=== PATIENT | female | born 1955 | race Caucasian/White ===

== ENCOUNTER → 2017-08-10 13:32 | Outpatient (CLI) | payer BC, SELFPAY ==
--- NOTE | 2017-08-10 13:51 | VDLE_ITS ---
Reason For Study: edema RIGHT LEFT GSV is normal. GSV is normal. CFV is compressible, spontaneous, phasic, CFV is compressible, spontaneous, phasic, competent and demonstrates normal competent, and demonstrates normal augmentation. augmentation. FV is compressible, spontaneous, phasic, FV is compressible, spontaneous, phasic, competent and demonstrates normal competent and demonstrates normal augmentation. augmentation. POP V is compressible, spontaneous, phasic, POP V is compressible, spontaneous, phasic, competent and demonstrates normal competent and demonstrates normal augmentation. augmentation. T/P Trunk is compressible. T/P Trunk is compressible. PTV is compressible. PTV is compressible. RT PerV is compressible. LT PerV is compressible. Procedure Exam performed in department. A preliminary report was called and/or faxed to DR VIGIL. Interpretation Summary Deep veins of the lower extremities are bilaterally patent and compressible segmentally. There is no evidence of deep vein thrombosis on either side. Valvular competence appears intact within the proximal deep venous systems bilaterally. The greater saphenous veins appear bilaterally patent and compressible segmentally. Ordering Physician: Gianni Vigil Referring Physician: LIZZ ALLISON Performed By: Paola Alonso, KATHLEEN, RVT
[2017-08-10 14:27] LABS: D-Dimer Quantitative (DVT/PE) 0.46 FEU/ug/m (0.27-0.49)
[2017-08-10 14:47] LABS: Erythrocyte Sedimentation Rate 19 mm/hr (0-30); Hematocrit 23.8 % (37-47); Hemoglobin 6.2 g/dl (12.0-15.0); Mean Corp Hgb Conc 26.1 g/gl (32-36); Mean Corpuscular Hgb 17.6 pg (27.0-32.0); Mean Corpuscular Volume 67.6 fL (81-99); Mean Platelet Vol. 9.2 fl (6.2-12.0); Platelet Count 338 K/mm3 (150-450); RBC Distribution Width CV 21.8 % (11.6-14.6); RBC Distribution Width SD 52.8 fl (35.1-43.9); Red Blood Count 3.52 M/mm3 (4.2-5.4)
[2017-08-10 14:48] LABS: Scan Indicated on CBC? Y/N YES- FLAGS NOTED
== END ==
PROVIDERS: Family Provider Family Medicine; PCP Family Medicine; Visit Provider Internal Medicine Pulmonary Disease
DX: R60.0 Localized edema (principal); R06.00 Dyspnea, unspecified; R60.9 Edema, unspecified; M25.50 Pain in unspecified joint
CPT/HCPCS: 36415; 85027; 85379; 85652; 93970

== ENCOUNTER → 2017-08-12 11:58 | Outpatient (CLI) | payer BC, SELFPAY | PROVIDERS: Family Provider Family Medicine; PCP Family Medicine; Visit Provider Internal Medicine Pulmonary Disease | DX: J44.9 Chronic obstructive pulmonary disease, unspecified (principal); R06.00 Dyspnea, unspecified | CPT/HCPCS: 87070; 87205 ==

== ENCOUNTER → 2017-09-02 06:57 | Outpatient (CLI) | payer BC, SELFPAY ==
--- NOTE | 2017-09-02 06:59 | ECHOCS_ITS ---
Reason For Study: SOB, AVR Procedure This was a 2D Doppler, Color Flow transthoracic echocardiogram. Exam performed in department. Left Ventricle Normal size and thickness. The estimated ejection fraction is 65 %. Stage 2 diastolic dysfunction. No regional wall motion abnormalities noted. Right Ventricle Normal size and thickness. Normal systolic function. Atria The left atrium is severely enlarged. Normal right atrium. Normal atrial septum. Mitral Valve The mitral valve is structurally normal. No prolapse or stenosis seen. Trivial mitral valve insufficiency. Tricuspid Valve Normal tricuspid valve. Trivial tricuspid valve insufficiency. Right ventricular systolic pressure estimated to be 45 mmHg. Mild pulmonary hypertension. Aortic Valve Peak aortic valve gradient 45 mmHg. Mean aortic valve gradient 23 mmHg. Bioprosthetic aortic valve. Pulmonic Valve Normal pulmonic valve. Great Vessels Normal aortic root. Normal arch. Normal inferior vena cava. Inferior vena cava collapse with sniff. Pericardium/Pleural No pericardial effusion. Medication Definity0.3ml given slow IV push to enhance endocardial definition. MMode/2D Measurements & Calculations LVIDd: 4.9 cm IVSd: 1.2 cm LVOT diam: 2.0 cm LVIDs: 2.7 cm LVPWd: 1.2 cm LVOT area: 3.1 cm2 FS: 45.0 % Ao root diam: 3.4 cm LAV(MOD-bp): 74.4 ml LA A4 area: 25.5 cm2 LA dimension: 5.0 cm LAV(MOD-bp) Indexed: 38.1 ml/m2 LAV(MOD-sp2): 65.5 ml LAV(MOD-sp4): 81.3 ml RA A4 area: 18.2 cm2 Doppler Measurements & Calculations MV E max stew: 134.4 cm/sec Lat Peak E' Stew: 9.2 cm/sec Med Peak E' Stew: 6.5 cm/sec MV A max stew: 85.1 cm/sec E/E' lat: 14.7 E/E' med: 20.6 MV E/A: 1.6 Ao V2 max: 338.2 cm/sec LV V1 max: 137.5 cm/sec SV(LVOT): 101.0 ml Ao max P.8 mmHg LV V1 max P.6 mmHg Ao V2 mean: 227.9 cm/sec LV V1 mean P.4 mmHg Ao mean P.2 mmHg LV V1 mean: 100.3 cm/sec Ao V2 VTI: 74.5 cm LV V1 VTI: 33.0 cm GAURI(I,D): 1.4 cm2 GARUI(V,D): 1.2 cm2 PA V2 max: 128.1 cm/sec TR max stew: 306.3 cm/sec TR max P.6 mmHg Interpretation Summary The estimated ejection fraction is 65 %. Stage 2 diastolic dysfunction. The left atrium is severely enlarged. Trivial tricuspid valve insufficiency. Right ventricular systolic pressure estimated to be 45 mmHg. Mild pulmonary hypertension. Normal functioning bBioprosthetic aortic valve. AVR peak/mean gradients of 45/23 mm Hg, which are higher than normal. This may be due to anemia if present or small nature of AVR. The study was technically difficult. Contrast injection was performed. There is no comparison study available. Ordering Physician: Rafita Zhong Referring Physician: Rafita Zhong V Performed By: Beata Diane RDCS
--- NOTE | 2017-09-02 10:28 | STRESSREP ---
Stress Test Report Pharmacologic myocardial perfusion stress test. 62-year-old lady with a history of shortness of breath. Medications Ecotrin Xanax amlodipine atorvastatin and metoprolol. Stress protocol Resting EKG demonstrates normal sinus rhythm with a rate of 77 bpm. Normal intervals and noted resting blood pressure 730/80 mmHg. 0.4 mg of regadenoson was infused per usual protocol followed by rapid intravenous saline flush injection. The maximum heart rate attained was 88 bpm which was 55% maximum predicted heart rate maximum workload was 1 metabolic equivalent. At rest there were no ST or T-wave changes noted suggest abnormal flow reserve at peak infusion no ST or T-wave changes were noted suggest abnormal flow reserve. Resting blood pressure is 130/80 mmHg with a final blood pressure 112/62 mmHg. Myocardial perfusion protocol. 0.9 mCi of technetium 99m sestamibi was injected at rest. 0.4 mg regadenoson was infused per usual protocol. Peak infusion 34.1 mCi of technetium 99m sestamibi was injected stress images were obtained stress and rest images were reconstructed and compared in the short axis vertical and horizontal long axis. Gated images were also obtained. Perfusion SPECT analysis:. Review of the stress images demonstrate normal uptake of tracer noted in all areas myocardium except for small portion of the apex with mild reduction. The resting images demonstrate a similar patent. No previous infarct is noted no ischemia is present. Gated SPECT analysis: The gated ejection fraction is noted to be 70%. Conclusion: Normal pharmacologic myocardial perfusion stress test. Preserved ejection fraction.
== END ==
PROVIDERS: Family Provider Family Medicine; PCP Family Medicine; Visit Provider Internal Medicine Cardiovascular Disease
DX: R06.02 Shortness of breath (principal); Z95.2 Presence of prosthetic heart valve
CPT/HCPCS: 78452; 93017; 93306; A9500; Q9957; A4216; C8929; J2785

== ENCOUNTER → 2017-09-04 11:43 | Outpatient (CLI) | payer BC, SELFPAY ==
[2017-09-04 13:03] LABS: Hemoglobin 5.9 g/dl (12.0-15.0); Mean Corp Hgb Conc 25.7 g/gl (32-36); Mean Corpuscular Volume 66.3 fL (81-99); Mean Platelet Vol. 9.8 fl (6.2-12.0); Platelet Count 403 K/mm3 (150-450); RBC Distribution Width CV 20.9 % (11.6-14.6); RBC Distribution Width SD 50.6 fl (35.1-43.9); Red Blood Count 3.47 M/mm3 (4.2-5.4); White Blood Count 5.8 K/mm3 (4.4-11.0)
[2017-09-04 13:04] LABS: Scan Indicated on CBC? Y/N YES- FLAGS NOTED
[2017-09-04 13:22] LABS: Anion Gap 8 (5-15); BUN 20 mg/dL (7-18); BUN/Creat Ratio 32.9 RATIO (10-20); Calcium,Total 8.9 mg/dL (8.5-10.1); Chloride 106 mmol/L (98-107); Creatinine, Serum 0.61 mg/dL (0.55-1.02); EST Glomerular Filtration Rate 106 mL/min (>60); Est Glom Filt Rate - Afr Amer 129 mL/min (>60); Glucose 105 mg/dL (74-106); Potassium 4.1 mmol/L (3.5-5.1); Sodium Level 141 mmol/L (136-145)
[2017-09-07 11:18] LABS: Pathologist Review Reviewed
== END ==
PROVIDERS: Family Provider Family Medicine; PCP Family Medicine; Visit Provider Physician Assistant Medical
DX: I25.10 Atherosclerotic heart disease of native coronary artery without angina pectoris (principal); I50.32 Chronic diastolic (congestive) heart failure; I35.0 Nonrheumatic aortic (valve) stenosis; Z95.1 Presence of aortocoronary bypass graft
CPT/HCPCS: 36415; 80048; 85027

== ENCOUNTER 2017-09-07 13:00 | Observation (INO) | payer BC, SELFPAY ==
[2017-09-07] VITALS (20 sets, daily range): BP systolic 88–163; BP diastolic 48–95; PULSE 58–79; RESP 18–24; TEMP 36.2–37.2; O2SAT 94–100; BMI 36.0; BMI 36.3
[2017-09-07 13:40] LABS: Hematocrit 21.9 % (37-47); Mean Corpuscular Hgb 17.6 pg (27.0-32.0); Mean Corpuscular Volume 67.6 fL (81-99); Mean Platelet Vol. 10.2 fl (6.2-12.0); Platelet Count 359 K/mm3 (150-450); RBC Distribution Width CV 21.8 % (11.6-14.6); Red Blood Count 3.24 M/mm3 (4.2-5.4); White Blood Count 5.4 K/mm3 (4.4-11.0)
--- NOTE | 2017-09-07 13:42 | ED.RN ---
notified Dr. Peterson of b 5.7
[2017-09-07 13:44] LABS: Hemoglobin 5.7 g/dl (12.0-15.0); Scan Indicated on CBC? Y/N YES- FLAGS NOTED
[2017-09-07 13:46] LABS: International Normalized Ratio 1.1; Prothrombin Time (Protime)PT. 14.5 SECONDS (11.7-14.9)
[2017-09-07 13:47] LABS: Partial Thromboplast Time 29.5 Seconds (24.1-36.2)
[2017-09-07 13:50] LABS: Anion Gap 7 (5-15); BUN 10 mg/dL (7-18); BUN/Creat Ratio 15.7 RATIO (10-20); Calcium,Total 8.9 mg/dL (8.5-10.1); Chloride 106 mmol/L (98-107); Creatinine, Serum 0.64 mg/dL (0.55-1.02); EST Glomerular Filtration Rate 101 mL/min (>60); Est Glom Filt Rate - Afr Amer 122 mL/min (>60); Estimated Creatinine Clearance 76.36 ml/min; Glucose 109 mg/dL (74-106); Potassium 4.2 mmol/L (3.5-5.1); Sodium Level 140 mmol/L (136-145)
--- NOTE | 2017-09-07 13:51 | EKG12_ITS ---
Test Reason : Blood Pressure : / mmHG Vent. Rate : 061 BPM Atrial Rate : 061 BPM P-R Int : 162 ms QRS Dur : 096 ms QT Int : 442 ms P-R-T Axes : 024 030 059 degrees QTc Int : 444 ms Normal sinus rhythm Normal ECG Confirmed by MURIEL FERRER ([id number]), continuity editor ORIN BACON ([id number]) on 09/10/2017 2:34:10 PM Referred By: Maria De Jesus Flynn Confirmed By:MURIEL FERRER
[2017-09-07 14:08] LABS: Differential Comment SCANNED
--- NOTE | 2017-09-07 14:18 | ED.DCSUM_ITS ---
- ER Visit Summary Date of Service: 09/07/17 Chief Complaint: Anemia History of Present Illness: The patient is a [address] Byrne off. She reports that she had outpatient blood work on the showed hemoglobin of 5.9. She denies any known blood loss. No bloody nose or injuries. No blood in her urine. She has had this multiple times in the past they have not been able to find a source. Last colonoscopy was a few months ago by Dr. Willson. Last endoscopy was April 2016. On review of systems patient reports that she is short of breath when she walks around. She reports that she has chest pain occasionally as well. Last episode was yesterday. Last approximately 1 minute while she was at rest. States was 4 out of 10 at worst. She describes pain as sharp. Physical Examination: Vitals: Stable. Afebrile. General: Well-nourished and well-developed. Head: Normocephalic atraumatic. Neck: Supple, no lymphadenopathy. No JVD. Nontender. Cardiovascular: Regular rate and rhythm. No murmurs. Respiratory: No respiratory distress. Clear to auscultation bilaterally. Abdominal: Soft, nontender, nondistended, normal bowel sounds. No guarding, rebound, or peritoneal signs. Back: Nontender. Extremities: Nontender, 1+ pitting edema to her lower extremities bilaterally. Skin: Normal color, no rash. Neurologic: Alert and oriented ?3. Cranial nerves II through XII are intact. Normal strength and sensation. Psych: Normal affect. Test Results: EKG is sinus at [address] changes. Troponins negative. Coags are normal. Chem-7 is more for glucose 109. CBC shows a hemoglobin of 5.7. Emergency Department Course and Treatment: Orthostatic vital signs were negative. She was typed and crossed for 2 units packed red blood cells. Treatment Plan: The patient was discussed with Dr. Sweet. She will be admitted to the hospital for further evaluation and treatment. Disposition: Admitted in stable condition. Impression: 1. Anemia. This note was generated with [employer] software. It may contain incorrect words, spelling, and punctuation that were not noted in review of the chart prior to signing ED Disposition - Plan for ED Patient: Chief Complaint: Abn Labs Referrals: Caleb Mason MD [Primary Care Provider] -
--- NOTE | 2017-09-07 14:50 | PCM.HP.STD ---
Problem List (1) Anemia Status: Acute (2) CAD (coronary artery disease) Status: Chronic Qualifiers: Coronary Disease-Associated Artery/Lesion type: bypass graft [place] vs. transplanted heart: [place] heart Associated angina: with stable angina Qualified Code(s): I25.708 - Atherosclerosis of coronary artery bypass graft(s), unspecified, with other forms of angina pectoris (3) COPD (chronic obstructive pulmonary disease) Status: Chronic Qualifiers: COPD type: unspecified COPD Qualified Code(s): J44.9 - Chronic obstructive pulmonary disease, unspecified (4) Chronic respiratory failure Status: Acute Qualifiers: Respiratory failure complication: hypoxia Qualified Code(s): J96.11 - Chronic respiratory failure with hypoxia (5) History of prosthetic aortic valve replacement Status: Chronic Comment: 21mm [facility] Trifecta (6) Chronic diastolic heart failure Status: Chronic (7) Pulmonary hypertension, secondary Status: Chronic (8) Angina pectoris Status: Chronic (9) Hypertension, benign Status: Chronic History of Present Illness Date of Admission: 09/07/17 Chief Complaint: anemia The patient is a 62 year old F with a known history of coronary artery disease and COPD resents with dyspnea on exertion and stable angina. Patient had a hemoglobin checked through her telephone order dispatcher, Dr. Benton, and was done on August 10, it was 6.2. Patient states that she was never told of these numbers. Patient had lab work on the that showed hemoglobin of 5.9. Patient was made aware of the hemoglobin instructed go to the emergency room. Hemoglobin today is 5.7. Patient has been typed and crossed for 2 units and is yet to receive her red blood cells at this time. Patient denies any hematuria, hematochezia, bruising. Colonoscopy in January that was negative. EGD performed in July 2015 was negative as well. [] Past Medical History Past Medical History (Chronic Problems): Chronic Problems (Last Reviewed 08/05/17 @ 16:06 by Maria De Jesus Desouza) CAD (coronary artery disease) (Chronic) COPD (chronic obstructive pulmonary disease) (Chronic) Aortocoronary bypass status (Chronic ~06/05/16) CABG x1 ANDRES to LAD 06/05/16 History of prosthetic aortic valve replacement (Chronic ~06/05/16) 21mm [facility] Trifecta Chronic diastolic heart failure (Chronic) Pulmonary hypertension, secondary (Chronic) Cardiomegaly (Chronic) Nonrheumatic aortic (valve) stenosis (Chronic) Atherosclerotic heart disease of [place] coronary artery without angina pectoris (Chronic) CABG x3- ANDRES to LAD, SVG to ramus branch of CFX, SVG to RCA 07/03 Angina pectoris (Chronic) Hypertension, benign (Chronic) Allergies ibuprofen Allergy (Verified 09/07/17 13:04) Hives adhesive tape Adverse Reaction (Unknown, Verified 09/07/17 13:04) Unknown Home Medications: Ambulatory Orders Medication Instructions Recorded ALPRAZolam [Xanax] 0.5 mg PO TID PRN PRN 06/19/14 Calcium Citrate/Vitamin D3 [Hm 1 ea PO DAILY 06/19/14 Calcium Citrate-Vit D3 Tab] Fluoxetine [Prozac] 40 mg PO DAILY 06/19/14 Pantoprazole Sodium [Protonix] 40 mg PO DAILY 06/19/14 Acetaminophen [Tylenol] 325 mg PO ACHS & 0200 PRN 07/17/16 metformin 500 mg tablet 500 mg PO DAILY tab 08/03/17 levothyroxine 175 mcg tablet 175 mcg PO MOTUWETHFRSA tab 08/05/17 Amlodipine Besylate [Norvasc] 5 mg PO DAILY 09/07/17 Atorvastatin Calcium [Lipitor] 40 mg PO QHS 09/07/17 Ferrous Sulfate 325 mg PO DAILY 09/07/17 Levothyroxine [Synthroid] 1.5 tab PO PATRICK 09/07/17 Metoprolol Tartrate [Lopressor 12.5 mg PO BID 09/07/17 (beta gerardo)] Mv-Mn/Folic Acid/Calcium/Vit K 1 each PO DAILY 09/07/17 [Women's 50 Plus Daily Formula] Surgical History: coronary bypass surgery - x1 at [facility], total hip arthroplasty - left hip., - - Thyroidectomy removal of laryngeal nodule, . Carpal tunnel surg right hand. 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 Thyroidectomy. Right heel spur removed. Aortic valve replacements, bioprosthetic. Smoking Status: Former smoker - *Family History Maternal History Items: - - colon cancer Review of Systems Constitutional: Denies: Anorexia, Fever Eyes: Denies: Blurred vision, Double vision HEENT: Denies: Head Aches, Sinus Congestion, Sinus Drainage Cardiovascular: Reports: Chest Pain Respiratory: Reports: Cough, Shortness of Breath, Shortness of breath upon exertion Gastrointestinal: Denies: Abdominal Pain, Nausea, Vomiting Genitourinary: Denies: Dysuria, Hematuria Musculoskeletal: Denies: Joint Pain, Joint Tenderness Skin: Denies: Rash, Wounds Neurological: Denies: Balance problems, Blurred vision, Double vision Psychiatric: Reports: Anxiety, Depression Hematologic/ Lymphatic: Denies: Easy Bruising, Easy Bleeding, Hx of blood clot VTE Information - Inpt Only VTE Present on Admission: No VTE Mechan Device Prophylaxis: SCD's VTE Pharm Prophylaxis ordered?: No Reason prophylaxis not ordered:: Medical Contraindication Patient Problems: Active and Suspected Problems (Last Reviewed 08/05/17 @ 16:06 by Maria De Jesus Desouza) Anemia (Acute) Chronic respiratory failure (Acute) - Physical Exam General: Alert, Cooperative, No apparent distress HEENT: Atraumatic, Normocephalic Neck: No Nodes, Thyroid Normal Size and Texture Lungs: Clear to auscultation, Normal air movement, No rhonchi, No wheeze Cardiovascular: Regular rate, Regular Rhythm, Normal S1, Normal S2, - - Aortic valve murmur Abdomen: Bowel Sounds Present, Soft, Non Tender Extremities: No edema, No Calf Tenderness Skin: No rashes, No breakdown Musculoskeletal: No Tenderness to Palpation of Joints or Extremities, No Muscle Wasting Neurological: - - no clonus. +1 out of 4 DTRs in lower extremity. Psych/Mental Status: Normal Affect, Appropriate Vital Signs Temp Pulse Resp BP Pulse Ox 36.8 C 63 19 H 106/66 97 09/07/17 14:15 09/07/17 14:15 09/07/17 14:15 09/07/17 14:15 09/07/17 14:15 Oxygen Flow Rate (L/min) 3 Oxygen Delivery Method Room Air Weight: 92.3 kg Body Mass Index (BMI) 36.0 Laboratory Tests Past 24 Hrs 09/07/17 09/07/17 09/07/17 13:28 13:28 13:28 WBC 5.4 RBC 3.24 L Hgb 5.7 L* Hct 21.9 L MCV 67.6 L MCH 17.6 L MCHC 26.0 L RDW 21.8 H RDW Differential 50.0 H Plt Count 359 MPV 10.2 Differential Comment SCANNED PT 14.5 INR 1.1 APTT 29.5 Sodium 140 Potassium 4.2 Chloride 106 Carbon Dioxide 27.0 Anion Gap 7 BUN 10 Creatinine 0.64 Estim Creat Clear Calc 76.36 Est GFR (MDRD) Af Amer 122 Est GFR (MDRD) Non-Af 101 BUN/Creatinine Ratio 15.7 Glucose 109 H Calcium 8.9 Troponin I Blood Type Antibody Screen Crossmatch 09/07/17 09/07/17 13:28 13:28 WBC RBC Hgb Hct MCV MCH MCHC RDW RDW Differential Plt Count MPV Differential Comment PT INR APTT Sodium Potassium Chloride Carbon Dioxide Anion Gap BUN Creatinine Estim Creat Clear Calc Est GFR (MDRD) Af Amer Est GFR (MDRD) Non-Af BUN/Creatinine Ratio Glucose Calcium Troponin I < 0.02 Blood Type O POSITIVE Antibody Screen NEGATIVE Crossmatch See Detail Assessment/Plan Active and Suspected Problems (Last Reviewed 08/05/17 @ 16:06 by Maria De Jesus Desouza) Anemia (Acute) Chronic respiratory failure (Acute) 1. Anemia Is been more of a chronic process. Patient's hemoglobin was 6.2 a month ago and now it is 5.7. This is more of a chronic/subacute blood loss. Patient will be transfused 2 units of packed red blood cells. Patient will be admitted so that she can receive these transfusions. And has had workup in the past with EGD and colonoscopy, which have both been negative. Recommend patient follow-up with Dr. Willson as outpatient to see if she would be a candidate for capsule endoscopy. I did mention this to the patient and told her that it may be helpful in identifying a potential source of bleeding but likely could not do anything about that. Upon discharge, I would recommend patient have serial hemoglobins every 2 weeks until they can be sure to be stable. And probably would recommend it being done monthly thereafter. 2. Chest pain Patient does have underlying coronary artery disease and has been taken off of her aspirin as of this past Thursday. Patient did have a stress test performed on September 02 which was negative. No new workup is necessary at this time. 3. Dyspnea on exertion likely multifactorial, but given patient's Chronic respiratory failure due to COPD and what looks like some pulmonary scarring plus or coronary artery disease and anemia. Patient continue with oxygen and to follow-up with her telephone order dispatcher as outpatient. 4. DVT prophylaxis SCDs, as chemical prophylaxis is contraindicated with the patient's anemia. 5. Advanced care planning Discussed with the patient about CPR. Patient wishes to be full code at this time. This note was generated with [employer] dictation software. It may contain incorrect words, spelling, and punctuation that were not noted in checking the note before signing. Code Visit OBSV E&M: 58423 Initial observation care L3
--- NOTE | 2017-09-07 15:04 | HP.PCM_ITS ---
Problem List (1) Anemia Status: Acute (2) CAD (coronary artery disease) Status: Chronic Qualifiers: Coronary Disease-Associated Artery/Lesion type: bypass graft [place] vs. transplanted heart: [place] heart Associated angina: with stable angina Qualified Code(s): I25.708 - Atherosclerosis of coronary artery bypass graft(s) , unspecified, with other forms of angina pectoris (3) COPD (chronic obstructive pulmonary disease) Status: Chronic Qualifiers: COPD type: unspecified COPD Qualified Code(s): J44.9 - Chronic obstructive pulmonary disease, unspecified (4) Chronic respiratory failure Status: Acute Qualifiers: Respiratory failure complication: hypoxia Qualified Code(s): J96.11 - Chronic respiratory failure with hypoxia (5) History of prosthetic aortic valve replacement Status: Chronic Comment: 21mm [facility] [place] Trifecta (6) Chronic diastolic heart failure Status: Chronic (7) Pulmonary hypertension, secondary Status: Chronic (8) Angina pectoris Status: Chronic (9) Hypertension, benign Status: Chronic History of Present Illness Date of Admission: 09/07/17 Chief Complaint: anemia The patient is a 62 year old F with a known history of coronary artery disease and COPD resents with dyspnea on exertion and stable angina. Patient had a hemoglobin checked through her ecclesiastical worker, Dr. Benton, and was done on August 10, it was 6.2. Patient states that she was never told of these numbers. Patient had lab work on the that showed hemoglobin of 5.9. Patient was made aware of the hemoglobin instructed go to the emergency room. Hemoglobin today is 5.7. Patient has been typed and crossed for 2 units and is yet to receive her red blood cells at this time. Patient denies any hematuria, hematochezia, bruising. Colonoscopy in January that was negative. EGD performed in July 2015 was negative as well. [] Past Medical History Past Medical History (Chronic Problems): Chronic Problems (Last Reviewed 08/05/17 @ 16:06 by Maria De Jesus Desouza) CAD (coronary artery disease) (Chronic) COPD (chronic obstructive pulmonary disease) (Chronic) Aortocoronary bypass status (Chronic ~06/05/16) CABG x1 ANDRES to LAD 06/05/16 History of prosthetic aortic valve replacement (Chronic ~06/05/16) 21mm [facility] [place] Trifecta Chronic diastolic heart failure (Chronic) Pulmonary hypertension, secondary (Chronic) Cardiomegaly (Chronic) Nonrheumatic aortic (valve) stenosis (Chronic) Atherosclerotic heart disease of [place] coronary artery without angina pectoris (Chronic) CABG x3- ANDRES to LAD, SVG to ramus branch of CFX, SVG to RCA 07/03 Angina pectoris (Chronic) Hypertension, benign (Chronic) Allergies ibuprofen Allergy (Verified 09/07/17 13:04) Hives adhesive tape Adverse Reaction (Unknown, Verified 09/07/17 13:04) Unknown Home Medications: Ambulatory Orders Medication Instructions Recorded ALPRAZolam [Xanax] 0.5 mg PO TID PRN PRN 06/19/14 Calcium Citrate/Vitamin D3 [Hm 1 ea PO DAILY 06/19/14 Calcium Citrate-Vit D3 Tab] Fluoxetine [Prozac] 40 mg PO DAILY 06/19/14 Pantoprazole Sodium [Protonix] 40 mg PO DAILY 06/19/14 Acetaminophen [Tylenol] 325 mg PO ACHS & 0200 PRN 07/17/16 metformin 500 mg tablet 500 mg PO DAILY tab 08/03/17 levothyroxine 175 mcg tablet 175 mcg PO MOTUWETHFRSA tab 08/05/17 Amlodipine Besylate [Norvasc] 5 mg PO DAILY 09/07/17 Atorvastatin Calcium [Lipitor] 40 mg PO QHS 09/07/17 Ferrous Sulfate 325 mg PO DAILY 09/07/17 Levothyroxine [Synthroid] 1.5 tab PO PATRICK 09/07/17 Metoprolol Tartrate [Lopressor 12.5 mg PO BID 09/07/17 (beta gerardo)] Mv-Mn/Folic Acid/Calcium/Vit K 1 each PO DAILY 09/07/17 [Women's 50 Plus Daily Formula] Surgical History: coronary bypass surgery - x1 at [facility], total hip arthroplasty - left hip., - - Thyroidectomy removal of laryngeal nodule, . Carpal tunnel surg right hand. 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 Thyroidectomy. Right heel spur removed. Aortic valve replacements, bioprosthetic. Smoking Status: Former smoker - *Family History Maternal History Items: - - colon cancer Review of Systems Constitutional: Denies: Anorexia, Fever Eyes: Denies: Blurred vision, Double vision HEENT: Denies: Head Aches, Sinus Congestion, Sinus Drainage Cardiovascular: Reports: Chest Pain Respiratory: Reports: Cough, Shortness of Breath, Shortness of breath upon exertion Gastrointestinal: Denies: Abdominal Pain, Nausea, Vomiting Genitourinary: Denies: Dysuria, Hematuria Musculoskeletal: Denies: Joint Pain, Joint Tenderness Skin: Denies: Rash, Wounds Neurological: Denies: Balance problems, Blurred vision, Double vision Psychiatric: Reports: Anxiety, Depression Hematologic/ Lymphatic: Denies: Easy Bruising, Easy Bleeding, Hx of blood clot VTE Information - Inpt Only VTE Present on Admission: No VTE Mechan Device Prophylaxis: SCD's VTE Pharm Prophylaxis ordered?: No Reason prophylaxis not ordered:: Medical Contraindication Patient Problems: Active and Suspected Problems (Last Reviewed 08/05/17 @ 16:06 by Maria De Jesus Desouza) Anemia (Acute) Chronic respiratory failure (Acute) - Physical Exam General: Alert, Cooperative, No apparent distress HEENT: Atraumatic, Normocephalic Neck: No Nodes, Thyroid Normal Size and Texture Lungs: Clear to auscultation, Normal air movement, No rhonchi, No wheeze Cardiovascular: Regular rate, Regular Rhythm, Normal S1, Normal S2, - - Aortic valve murmur Abdomen: Bowel Sounds Present, Soft, Non Tender Extremities: No edema, No Calf Tenderness Skin: No rashes, No breakdown Musculoskeletal: No Tenderness to Palpation of Joints or Extremities, No Muscle Wasting Neurological: - - no clonus. +1 out of 4 DTRs in lower extremity. Psych/Mental Status: Normal Affect, Appropriate Vital Signs Temp Pulse Resp BP Pulse Ox 36.8 C 63 19 H 106/66 97 09/07/17 14:15 09/07/17 14:15 09/07/17 14:15 09/07/17 14:15 09/07/17 14:15 Oxygen Flow Rate (L/min) 3 Oxygen Delivery Method Room Air Weight: 92.3 kg Body Mass Index (BMI) 36.0 Laboratory Tests Past 24 Hrs 09/07/17 09/07/17 09/07/17 13:28 13:28 13:28 WBC 5.4 RBC 3.24 L Hgb 5.7 L* Hct 21.9 L MCV 67.6 L MCH 17.6 L MCHC 26.0 L RDW 21.8 H RDW Differential 50.0 H Plt Count 359 MPV 10.2 Differential Comment SCANNED PT 14.5 INR 1.1 APTT 29.5 Sodium 140 Potassium 4.2 Chloride 106 Carbon Dioxide 27.0 Anion Gap 7 BUN 10 Creatinine 0.64 Estim Creat Clear Calc 76.36 Est GFR (MDRD) Af Amer 122 Est GFR (MDRD) Non-Af 101 BUN/Creatinine Ratio 15.7 Glucose 109 H Calcium 8.9 Troponin I Blood Type Antibody Screen Crossmatch 09/07/17 09/07/17 13:28 13:28 WBC RBC Hgb Hct MCV MCH MCHC RDW RDW Differential Plt Count MPV Differential Comment PT INR APTT Sodium Potassium Chloride Carbon Dioxide Anion Gap BUN Creatinine Estim Creat Clear Calc Est GFR (MDRD) Af Amer Est GFR (MDRD) Non-Af BUN/Creatinine Ratio Glucose Calcium Troponin I < 0.02 Blood Type O POSITIVE Antibody Screen NEGATIVE Crossmatch See Detail Assessment/Plan Active and Suspected Problems (Last Reviewed 08/05/17 @ 16:06 by Maria De Jesus Desouza) Anemia (Acute) Chronic respiratory failure (Acute) 1. Anemia * Is been more of a chronic process. Patient's hemoglobin was 6.2 a month ago and now it is 5.7. This is more of a chronic/subacute blood loss. * Patient will be transfused 2 units of packed red blood cells. Patient will be admitted so that she can receive these transfusions. * And has had workup in the past with EGD and colonoscopy, which have both been negative. Recommend patient follow-up with Dr. Willson as outpatient to see if she would be a candidate for capsule endoscopy. I did mention this to the patient and told her that it may be helpful in identifying a potential source of bleeding but likely could not do anything about that. * Upon discharge, I would recommend patient have serial hemoglobins every 2 weeks until they can be sure to be stable. And probably would recommend it being done monthly thereafter. 2. Chest pain * Patient does have underlying coronary artery disease and has been taken off of her aspirin as of this past Thursday. Patient did have a stress test performed on September 02 which was negative. No new workup is necessary at this time. 3. Dyspnea on exertion likely multifactorial, but given patient's * Chronic respiratory failure due to COPD and what looks like some pulmonary scarring plus or coronary artery disease and anemia. * Patient continue with oxygen and to follow-up with her ecclesiastical worker as outpatient. 4. DVT prophylaxis * SCDs, as chemical prophylaxis is contraindicated with the patient's anemia. 5. Advanced care planning * Discussed with the patient about CPR. Patient wishes to be full code at this time. This note was generated with Attenexation software. It may contain incorrect words, spelling, and punctuation that were not noted in checking the note before signing. Code Visit OBSV E&M: 14577 Initial observation care L3
[2017-09-07] MEDS: Calcium Carb/Vitamin D 1 TABLET Tablet PO (17:21)
[2017-09-07] MEDS: Acetaminophen 325 MG Tablet PO (18:54)
[2017-09-07] MEDS: Atorvastatin Calcium 40 MG Tablet PO (21:49)
[2017-09-07] MEDS: Metoprolol Tartrate 25 MG Tablet 12.5 MG PO (21:50)
[2017-09-07] MEDS: FLUoxetine 20 MG Capsule 40 MG PO (21:50)
[2017-09-08] VITALS (9 sets, daily range): BP systolic 117–133; BP diastolic 55–75; PULSE 58–67; RESP 18–24; TEMP 36.6–37.3; O2SAT 93–97
[2017-09-08] MEDS: ALPRAZolam 0.5 MG Tablet PO (02:30)
[2017-09-08] MEDS: 0.9% NaCl Peripheral Flush Adult/Peds IV ×3 (02:30→15:00)
[2017-09-08] MEDS: Levothyroxine 175 MCG Tablet PO (06:00)
[2017-09-08 06:56] LABS: Absolute Lymphocyte Count 1.07 X10^3/ul (0.83-4.51); Absolute Neutrophil Count 3.7 X10^3/uL (2.0-7.7); Basophil# 0.04 X10^3/uL; Basophil% 0.7 % (0-1); Eosinophil# 0.13 X10^3/uL; Eosinophils% 2.4 % (0-5); Hematocrit 28.3 % (37-47); Hemoglobin 7.8 g/dl (12.0-15.0); Lymphocyte # 1.07 X10^3/ul (4.0); Lymphocyte % 19.4 % (19-41); Mean Corp Hgb Conc 27.6 g/gl (32-36); Mean Corpuscular Hgb 19.5 pg (27.0-32.0); Mean Corpuscular Volume 70.8 fL (81-99); Mean Platelet Vol. 9.8 fl (6.2-12.0); Monocyte# 0.53 X10^3/uL; Monocyte% 9.6 % (0-10); Neutrophil # 3.72 X10^3/uL (2.7-7.7); Neutrophil % 67.5 % (47-70); Platelet Count 304 K/mm3 (150-450); RBC Distribution Width CV 23.4 % (11.6-14.6); RBC Distribution Width SD 59.4 fl (35.1-43.9); White Blood Count 5.5 K/mm3 (4.4-11.0)
[2017-09-08 06:57] LABS: Differential Indicated SCAN CRITERIA MET; POSITIVE COUNT NO; POSITIVE DIFFERENTIAL NO; POSITIVE MORPHOLOGY YES
[2017-09-08 07:00] LABS: Anion Gap 5 (5-15); BUN 10 mg/dL (7-18); BUN/Creat Ratio 18.2 RATIO (10-20); Calcium,Total 8.8 mg/dL (8.5-10.1); Chloride 106 mmol/L (98-107); Creatinine, Serum 0.55 mg/dL (0.55-1.02); EST Glomerular Filtration Rate 120 mL/min (>60); Est Glom Filt Rate - Afr Amer 145 mL/min (>60); Estimated Creatinine Clearance 88.86 ml/min; Glucose 105 mg/dL (74-106); Sodium Level 140 mmol/L (136-145)
[2017-09-08] MEDS: Multivitamins,Ther W-Minerals Tablet 1 TABLET PO (09:09)
[2017-09-08] MEDS: Metoprolol Tartrate 25 MG Tablet 12.5 MG PO (09:09)
[2017-09-08] MEDS: Ferrous Sulfate 325 MG Tablet PO (09:09)
[2017-09-08] MEDS: amLODIPine 5 MG Tablet PO (09:10)
[2017-09-08] MEDS: Calcium Carb/Vitamin D 1 TABLET Tablet PO (09:10)
[2017-09-08] MEDS: Pantoprazole Sodium 40 MG Tablet PO (09:11)
[2017-09-08] MEDS: FLUoxetine 20 MG Capsule 40 MG PO (09:11)
[2017-09-08 10:07] LABS: Iron 21 ug/dL (50-170); Iron Binding Capacity,Total 425 ug/dL (250-450); PERCENT IRON SATURATION 4.9 % (15.0-55.0)
[2017-09-08] MEDS: Acetaminophen 325 MG Tablet PO (11:31)
[2017-09-08 14:01] LABS: Pathologist Review Reviewed
--- NOTE | 2017-09-08 14:36 | PCM.DC ---
- Discharge Diagnoses Current Active Problems: Current Active and Chronic Problems (Last Reviewed 08/05/17 @ 16:06 by Maria De Jesus Desouza) Anemia (Acute) CAD (coronary artery disease) (Chronic) COPD (chronic obstructive pulmonary disease) (Chronic) Chronic respiratory failure (Acute) You will use the following diet at home:: No restrictions Your food should be the consistency of: Regular Your liquids should be the consistency of: Regular/Thin Discharge Activity: Return to Normal Activity Weight Bearing Status: Full weight bearing Allergies/Adverse Reactions: Allergies ibuprofen Allergy (Verified 09/07/17 13:04) Hives adhesive tape Adverse Reaction (Unknown, Verified 09/07/17 13:04) Unknown Medications to take at Discharge ALPRAZolam [Xanax] 0.5 mg PO TID PRN PRN 06/19/14 Calcium Citrate/Vitamin D3 [Hm Calcium Citrate-Vit D3 Tab] 1 ea PO DAILY 06/19/14 Fluoxetine [Prozac] 40 mg PO DAILY 06/19/14 Pantoprazole Sodium [Protonix] 40 mg PO DAILY 06/19/14 Acetaminophen [Tylenol] 325 mg PO ACHS & 0200 PRN 07/17/16 metformin 500 mg tablet 500 mg PO DAILY tab 08/03/17 levothyroxine 175 mcg tablet 175 mcg PO MOTUWETHFRSA tab 08/05/17 Amlodipine Besylate [Norvasc] 5 mg PO DAILY 09/07/17 Atorvastatin Calcium [Lipitor] 40 mg PO QHS 09/07/17 Levothyroxine [Synthroid] 1.5 tab PO PATRICK 09/07/17 Metoprolol Tartrate [Lopressor (beta gerardo)] 12.5 mg PO BID 09/07/17 Mv-Mn/Folic Acid/Calcium/Vit K [Women's 50 Plus Daily Formula] 1 each PO DAILY 09/07/17 Ferrous Sulfate 325 mg PO BID #1 tablet. 09/08/17 The following prescriptions were given: Ferrous Sulfate 325 mg PO BID #1 tablet. Primary Care Physician: Caleb Mason MD [Primary Care Provider] - Please follow up with your Primary Care Physician in: this week-CBC must be drawn on or Thursday
--- NOTE | 2017-09-10 18:34 | PCM.DC.SUM ---
Discharge Date and Diagnosis Date of Admission: 09/07/17 Date of Discharge: 09/08/17 - Primary Discharge Diagnosis #1 acute on chronic iron deficiency anemia-etiology unclear requiring blood transfusion #2 chronic obstructive pulmonary disease #3 chronic hypoxic respiratory failure - Secondary Discharge Diagnosis Chronic Problems (Last Reviewed 08/05/17 @ 16:06 by Maria De Jesus Desouza) CAD (coronary artery disease) (Chronic) COPD (chronic obstructive pulmonary disease) (Chronic) Aortocoronary bypass status (Chronic ~06/05/16) CABG x1 ANDRES to LAD 06/05/16 History of prosthetic aortic valve replacement (Chronic ~06/05/16) 21mm [facility] Trifecta Chronic diastolic heart failure (Chronic) Pulmonary hypertension, secondary (Chronic) Cardiomegaly (Chronic) Nonrheumatic aortic (valve) stenosis (Chronic) Atherosclerotic heart disease of [place] coronary artery without angina pectoris (Chronic) CABG x3- ANDRES to LAD, SVG to ramus branch of CFX, SVG to RCA 07/03 Angina pectoris (Chronic) Hypertension, benign (Chronic) Hospital Course and Treatment Operations: None Procedures: Blood transfusion Summary of Care Provided: The patient is a 62 year old F was seen in the emergency room at [facility] after being sent in by her can crimper due to a low hemoglobin of 6.2. Hemoglobin rechecked in the emergency room was 5.7. Patient had history of chronic anemia and had had blood transfusions in the past. Patient was placed in observation status on MedSurg 3, she received a total of 3 units of packed red blood cells and was given Venofer. Been worked up for this anemia before and she was advised to continue with her PCP to be considered for an outpatient capsule endoscopy, patient understood this. On 09/08/17, patient was seen and examined and felt to be in stable condition for discharge home Discharge Activity: Return to Normal Activity Weight Bearing Status: Full weight bearing Home Medications: Medications to take at Discharge ALPRAZolam [Xanax] 0.5 mg PO TID PRN PRN 06/19/14 Calcium Citrate/Vitamin D3 [Hm Calcium Citrate-Vit D3 Tab] 1 ea PO DAILY 06/19/14 Fluoxetine [Prozac] 40 mg PO DAILY 06/19/14 Pantoprazole Sodium [Protonix] 40 mg PO DAILY 06/19/14 Acetaminophen [Tylenol] 325 mg PO ACHS & 0200 PRN 07/17/16 metformin 500 mg tablet 500 mg PO DAILY tab 08/03/17 levothyroxine 175 mcg tablet 175 mcg PO MOTUWETHFRSA tab 08/05/17 Amlodipine Besylate [Norvasc] 5 mg PO DAILY 09/07/17 Atorvastatin Calcium [Lipitor] 40 mg PO QHS 09/07/17 Levothyroxine [Synthroid] 1.5 tab PO PATRICK 09/07/17 Metoprolol Tartrate [Lopressor (beta gerardo)] 12.5 mg PO BID 09/07/17 Mv-Mn/Folic Acid/Calcium/Vit K [Women's 50 Plus Daily Formula] 1 each PO DAILY 09/07/17 Ferrous Sulfate 325 mg PO BID #1 tablet. 09/08/17 Following Prescrptions Were Given to Patient: Ferrous Sulfate 325 mg PO BID #1 tablet. Primary Care Physician: Caleb Mason MD [Primary Care Provider] - Please follow up with your Primary Care Physician in: this week-CBC must be drawn on or Thursday Disposition: Home Minutes spent on discharge:: 25 Patient Condition:: Stable Medical Necessity - Tobacco Use Smoking Status: Former smoker Meaningful Use Info Meaningful Use Diagnoses (Choose all that apply): None applicable Code Visit OBSV E&M: 62079 Observation care discharge
--- NOTE | 2017-09-10 18:40 | DS.PCM_ITS ---
Discharge Date and Diagnosis Date of Admission: 09/07/17 Date of Discharge: 09/08/17 - Primary Discharge Diagnosis #1 acute on chronic iron deficiency anemia-etiology unclear requiring blood transfusion #2 chronic obstructive pulmonary disease #3 chronic hypoxic respiratory failure - Secondary Discharge Diagnosis Chronic Problems (Last Reviewed 08/05/17 @ 16:06 by Maria De Jesus Desouza) CAD (coronary artery disease) (Chronic) COPD (chronic obstructive pulmonary disease) (Chronic) Aortocoronary bypass status (Chronic ~06/05/16) CABG x1 ANDRES to LAD 06/05/16 History of prosthetic aortic valve replacement (Chronic ~06/05/16) 21mm [employer] [place] Trifecta Chronic diastolic heart failure (Chronic) Pulmonary hypertension, secondary (Chronic) Cardiomegaly (Chronic) Nonrheumatic aortic (valve) stenosis (Chronic) Atherosclerotic heart disease of [place] coronary artery without angina pectoris (Chronic) CABG x3- ANDRES to LAD, SVG to ramus branch of CFX, SVG to RCA 07/03 Angina pectoris (Chronic) Hypertension, benign (Chronic) Hospital Course and Treatment Operations: None Procedures: Blood transfusion Summary of Care Provided: The patient is a 62 year old F was seen in the emergency room at [facility] after being sent in by her rn behavioral health due to a low hemoglobin of 6.2. Hemoglobin rechecked in the emergency room was 5.7. Patient had history of chronic anemia and had had blood transfusions in the past. Patient was placed in observation status on MedSurg 3, she received a total of 3 units of packed red blood cells and was given Venofer. Been worked up for this anemia before and she was advised to continue with her PCP to be considered for an outpatient capsule endoscopy, patient understood this. On , patient was seen and examined and felt to be in stable condition for discharge home Discharge Activity: Return to Normal Activity Weight Bearing Status: Full weight bearing Home Medications: Medications to take at Discharge ALPRAZolam [Xanax] 0.5 mg PO TID PRN PRN 06/19/14 Calcium Citrate/Vitamin D3 [Hm Calcium Citrate-Vit D3 Tab] 1 ea PO DAILY Fluoxetine [Prozac] 40 mg PO DAILY 06/19/14 Pantoprazole Sodium [Protonix] 40 mg PO DAILY 06/19/14 Acetaminophen [Tylenol] 325 mg PO ACHS & 0200 PRN 07/17/16 metformin 500 mg tablet 500 mg PO DAILY tab 08/03/17 levothyroxine 175 mcg tablet 175 mcg PO MOTUWETHFRSA tab 08/05/17 Amlodipine Besylate [Norvasc] 5 mg PO DAILY 09/07/17 Atorvastatin Calcium [Lipitor] 40 mg PO QHS 09/07/17 Levothyroxine [Synthroid] 1.5 tab PO PATRICK 09/07/17 Metoprolol Tartrate [Lopressor (beta gerardo)] 12.5 mg PO BID 09/07/17 Mv-Mn/Folic Acid/Calcium/Vit K [Women's 50 Plus Daily Formula] 1 each PO DAILY 09/07/17 Ferrous Sulfate 325 mg PO BID #1 tablet. 09/08/17 Following Prescrptions Were Given to Patient: Ferrous Sulfate 325 mg PO BID #1 tablet. Primary Care Physician: Caleb Mason MD [Primary Care Provider] - Please follow up with your Primary Care Physician in: this week-CBC must be drawn on or Thursday Disposition: Home Minutes spent on discharge:: 25 Patient Condition:: Stable Medical Necessity - Tobacco Use Smoking Status: Former smoker Meaningful Use Info Meaningful Use Diagnoses (Choose all that apply): None applicable Code Visit OBSV E&M: 04092 Observation care discharge
== END 2017-09-08 15:58 | disposition home or self-care (01) ==
LOC: ED 14:30 → MS3 15:07
PROVIDERS: Family Medicine; Emergency Provider Emergency Medicine; Family Provider Family Medicine; PCP Family Medicine; Visit Provider Internal Medicine
DX: D50.9 Iron deficiency anemia, unspecified (principal); J96.11 Chronic respiratory failure with hypoxia; J44.9 Chronic obstructive pulmonary disease, unspecified; I25.10 Atherosclerotic heart disease of native coronary artery without angina pectoris; I11.0 Hypertensive heart disease with heart failure; I50.32 Chronic diastolic (congestive) heart failure; I27.20 Pulmonary hypertension, unspecified; R07.9 Chest pain, unspecified; Z95.1 Presence of aortocoronary bypass graft; Z79.899 Other long term (current) drug therapy; Z95.2 Presence of prosthetic heart valve; Z79.84 Long term (current) use of oral hypoglycemic drugs; Z87.891 Personal history of nicotine dependence; Z85.528 Personal history of other malignant neoplasm of kidney; E03.9 Hypothyroidism, unspecified
CPT/HCPCS: 36415; 36430; 80048; 83540; 83550; 84484; 85025; 85027; 85610; 85730; 86850; 86900; 86920; 86922; 93005; 94660; 96365; 99218; 99284; J1756; P9016; A4216; G0378

== ENCOUNTER → 2017-12-04 10:19 | Outpatient (CLI) | payer BC, SELFPAY ==
[2017-12-04 11:27] LABS: Thyroid Stim Hormone (TSH) 1.54 uIU/mL (0.358-3.74)
== END ==
PROVIDERS: Family Provider Family Medicine; PCP Family Medicine; Visit Provider Family Medicine
DX: E03.9 Hypothyroidism, unspecified (principal)
CPT/HCPCS: 36415; 84443

== ENCOUNTER → 2017-12-22 12:32 | Outpatient (CLI) | payer BC, SELFPAY ==
[2017-12-22 13:59] LABS: Hematocrit 40.1 % (37-47); Hemoglobin 13.6 g/dl (12.0-15.0); Mean Corp Hgb Conc 33.9 g/gl (32-36); Mean Corpuscular Hgb 33.6 pg (27.0-32.0); Mean Platelet Vol. 10.2 fl (6.2-12.0); Platelet Count 259 K/mm3 (150-450); RBC Distribution Width CV 14.2 % (11.6-14.6); RBC Distribution Width SD 50.4 fl (35.1-43.9); Red Blood Count 4.05 M/mm3 (4.2-5.4); Scan Indicated on CBC? Y/N NO; White Blood Count 5.8 K/mm3 (4.4-11.0)
== END ==
PROVIDERS: Family Provider Family Medicine; PCP Family Medicine; Visit Provider Family Medicine
DX: D64.9 Anemia, unspecified (principal)
CPT/HCPCS: 36415; 85027

== ENCOUNTER 2018-06-13 04:08 | Inpatient (IN) | payer BC, MEDICARE, SELFPAY ==
[2018-06-13] VITALS (28 sets, daily range): BP systolic 101–155; BP diastolic 49–90; PULSE 62–128; RESP 16–28; TEMP 36.4–37.7; O2SAT 83–96; BMI 39.4; BMI 41.0
--- NOTE | 2018-06-13 04:23 | CT_ITS ---
STUDY: CT ABDOMEN AND PELVIS WITHOUT CONTRAST REASON FOR EXAM: Female, 63 years old. Fever, nausea. RADIATION DOSAGE (If Supplied By Facility): CTDIvol = ( 23.04 ) mGy, DLP = ( 1059.13 ) mGycm TECHNIQUE: Transaxial images were obtained from the dome of the diaphragm to the symphysis pubis without oral contrast, and without intravenous contrast. Sagittal and coronal images were reconstructed. Individualized dose optimization techniques were used for this CT. COMPARISON: September 05, 2016. January 15, 2015. FINDINGS: The visualized lung bases are unremarkable. The visualized portions of the heart are within normal limits. There is decreased attenuation of the liver consistent with steatosis. Previously noted 1.7 cm low-attenuation lesion medial aspect posterior segment right lobe of the liver not appreciated without intravenous contrast. Normal gallbladder and extrahepatic biliary system. Normal spleen. Normal pancreas. Normal bilateral adrenal glands. Mild right hydronephrosis with perinephric stranding. An obstructing stone is not visualized. Possible postsurgical change mid pole right kidney. 1 cm exophytic cyst which is probably simple superior pole left kidney. Coarse calcifications periphery superior pole right kidney. Normal visualized stomach. Normal small intestine. Sigmoid diverticulosis. The appendix is well visualized and appears normal. There is diffuse atherosclerotic calcification of the abdominal aorta, without a demonstrated aneurysm. Normal inferior vena cava. Normal retroperitoneum. Normal urinary bladder. Uterus is grossly normal. No adnexal masses seen. Normal abdominal wall. Total left hip arthroplasty in normal alignment. L5-S1 vacuum disc. CT/Abdomen/Pelvis without Cont IMPRESSION: Mild right hydronephrosis with perinephric stranding without evidence of obstructing stone. Considerations include a recently passed stone, ureteral thrombus or a mass. Consider urology consult. Right colon is grossly normal. Normal appendix. Fatty liver. Left renal cyst. Focal coarse peripheral calcifications which may be related to prior infection, surgery or trauma. Sigmoid diverticulosis. Previously noted low-attenuation lesion right lobe of the liver not visualized on this study performed without intravenous contrast. This lesion can be followed with ultrasound as clinically warranted. Electronically Signed: Roman Ash MD at 6:07 EST , Service support ,
--- NOTE | 2018-06-13 04:23 | RAD_ITS ---
STUDY: X-RAY CHEST REASON FOR EXAM: Female, 63 years old. Fever. TECHNIQUE: PA and lateral chest. COMPARISON: January 19, 2017. CT chest July 06, 2017. FINDINGS: The lungs are clear and expanded. There is no demonstrated pleural abnormality. Minimal linear scarring or subsegmental atelectasis at both lung bases. Sternal wires are present. Normal size heart. Normal mediastinum and [place]. Normal visualized pulmonary arteries. There is atherosclerotic calcification of the aortic arch. Normal visualized thoracic spine. Normal visualized ribs, clavicles, and shoulders. There is no demonstrated abnormality of the visualized soft tissue structures of the upper abdomen. RAD/Chest PA and Lateral IMPRESSION: No acute cardiopulmonary disease. Electronically Signed: Roman Ash MD at 6:10 EST , Service support ,
[2018-06-13] MEDS: Ondansetron 4 MG/2 ML Vial IV (04:38)
[2018-06-13] MEDS: 0.9% Normal Saline 1,000 ML 1000 ML IV (04:38)
[2018-06-13] MEDS: Morphine 4 MG/ML Syringe IV ×2 (04:38→07:35)
[2018-06-13 04:50] LABS: Absolute Lymphocyte Count 0.34 X10^3/ul (0.83-4.51); Absolute Neutrophil Count 3.5 X10^3/uL (2.0-7.7); Basophil# 0.01 X10^3/uL; Basophil% 0.2 % (0-1); Differential Indicated SCAN CRITERIA MET; Eosinophil# 0.02 X10^3/uL; Eosinophils% 0.5 % (0-5); Hematocrit 39.1 % (37-47); Hemoglobin 13.2 g/dl (12.0-15.0); Lymphocyte # 0.34 X10^3/ul (4.0); Lymphocyte % 8.3 % (19-41); Mean Corp Hgb Conc 33.8 g/gl (32-36); Mean Corpuscular Hgb 33.2 pg (27.0-32.0); Mean Corpuscular Volume 98.2 fL (81-99); Mean Platelet Vol. 9.9 fl (6.2-12.0); Monocyte# 0.22 X10^3/uL; Monocyte% 5.4 % (0-10); Neutrophil % 85.4 % (47-70); POSITIVE COUNT NO; POSITIVE DIFFERENTIAL YES; POSITIVE MORPHOLOGY NO; Platelet Count 156 K/mm3 (150-450); RBC Distribution Width CV 13.8 % (11.6-14.6); RBC Distribution Width SD 49.3 fl (35.1-43.9); Red Blood Count 3.98 M/mm3 (4.2-5.4); White Blood Count 4.1 K/mm3 (4.4-11.0)
[2018-06-13] MEDS: Ipratropium/Albuterol Sulfate 3 ML AMPUL.NEB INHALATION ×3 (04:52→19:31)
--- NOTE | 2018-06-13 04:54 | CPS ---
PER PT SHE WEARS 2L OXYGEN AT HOME. SHE ALSO STATES SHE WEARS CPAP [id number] WITH 2L BLED IN HS AT HOME.
[2018-06-13 05:08] LABS: ALB/GLOB Ratio 0.7 RATIO (0.9-2.4); AST(SGOT) 70 U/L (15-37); Alanine Aminotransfer ALT/SGPT 60 U/L (13-56); Albumin, Serum 3.2 g/dL (3.2-5.0); Alkaline Phosphatase 127 U/L (45-117); Anion Gap 13 (5-15); BUN 14 mg/dL (7-18); BUN/Creat Ratio 15.3 RATIO (10-20); Calcium,Total 8.9 mg/dL (8.5-10.1); Chloride 99 mmol/L (98-107); Creatinine, Serum 0.92 mg/dL (0.55-1.02); EST Glomerular Filtration Rate 66 mL/min (>60); Est Glom Filt Rate - Afr Amer 80 mL/min (>60); Estimated Creatinine Clearance 52.45 ml/min; Globulin 4.9 g/dL (2.2-4.2); Glucose 159 mg/dL (74-106); Lipase 52 U/L (73-393); Potassium 4.5 mmol/L (3.5-5.1); Protein, Total 8.1 g/dL (6.4-8.2); Sodium Level 138 mmol/L (136-145)
--- NOTE | 2018-06-13 05:48 | ED.VISSUMM ---
- ER Visit Summary Date of Service: 06/13/18 Chief Complaint: Fever History of Present Illness: The patient is a [address] Chavez arnett and Dr. Zhong. Patient reports that she has a fever that began 2 days ago. She has had chills and cold sweats. She reports she has somewhat a cough. She also has shortness of breath. Patient reports that she has had diffuse abdominal pain for the past 2 days. She is been nauseated. She has not vomited or had diarrhea. No dysuria or frequency. She reports she has a headache is 7-10 severity. She does have a history of similar headaches. She also complains of generalized weakness. Of note the patient had a colonoscopy and endoscopy at the [facility] on June 08. Physical Examination: Vitals: 99.8, 155/90, 125, 22, 87% on room air which is hypoxic. However, patient is supposed to be on 2 L of oxygen at home. General: Well-nourished and well-developed. Head: Normocephalic atraumatic. Neck: Supple, no lymphadenopathy. No JVD. Nontender. Cardiovascular: Tachycardic regular rhythm. No murmurs. Respiratory: No respiratory distress. Mild wheezing bilaterally with good air movement. Abdominal: Soft, mild diffuse tenderness palpation, distended, hypoactive bowel sounds. No guarding, rebound, or peritoneal signs. Back: Nontender. Extremities: Nontender, no edema. Skin: Normal color, no rash. Neurologic: Alert and oriented ?3. Cranial nerves II through XII are intact. Normal strength and sensation. Psych: Normal affect. Test Results: CBC is remarkable for a white count of 4.1 with 85 segmented neutrophils and 8 lymphocytes. Chem-7 is more for glucose 159. LFTs marked for total bili of 1.3, alk phos of 127, ALT of 60, AST of 70, globulin of 4.9. Lipase is 52. Urinalysis returned and shows greater than 100 white blood cells, 1+ bacteria, nitrites, and blood. Influenza was negative. Clinical Impression(s) from Imaging Studies Abdomen/Pelvis CT 06/13/18 04:23 IMPRESSION: Mild right hydronephrosis with perinephric stranding without evidence of obstructing stone. Considerations include a recently passed stone, ureteral thrombus or a mass. Consider urology consult. Right colon is grossly normal. Normal appendix. Fatty liver. Left renal cyst. Focal coarse peripheral calcifications which may be related to prior infection, surgery or trauma. Sigmoid diverticulosis. Previously noted low-attenuation lesion right lobe of the liver not visualized on this study performed without intravenous contrast. This lesion can be followed with ultrasound as clinically warranted. Electronically Signed: Roman Ash MD at 6:07 EST , Service support , Chest X-Ray 06/13/18 04:23 IMPRESSION: No acute cardiopulmonary disease. Electronically Signed: Roman Ash MD at 6:10 EST , Service support , Emergency Department Course and Treatment: Patient had an IV placed. She was given a liter of normal saline. She was given albuterol Atrovent aerosols. She was given morphine, Zofran, and Solu-Medrol IV. I reviewed the patient's prior urine cultures and it showed that she had ESBL E. coli in her urine August 2016. Because of this she was given meropenem IV. She was given 2 L of normal saline. Treatment Plan: Patient was discussed with the hospitalist she will be admitted for further evaluation and treatment. Disposition: Admitted in serious condition. Impression: 1. Pyelonephritis. 2. Sepsis. This note was generated with [email or web address] dictation software. It may contain incorrect words, spelling, and punctuation that were not noted in review of the chart prior to signing ED Disposition - Plan for ED Patient: Chief Complaint: Nausea/Vomiting Referrals: Caleb Mason MD [Primary Care Provider] -
--- NOTE | 2018-06-13 05:49 | ED.RN ---
Called about lactic acid, Shawn from lab stating he just started running it at 0545. labs were drawn at 0420.
[2018-06-13] MEDS: MethylPREDNISolone 125 MG/2 ML Vial IV (05:59)
[2018-06-13 06:03] LABS: Lactic Acid 2.3 mmol/L (0.4-2.0)
--- NOTE | 2018-06-13 06:03 | ED.RN ---
DR KOROMA AWARE OF LACTIC ACID OF 2.3.
[2018-06-13 06:34] LABS: Red Blood Cells-Urine 0 SEEN /hpf (0-5); Squamous Epithelial Cells - UA 0 SEEN /hpf (5-10)
[2018-06-13] MEDS: 0.9% Normal Saline 1,000 ML 999 ML IV ×2 (06:53→08:05)
[2018-06-13 07:00] LABS: Color, Urine Yellow (Yellow); Glucose, Dipstick Normal (Normal); Ketone-Dipstick Negative (Negative); Leukocyte Esterase-Dipstick 500 /ul (Negative); Nitrite-Dipstick Positive (Negative); Occult Blood-Urine 250 /ul (Negative); Protein-Dipstick 100 mg/dl (Negative); Specific Gravity, Urine 1.015 (1.002-1.030); Urine Bilirubin Dipstick Negative (Negative); Urine Clarity Sl. Cloudy (Clear); Urine Urobilinogen Normal (Normal)
[2018-06-13 07:01] LABS: Bacteria 1+ /hpf (None Seen); White Blood Cells >100 SEEN /hpf (0-5)
--- NOTE | 2018-06-13 08:33 | PCM.HP.STD ---
Problem List (1) Severe sepsis Status: Acute (2) UTI (urinary tract infection) Status: Acute Qualifiers: Urinary tract infection type: acute cystitis Hematuria presence: without hematuria Qualified Code(s): N30.00 - Acute cystitis without hematuria History of Present Illness Date of Admission: 06/13/18 Chief Complaint: fever, chills, myalgias. The patient is a 63 year old F who was in her normal state until about 3 days ago where patient started developing myalgias. The myalgias just progressed and patient was also having fevers and chills. Patient was not having any dysuria but did note that she was having some dribbling, which is abnormal for her. Patient presented to the emergency room with tachycardia in the 120s, tachypnea in the 20s and lactic acid of 2.3. Patient was found to have urinary tract infection but on the urinalysis and started on ertapenem given her history of ESBL E. coli. Patient also received several liters of fluid. Given the patient's tachypnea, patient was given Solu-Medrol and bronchodilators. [] Past Medical History Past Medical History (Chronic Problems): Chronic Problems (Last Updated 03/02/18 @ 15:00 by ELENA Rodrigues) CAD (coronary artery disease) (Chronic) COPD (chronic obstructive pulmonary disease) (Chronic) Aortocoronary bypass status (Chronic ~06/05/16) CABG x1 ANDRES to LAD 06/05/16 History of prosthetic aortic valve replacement (Chronic ~06/05/16) 21mm [employer] Trifecta Chronic diastolic heart failure (Chronic) Pulmonary hypertension, secondary (Chronic) Cardiomegaly (Chronic) Nonrheumatic aortic (valve) stenosis (Chronic) AVR #21 [facility] [employer] Tr[employer]a Bioprosthetic Pericardial Prosthesis 06/05/2016 @ [facility] Atherosclerotic heart disease of zuni coronary artery without angina pectoris (Chronic) CABG x3- ANDRES to LAD, SVG to ramus branch of CFX, SVG to RCA 07/03 Angina pectoris (Chronic) Hypertension, benign (Chronic) Medical History: Medical History (Last Reviewed 06/13/18 @ 08:35 by Attila Sweet DO) Chronic diastolic heart failure (Chronic) I50.32 Pulmonary hypertension, secondary (Chronic) Cardiomegaly (Chronic) I51.7 Nonrheumatic aortic (valve) stenosis (Chronic) I35.0 AVR #21 [facility] [employer] Bioprosthetic Pericardial Prosthesis 06/05/2016 @ [facility] Atherosclerotic heart disease of zuni coronary artery without angina pectoris (Chronic) I25.10 CABG x3- ANDRES to LAD, SVG to ramus branch of CFX, SVG to RCA 07/03 History of non-ST elevation myocardial infarction (NSTEMI) (Acute) I25.2 Abnormal electrocardiogram (Acute) R94.31 Angina pectoris (Chronic) I20.9 Hypertension, benign (Chronic) I10 Anemia D64.9 COPD (chronic obstructive pulmonary disease) J44.9 Depression F32.9 Dyspnea on exertion R06.09 ETOH abuse F10.10 Fibromyalgia M79.7 GERD (gastroesophageal reflux disease) K21.9 Hypothyroidism E03.9 IBS (irritable bowel syndrome) K58.9 GAGAN (obstructive sleep apnea) G47.33 Renal cell carcinoma C64.9 Aortic valvar stenosis (Inactive) I35.0 Irritable bowel syndrome (Inactive) GAGAN (obstructive sleep apnea) (Inactive) G47.33 Renal cell carcinoma of both kidneys (Inactive) C64.1, C64.2 Symptomatic anemia (Inactive) D64.9 Allergies ibuprofen Allergy (Verified 03/02/18 13:22) Hives amlodipine [From Norvasc] Adverse Reaction (Intermediate, Verified 03/02/18 13:43) swelling adhesive tape Adverse Reaction (Unknown, Verified 03/02/18 13:22) Unknown Home Medications: Ambulatory Orders Medication Instructions Recorded ALPRAZolam [Xanax] 0.5 mg PO TID PRN PRN 06/19/14 Calcium Citrate/Vitamin D3 [Hm 1 ea PO DAILY 06/19/14 Calcium Citrate-Vit D3 Tab] Fluoxetine [Prozac] 40 mg PO DAILY 06/19/14 Pantoprazole Sodium [Protonix] 40 mg PO DAILY 06/19/14 Acetaminophen [Tylenol] 325 mg PO ACHS & 0200 PRN 07/17/16 metformin 500 mg tablet 500 mg PO DAILY tab 08/03/17 levothyroxine 175 mcg tablet 175 mcg PO MOTUWETHFRSA tab 08/05/17 Atorvastatin Calcium [Lipitor] 40 mg PO QHS 09/07/17 Levothyroxine [Synthroid] 1.5 tab PO PATRICK 09/07/17 Mv-Mn/Folic Acid/Calcium/Vit K 1 ea PO DAILY 09/07/17 [Women's 50 Plus Daily Formula] amoxicillin 500 mg tablet 500 mg PO .COMPLEX #4 tab 03/02/18 ferrous sulfate 325 mg (65 mg 325 mg PO DAILY tab 03/02/18 iron) tablet,delayed release hydrochlorothiazide 12.5 mg tablet PO 90 Days #90 03/02/18 metoprolol tartrate 25 mg tablet 12.5 mg PO BID #90 tab 04/23/18 Surgical History: Surgical History (Last Reviewed 06/13/18 @ 08:35 by Attila Sweet DO) Aortocoronary bypass status (Chronic) Onset Date: ~06/05/16 Z95.1 CABG x1 ANDRES to LAD 06/05/16 History of prosthetic aortic valve replacement (Chronic) Onset Date: ~06/05/[address] [employer] Trifecta History of thyroidectomy Z98.890, E89.0 History of carpal tunnel surgery of right wrist Z98.890 History of section Z98.891 History of left hip replacement Z96.642 History of nephrectomy Z98.890, Z90.5 Bilateral partial History of removal laryngeal nodule Status post right foot surgery Z98.890 heel spur removal Surgical History: coronary bypass surgery - x1 at [facility], total hip arthroplasty - left hip., - - Thyroidectomy removal of laryngeal nodule, . Carpal tunnel surg right hand. 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 Thyroidectomy. Right heel spur removed. Aortic valve replacements, bioprosthetic. Smoking Status: Former smoker - *Family History Maternal Family History: Family History (Last Reviewed 06/13/18 @ 08:35 by Attila Sweet DO) Grandfather CAD (coronary artery disease) Father Cancer Mother Colon cancer History Items: - - colon cancer Review of Systems Constitutional: Reports: Chills, Fever. Denies: Anorexia, Night Sweats Eyes: Denies: Blurred vision, Double vision HEENT: Denies: Head Aches, Sinus Congestion, Sinus Drainage Cardiovascular: Denies: Chest Pain, Palpitations Respiratory: Denies: Cough, Shortness of breath at rest, Sputum production Gastrointestinal: Denies: Abdominal Pain, Nausea, Vomiting Genitourinary: Reports: Frequency, - - Urinary dribbling. Denies: Dysuria Musculoskeletal: Reports: Muscle pain. Denies: Joint Pain, Joint Tenderness Skin: Denies: Rash, Wounds Neurological: Denies: Numbness, Tingling, Focal weakness Psychiatric: Denies: Anxiety, Depression Endocrine: Denies: Change in Body Habitus, Heat/ Cold Intolerance Hematologic/ Lymphatic: Denies: Easy Bruising, Easy Bleeding, Hx of blood clot Comment: A 10 point review of systems were negative except as mentioned in the history of present illness and the other review of systems. VTE Information - Inpt Only VTE Present on Admission: No VTE Mechan Device Prophylaxis: None VTE Pharm Prophylaxis ordered?: Yes Patient Problems: Active and Suspected Problems (Last Updated 03/02/18 @ 15:00 by ELENA Rodrigues) Severe sepsis (Acute) UTI (urinary tract infection) (Acute) - Physical Exam General: Alert, Cooperative, No apparent distress HEENT: Atraumatic, Normocephalic Oral: Moist Mucosa, No Gingival or Mucosal Lesions/ Ulcerations Neck: No Nodes, Thyroid Normal Size and Texture Lungs: Clear to auscultation, Normal air movement, No rhonchi, No wheeze Cardiovascular: Regular rate, Regular Rhythm, Normal S1, Normal S2, No murmurs Abdomen: Bowel Sounds Present, Soft, Non Tender, Non-Distended, No Hepato-splenomegaly Extremities: No edema, Capillary Refill Less than 3 Seconds, No Calf Tenderness Skin: No rashes, No breakdown Musculoskeletal: No Tenderness to Palpation of Joints or Extremities, No Muscle Wasting Neurological: Sensory exam intact to light touch and pain, - - No clonus Psych/Mental Status: Normal Affect, Appropriate Vital Signs Temp Pulse Resp BP Pulse Ox 36.8 C 116 H 24 H 105/72 93 06/13/18 08:06 06/13/18 08:06 06/13/18 08:06 06/13/18 08:06 06/13/18 08:06 Oxygen Flow Rate (L/min) 4 Oxygen Delivery Method Nasal Cannula Weight: 101 kg Body Mass Index (BMI) 39.4 Microbiology Past 72 Hours 06/13/18 04:35 Influenza Types A,B Direct FA (SUHAIL) - Final Mucosa - Nasopharyngeal Laboratory Tests Past 24 Hrs 06/13/18 06/13/18 06/13/18 04:20 04:20 04:20 WBC 4.1 L RBC 3.98 L Hgb 13.2 Hct 39.1 MCV 98.2 MCH 33.2 H MCHC 33.8 RDW 13.8 RDW Differential 49.3 H Plt Count 156 MPV 9.9 Immature Gran % (Auto) 0.200 Neut % (Auto) 85.4 H Lymph % (Auto) 8.3 L [place] % (Auto) 5.4 Eos % (Auto) 0.5 Baso % (Auto) 0.2 Absolute Neuts (auto) 3.5 Absolute Lymphs (auto) 0.34 L Total Counted Not Reportable Differential Comment Diff Path Review May foll Sodium 138 Potassium 4.5 Chloride 99 Carbon Dioxide 26.0 Anion Gap 13 BUN 14 Creatinine 0.92 Estim Creat Clear Calc 52.45 Est GFR (MDRD) Af Amer 80 Est GFR (MDRD) Non-Af 66 BUN/Creatinine Ratio 15.3 Glucose 159 H Lactic Acid 2.3 H Calcium 8.9 Total Bilirubin 1.30 H AST 70 H ALT 60 H Alkaline Phosphatase 127 H Total Protein 8.1 Albumin 3.2 Globulin 4.9 H Albumin/Globulin Ratio 0.7 L Lipase 52 L Urine Color Urine Clarity Urine pH Ur Specific [place] Urine Protein Urine Glucose (UA) Urine Ketones Urine Occult Blood Urine Nitrite Urine Bilirubin Urine Urobilinogen Ur Leukocyte Esterase Urine RBC Urine WBC Ur Squamous Epith Cells Urine Bacteria Urine Mucus 06/13/18 06:03 WBC RBC Hgb Hct MCV MCH MCHC RDW RDW Differential Plt Count MPV Immature Gran % (Auto) Neut % (Auto) Lymph % (Auto) [place] % (Auto) Eos % (Auto) Baso % (Auto) Absolute Neuts (auto) Absolute Lymphs (auto) Total Counted Differential Comment Diff Path Review Sodium Potassium Chloride Carbon Dioxide Anion Gap BUN Creatinine Estim Creat Clear Calc Est GFR (MDRD) Af Amer Est GFR (MDRD) Non-Af BUN/Creatinine Ratio Glucose Lactic Acid Calcium Total Bilirubin AST ALT Alkaline Phosphatase Total Protein Albumin Globulin Albumin/Globulin Ratio Lipase Urine Color Yellow Urine Clarity Sl. Cloudy Urine pH 6.0 Ur Specific [place] 1.015 Urine Protein 100 H Urine Glucose (UA) Normal Urine Ketones Negative Urine Occult Blood 250 H Urine Nitrite Positive H Urine Bilirubin Negative Urine Urobilinogen Normal Ur Leukocyte Esterase 500 H Urine RBC 0 SEEN Urine WBC >100 SEEN Ur Squamous Epith Cells 0 SEEN Urine Bacteria 1+ Urine Mucus Not Reportable Clinical Impression(s) from Imaging Studies Abdomen/Pelvis CT 06/13/18 04:23 IMPRESSION: Mild right hydronephrosis with perinephric stranding without evidence of obstructing stone. Considerations include a recently passed stone, ureteral thrombus or a mass. Consider urology consult. Right colon is grossly normal. Normal appendix. Fatty liver. Left renal cyst. Focal coarse peripheral calcifications which may be related to prior infection, surgery or trauma. Sigmoid diverticulosis. Previously noted low-attenuation lesion right lobe of the liver not visualized on this study performed without intravenous contrast. This lesion can be followed with ultrasound as clinically warranted. Electronically Signed: Roman Ash MD at 6:07 EST , Service support , Chest X-Ray 06/13/18 04:23 IMPRESSION: No acute cardiopulmonary disease. Electronically Signed: Roman Ash MD at 6:10 EST , Service support , Assessment/Plan All Active Problems (Last Updated 03/02/18 @ 15:00 by ELENA Rodrigues) Severe sepsis (Acute) UTI (urinary tract infection) (Acute) Anemia (Acute) Chronic respiratory failure (Acute) History of non-ST elevation myocardial infarction (NSTEMI) (Acute) Abnormal electrocardiogram (Acute) 1. Severe sepsis Patient met 2 of 4 Sirs criteria Secondary to UTI Follow-up lactic acid IV fluids 2. UTI Patient did have ESBL E. coli back in 2017 Continue with meropenem for now 3. Lactic acidosis Likely due to the severe sepsis, however could be a component of her COPD but also the fact that she is on metformin Hold metformin 4. COPD Not in exacerbation No concern for impending respiratory failure ABG attempted and was aborted after one attempt is do not feel that skin to be extremely pertinent to her management at this point time No need for steroids at this time Continue with bronchodilators 5. Diabetes mellitus type 2 hold metformin given the lactic acidosis Moderate dose sliding scale insulin 6. DVT prophylaxis with Lovenox Case discussed with patient's at bedside. Code Visit Inpatient E&M: 90261 Init Hosp L3
[2018-06-13 08:34] LABS: Reflex Lactate? Y
--- NOTE | 2018-06-13 08:37 | HP.PCM_ITS ---
Problem List (1) Severe sepsis Status: Acute (2) UTI (urinary tract infection) Status: Acute Qualifiers: Urinary tract infection type: acute cystitis Hematuria presence: without hematuria Qualified Code(s): N30.00 - Acute cystitis without hematuria History of Present Illness Date of Admission: 06/13/18 Chief Complaint: fever, chills, myalgias. The patient is a 63 year old F who was in her normal state until about 3 days ago where patient started developing myalgias. The myalgias just progressed and patient was also having fevers and chills. Patient was not having any dysuria but did note that she was having some dribbling, which is abnormal for her. Patient presented to the emergency room with tachycardia in the 120s, tachypnea in the 20s and lactic acid of 2.3. Patient was found to have urinary tract infection but on the urinalysis and started on ertapenem given her history of ESBL E. coli. Patient also received several liters of fluid. Given the patient's tachypnea, patient was given Solu-Medrol and bronchodilators. [] Past Medical History Past Medical History (Chronic Problems): Chronic Problems (Last Updated 03/02/18 @ 15:00 by ELENA Rodrigues) CAD (coronary artery disease) (Chronic) COPD (chronic obstructive pulmonary disease) (Chronic) Aortocoronary bypass status (Chronic ~06/05/16) CABG x1 ANDRES to LAD 06/05/16 History of prosthetic aortic valve replacement (Chronic ~06/05/16) 21mm [facility] Trifecta Chronic diastolic heart failure (Chronic) Pulmonary hypertension, secondary (Chronic) Cardiomegaly (Chronic) Nonrheumatic aortic (valve) stenosis (Chronic) AVR #21 [facility] [employer] Tr[employer]a Bioprosthetic Pericardial Prosthesis 06/05/2016 @ [facility] Atherosclerotic heart disease of [place] coronary artery without angina pectoris (Chronic) CABG x3- ANDRES to LAD, SVG to ramus branch of CFX, SVG to RCA 07/03 Angina pectoris (Chronic) Hypertension, benign (Chronic) Medical History: Medical History (Last Reviewed 06/13/18 @ 08:35 by Attila Sweet DO) Chronic diastolic heart failure (Chronic) I50.32 Pulmonary hypertension, secondary (Chronic) Cardiomegaly (Chronic) I51.7 Nonrheumatic aortic (valve) stenosis (Chronic) I35.0 AVR #21 [facility] [employer] Bioprosthetic Pericardial Prosthesis 06/05/2016 @ [facility] Atherosclerotic heart disease of [place] coronary artery without angina pectoris (Chronic) I25.10 CABG x3- ANDRES to LAD, SVG to ramus branch of CFX, SVG to RCA 07/03 History of non-ST elevation myocardial infarction (NSTEMI) (Acute) I25.2 Abnormal electrocardiogram (Acute) R94.31 Angina pectoris (Chronic) I20.9 Hypertension, benign (Chronic) I10 Anemia D64.9 COPD (chronic obstructive pulmonary disease) J44.9 Depression F32.9 Dyspnea on exertion R06.09 ETOH abuse F10.10 Fibromyalgia M79.7 GERD (gastroesophageal reflux disease) K21.9 Hypothyroidism E03.9 IBS (irritable bowel syndrome) K58.9 GAGAN (obstructive sleep apnea) G47.33 Renal cell carcinoma C64.9 Aortic valvar stenosis (Inactive) I35.0 Irritable bowel syndrome (Inactive) GAGAN (obstructive sleep apnea) (Inactive) G47.33 Renal cell carcinoma of both kidneys (Inactive) C64.1, C64.2 Symptomatic anemia (Inactive) D64.9 Allergies ibuprofen Allergy (Verified 03/02/18 13:22) Hives amlodipine [From Norvasc] Adverse Reaction (Intermediate, Verified 03/02/18 13:43) swelling adhesive tape Adverse Reaction (Unknown, Verified 03/02/18 13:22) Unknown Home Medications: Ambulatory Orders Medication Instructions Recorded ALPRAZolam [Xanax] 0.5 mg PO TID PRN PRN 06/19/14 Calcium Citrate/Vitamin D3 [Hm 1 ea PO DAILY 06/19/14 Calcium Citrate-Vit D3 Tab] Fluoxetine [Prozac] 40 mg PO DAILY 06/19/14 Pantoprazole Sodium [Protonix] 40 mg PO DAILY 06/19/14 Acetaminophen [Tylenol] 325 mg PO ACHS & 0200 PRN 07/17/16 metformin 500 mg tablet 500 mg PO DAILY tab 08/03/17 levothyroxine 175 mcg tablet 175 mcg PO MOTUWETHFRSA tab 08/05/17 Atorvastatin Calcium [Lipitor] 40 mg PO QHS 09/07/17 Levothyroxine [Synthroid] 1.5 tab PO PATRICK 09/07/17 Mv-Mn/Folic Acid/Calcium/Vit K 1 ea PO DAILY 09/07/17 [Women's 50 Plus Daily Formula] amoxicillin 500 mg tablet 500 mg PO .COMPLEX #4 tab 03/02/18 ferrous sulfate 325 mg (65 mg 325 mg PO DAILY tab 03/02/18 iron) tablet,delayed release hydrochlorothiazide 12.5 mg tablet PO 90 Days #90 03/02/18 metoprolol tartrate 25 mg tablet 12.5 mg PO BID #90 tab 04/23/18 Surgical History: Surgical History (Last Reviewed 06/13/18 @ 08:35 by Attila Sweet DO) Aortocoronary bypass status (Chronic) Onset Date: ~06/05/16 Z95.1 CABG x1 ANDRES to LAD 06/05/16 History of prosthetic aortic valve replacement (Chronic) Onset Date: ~06/05/[address] [employer] Trifecta History of thyroidectomy Z98.890, E89.0 History of carpal tunnel surgery of right wrist Z98.890 History of section Z98.891 History of left hip replacement Z96.642 History of nephrectomy Z98.890, Z90.5 Bilateral partial History of removal laryngeal nodule Status post right foot surgery Z98.890 heel spur removal Surgical History: coronary bypass surgery - x1 at [facility], total hip arthroplasty - left hip., - - Thyroidectomy removal of laryngeal nodule, . Carpal tunnel surg right hand. 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 Thyroidectomy. Right heel spur removed. Aortic valve replacements, bioprosthetic. Smoking Status: Former smoker - *Family History Maternal Family History: Family History (Last Reviewed 06/13/18 @ 08:35 by Attila Sweet DO) Grandfather CAD (coronary artery disease) Father Cancer Mother Colon cancer History Items: - - colon cancer Review of Systems Constitutional: Reports: Chills, Fever. Denies: Anorexia, Night Sweats Eyes: Denies: Blurred vision, Double vision HEENT: Denies: Head Aches, Sinus Congestion, Sinus Drainage Cardiovascular: Denies: Chest Pain, Palpitations Respiratory: Denies: Cough, Shortness of breath at rest, Sputum production Gastrointestinal: Denies: Abdominal Pain, Nausea, Vomiting Genitourinary: Reports: Frequency, - - Urinary dribbling. Denies: Dysuria Musculoskeletal: Reports: Muscle pain. Denies: Joint Pain, Joint Tenderness Skin: Denies: Rash, Wounds Neurological: Denies: Numbness, Tingling, Focal weakness Psychiatric: Denies: Anxiety, Depression Endocrine: Denies: Change in Body Habitus, Heat/ Cold Intolerance Hematologic/ Lymphatic: Denies: Easy Bruising, Easy Bleeding, Hx of blood clot Comment: A 10 point review of systems were negative except as mentioned in the history of present illness and the other review of systems. VTE Information - Inpt Only VTE Present on Admission: No VTE Mechan Device Prophylaxis: None VTE Pharm Prophylaxis ordered?: Yes Patient Problems: Active and Suspected Problems (Last Updated 03/02/18 @ 15:00 by ELENA Rodrigues) Severe sepsis (Acute) UTI (urinary tract infection) (Acute) - Physical Exam General: Alert, Cooperative, No apparent distress HEENT: Atraumatic, Normocephalic Oral: Moist Mucosa, No Gingival or Mucosal Lesions/ Ulcerations Neck: No Nodes, Thyroid Normal Size and Texture Lungs: Clear to auscultation, Normal air movement, No rhonchi, No wheeze Cardiovascular: Regular rate, Regular Rhythm, Normal S1, Normal S2, No murmurs Abdomen: Bowel Sounds Present, Soft, Non Tender, Non-Distended, No Hepato-splenomegaly Extremities: No edema, Capillary Refill Less than 3 Seconds, No Calf Tenderness Skin: No rashes, No breakdown Musculoskeletal: No Tenderness to Palpation of Joints or Extremities, No Muscle Wasting Neurological: Sensory exam intact to light touch and pain, - - No clonus Psych/Mental Status: Normal Affect, Appropriate Vital Signs Temp Pulse Resp BP Pulse Ox 36.8 C 116 H 24 H 105/72 93 06/13/18 08:06 06/13/18 08:06 06/13/18 08:06 06/13/18 08:06 06/13/18 08:06 Oxygen Flow Rate (L/min) 4 Oxygen Delivery Method Nasal Cannula Weight: 101 kg Body Mass Index (BMI) 39.4 Microbiology Past 72 Hours 06/13/18 04:35 Influenza Types A,B Direct FA (SUHAIL) - Final Mucosa - Nasopharyngeal Laboratory Tests Past 24 Hrs 06/13/18 06/13/18 06/13/18 04:20 04:20 04:20 WBC 4.1 L RBC 3.98 L Hgb 13.2 Hct 39.1 MCV 98.2 MCH 33.2 H MCHC 33.8 RDW 13.8 RDW Differential 49.3 H Plt Count 156 MPV 9.9 Immature Gran % (Auto) 0.200 Neut % (Auto) 85.4 H Lymph % (Auto) 8.3 L Morrill % (Auto) 5.4 Eos % (Auto) 0.5 Baso % (Auto) 0.2 Absolute Neuts (auto) 3.5 Absolute Lymphs (auto) 0.34 L Total Counted Not Reportable Differential Comment Diff Path Review May foll Sodium 138 Potassium 4.5 Chloride 99 Carbon Dioxide 26.0 Anion Gap 13 BUN 14 Creatinine 0.92 Estim Creat Clear Calc 52.45 Est GFR (MDRD) Af Amer 80 Est GFR (MDRD) Non-Af 66 BUN/Creatinine Ratio 15.3 Glucose 159 H Lactic Acid 2.3 H Calcium 8.9 Total Bilirubin 1.30 H AST 70 H ALT 60 H Alkaline Phosphatase 127 H Total Protein 8.1 Albumin 3.2 Globulin 4.9 H Albumin/Globulin Ratio 0.7 L Lipase 52 L Urine Color Urine Clarity Urine pH Ur Specific [place] Urine Protein Urine Glucose (UA) Urine Ketones Urine Occult Blood Urine Nitrite Urine Bilirubin Urine Urobilinogen Ur Leukocyte Esterase Urine RBC Urine WBC Ur Squamous Epith Cells Urine Bacteria Urine Mucus 06/13/18 06:03 WBC RBC Hgb Hct MCV MCH MCHC RDW RDW Differential Plt Count MPV Immature Gran % (Auto) Neut % (Auto) Lymph % (Auto) Morrill % (Auto) Eos % (Auto) Baso % (Auto) Absolute Neuts (auto) Absolute Lymphs (auto) Total Counted Differential Comment Diff Path Review Sodium Potassium Chloride Carbon Dioxide Anion Gap BUN Creatinine Estim Creat Clear Calc Est GFR (MDRD) Af Amer Est GFR (MDRD) Non-Af BUN/Creatinine Ratio Glucose Lactic Acid Calcium Total Bilirubin AST ALT Alkaline Phosphatase Total Protein Albumin Globulin Albumin/Globulin Ratio Lipase Urine Color Yellow Urine Clarity Sl. Cloudy Urine pH 6.0 Ur Specific [place] 1.015 Urine Protein 100 H Urine Glucose (UA) Normal Urine Ketones Negative Urine Occult Blood 250 H Urine Nitrite Positive H Urine Bilirubin Negative Urine Urobilinogen Normal Ur Leukocyte Esterase 500 H Urine RBC 0 SEEN Urine WBC >100 SEEN Ur Squamous Epith Cells 0 SEEN Urine Bacteria 1+ Urine Mucus Not Reportable Clinical Impression(s) from Imaging Studies Abdomen/Pelvis CT 06/13/18 04:23 IMPRESSION: Mild right hydronephrosis with perinephric stranding without evidence of obstructing stone. Considerations include a recently passed stone, ureteral thrombus or a mass. Consider urology consult. Right colon is grossly normal. Normal appendix. Fatty liver. Left renal cyst. Focal coarse peripheral calcifications which may be related to prior infection, surgery or trauma. Sigmoid diverticulosis. Previously noted low-attenuation lesion right lobe of the liver not visualized on this study performed without intravenous contrast. This lesion can be followed with ultrasound as clinically warranted. Electronically Signed: Roman Ash MD at 6:07 EST , Service support , Chest X-Ray 06/13/18 04:23 IMPRESSION: No acute cardiopulmonary disease. Electronically Signed: Roman Ash MD at 6:10 EST , Service support , Assessment/Plan All Active Problems (Last Updated 03/02/18 @ 15:00 by ELENA Rodrigues) Severe sepsis (Acute) UTI (urinary tract infection) (Acute) Anemia (Acute) Chronic respiratory failure (Acute) History of non-ST elevation myocardial infarction (NSTEMI) (Acute) Abnormal electrocardiogram (Acute) 1. Severe sepsis * Patient met 2 of 4 Sirs criteria * Secondary to UTI * Follow-up lactic acid * IV fluids 2. UTI * Patient did have ESBL E. coli back in 2017 * Continue with meropenem for now 3. Lactic acidosis * Likely due to the severe sepsis, however could be a component of her COPD but also the fact that she is on metformin * Hold metformin 4. COPD * Not in exacerbation * No concern for impending respiratory failure * ABG attempted and was aborted after one attempt is do not feel that skin to be extremely pertinent to her management at this point time * No need for steroids at this time * Continue with bronchodilators 5. Diabetes mellitus type 2 * hold metformin given the lactic acidosis * Moderate dose sliding scale insulin 6. DVT prophylaxis with Lovenox Case discussed with patient's at bedside. Code Visit Inpatient E&M: 16120 Init Hosp L3
[2018-06-13 09:29] LABS: Lactic Acid 1.3 mmol/L (0.4-2.0)
[2018-06-13] MEDS: 0.9% Normal Saline 1,000 ML 100 ML IV (10:52)
[2018-06-13] MEDS: Metoprolol Tartrate 25 MG Tablet 12.5 MG PO ×2 (10:53→21:51)
[2018-06-13] MEDS: Enoxaparin 40 MG/0.4 ML Syringe SC (10:53)
[2018-06-13] MEDS: Calcium Carb/Vitamin D 1 TABLET Tablet PO (10:53)
[2018-06-13] MEDS: Pantoprazole Sodium 40 MG Tablet PO (10:53)
[2018-06-13] MEDS: FLUoxetine 20 MG Capsule 40 MG PO (10:53)
[2018-06-13] MEDS: Multivitamins,Ther W-Minerals Tablet 1 TABLET PO (10:53)
[2018-06-13] MEDS: Ferrous Sulfate 325 MG Tablet PO (10:54)
[2018-06-13] MEDS: Insulin Lispro 100 UNIT/ML INSULN.PEN SQ ×2 (11:07→17:01)
[2018-06-13] MEDS: Albuterol 2.5 MG/3 ML VIAL.NEB. INHALATION (11:07)
[2018-06-13 11:12] LABS: Lactic Acid 1.4 mmol/L (0.4-2.0)
[2018-06-13 13:15] LABS: Bedside Glucose 246 mg/dL (70-110)
[2018-06-13] MEDS: Acetaminophen 325 MG Tablet 650 MG PO ×2 (14:18→21:50)
[2018-06-13] MEDS: oxyCODONE 5 MG Tablet PO ×2 (14:18→21:50)
[2018-06-13 18:16] LABS: Bedside Glucose 297 mg/dL (70-110)
[2018-06-13] MEDS: ALPRAZolam 0.5 MG Tablet PO (19:08)
[2018-06-13] MEDS: Atorvastatin Calcium 40 MG Tablet PO (21:51)
[2018-06-13 23:56] LABS: Bedside Glucose 252 mg/dL (70-110)
[2018-06-14] VITALS (16 sets, daily range): BP systolic 104–149; BP diastolic 47–82; PULSE 62–97; RESP 20–26; TEMP 36.4–36.8; O2SAT 93–98
[2018-06-14] MEDS: Levothyroxine 175 MCG Tablet PO (05:56)
[2018-06-14] MEDS: oxyCODONE 5 MG Tablet PO ×4 (06:01→22:58)
[2018-06-14 06:41] LABS: International Normalized Ratio 1.3; Prothrombin Time (Protime)PT. 15.9 SECONDS (11.7-14.9)
[2018-06-14 06:49] LABS: Anion Gap 7 (5-15); BUN 14 mg/dL (7-18); BUN/Creat Ratio 22.2 RATIO (10-20); Calcium,Total 7.5 mg/dL (8.5-10.1); Chloride 108 mmol/L (98-107); Creatinine, Serum 0.63 mg/dL (0.55-1.02); EST Glomerular Filtration Rate 102 mL/min (>60); Est Glom Filt Rate - Afr Amer 123 mL/min (>60); Estimated Creatinine Clearance 73.23 ml/min; Glucose 174 mg/dL (74-106); Potassium 3.7 mmol/L (3.5-5.1); Sodium Level 140 mmol/L (136-145)
[2018-06-14 07:21] LABS: Bedside Glucose 159 mg/dL (70-110)
[2018-06-14] MEDS: Ipratropium/Albuterol Sulfate 3 ML AMPUL.NEB INHALATION ×3 (07:24→19:48)
[2018-06-14] MEDS: Acetaminophen 325 MG Tablet 650 MG PO ×3 (08:05→22:57)
[2018-06-14] MEDS: ALPRAZolam 0.5 MG Tablet PO ×2 (08:08→21:21)
[2018-06-14] MEDS: Insulin Lispro 100 UNIT/ML INSULN.PEN SQ (08:20)
[2018-06-14] MEDS: FLUoxetine 20 MG Capsule 40 MG PO (09:58)
[2018-06-14] MEDS: Metoprolol Tartrate 25 MG Tablet 12.5 MG PO ×2 (09:59→21:15)
[2018-06-14] MEDS: Pantoprazole Sodium 40 MG Tablet PO (09:59)
[2018-06-14] MEDS: Enoxaparin 40 MG/0.4 ML Syringe SC (10:00)
[2018-06-14 10:04] LABS: Pathologist Review Reviewed
--- NOTE | 2018-06-14 10:12 | CASEMGMT ---
RN CM Assessment PCP: Dr. Mason Pharmacy: [facility] Living Arrangements: Two story home, bedroom/bath upstairs, bedroom/bath on main level if needed. DME: Home oxygen through [facility]: concentrator,nebulizer, portable tanks, CPAP, has walker, cane, not using. States is independent with ADL/s, drives. No concerns re: dc at this time. DC PLAN: Home
--- NOTE | 2018-06-14 11:22 | CASEMGMT ---
Patient has a healthcare POA and healthcare LW on file in e-chart. SW printed them and placed them in her paper chart. Taylor SEAMAN MSW
[2018-06-14 11:36] LABS: Bedside Glucose 144 mg/dL (70-110)
[2018-06-14] MEDS: Multivitamins,Ther W-Minerals Tablet 1 TABLET PO (12:25)
[2018-06-14] MEDS: Ferrous Sulfate 325 MG Tablet PO (12:25)
[2018-06-14] MEDS: Calcium Carb/Vitamin D 1 TABLET Tablet PO (12:25)
--- NOTE | 2018-06-14 14:21 | PCM.PN.HOSP ---
Patient Problems: Active and Suspected Problems (Last Reviewed 06/13/18 @ 08:35 by Attila Sweet DO) Severe sepsis (Acute) UTI (urinary tract infection) (Acute) Bacteremia (Acute) Subjective: feeling better. still short of breath (worse than baseline) Vitals/I&O's: Vital Signs Temp Pulse Resp BP Pulse Ox 36.6 C 81 21 H 115/70 94 06/14/18 12:23 06/14/18 13:01 06/14/18 13:01 06/14/18 12:23 06/14/18 12:23 Oxygen Flow Rate (L/min) 4 Oxygen Delivery Method Nasal Cannula Weight: 101.8 kg Body Mass Index (BMI) 41.0 Intake and Output for Last 24 Hours 06/12/18 06/13/18 06/14/18 23:59 23:59 23:59 Intake Total 436 / 436 2022 Balance 436 / 436 2022 General: Alert, No apparent distress HEENT: Atraumatic, Normocephalic Oral: Moist Mucosa, No Gingival or Mucosal Lesions/ Ulcerations Neck: No Nodes, Thyroid Normal Size and Texture Lungs: No rhonchi, Diminished, Wheezes Cardiovascular: Regular rate, Regular Rhythm, Normal S1, Normal S2, No murmurs Abdomen: Bowel Sounds Present, Soft, Non Tender, Non-Distended, No Hepato-splenomegaly Extremities: No edema, No Calf Tenderness Psych/Mental Status: Normal Affect, Appropriate Microbiology Past 72 Hours 06/13/18 04:52 Blood Culture (Wb) - Left Hand Blood Culture - Preliminary Gram negative yvonne 06/13/18 04:20 Blood Culture (Wb) - Anticubital Left Blood Culture - Preliminary Gram negative yvonne 06/13/18 06:03 Urine, Clean Catch Urine Culture - Preliminary Gram negative yvonne 06/13/18 04:35 Mucosa - Nasopharyngeal Influenza Types A,B Direct FA (SUHAIL) - Final Laboratory Results 06/13/18 04:20: Diff Path Review Reviewed 06/13/18 16:57: POC Glucose 297 H 06/13/18 21:44: POC Glucose 252 H 06/14/18 05:12: PT 15.9 H, INR 1.3 06/14/18 05:12: Sodium 140, Potassium 3.7, Chloride 108 H, Carbon Dioxide 25.0, Anion Gap 7, BUN 14, Creatinine 0.63, Estim Creat Clear Calc 73.23, Est GFR (MDRD) Af Amer 123, Est GFR (MDRD) Non-Af 102, BUN/Creatinine Ratio 22.2 H, Glucose 174 H, Calcium 7.5 L 06/14/18 07:07: POC Glucose 159 H 06/14/18 11:32: POC Glucose 144 H Current Medications Acetaminophen (Tylenol) 650 mg PO Q6H PRN PRN PRN Reason: Mild Pain (scale 0-3)/T>100.7 Last Admin: 06/14/18 08:05 Dose: 650 mg Albuterol Sulfate (Ventolin Aerosols) 2.5 mg INHALATION Q2H PRN PRN PRN Reason: SHORTNESS OF BREATH Last Admin: 06/13/18 11:07 Dose: 2.5 mg Albuterol/Ipratropium (Duoneb) 3 ml INHALATION Q6HWA.RT [facility] Last Admin: 06/14/18 13:01 Dose: 3 ml Alprazolam (Xanax) 0.5 mg PO TID PRN PRN PRN Reason: ANXIETY Last Admin: 06/14/18 08:08 Dose: 0.5 mg Atorvastatin Calcium (Lipitor) 40 mg PO QHS [facility] Last Admin: 06/13/18 21:51 Dose: 40 mg Calcium/Vitamin D (Os-Manoj 500mg + D) 1 tablet PO DAILY@1200 [facility] Last Admin: 06/14/18 12:25 Dose: 1 tablet Dextrose (D50w Syringe) 0 gm IV X1 PRN; Protocol PRN Reason: Hypoglycemia Enoxaparin Sodium (Lovenox) 40 mg SC DAILY@1000 [facility] Last Admin: 06/14/18 10:00 Dose: 40 mg Ferrous Sulfate (Ferrous Sulfate) 325 mg PO DAILY@1200 [facility] Last Admin: 06/14/18 12:25 Dose: 325 mg Fluoxetine HCl (Prozac) 40 mg PO DAILY [facility] Last Admin: 06/14/18 09:58 Dose: 40 mg Glucagon () 1 mg IM .X1 PRN PRN Reason: Hypoglycemia Meropenem 1 gm/ Sodium (Chloride) 120 mls @ 33 mls/hr IV Q8 [facility] Last Admin: 06/14/18 05:54 Dose: 33 mls/hr Insulin Human Lispro (Humalog Kwikpen (Bkc)) 0 unit SQ TIDAC [facility]; Protocol Last Admin: 06/14/18 11:37 Dose: Not Given Levothyroxine Sodium (Synthroid) 262.5 mcg PO Morejon@0600 [facility] Levothyroxine Sodium (Synthroid) 175 mcg PO MoTuWeThFrSa@0600 [facility] Last Admin: 06/14/18 05:56 Dose: 175 mcg Magnesium Hydroxide (Milk Of Magnesia) 30 ml PO DAILY PRN PRN Reason: Constipation Metoprolol Tartrate (Lopressor (Beta Nayely)) 12.5 mg PO BID [facility] Last Admin: 06/14/18 09:59 Dose: 12.5 mg Multivitamins/Minerals (Multivitamin With Minerals) 1 tablet PO DAILY@1200 [facility] Last Admin: 06/14/18 12:25 Dose: 1 tablet Ondansetron HCl (Zofran) 4 mg IV Q8H PRN PRN PRN Reason: Nausea Oxycodone HCl (Oxyir) 5 mg PO Q4H PRN PRN PRN Reason: Moderate Pain (pain scale 4-5) Last Admin: 06/14/18 10:00 Dose: 5 mg Pantoprazole Sodium (Protonix) 40 mg PO DAILY [facility] Last Admin: 06/14/18 09:59 Dose: 40 mg Sodium Chloride () 5 - 15 ml IV UD PRN PRN Reason: SALINE FLUSH Medical Necessity - Tobacco Use Smoking Status: Former smoker Assessment/Plan All Active Problems (Last Reviewed 06/13/18 @ 08:35 by Attila Sweet DO) Severe sepsis (Acute) UTI (urinary tract infection) (Acute) Bacteremia (Acute) Anemia (Acute) Chronic respiratory failure (Acute) History of non-ST elevation myocardial infarction (NSTEMI) (Acute) Abnormal electrocardiogram (Acute) 1. Severe sepsis Patient met 2 of 4 Sirs criteria Secondary to UTI and bacteremia resolved 2. UTI Patient did have ESBL E. coli back in 2017 Continue with meropenem for now follow up UCx 3. Bacteremia likely 2/2 UTI follow up BCx 4. Lactic acidosis resolved Likely due to the severe sepsis, however could be a component of her COPD but also the fact that she is on metformin Hold metformin 4. COPD subjectively worse today will add prednisone 40 daily for 5 days. No concern for impending respiratory failure ABG attempted and was aborted after one attempt is do not feel that skin to be extremely pertinent to her management at this point time Continue with bronchodilators 5. Diabetes mellitus type 2 resume metformin now that lactic acidosis has resolved. Moderate dose sliding scale insulin 6. DVT prophylaxis with Lovenox Case discussed with patient's at bedside. Code Visit Inpatient E&M: 32183 Subs Hosp L2
--- NOTE | 2018-06-14 14:27 | PN_ITS ---
Patient Problems: Active and Suspected Problems (Last Reviewed 06/13/18 @ 08:35 by Attila Sweet DO) Severe sepsis (Acute) UTI (urinary tract infection) (Acute) Bacteremia (Acute) Subjective: feeling better. still short of breath (worse than baseline) Vitals/I&O's: Vital Signs Temp Pulse Resp BP Pulse Ox 36.6 C 81 21 H 115/70 94 06/14/18 12:23 06/14/18 13:01 06/14/18 13:01 06/14/18 12:23 06/14/18 12:23 Oxygen Flow Rate (L/min) 4 Oxygen Delivery Method Nasal Cannula Weight: 101.8 kg Body Mass Index (BMI) 41.0 Intake and Output for Last 24 Hours 06/12/18 06/13/18 06/14/18 23:59 23:59 23:59 Intake Total 436 / 436 2022 Balance 436 / 436 2022 General: Alert, No apparent distress HEENT: Atraumatic, Normocephalic Oral: Moist Mucosa, No Gingival or Mucosal Lesions/ Ulcerations Neck: No Nodes, Thyroid Normal Size and Texture Lungs: No rhonchi, Diminished, Wheezes Cardiovascular: Regular rate, Regular Rhythm, Normal S1, Normal S2, No murmurs Abdomen: Bowel Sounds Present, Soft, Non Tender, Non-Distended, No Hepato- splenomegaly Extremities: No edema, No Calf Tenderness Psych/Mental Status: Normal Affect, Appropriate Microbiology Past 72 Hours 06/13/18 04:52 Blood Culture (Wb) - Left Hand Blood Culture - Preliminary Gram negative yvonne 06/13/18 04:20 Blood Culture (Wb) - Anticubital Left Blood Culture - Preliminary Gram negative yvonne 06/13/18 06:03 Urine, Clean Catch Urine Culture - Preliminary Gram negative yvonne 06/13/18 04:35 Mucosa - Nasopharyngeal Influenza Types A,B Direct FA (SUHAIL) - Final Laboratory Results 06/13/18 04:20: Diff Path Review Reviewed 06/13/18 16:57: POC Glucose 297 H 06/13/18 21:44: POC Glucose 252 H 06/14/18 05:12: PT 15.9 H, INR 1.3 06/14/18 05:12: Sodium 140, Potassium 3.7, Chloride 108 H, Carbon Dioxide 25.0, Anion Gap 7, BUN 14, Creatinine 0.63, Estim Creat Clear Calc 73.23, Est GFR (MDRD) Af Amer 123, Est GFR (MDRD) Non-Af 102, BUN/Creatinine Ratio 22.2 H, Glucose 174 H, Calcium 7.5 L 06/14/18 07:07: POC Glucose 159 H 06/14/18 11:32: POC Glucose 144 H Current Medications Acetaminophen (Tylenol) 650 mg PO Q6H PRN PRN PRN Reason: Mild Pain (scale 0-3)/T>100.7 Last Admin: 06/14/18 08:05 Dose: 650 mg Albuterol Sulfate (Ventolin Aerosols) 2.5 mg INHALATION Q2H PRN PRN PRN Reason: SHORTNESS OF BREATH Last Admin: 06/13/18 11:07 Dose: 2.5 mg Albuterol/Ipratropium (Duoneb) 3 ml INHALATION Q6HWA.RT [facility] Last Admin: 06/14/18 13:01 Dose: 3 ml Alprazolam (Xanax) 0.5 mg PO TID PRN PRN PRN Reason: ANXIETY Last Admin: 06/14/18 08:08 Dose: 0.5 mg Atorvastatin Calcium (Lipitor) 40 mg PO QHS [facility] Last Admin: 06/13/18 21:51 Dose: 40 mg Calcium/Vitamin D (Os-Manoj 500mg + D) 1 tablet PO DAILY@1200 [facility] Last Admin: 06/14/18 12:25 Dose: 1 tablet Dextrose (D50w Syringe) 0 gm IV X1 PRN; Protocol PRN Reason: Hypoglycemia Enoxaparin Sodium (Lovenox) 40 mg SC DAILY@1000 [facility] Last Admin: 06/14/18 10:00 Dose: 40 mg Ferrous Sulfate (Ferrous Sulfate) 325 mg PO DAILY@1200 [facility] Last Admin: 06/14/18 12:25 Dose: 325 mg Fluoxetine HCl (Prozac) 40 mg PO DAILY [facility] Last Admin: 06/14/18 09:58 Dose: 40 mg Glucagon () 1 mg IM .X1 PRN PRN Reason: Hypoglycemia Meropenem 1 gm/ Sodium (Chloride) 120 mls @ 33 mls/hr IV Q8 [facility] Last Admin: 06/14/18 05:54 Dose: 33 mls/hr Insulin Human Lispro (Humalog Kwikpen (Bkc)) 0 unit SQ TIDAC [facility]; Protocol Last Admin: 06/14/18 11:37 Dose: Not Given Levothyroxine Sodium (Synthroid) 262.5 mcg PO Morejon@0600 [facility] Levothyroxine Sodium (Synthroid) 175 mcg PO MoTuWeThFrSa@0600 [facility] Last Admin: 06/14/18 05:56 Dose: 175 mcg Magnesium Hydroxide (Milk Of Magnesia) 30 ml PO DAILY PRN PRN Reason: Constipation Metoprolol Tartrate (Lopressor (Beta Nayely)) 12.5 mg PO BID [facility] Last Admin: 06/14/18 09:59 Dose: 12.5 mg Multivitamins/Minerals (Multivitamin With Minerals) 1 tablet PO DAILY@1200 [facility] Last Admin: 06/14/18 12:25 Dose: 1 tablet Ondansetron HCl (Zofran) 4 mg IV Q8H PRN PRN PRN Reason: Nausea Oxycodone HCl (Oxyir) 5 mg PO Q4H PRN PRN PRN Reason: Moderate Pain (pain scale 4-5) Last Admin: 06/14/18 10:00 Dose: 5 mg Pantoprazole Sodium (Protonix) 40 mg PO DAILY [facility] Last Admin: 06/14/18 09:59 Dose: 40 mg Sodium Chloride () 5 - 15 ml IV UD PRN PRN Reason: SALINE FLUSH Medical Necessity - Tobacco Use Smoking Status: Former smoker Assessment/Plan All Active Problems (Last Reviewed 06/13/18 @ 08:35 by Attila Sweet DO) Severe sepsis (Acute) UTI (urinary tract infection) (Acute) Bacteremia (Acute) Anemia (Acute) Chronic respiratory failure (Acute) History of non-ST elevation myocardial infarction (NSTEMI) (Acute) Abnormal electrocardiogram (Acute) 1. Severe sepsis * Patient met 2 of 4 Sirs criteria * Secondary to UTI and bacteremia * resolved 2. UTI * Patient did have ESBL E. coli back in 2017 * Continue with meropenem for now * follow up UCx 3. Bacteremia * likely 2/2 UTI * follow up BCx 4. Lactic acidosis * resolved * Likely due to the severe sepsis, however could be a component of her COPD but also the fact that she is on metformin * Hold metformin 4. COPD * subjectively worse today * will add prednisone 40 daily for 5 days. * No concern for impending respiratory failure * ABG attempted and was aborted after one attempt is do not feel that skin to be extremely pertinent to her management at this point time * Continue with bronchodilators 5. Diabetes mellitus type 2 * resume metformin now that lactic acidosis has resolved. * Moderate dose sliding scale insulin 6. DVT prophylaxis with Lovenox Case discussed with patient's at bedside. Code Visit Inpatient E&M: 85148 Subs Hosp L2
[2018-06-14] MEDS: predniSONE 20 MG Tablet 40 MG PO (15:00)
[2018-06-14 16:26] LABS: Bedside Glucose 146 mg/dL (70-110)
[2018-06-14] MEDS: Atorvastatin Calcium 40 MG Tablet PO (21:15)
[2018-06-14 22:40] LABS: Bedside Glucose 229 mg/dL (70-110)
[2018-06-15] VITALS (17 sets, daily range): BP systolic 117–154; BP diastolic 61–86; PULSE 58–89; RESP 16–32; TEMP 35.8–36.9; O2SAT 93–98
--- NOTE | 2018-06-15 00:32 | NURSING ---
Handed over care of this patient to Christianne Crawford RN at this time, report complete.
[2018-06-15] MEDS: Levothyroxine 175 MCG Tablet PO (05:20)
[2018-06-15 06:46] LABS: Absolute Lymphocyte Count 0.73 X10^3/ul (0.83-4.51); Absolute Neutrophil Count 5.6 X10^3/uL (2.0-7.7); Basophil# 0.01 X10^3/uL; Basophil% 0.1 % (0-1); Hematocrit 33.9 % (37-47); Hemoglobin 10.9 g/dl (12.0-15.0); Lymphocyte # 0.73 X10^3/ul (4.0); Lymphocyte % 10.8 % (19-41); Mean Corp Hgb Conc 32.2 g/gl (32-36); Mean Corpuscular Volume 99.4 fL (81-99); Mean Platelet Vol. 10.2 fl (6.2-12.0); Monocyte# 0.44 X10^3/uL; Monocyte% 6.5 % (0-10); Neutrophil # 5.58 X10^3/uL (2.7-7.7); Neutrophil % 82.5 % (47-70); Platelet Count 186 K/mm3 (150-450); RBC Distribution Width CV 13.9 % (11.6-14.6); RBC Distribution Width SD 50.3 fl (35.1-43.9); Red Blood Count 3.41 M/mm3 (4.2-5.4); White Blood Count 6.8 K/mm3 (4.4-11.0)
[2018-06-15 07:01] LABS: POSITIVE COUNT NO; POSITIVE DIFFERENTIAL NO; POSITIVE MORPHOLOGY NO
[2018-06-15 07:03] LABS: Anion Gap 7 (5-15); BUN 13 mg/dL (7-18); Calcium,Total 8.3 mg/dL (8.5-10.1); Chloride 108 mmol/L (98-107); Creatinine, Serum 0.68 mg/dL (0.55-1.02); EST Glomerular Filtration Rate 93 mL/min (>60); Est Glom Filt Rate - Afr Amer 112 mL/min (>60); Estimated Creatinine Clearance 67.84 ml/min; Glucose 137 mg/dL (74-106); Potassium 4.2 mmol/L (3.5-5.1); Sodium Level 144 mmol/L (136-145)
[2018-06-15] MEDS: Ipratropium/Albuterol Sulfate 3 ML AMPUL.NEB INHALATION ×3 (07:04→19:36)
[2018-06-15 07:06] LABS: Bedside Glucose 128 mg/dL (70-110)
[2018-06-15] MEDS: predniSONE 20 MG Tablet 40 MG PO (08:35)
[2018-06-15] MEDS: oxyCODONE 5 MG Tablet PO ×2 (08:35→20:38)
[2018-06-15] MEDS: Acetaminophen 325 MG Tablet 650 MG PO ×2 (08:35→20:38)
[2018-06-15] MEDS: ALPRAZolam 0.5 MG Tablet PO ×2 (08:35→14:03)
[2018-06-15] MEDS: Pantoprazole Sodium 40 MG Tablet PO (09:57)
[2018-06-15] MEDS: Metoprolol Tartrate 25 MG Tablet 12.5 MG PO ×2 (09:57→21:13)
[2018-06-15] MEDS: Enoxaparin 40 MG/0.4 ML Syringe SC (09:57)
[2018-06-15] MEDS: FLUoxetine 20 MG Capsule 40 MG PO (10:01)
[2018-06-15] MEDS: Calcium Carb/Vitamin D 1 TABLET Tablet PO (11:18)
[2018-06-15] MEDS: Insulin Lispro 100 UNIT/ML INSULN.PEN SQ ×2 (11:18→16:34)
[2018-06-15] MEDS: Ferrous Sulfate 325 MG Tablet PO (11:18)
[2018-06-15] MEDS: Multivitamins,Ther W-Minerals Tablet 1 TABLET PO (11:18)
[2018-06-15 11:26] LABS: Bedside Glucose 181 mg/dL (70-110)
--- NOTE | 2018-06-15 12:32 | PN_ITS ---
Patient Problems: Active and Suspected Problems (Last Reviewed 06/13/18 @ 08:35 by Attila Sweet DO) Bacteremia (Acute) Severe sepsis (Acute) UTI (urinary tract infection) (Acute) Subjective: Patient is a 63-year-old female with a past medical history of diabetes mellitus type 2, super morbid obesity and COPD who presented to the emergency department at [facility] complaining of fevers/chills, myalgias and generally not feeling well. She was diagnosed with severe sepsis secondary to a urinary tract infection and started on ertapenem given a past medical history of an E. coli ESBL. Lactic acid was 2.3 at admission. She is afebrile. Vital signs are stable. She is 94-95% saturated on room air. White blood cell count is 6.8 with 82% neutrophils. Electrolytes, BUN and creatinine are unremarkable. Blood sugars are fairly well-controlled. Microbiology: Urine culture grew E. coli which is pansensitive with the exception of ampicillin, Unasyn and Augmentin. 2 of 2 blood cultures grew E. coli. Repeat blood cultures are pending. 1 of the 2 repeat blood cultures is growing a gram-negative yvonne. CT scan of the abdomen and pelvis showed mild right hydronephrosis with perinephric stranding without evidence of an obstructing stone. There was fatty liver present and sigmoid diverticulosis. Denies nausea/vomiting/abdominal pain. Denies chest pain or shortness of breath. She has had no further shaking chills. Denies dysuria. - Physical Exam General: Alert, Oriented x3, Cooperative HEENT: Atraumatic, PERRLA, EOMI, Normocephalic Neck: Supple, Trachea Midline Lungs: Clear to auscultation, Diminished Cardiovascular: Regular rate, Regular Rhythm, Normal S1, Normal S2, No murmurs, No Gallop Abdomen: Bowel Sounds Present, Soft, Non Tender, Distended - And mildly tympanic, Obese Extremities: No cyanosis, No edema, No Calf Tenderness Skin: No rashes, No breakdown Neurological: Cranial nerves II-XII grossly intact, Neuro grossly intact Psych/Mental Status: Normal Affect, Appropriate Vital Signs Temp Pulse Resp BP Pulse Ox 98.5 F 76 20 H 126/83 H 95 06/15/18 09:56 06/15/18 11:01 06/15/18 09:56 06/15/18 09:56 06/15/18 09:56 Oxygen Flow Rate (L/min) 2 Oxygen Delivery Method Nasal Cannula Weight: 224 lb 6.889 oz Body Mass Index (BMI) 41.0 Intake and Output for Last 24 Hours 06/13/18 06/14/18 06/15/18 23:59 23:59 23:59 Intake Total 436 / 436 3414 / 3414 860.3 / 860.3 Balance 436 / 436 3414 / 3414 860.3 / 860.3 Microbiology Past 72 Hours 06/13/18 06:03 Urine Culture - Final Urine, Clean Catch Escherichia coli 06/13/18 14:10 Blood Culture - Preliminary Blood Culture (Wb) - Right Hand 06/13/18 04:52 Blood Culture - Final Blood Culture (Wb) - Left Hand Gram negative yvonne 06/13/18 04:20 Blood Culture - Final Blood Culture (Wb) - Anticubital Left Escherichia coli 06/13/18 04:35 Influenza Types A,B Direct FA (SUHAIL) - Final Mucosa - Nasopharyngeal Laboratory Tests Past 24 Hrs 06/15/18 06/15/18 06:16 06:16 WBC 6.8 RBC 3.41 L Hgb 10.9 L Hct 33.9 L MCV 99.4 H MCH 32.0 MCHC 32.2 RDW 13.9 RDW Differential 50.3 H Plt Count 186 MPV 10.2 Immature Gran % (Auto) 0.100 Neut % (Auto) 82.5 H Lymph % (Auto) 10.8 L [place] % (Auto) 6.5 Eos % (Auto) 0.0 Baso % (Auto) 0.1 Absolute Neuts (auto) 5.6 Absolute Lymphs (auto) 0.73 L Total Counted Not Reportable Sodium 144 Potassium 4.2 Chloride 108 H Carbon Dioxide 29.0 Anion Gap 7 BUN 13 Creatinine 0.68 Estim Creat Clear Calc 67.84 Est GFR (MDRD) Af Amer 112 Est GFR (MDRD) Non-Af 93 BUN/Creatinine Ratio 19.0 Glucose 137 H Calcium 8.3 L POC Glucose 06/15/18 06/15/18 06/14/18 11:16 07:00 21:23 POC Glucose 181 H 128 H 229 H 06/14/18 16:12 POC Glucose 146 H Medical Necessity - Tobacco Use Smoking Status: Former smoker Assessment/Plan All Active Problems (Last Reviewed 06/13/18 @ 08:35 by Attila Sweet DO) Bacteremia (Acute) Severe sepsis (Acute) UTI (urinary tract infection) (Acute) Anemia (Acute) Chronic respiratory failure (Acute) History of non-ST elevation myocardial infarction (NSTEMI) (Acute) Abnormal electrocardiogram (Acute) Impressions 1. Severe sepsis secondary to pyelonephritis due to E. coli 2. Pyelonephritis secondary to E. coli 3. Bacteremia with gram-negative yvonne/E. coli-in 3 of 4 blood cultures 4. COPD 5. Diabetes mellitus type 2 DC meropenem and start Rocephin 1 g IV daily Repeat blood cultures today Will discharge when blood cultures have no growth. Code Visit Inpatient E&M: 25953 Subs Hosp L2
[2018-06-15] MEDS: Ceftriaxone 1 GM/50 ML BAG IV (16:32)
[2018-06-15 16:51] LABS: Bedside Glucose 217 mg/dL (70-110)
[2018-06-15 20:41] LABS: Bedside Glucose 149 mg/dL (70-110)
[2018-06-15] MEDS: Atorvastatin Calcium 40 MG Tablet PO (21:13)
[2018-06-16] VITALS (16 sets, daily range): BP systolic 120–155; BP diastolic 70–84; PULSE 59–89; RESP 16–20; TEMP 36.8–37.2; O2SAT 93–96
[2018-06-16] MEDS: Acetaminophen 325 MG Tablet 650 MG PO ×3 (06:07→20:54)
[2018-06-16] MEDS: oxyCODONE 5 MG Tablet PO ×3 (06:07→20:55)
[2018-06-16] MEDS: Levothyroxine 175 MCG Tablet PO (06:13)
[2018-06-16] MEDS: Ipratropium/Albuterol Sulfate 3 ML AMPUL.NEB INHALATION ×3 (06:29→18:39)
[2018-06-16 06:51] LABS: Bedside Glucose 101 mg/dL (70-110)
[2018-06-16] MEDS: 0.9% NaCl Peripheral Flush Adult/Peds IV (09:42)
[2018-06-16] MEDS: predniSONE 20 MG Tablet 40 MG PO (09:42)
[2018-06-16] MEDS: Enoxaparin 40 MG/0.4 ML Syringe SC (09:42)
[2018-06-16] MEDS: FLUoxetine 20 MG Capsule 40 MG PO (09:42)
[2018-06-16] MEDS: Ceftriaxone 1 GM/50 ML BAG IV (09:42)
[2018-06-16] MEDS: Metoprolol Tartrate 25 MG Tablet 12.5 MG PO ×2 (09:43→21:04)
[2018-06-16] MEDS: Pantoprazole Sodium 40 MG Tablet PO (09:43)
[2018-06-16] MEDS: ALPRAZolam 0.5 MG Tablet PO ×2 (09:45→20:54)
[2018-06-16 11:50] LABS: Bedside Glucose 164 mg/dL (70-110)
[2018-06-16] MEDS: Multivitamins,Ther W-Minerals Tablet 1 TABLET PO (12:11)
[2018-06-16] MEDS: Insulin Lispro 100 UNIT/ML INSULN.PEN SQ ×2 (12:11→16:38)
[2018-06-16] MEDS: Ferrous Sulfate 325 MG Tablet PO (12:11)
[2018-06-16] MEDS: Calcium Carb/Vitamin D 1 TABLET Tablet PO (12:11)
--- NOTE | 2018-06-16 14:46 | PCM.PN.HOSP ---
Patient Problems: Active and Suspected Problems (Last Reviewed 06/13/18 @ 08:35 by Attila Sweet DO) Bacteremia (Acute) Severe sepsis (Acute) UTI (urinary tract infection) (Acute) Subjective: still short of breath. pain in flanks. Vitals/I&O's: Vital Signs Temp Pulse Resp BP Pulse Ox 37.2 C 80 16 128/73 H 93 06/16/18 09:39 06/16/18 12:36 06/16/18 12:36 06/16/18 09:39 06/16/18 09:39 Oxygen Flow Rate (L/min) 2 Oxygen Delivery Method Nasal Cannula Weight: 101.8 kg Body Mass Index (BMI) 41.0 Intake and Output for Last 24 Hours 06/14/18 06/15/18 06/16/18 23:59 23:59 23:59 Intake Total 3414 / 3414 1.3 / 1950.3 200 / 200 Balance 3414 / 3414 1950.3 / 1950.3 200 / 200 General: Alert, Cooperative, No apparent distress, - - tachypneic. HEENT: Atraumatic, Normocephalic Oral: Moist Mucosa, No Gingival or Mucosal Lesions/ Ulcerations Neck: No Nodes, Thyroid Normal Size and Texture Lungs: Clear to auscultation, No rhonchi, No wheeze, Diminished Cardiovascular: Regular rate, Regular Rhythm, Normal S1, Normal S2, No murmurs Abdomen: Bowel Sounds Present, Soft, Non Tender, Non-Distended, Obese, - - no CVA tenderness. Extremities: No edema, No Calf Tenderness Skin: No rashes, No breakdown Psych/Mental Status: Normal Affect, Appropriate Microbiology Past 72 Hours 06/13/18 14:10 Blood Culture (Wb) - Right Hand Blood Culture - Final Gram negative yvonne 06/13/18 04:20 Blood Culture (Wb) - Anticubital Left Blood Culture - Final Escherichia coli 06/13/18 14:00 Blood Culture (Wb) - Anticubital Right Blood Culture - Preliminary No growth in 48 hours. 06/13/18 06:03 Urine, Clean Catch Urine Culture - Final Escherichia coli 06/13/18 04:52 Blood Culture (Wb) - Left Hand Blood Culture - Final Gram negative yvonne Laboratory Results 06/15/18 16:34: POC Glucose 217 H 06/15/18 20:34: POC Glucose 149 H 06/16/18 06:44: POC Glucose 101 06/16/18 11:41: POC Glucose 164 H Current Medications Acetaminophen (Tylenol) 650 mg PO Q6H PRN PRN PRN Reason: Mild Pain (scale 0-3)/T>100.7 Last Admin: 06/16/18 12:10 Dose: 650 mg Albuterol Sulfate (Ventolin Aerosols) 2.5 mg INHALATION Q2H PRN PRN PRN Reason: SHORTNESS OF BREATH Last Admin: 06/13/18 11:07 Dose: 2.5 mg Albuterol/Ipratropium (Duoneb) 3 ml INHALATION Q6HWA.RT [facility] Last Admin: 06/16/18 12:36 Dose: 3 ml Alprazolam (Xanax) 0.5 mg PO TID PRN PRN PRN Reason: ANXIETY Last Admin: 06/16/18 09:45 Dose: 0.5 mg Atorvastatin Calcium (Lipitor) 40 mg PO QHS [facility] Last Admin: 06/15/18 21:13 Dose: 40 mg Calcium/Vitamin D (Os-Manoj 500mg + D) 1 tablet PO DAILY@1200 [facility] Last Admin: 06/16/18 12:11 Dose: 1 tablet Dextrose (D50w Syringe) 0 gm IV X1 PRN; Protocol PRN Reason: Hypoglycemia Enoxaparin Sodium (Lovenox) 40 mg SC DAILY@1000 [facility] Last Admin: 06/16/18 09:42 Dose: 40 mg Ferrous Sulfate (Ferrous Sulfate) 325 mg PO DAILY@1200 [facility] Last Admin: 06/16/18 12:11 Dose: 325 mg Fluoxetine HCl (Prozac) 40 mg PO DAILY [facility] Last Admin: 06/16/18 09:42 Dose: 40 mg Glucagon () 1 mg IM .X1 PRN PRN Reason: Hypoglycemia Ceftriaxone Sodium (Rocephin) 1 gm in 50 mls @ 100 mls/hr IV Q24 [facility] Last Admin: 06/16/18 09:42 Dose: 100 mls/hr Insulin Human Lispro (Humalog Kwikpen (Bkc)) 0 unit SQ TIDAC [facility]; Protocol Last Admin: 06/16/18 12:11 Dose: 1 units Levothyroxine Sodium (Synthroid) 262.5 mcg PO Morejon@0600 [facility] Levothyroxine Sodium (Synthroid) 175 mcg PO MoTuWeThFrSa@0600 [facility] Last Admin: 06/16/18 06:13 Dose: 175 mcg Magnesium Hydroxide (Milk Of Magnesia) 30 ml PO DAILY PRN PRN Reason: Constipation Metoprolol Tartrate (Lopressor (Beta Nayely)) 12.5 mg PO BID [facility] Last Admin: 06/16/18 09:43 Dose: 12.5 mg Multivitamins/Minerals (Multivitamin With Minerals) 1 tablet PO DAILY@1200 [facility] Last Admin: 06/16/18 12:11 Dose: 1 tablet Ondansetron HCl (Zofran) 4 mg IV Q8H PRN PRN PRN Reason: Nausea Oxycodone HCl (Oxyir) 5 mg PO Q4H PRN PRN PRN Reason: Moderate Pain (pain scale 4-5) Last Admin: 06/16/18 12:10 Dose: 5 mg Pantoprazole Sodium (Protonix) 40 mg PO DAILY [facility] Last Admin: 06/16/18 09:43 Dose: 40 mg Prednisone () 40 mg PO DAILY@0800 [facility] Last Admin: 06/16/18 09:42 Dose: 40 mg Sodium Chloride () 5 - 15 ml IV UD PRN PRN Reason: SALINE FLUSH Last Admin: 06/16/18 09:42 Dose: 10 ml Medical Necessity - Tobacco Use Smoking Status: Former smoker Assessment/Plan All Active Problems (Last Reviewed 06/13/18 @ 08:35 by Attila Sweet DO) Bacteremia (Acute) Severe sepsis (Acute) UTI (urinary tract infection) (Acute) Anemia (Acute) Chronic respiratory failure (Acute) History of non-ST elevation myocardial infarction (NSTEMI) (Acute) Abnormal electrocardiogram (Acute) 1. Severe sepsis present on admission Patient met 2 of 4 Sirs criteria Secondary to UTI and bacteremia resolved 2. UTI/Pyelonephritis E. coli, not ESBL this time Meropenem changed to CTX on 06/[address] check US to see if any development of abscess. 3. Bacteremia likely 2/2 UTI 3 + Blood cultures repeat BCx pending on 06/15 4. Lactic acidosis resolved Likely due to the severe sepsis, however could be a component of her COPD but also the fact that she is on metformin Hold metformin 4. acute COPD exacerbation subjectively worse today will add prednisone 40 daily for 5 days. No concern for impending respiratory failure ABG attempted and was aborted after one attempt is do not feel that skin to be extremely pertinent to her management at this point time Continue with bronchodilators still short of breath, despite unremarkable exam check CT chest. 5. Diabetes mellitus type 2 resume metformin now that lactic acidosis has resolved. Moderate dose sliding scale insulin fair control 6. DVT prophylaxis with Lovenox Case discussed with patient's at bedside. Code Visit Inpatient E&M: 46419 Subs Hosp L2
--- NOTE | 2018-06-16 14:51 | US_ITS ---
STUDY: RENAL ULTRASOUND - COMPLETE REASON FOR EXAM: Female, 63 years old. Bilateral flank pain TECHNIQUE: Ultrasound evaluation of the kidneys was performed with real-time and static kim-scale imaging. COMPARISON: None. FINDINGS: RIGHT KIDNEY: Normal location of the right kidney, which is hypertrophic.. The right kidney measures 14.8 x 6.8 x 7.1 cm. There is a normal cortex of the right kidney. The renal cortex measures 1.9 cm. There is a 4 cm upper pole cyst. There are no right renal calculi. There is no right hydronephrosis. DISTAL RIGHT URETER: There is non-visualization of the distal right ureter. There is no demonstrated right ureterovesical junction calculus. There is a visualized right ureteral jet. LEFT KIDNEY: Normal location of the left kidney, which is normal in size. The left kidney measures 10.9 x 5.7 x 6.0 cm. There is a normal cortex of the left kidney. The renal cortex measures 1.9 cm. There are 2 simple cysts, largest measures 1.7 cm There are no left renal calculi. There is no left hydronephrosis. DISTAL LEFT URETER: There is non-visualization of the distal left ureter. There is no demonstrated left ureterovesical junction calculus. There is a visualized left ureteral jet. AORTA: There is no elongation or tortuosity of the abdominal aorta. I.V.C.: The IVC is patent. BLADDER: The distended urinary bladder has a volume of 224.79 ml. The empty urinary bladder has a volume of less than 10 ml. There is a normal wall thickness of the distended urinary bladder. There is no demonstrated mass within the urinary bladder. There are no demonstrated bladder calculi. US/Kidney and Bladder IMPRESSION: Bilateral simple renal cysts, no suspicious sonographic findings, right kidney remains larger than the left. Electronically Signed: Sharif Shaver MD at 19:12 EST , Service support ,
--- NOTE | 2018-06-16 14:51 | CT_ITS ---
STUDY: CT CHEST WITH CONTRAST REASON FOR EXAM: Female, 63 years old. Fever and cough RADIATION DOSAGE (If Supplied By Facility): CTDIvol = ( 18.38 ) mGy, DLP = ( 713.17 ) mGycm TECHNIQUE: Transaxial imaging was performed following intravenous administration of 100 ml of Isovue 300 contrast material. Multiplanar coronal and sagittal images were reformatted. Individualized dose optimization techniques were used for this CT. COMPARISON: 07/06/2017 FINDINGS: Soft tissue windows show previous thyroidectomy. No suspicious axillary or mediastinal adenopathy. Evidence of previous CABG. There is a small left pleural effusion. Lung windows show lungs to be mildly hyperexpanded with chronic interstitial changes but no superimposed infiltrate or suspicious noncalcified mass or nodule. Limited cuts through the upper abdomen show hepatomegaly with fatty infiltration of the liver, no discrete lesion. There is a simple right renal cyst. CT/Chest WITH Contrast IMPRESSION: Chronic interstitial changes with a small left pleural effusion. No superimposed acute pulmonary process. Remote CABG Fatty liver Electronically Signed: Sharif Shaver MD at 16:12 EST , Service support ,
--- NOTE | 2018-06-16 14:51 | PN_ITS ---
Patient Problems: Active and Suspected Problems (Last Reviewed 06/13/18 @ 08:35 by Attila Sweet DO) Bacteremia (Acute) Severe sepsis (Acute) UTI (urinary tract infection) (Acute) Subjective: still short of breath. pain in flanks. Vitals/I&O's: Vital Signs Temp Pulse Resp BP Pulse Ox 37.2 C 80 16 128/73 H 93 06/16/18 09:39 06/16/18 12:36 06/16/18 12:36 06/16/18 09:39 06/16/18 09:39 Oxygen Flow Rate (L/min) 2 Oxygen Delivery Method Nasal Cannula Weight: 101.8 kg Body Mass Index (BMI) 41.0 Intake and Output for Last 24 Hours 06/14/18 06/15/18 06/16/18 23:59 23:59 23:59 Intake Total 3414 / 3414 1.3 / 1950.3 200 / 200 Balance 3414 / 3414 1950.3 / 1950.3 200 / 200 General: Alert, Cooperative, No apparent distress, - - tachypneic. HEENT: Atraumatic, Normocephalic Oral: Moist Mucosa, No Gingival or Mucosal Lesions/ Ulcerations Neck: No Nodes, Thyroid Normal Size and Texture Lungs: Clear to auscultation, No rhonchi, No wheeze, Diminished Cardiovascular: Regular rate, Regular Rhythm, Normal S1, Normal S2, No murmurs Abdomen: Bowel Sounds Present, Soft, Non Tender, Non-Distended, Obese, - - no CVA tenderness. Extremities: No edema, No Calf Tenderness Skin: No rashes, No breakdown Psych/Mental Status: Normal Affect, Appropriate Microbiology Past 72 Hours 06/13/18 14:10 Blood Culture (Wb) - Right Hand Blood Culture - Final Gram negative yvonne 06/13/18 04:20 Blood Culture (Wb) - Anticubital Left Blood Culture - Final Escherichia coli 06/13/18 14:00 Blood Culture (Wb) - Anticubital Right Blood Culture - Preliminary No growth in 48 hours. 06/13/18 06:03 Urine, Clean Catch Urine Culture - Final Escherichia coli 06/13/18 04:52 Blood Culture (Wb) - Left Hand Blood Culture - Final Gram negative yvonne Laboratory Results 06/15/18 16:34: POC Glucose 217 H 06/15/18 20:34: POC Glucose 149 H 06/16/18 06:44: POC Glucose 101 06/16/18 11:41: POC Glucose 164 H Current Medications Acetaminophen (Tylenol) 650 mg PO Q6H PRN PRN PRN Reason: Mild Pain (scale 0-3)/T>100.7 Last Admin: 06/16/18 12:10 Dose: 650 mg Albuterol Sulfate (Ventolin Aerosols) 2.5 mg INHALATION Q2H PRN PRN PRN Reason: SHORTNESS OF BREATH Last Admin: 06/13/18 11:07 Dose: 2.5 mg Albuterol/Ipratropium (Duoneb) 3 ml INHALATION Q6HWA.RT [facility] Last Admin: 06/16/18 12:36 Dose: 3 ml Alprazolam (Xanax) 0.5 mg PO TID PRN PRN PRN Reason: ANXIETY Last Admin: 06/16/18 09:45 Dose: 0.5 mg Atorvastatin Calcium (Lipitor) 40 mg PO QHS [facility] Last Admin: 06/15/18 21:13 Dose: 40 mg Calcium/Vitamin D (Os-Manoj 500mg + D) 1 tablet PO DAILY@1200 [facility] Last Admin: 06/16/18 12:11 Dose: 1 tablet Dextrose (D50w Syringe) 0 gm IV X1 PRN; Protocol PRN Reason: Hypoglycemia Enoxaparin Sodium (Lovenox) 40 mg SC DAILY@1000 [facility] Last Admin: 06/16/18 09:42 Dose: 40 mg Ferrous Sulfate (Ferrous Sulfate) 325 mg PO DAILY@1200 [facility] Last Admin: 06/16/18 12:11 Dose: 325 mg Fluoxetine HCl (Prozac) 40 mg PO DAILY [facility] Last Admin: 06/16/18 09:42 Dose: 40 mg Glucagon () 1 mg IM .X1 PRN PRN Reason: Hypoglycemia Ceftriaxone Sodium (Rocephin) 1 gm in 50 mls @ 100 mls/hr IV Q24 [facility] Last Admin: 06/16/18 09:42 Dose: 100 mls/hr Insulin Human Lispro (Humalog Kwikpen (Bkc)) 0 unit SQ TIDAC [facility]; Protocol Last Admin: 06/16/18 12:11 Dose: 1 units Levothyroxine Sodium (Synthroid) 262.5 mcg PO Morejon@0600 [facility] Levothyroxine Sodium (Synthroid) 175 mcg PO MoTuWeThFrSa@0600 [facility] Last Admin: 06/16/18 06:13 Dose: 175 mcg Magnesium Hydroxide (Milk Of Magnesia) 30 ml PO DAILY PRN PRN Reason: Constipation Metoprolol Tartrate (Lopressor (Beta Nayely)) 12.5 mg PO BID [facility] Last Admin: 06/16/18 09:43 Dose: 12.5 mg Multivitamins/Minerals (Multivitamin With Minerals) 1 tablet PO DAILY@1200 [facility] Last Admin: 06/16/18 12:11 Dose: 1 tablet Ondansetron HCl (Zofran) 4 mg IV Q8H PRN PRN PRN Reason: Nausea Oxycodone HCl (Oxyir) 5 mg PO Q4H PRN PRN PRN Reason: Moderate Pain (pain scale 4-5) Last Admin: 06/16/18 12:10 Dose: 5 mg Pantoprazole Sodium (Protonix) 40 mg PO DAILY [facility] Last Admin: 06/16/18 09:43 Dose: 40 mg Prednisone () 40 mg PO DAILY@0800 [facility] Last Admin: 06/16/18 09:42 Dose: 40 mg Sodium Chloride () 5 - 15 ml IV UD PRN PRN Reason: SALINE FLUSH Last Admin: 06/16/18 09:42 Dose: 10 ml Medical Necessity - Tobacco Use Smoking Status: Former smoker Assessment/Plan All Active Problems (Last Reviewed 06/13/18 @ 08:35 by Attila Sweet DO) Bacteremia (Acute) Severe sepsis (Acute) UTI (urinary tract infection) (Acute) Anemia (Acute) Chronic respiratory failure (Acute) History of non-ST elevation myocardial infarction (NSTEMI) (Acute) Abnormal electrocardiogram (Acute) 1. Severe sepsis * present on admission * Patient met 2 of 4 Sirs criteria * Secondary to UTI and bacteremia * resolved 2. UTI/Pyelonephritis * E. coli, not ESBL this time * Meropenem changed to CTX on 06/15 * perinephric stranding on CT * check US to see if any development of abscess. 3. Bacteremia * likely 2/2 UTI * 3 + Blood cultures * repeat BCx pending on 06/15 4. Lactic acidosis * resolved * Likely due to the severe sepsis, however could be a component of her COPD but also the fact that she is on metformin * Hold metformin 4. acute COPD exacerbation * subjectively worse today * will add prednisone 40 daily for 5 days. * No concern for impending respiratory failure * ABG attempted and was aborted after one attempt is do not feel that skin to be extremely pertinent to her management at this point time * Continue with bronchodilators * still short of breath, despite unremarkable exam * check CT chest. 5. Diabetes mellitus type 2 * resume metformin now that lactic acidosis has resolved. * Moderate dose sliding scale insulin * fair control 6. DVT prophylaxis with Lovenox Case discussed with patient's at bedside. Code Visit Inpatient E&M: 66504 Subs Hosp L2
[2018-06-16 16:46] LABS: Bedside Glucose 227 mg/dL (70-110)
[2018-06-16] MEDS: Atorvastatin Calcium 40 MG Tablet PO (20:56)
[2018-06-16 21:21] LABS: Bedside Glucose 138 mg/dL (70-110)
[2018-06-17] VITALS (9 sets, daily range): BP systolic 142–145; BP diastolic 72–78; PULSE 49–85; RESP 16–20; TEMP 36.6–36.8; O2SAT 92–95
[2018-06-17] MEDS: Levothyroxine 175 MCG Tablet PO (06:00)
[2018-06-17] MEDS: Ipratropium/Albuterol Sulfate 3 ML AMPUL.NEB INHALATION ×2 (06:45→12:56)
[2018-06-17 06:48] LABS: Anion Gap 8 (5-15); BUN 15 mg/dL (7-18); BUN/Creat Ratio 23.5 RATIO (10-20); Calcium,Total 8.7 mg/dL (8.5-10.1); Chloride 106 mmol/L (98-107); Creatinine, Serum 0.64 mg/dL (0.55-1.02); EST Glomerular Filtration Rate 100 mL/min (>60); Est Glom Filt Rate - Afr Amer 122 mL/min (>60); Estimated Creatinine Clearance 72.08 ml/min; Glucose 106 mg/dL (74-106); Potassium 3.5 mmol/L (3.5-5.1); Sodium Level 144 mmol/L (136-145)
[2018-06-17 07:00] LABS: Absolute Lymphocyte Count 1.06 X10^3/ul (0.83-4.51); Absolute Neutrophil Count 5.3 X10^3/uL (2.0-7.7); Basophil# 0.03 X10^3/uL; Basophil% 0.4 % (0-1); Eosinophil# 0.06 X10^3/uL; Eosinophils% 0.8 % (0-5); Hematocrit 35.3 % (37-47); Hemoglobin 11.5 g/dl (12.0-15.0); Lymphocyte # 1.06 X10^3/ul (4.0); Lymphocyte % 14.3 % (19-41); Mean Corp Hgb Conc 32.6 g/gl (32-36); Mean Corpuscular Hgb 32.4 pg (27.0-32.0); Mean Corpuscular Volume 99.4 fL (81-99); Monocyte% 10.8 % (0-10); Neutrophil # 5.29 X10^3/uL (2.7-7.7); Neutrophil % 71.4 % (47-70); Platelet Count 253 K/mm3 (150-450); RBC Distribution Width CV 13.6 % (11.6-14.6); RBC Distribution Width SD 48.2 fl (35.1-43.9); Red Blood Count 3.55 M/mm3 (4.2-5.4); White Blood Count 7.4 K/mm3 (4.4-11.0)
[2018-06-17 07:01] LABS: POSITIVE COUNT YES; POSITIVE DIFFERENTIAL NO; POSITIVE MORPHOLOGY YES
[2018-06-17 07:11] LABS: Bedside Glucose 102 mg/dL (70-110)
[2018-06-17] MEDS: Acetaminophen 325 MG Tablet 650 MG PO (07:11)
[2018-06-17] MEDS: oxyCODONE 5 MG Tablet PO (07:12)
[2018-06-17] MEDS: predniSONE 20 MG Tablet 40 MG PO (08:33)
[2018-06-17] MEDS: Ceftriaxone 1 GM/50 ML BAG IV (11:02)
[2018-06-17] MEDS: FLUoxetine 20 MG Capsule 40 MG PO (11:03)
[2018-06-17] MEDS: Pantoprazole Sodium 40 MG Tablet PO (11:03)
[2018-06-17] MEDS: Metoprolol Tartrate 25 MG Tablet 12.5 MG PO (11:03)
[2018-06-17] MEDS: Enoxaparin 40 MG/0.4 ML Syringe SC (11:04)
[2018-06-17] MEDS: Multivitamins,Ther W-Minerals Tablet 1 TABLET PO (11:06)
[2018-06-17] MEDS: Ferrous Sulfate 325 MG Tablet PO (11:06)
[2018-06-17] MEDS: Calcium Carb/Vitamin D 1 TABLET Tablet PO (11:06)
[2018-06-17] MEDS: 0.9% NaCl Peripheral Flush Adult/Peds IV (11:43)
[2018-06-17] MEDS: Insulin Lispro 100 UNIT/ML INSULN.PEN SQ (11:43)
[2018-06-17 11:45] LABS: Bedside Glucose 171 mg/dL (70-110)
[2018-06-17] MEDS: ALPRAZolam 0.5 MG Tablet PO (13:23)
--- NOTE | 2018-06-17 14:18 | PCM.DC ---
- Discharge Diagnoses Current Active Problems: Current Active and Chronic Problems (Last Reviewed 06/13/18 @ 08:35 by Attila Sweet DO) COPD exacerbation (Chronic) Bacteremia (Acute) Severe sepsis (Acute) UTI (urinary tract infection) (Acute) You will use the following diet at home:: Calorie/Carbohydrate Controlled (specify 1200, 1400, etc) - 1800 Your food should be the consistency of: Regular Your liquids should be the consistency of: Regular/Thin Discharge Activity: Return to Normal Activity Call your doctor if you observe: Fever of 101 or Higher, Inability to urinate - burning with urination., Shortness of breath Allergies/Adverse Reactions: Allergies ibuprofen Allergy (Verified 03/02/18 13:22) Hives amlodipine [From [facility]] Adverse Reaction (Intermediate, Verified 03/02/18 13:43) swelling adhesive tape Adverse Reaction (Unknown, Verified 03/02/18 13:22) Unknown Medications to take at Discharge ALPRAZolam [Xanax] 0.5 mg PO TID PRN PRN 06/19/14 Calcium Citrate/Vitamin D3 [Hm Calcium Citrate-Vit D3 Tab] 1 ea PO DAILY 06/19/14 Fluoxetine [Prozac] 40 mg PO DAILY 06/19/14 Pantoprazole Sodium [Protonix] 40 mg PO DAILY 06/19/14 Acetaminophen [Tylenol] 325 mg PO ACHS & 0200 PRN 07/17/16 metformin 500 mg tablet 500 mg PO DAILY tab 08/03/17 levothyroxine 175 mcg tablet 175 mcg PO MOTUWETHFRSA tab 08/05/17 Atorvastatin Calcium [Lipitor] 40 mg PO QHS 09/07/17 Levothyroxine [Synthroid] 1.5 tab PO PATRICK 09/07/17 Mv-Mn/Folic Acid/Calcium/Vit K [Women's 50 Plus Daily Formula] 1 ea PO DAILY 09/07/17 ferrous sulfate 325 mg (65 mg iron) tablet,delayed release 325 mg PO DAILY tab 03/02/18 hydrochlorothiazide 12.5 mg tablet 12.5 mg PO DAILY 90 Days #90 03/02/18 metoprolol tartrate 25 mg tablet 12.5 mg PO BID #90 tab 04/23/18 Albuterol Inhaler [Ventolin Hfa] 1 - 2 puff INHALATION Q4H PRN PRN #1 inhaler 06/17/18 Ciprofloxacin [Cipro] 500 mg PO BID #14 tablet 06/17/18 Prednisone 4 tab PO DAILY #8 tab.ds.pk 06/17/18 The following prescriptions were given: Albuterol Inhaler [Ventolin Hfa] 1 - 2 puff INHALATION Q4H PRN PRN #1 inhaler PRN Reason: Shortness Of Breath Prednisone 4 tab PO DAILY #8 tab.ds.pk Ciprofloxacin [Cipro] 500 mg PO BID #14 tablet Primary Care Physician: Caleb Mason MD [Primary Care Provider] - Within 2 Weeks Test Results: Test results from this visit will be discussed in further detail at your follow-up appointment, if applicable.
--- NOTE | 2018-06-17 14:19 | PCM.DC.SUM ---
Discharge Date and Diagnosis - Problem List Patient Problems: Active and Suspected Problems (Last Reviewed 06/13/18 @ 08:35 by Attila Sweet DO) Bacteremia (Acute) Severe sepsis (Acute) UTI (urinary tract infection) (Acute) Date of Admission: 06/13/18 Date of Discharge: 06/17/18 - Primary Discharge Diagnosis Active and Suspected Problems (Last Reviewed 06/13/18 @ 08:35 by Attila Sweet DO) Bacteremia (Acute) Severe sepsis (Acute) UTI (urinary tract infection) (Acute) - Secondary Discharge Diagnosis Chronic Problems (Last Reviewed 06/13/18 @ 08:35 by Attila Sweet DO) COPD exacerbation (Chronic) CAD (coronary artery disease) (Chronic) COPD (chronic obstructive pulmonary disease) (Chronic) Aortocoronary bypass status (Chronic ~06/05/16) CABG x1 ANDRES to LAD 06/05/16 History of prosthetic aortic valve replacement (Chronic ~06/05/16) 21mm [facility] Chronic diastolic heart failure (Chronic) Pulmonary hypertension, secondary (Chronic) Cardiomegaly (Chronic) Nonrheumatic aortic (valve) stenosis (Chronic) AVR #21 [facility] [employer] Bioprosthetic Pericardial Prosthesis 06/05/2016 @ [facility] Atherosclerotic heart disease of [place] coronary artery without angina pectoris (Chronic) CABG x3- ANDRES to LAD, SVG to ramus branch of CFX, SVG to RCA 07/03 Angina pectoris (Chronic) Hypertension, benign (Chronic) Hospital Course and Treatment Imaging Results: Clinical Impression(s) from Imaging Studies Abdomen/Pelvis CT 06/13/18 04:23 IMPRESSION: Mild right hydronephrosis with perinephric stranding without evidence of obstructing stone. Considerations include a recently passed stone, ureteral thrombus or a mass. Consider urology consult. Right colon is grossly normal. Normal appendix. Fatty liver. Left renal cyst. Focal coarse peripheral calcifications which may be related to prior infection, surgery or trauma. Sigmoid diverticulosis. Previously noted low-attenuation lesion right lobe of the liver not visualized on this study performed without intravenous contrast. This lesion can be followed with ultrasound as clinically warranted. Electronically Signed: Roman Ash MD at 6:07 EST , Service support , Chest X-Ray 06/13/18 04:23 IMPRESSION: No acute cardiopulmonary disease. Electronically Signed: Roman Ash MD at 6:10 EST , Service support , Chest CT 06/16/18 14:51 IMPRESSION: Chronic interstitial changes with a small left pleural effusion. No superimposed acute pulmonary process. Remote CABG Fatty liver Electronically Signed: Sharif Shaver MD at 16:12 EST , Service support , Renal Ultrasound 06/16/18 14:51 IMPRESSION: Bilateral simple renal cysts, no suspicious sonographic findings, right kidney remains larger than the left. Electronically Signed: Sharif Shaver MD at 19:12 EST , Service support , Operations: None Procedures: None Summary of Care Provided: The patient is a 63 year old F presents with fever, chills and malaise. 1. Severe sepsis present on admission Patient met 2 of 4 Sirs criteria Secondary to UTI and bacteremia resolved 2. UTI/Pyelonephritis E. coli, not ESBL this time continue cipro for 7 more days. 3. Bacteremia 2/2 UTI 3 + Blood cultures repeat BCx on 06/15 negative (confirmed with micro) 4. Lactic acidosis resolved Likely due to the severe sepsis, however could be a component of her COPD but also the fact that she is on metformin resume metformin 4. acute COPD exacerbation subjectively worse today will add prednisone 40 daily for 5 days. No concern for impending respiratory failure ABG attempted and was aborted after one attempt is do not feel that skin to be extremely pertinent to her management at this point time Continue with bronchodilators still short of breath, despite unremarkable exam CT chest showed no acute process.. 5. Diabetes mellitus type 2 resume metformin now that lactic acidosis has resolved. Moderate dose sliding scale insulin fair control[] Patient Problems: Active and Suspected Problems (Last Reviewed 06/13/18 @ 08:35 by Attila Sweet DO) Bacteremia (Acute) Severe sepsis (Acute) UTI (urinary tract infection) (Acute) - Physical Exam General: Alert, Cooperative, No apparent distress HEENT: Atraumatic, Normocephalic Oral: Moist Mucosa, No Gingival or Mucosal Lesions/ Ulcerations Lungs: Clear to auscultation, Normal air movement, No rhonchi, No wheeze Cardiovascular: Regular rate, Regular Rhythm, Normal S1, Normal S2, No murmurs Abdomen: Bowel Sounds Present, Soft, Non Tender, Non-Distended Extremities: No edema, No Calf Tenderness Skin: No rashes, No breakdown Vital Signs Temp Pulse Resp BP Pulse Ox 36.8 C 85 20 H 142/73 H 95 06/17/18 10:57 06/17/18 12:56 06/17/18 12:56 06/17/18 11:03 06/17/18 10:57 Oxygen Flow Rate (L/min) 2 Oxygen Delivery Method Nasal Cannula Weight: 101.8 kg Body Mass Index (BMI) 41.0 Intake and Output for Last 24 Hours 06/15/18 06/16/18 06/17/18 23:59 23:59 23:59 Intake Total 1950.3 / 1950.3 740 / 740 630 / 630 Balance 1950.3 / 1950.3 740 / 740 630 / 630 Microbiology Past 72 Hours 06/13/18 14:10 Blood Culture - Final Blood Culture (Wb) - Right Hand Gram negative yvonne 06/13/18 04:20 Blood Culture - Final Blood Culture (Wb) - Anticubital Left Escherichia coli 06/13/18 14:00 Blood Culture - Preliminary Blood Culture (Wb) - Anticubital Right No growth in 48 hours. 06/13/18 06:03 Urine Culture - Final Urine, Clean Catch Escherichia coli 06/13/18 04:52 Blood Culture - Final Blood Culture (Wb) - Left Hand Gram negative yvonne Laboratory Tests Past 24 Hrs 06/17/18 06/17/18 06:20 06:20 WBC 7.4 RBC 3.55 L Hgb 11.5 L Hct 35.3 L MCV 99.4 H MCH 32.4 H MCHC 32.6 RDW 13.6 RDW Differential 48.2 H Plt Count 253 MPV 10.0 Immature Gran % (Auto) 2.300 H Neut % (Auto) 71.4 H Lymph % (Auto) 14.3 L Harris % (Auto) 10.8 H Eos % (Auto) 0.8 Baso % (Auto) 0.4 Absolute Neuts (auto) 5.3 Absolute Lymphs (auto) 1.06 Total Counted Not Reportable Diff Path Review May foll Sodium 144 Potassium 3.5 Chloride 106 Carbon Dioxide 30.0 Anion Gap 8 BUN 15 Creatinine 0.64 Estim Creat Clear Calc 72.08 Est GFR (MDRD) Af Amer 122 Est GFR (MDRD) Non-Af 100 BUN/Creatinine Ratio 23.5 H Glucose 106 Calcium 8.7 POC Glucose 06/17/18 06/17/18 06/16/18 11:38 07:04 21:11 POC Glucose 171 H 102 138 H 06/16/18 16:36 POC Glucose 227 H Discharge Diet: 1800 Calorie Control Diet Discharge Activity: Return to Normal Activity Call your doctor if you observe: Fever of 101 or Higher, Inability to urinate - burning with urination., Shortness of breath Home Medications: Medications to take at Discharge ALPRAZolam [Xanax] 0.5 mg PO TID PRN PRN 06/19/14 Calcium Citrate/Vitamin D3 [Hm Calcium Citrate-Vit D3 Tab] 1 ea PO DAILY 06/19/14 Fluoxetine [Prozac] 40 mg PO DAILY 06/19/14 Pantoprazole Sodium [Protonix] 40 mg PO DAILY 06/19/14 Acetaminophen [Tylenol] 325 mg PO ACHS & 0200 PRN 07/17/16 metformin 500 mg tablet 500 mg PO DAILY tab 08/03/17 levothyroxine 175 mcg tablet 175 mcg PO MOTUWETHFRSA tab 08/05/17 Atorvastatin Calcium [Lipitor] 40 mg PO QHS 09/07/17 Levothyroxine [Synthroid] 1.5 tab PO PATRICK 09/07/17 Mv-Mn/Folic Acid/Calcium/Vit K [Women's 50 Plus Daily Formula] 1 ea PO DAILY 09/07/17 ferrous sulfate 325 mg (65 mg iron) tablet,delayed release 325 mg PO DAILY tab 03/02/18 hydrochlorothiazide 12.5 mg tablet 12.5 mg PO DAILY 90 Days #90 03/02/18 metoprolol tartrate 25 mg tablet 12.5 mg PO BID #90 tab 04/23/18 Albuterol Inhaler [Ventolin Hfa] 1 - 2 puff INHALATION Q4H PRN PRN #1 inhaler 06/17/18 Ciprofloxacin [Cipro] 500 mg PO BID #14 tablet 06/17/18 Prednisone 4 tab PO DAILY #8 tab.ds.pk 06/17/18 Following Prescrptions Were Given to Patient: Albuterol Inhaler [Ventolin Hfa] 1 - 2 puff INHALATION Q4H PRN PRN #1 inhaler PRN Reason: Shortness Of Breath Prednisone 4 tab PO DAILY #8 tab.ds.pk Ciprofloxacin [Cipro] 500 mg PO BID #14 tablet Primary Care Physician: Caleb Mason MD [Primary Care Provider] - Within 2 Weeks Disposition: Home Minutes spent on discharge:: 32 Patient Condition:: Good Medical Necessity - Tobacco Use Smoking Status: Former smoker Meaningful Use Info Meaningful Use Diagnoses (Choose all that apply): None applicable Code Visit Inpatient E&M: 96187 Disch Hosp
--- NOTE | 2018-06-17 14:22 | DS.PCM_ITS ---
Discharge Date and Diagnosis - Problem List Patient Problems: Active and Suspected Problems (Last Reviewed 06/13/18 @ 08:35 by Attila Sweet DO) Bacteremia (Acute) Severe sepsis (Acute) UTI (urinary tract infection) (Acute) Date of Admission: 06/13/18 Date of Discharge: 06/17/18 - Primary Discharge Diagnosis Active and Suspected Problems (Last Reviewed 06/13/18 @ 08:35 by Attila Sweet DO) Bacteremia (Acute) Severe sepsis (Acute) UTI (urinary tract infection) (Acute) - Secondary Discharge Diagnosis Chronic Problems (Last Reviewed 06/13/18 @ 08:35 by Attila Sweet DO) COPD exacerbation (Chronic) CAD (coronary artery disease) (Chronic) COPD (chronic obstructive pulmonary disease) (Chronic) Aortocoronary bypass status (Chronic ~06/05/16) CABG x1 ANDRES to LAD 06/05/16 History of prosthetic aortic valve replacement (Chronic ~06/05/16) 21mm [facility] Trifecta Chronic diastolic heart failure (Chronic) Pulmonary hypertension, secondary (Chronic) Cardiomegaly (Chronic) Nonrheumatic aortic (valve) stenosis (Chronic) AVR #21 [facility] [employer] Trifecta Bioprosthetic Pericardial Prosthesis 06/05/2016 @ [facility] Atherosclerotic heart disease of [place] coronary artery without angina pectoris (Chronic) CABG x3- ANDRES to LAD, SVG to ramus branch of CFX, SVG to RCA 07/03 Angina pectoris (Chronic) Hypertension, benign (Chronic) Hospital Course and Treatment Imaging Results: Clinical Impression(s) from Imaging Studies Abdomen/Pelvis CT 06/13/18 04:23 IMPRESSION: Mild right hydronephrosis with perinephric stranding without evidence of obstructing stone. Considerations include a recently passed stone, ureteral thrombus or a mass. Consider urology consult. Right colon is grossly normal. Normal appendix. Fatty liver. Left renal cyst. Focal coarse peripheral calcifications which may be related to prior infection, surgery or trauma. Sigmoid diverticulosis. Previously noted low-attenuation lesion right lobe of the liver not visualized on this study performed without intravenous contrast. This lesion can be followed with ultrasound as clinically warranted. Electronically Signed: Roman Ash MD at 6:07 EST , Service support , Chest X-Ray 06/13/18 04:23 IMPRESSION: No acute cardiopulmonary disease. Electronically Signed: Roman Ash MD at 6:10 EST , Service support , Chest CT 06/16/18 14:51 IMPRESSION: Chronic interstitial changes with a small left pleural effusion. No superimposed acute pulmonary process. Remote CABG Fatty liver Electronically Signed: Sharif Shaver MD at 16:12 EST , Service support , Renal Ultrasound 06/16/18 14:51 IMPRESSION: Bilateral simple renal cysts, no suspicious sonographic findings, right kidney remains larger than the left. Electronically Signed: Sharif Shaver MD at 19:12 EST , Service support , Operations: None Procedures: None Summary of Care Provided: The patient is a 63 year old F presents with fever, chills and malaise. 1. Severe sepsis * present on admission * Patient met 2 of 4 Sirs criteria * Secondary to UTI and bacteremia * resolved 2. UTI/Pyelonephritis * E. coli, not ESBL this time * continue cipro for 7 more days. 3. Bacteremia * 2/2 UTI * 3 + Blood cultures * repeat BCx on 06/15 negative (confirmed with micro) 4. Lactic acidosis * resolved * Likely due to the severe sepsis, however could be a component of her COPD but also the fact that she is on metformin * resume metformin 4. acute COPD exacerbation * subjectively worse today * will add prednisone 40 daily for 5 days. * No concern for impending respiratory failure * ABG attempted and was aborted after one attempt is do not feel that skin to be extremely pertinent to her management at this point time * Continue with bronchodilators * still short of breath, despite unremarkable exam * CT chest showed no acute process.. 5. Diabetes mellitus type 2 * resume metformin now that lactic acidosis has resolved. * Moderate dose sliding scale insulin * fair control[] Patient Problems: Active and Suspected Problems (Last Reviewed 06/13/18 @ 08:35 by Attila Sweet DO) Bacteremia (Acute) Severe sepsis (Acute) UTI (urinary tract infection) (Acute) - Physical Exam General: Alert, Cooperative, No apparent distress HEENT: Atraumatic, Normocephalic Oral: Moist Mucosa, No Gingival or Mucosal Lesions/ Ulcerations Lungs: Clear to auscultation, Normal air movement, No rhonchi, No wheeze Cardiovascular: Regular rate, Regular Rhythm, Normal S1, Normal S2, No murmurs Abdomen: Bowel Sounds Present, Soft, Non Tender, Non-Distended Extremities: No edema, No Calf Tenderness Skin: No rashes, No breakdown Vital Signs Temp Pulse Resp BP Pulse Ox 36.8 C 85 20 H 142/73 H 95 06/17/18 10:57 06/17/18 12:56 06/17/18 12:56 06/17/18 11:03 06/17/18 10:57 Oxygen Flow Rate (L/min) 2 Oxygen Delivery Method Nasal Cannula Weight: 101.8 kg Body Mass Index (BMI) 41.0 Intake and Output for Last 24 Hours 06/15/18 06/16/18 06/17/18 23:59 23:59 23:59 Intake Total 1950.3 / 1950.3 740 / 740 630 / 630 Balance 1950.3 / 1950.3 740 / 740 630 / 630 Microbiology Past 72 Hours 06/13/18 14:10 Blood Culture - Final Blood Culture (Wb) - Right Hand Gram negative yvonne 06/13/18 04:20 Blood Culture - Final Blood Culture (Wb) - Anticubital Left Escherichia coli 06/13/18 14:00 Blood Culture - Preliminary Blood Culture (Wb) - Anticubital Right No growth in 48 hours. 06/13/18 06:03 Urine Culture - Final Urine, Clean Catch Escherichia coli 06/13/18 04:52 Blood Culture - Final Blood Culture (Wb) - Left Hand Gram negative yvonne Laboratory Tests Past 24 Hrs 06/17/18 06/17/18 06:20 06:20 WBC 7.4 RBC 3.55 L Hgb 11.5 L Hct 35.3 L MCV 99.4 H MCH 32.4 H MCHC 32.6 RDW 13.6 RDW Differential 48.2 H Plt Count 253 MPV 10.0 Immature Gran % (Auto) 2.300 H Neut % (Auto) 71.4 H Lymph % (Auto) 14.3 L [place] % (Auto) 10.8 H Eos % (Auto) 0.8 Baso % (Auto) 0.4 Absolute Neuts (auto) 5.3 Absolute Lymphs (auto) 1.06 Total Counted Not Reportable Diff Path Review May foll Sodium 144 Potassium 3.5 Chloride 106 Carbon Dioxide 30.0 Anion Gap 8 BUN 15 Creatinine 0.64 Estim Creat Clear Calc 72.08 Est GFR (MDRD) Af Amer 122 Est GFR (MDRD) Non-Af 100 BUN/Creatinine Ratio 23.5 H Glucose 106 Calcium 8.7 POC Glucose 06/17/18 06/17/18 06/16/18 11:38 07:04 21:11 POC Glucose 171 H 102 138 H 06/16/18 16:36 POC Glucose 227 H Discharge Diet: 1800 Calorie Control Diet Discharge Activity: Return to Normal Activity Call your doctor if you observe: Fever of 101 or Higher, Inability to urinate - burning with urination., Shortness of breath Home Medications: Medications to take at Discharge ALPRAZolam [Xanax] 0.5 mg PO TID PRN PRN 06/19/14 Calcium Citrate/Vitamin D3 [Hm Calcium Citrate-Vit D3 Tab] 1 ea PO DAILY 06/19/14 Fluoxetine [Prozac] 40 mg PO DAILY 06/19/14 Pantoprazole Sodium [Protonix] 40 mg PO DAILY 06/19/14 Acetaminophen [Tylenol] 325 mg PO ACHS & 0200 PRN 07/17/16 metformin 500 mg tablet 500 mg PO DAILY tab 08/03/17 levothyroxine 175 mcg tablet 175 mcg PO MOTUWETHFRSA tab 08/05/17 Atorvastatin Calcium [Lipitor] 40 mg PO QHS 09/07/17 Levothyroxine [Synthroid] 1.5 tab PO PATRICK 09/07/17 Mv-Mn/Folic Acid/Calcium/Vit K [Women's 50 Plus Daily Formula] 1 ea PO DAILY 09/07/17 ferrous sulfate 325 mg (65 mg iron) tablet,delayed release 325 mg PO DAILY tab 03/02/18 hydrochlorothiazide 12.5 mg tablet 12.5 mg PO DAILY 90 Days #90 03/02/18 metoprolol tartrate 25 mg tablet 12.5 mg PO BID #90 tab 04/23/18 Albuterol Inhaler [Ventolin Hfa] 1 - 2 puff INHALATION Q4H PRN PRN #1 inhaler 06/17/18 Ciprofloxacin [Cipro] 500 mg PO BID #14 tablet 06/17/18 Prednisone 4 tab PO DAILY #8 tab.ds.pk 06/17/18 Following Prescrptions Were Given to Patient: Albuterol Inhaler [Ventolin Hfa] 1 - 2 puff INHALATION Q4H PRN PRN #1 inhaler PRN Reason: Shortness Of Breath Prednisone 4 tab PO DAILY #8 tab.ds.pk Ciprofloxacin [Cipro] 500 mg PO BID #14 tablet Primary Care Physician: Caleb Mason MD [Primary Care Provider] - Within 2 Weeks Disposition: Home Minutes spent on discharge:: 32 Patient Condition:: Good Medical Necessity - Tobacco Use Smoking Status: Former smoker Meaningful Use Info Meaningful Use Diagnoses (Choose all that apply): None applicable Code Visit Inpatient E&M: 84910 Disch Hosp
[2018-06-18 14:17] LABS: Pathologist Review Reviewed
--- NOTE | 2018-06-18 15:46 | CASEMGMT ---
LORENA العلي Discharge F/U Phone Call LACE: 12 Strata: 4 Discharge date: 06/17/18 Call date: 06/18/18 Call time: 1541 Duration: 3 minutes Admission dx: Severe sepsis, UTI Pt states has been doing 'ok' since discharge. Pt states no questions regarding discharge instructions or medications at this time. Pt states she will work on getting appointments set up on thursday. Pt states no suggestions for [facility] at this time and states Dr. Sweet is aware of all of it and it will be taken care of. Per Dr. Sweet, pt was called back for a positive blood culture but did not actually have and was assured by administration that her OBS return to [facility] would not be a charge to her. Pt voices no further questions/concerns/needs at this time. SStaten LORENA العلي
== END 2018-06-17 16:15 | disposition home or self-care (01) | DRG 872 ==
LOC: ED 05:57 → PCU 08:44
PROVIDERS: Internal Medicine; Emergency Provider Emergency Medicine; Family Provider Family Medicine; PCP Family Medicine
DX: A41.51 Sepsis due to Escherichia coli [E. coli] (principal); E87.2 Acidosis; I50.32 Chronic diastolic (congestive) heart failure; N12 Tubulo-interstitial nephritis, not specified as acute or chronic; J44.1 Chronic obstructive pulmonary disease with (acute) exacerbation; Z68.41 Body mass index [BMI] 40.0-44.9, adult; R65.20 Severe sepsis without septic shock; I11.0 Hypertensive heart disease with heart failure; I27.20 Pulmonary hypertension, unspecified; I25.10 Atherosclerotic heart disease of native coronary artery without angina pectoris; E89.0 Postprocedural hypothyroidism; E66.01 Morbid (severe) obesity due to excess calories; E11.9 Type 2 diabetes mellitus without complications; Z95.3 Presence of xenogenic heart valve; Z87.891 Personal history of nicotine dependence; Z79.84 Long term (current) use of oral hypoglycemic drugs; Z95.1 Presence of aortocoronary bypass graft; Z79.899 Other long term (current) drug therapy
CPT/HCPCS: 36415; 71046; 71260; 74176; 76770; 80048; 80053; 81001; 82962; 83605; 83690; 85025; 85610; 87040; 87077; 87086; 87088; 87186; 87804; 94640; 94668; 99285; J2185; J7030; J7040; Q9967; A4216; J2405

== ENCOUNTER 2018-06-17 20:21 | Observation (INO) | payer BC, MEDICARE, SELFPAY ==
[2018-06-13 09:09] VITALS: BMI 41.0
[2018-06-17 20:24] VITALS: PULSE 72; RESP 19; TEMP 36.4; O2SAT 94; BMI 40.8
[2018-06-17 20:34] VITALS: PULSE 76; RESP 19; O2SAT 93
[2018-06-17] MEDS: 0.9% Normal Saline 1,000 ML 150 ML IV (20:54)
[2018-06-17 21:03] LABS: Absolute Lymphocyte Count 0.83 X10^3/ul (0.83-4.51); Absolute Neutrophil Count 5.9 X10^3/uL (2.0-7.7); Basophil# 0.04 X10^3/uL; Basophil% 0.5 % (0-1); Hematocrit 34.1 % (37-47); Hemoglobin 11.4 g/dl (12.0-15.0); Lymphocyte # 0.83 X10^3/ul (4.0); Lymphocyte % 10.7 % (19-41); Mean Corp Hgb Conc 33.4 g/gl (32-36); Mean Corpuscular Hgb 32.6 pg (27.0-32.0); Mean Corpuscular Volume 97.4 fL (81-99); Mean Platelet Vol. 9.7 fl (6.2-12.0); Monocyte# 0.81 X10^3/uL; Monocyte% 10.5 % (0-10); Neutrophil # 5.91 X10^3/uL (2.7-7.7); Neutrophil % 76.2 % (47-70); Platelet Count 306 K/mm3 (150-450); RBC Distribution Width CV 13.7 % (11.6-14.6); RBC Distribution Width SD 48.5 fl (35.1-43.9); White Blood Count 7.8 K/mm3 (4.4-11.0)
[2018-06-17 21:05] LABS: Differential Indicated SCAN CRITERIA MET; POSITIVE COUNT YES; POSITIVE DIFFERENTIAL NO; POSITIVE MORPHOLOGY YES
--- NOTE | 2018-06-17 21:12 | ED.VISSUMM ---
- ER Visit Summary Date of Service: 06/17/18 Chief Complaint: Positive blood culture History of Present Illness: The patient is a 63 F admitted June 13 with pyelonephritis. Blood culture reportedly was called to the floor today is positive after the patient was discharged. Preliminary results shows gram-negative rods in the blood culture. Patient was called by the hospitalist to come back in for admission. She never had any symptoms of UTI with her illness. She did undergo upper endoscopy on June 08. Physical Examination: Vital signs are unremarkable. Patient sitting upright in bed no acute distress. Head neck examination unremarkable. Heart is regular rate and rhythm. Lung sounds are clear Abdomen is soft with no focal tenderness. Lower external examination reveals no significant calf tenderness or edema. Test Results: CBC was normal white count differential. Hemoglobin 11.4. Chemistry studies significant only for glucose of 132. Urinalysis shows 5-10 white cells with 0 bacteria. Emergency Department Course and Treatment: Recent hospital admission records were reviewed. Repeat blood cultures were drawn again tonight. She did have Rocephin this morning, therefore was not redosed tonight. Patient will be admitted for further treatment. Treatment Plan: [] Disposition: Admit Impression: Positive blood culture This note was generated with [employer] dictation software. It may contain incorrect words, spelling, and punctuation that were not noted in review of the chart prior to signing ED Disposition - Plan for ED Patient: Chief Complaint: Abn Labs Referrals: Caleb Mason MD [Primary Care Provider] -
[2018-06-17 21:18] LABS: Bacteria 0 SEEN /hpf (None Seen); Mucous, Urine 0 SEEN /hpf (<or=2+)
[2018-06-17 21:21] LABS: Color, Urine Yellow (Yellow); Glucose, Dipstick Normal (Normal); Ketone-Dipstick Negative (Negative); Leukocyte Esterase-Dipstick 100 /ul (Negative); Nitrite-Dipstick Negative (Negative); Occult Blood-Urine 10 /ul (Negative); Protein-Dipstick Negative (Negative); Urine Bilirubin Dipstick Negative (Negative); Urine Clarity Clear (Clear); Urine Urobilinogen Normal (Normal); Urine pH 6.5 (5.0 - 8.0)
[2018-06-17 21:27] VITALS: PULSE 73; RESP 18; TEMP 37.2; O2SAT 94
[2018-06-17 21:28] LABS: Anion Gap 8 (5-15); BUN 16 mg/dL (7-18); BUN/Creat Ratio 24.3 RATIO (10-20); Calcium,Total 8.9 mg/dL (8.5-10.1); Chloride 107 mmol/L (98-107); Creatinine, Serum 0.66 mg/dL (0.55-1.02); EST Glomerular Filtration Rate 97 mL/min (>60); Est Glom Filt Rate - Afr Amer 117 mL/min (>60); Glucose 132 mg/dL (74-106); Sodium Level 140 mmol/L (136-145)
[2018-06-17 21:28] LABS: Squamous Epithelial Cells - UA 0-5 SEEN /hpf (5-10)
[2018-06-17 21:29] LABS: Red Blood Cells-Urine 0-5 SEEN /hpf (0-5); White Blood Cells 5-10 SEEN /hpf (0-5)
[2018-06-17 21:31] LABS: Transitional Epithelial - Ur 0-5 SEEN /hpf (0-5)
[2018-06-17 21:38] LABS: Lactic Acid 2.4 mmol/L (0.4-2.0)
--- NOTE | 2018-06-17 21:38 | ED.RN ---
lab called with critical lab results. Lactic acid 2.4. Dr. Reddy made aware. no new orders at this time
--- NOTE | 2018-06-17 21:39 | PCM.HP.STD ---
Problem List (1) Acute pyelonephritis Status: Acute (2) History of non-ST elevation myocardial infarction (NSTEMI) Status: Chronic (3) Abnormal electrocardiogram Status: Inactive History of Present Illness Date of Admission: 06/17/18 Chief Complaint: positive blood culture The patient is a 63 year old F with a significant history of bilateral kidney cancer status post bilateral nephrectomy CAD that is post CABG; bioprosthetic aortic valve replacement; former smoker; COPD; hypertension; diabetes mellitus who came to the hospital because of a positive blood culture. Patient was admitted on 06/13/2018 and discharged on 06/17/2018(same day of this new admission) for sepsis secondary to acute pyelonephritis with persistent E. coli bacteremia. Upon discharge her blood culture still came back positive so the discharging physician called patient to come back and be admitted. Patient reported that her symptoms started about 1 week ago. Her symptoms started with fever, chills and increased urinary frequency with only small amount of urine. Although at this time she does not have fever or chills she continued to have increased urinary frequency with small amounts of urine each time. Associated with her symptoms is malaise, light lightheadedness, weakness, fatigue and lethargy. Past Medical History Past Medical History (Chronic Problems): Chronic Problems (Last Reviewed 06/18/18 @ 03:42 by Charlie Coppola MD) COPD exacerbation (Chronic) CAD (coronary artery disease) (Chronic) COPD (chronic obstructive pulmonary disease) (Chronic) Aortocoronary bypass status (Chronic ~06/05/16) CABG x1 ANDRES to LAD 06/05/16 History of prosthetic aortic valve replacement (Chronic ~06/05/16) 21mm [facility] Trifecta Chronic diastolic heart failure (Chronic) Pulmonary hypertension, secondary (Chronic) Cardiomegaly (Chronic) Nonrheumatic aortic (valve) stenosis (Chronic) AVR #21 [facility] [employer] Trifecta Bioprosthetic Pericardial Prosthesis 06/05/2016 @ [facility] Atherosclerotic heart disease of [place] coronary artery without angina pectoris (Chronic) CABG x3- ANDRES to LAD, SVG to ramus branch of CFX, SVG to RCA 07/03 History of non-ST elevation myocardial infarction (NSTEMI) (Chronic) Angina pectoris (Chronic) Hypertension, benign (Chronic) Medical History: Medical History (Last Reviewed 06/18/18 @ 03:42 by Charlie Coppola MD) Chronic diastolic heart failure (Chronic) I50.32 Pulmonary hypertension, secondary (Chronic) Cardiomegaly (Chronic) I51.7 Nonrheumatic aortic (valve) stenosis (Chronic) I35.[address]R #21 [facility] [employer] Trifecta Bioprosthetic Pericardial Prosthesis 06/05/2016 @ [facility] Atherosclerotic heart disease of [place] coronary artery without angina pectoris (Chronic) I25.10 CABG x3- ANDRES to LAD, SVG to ramus branch of CFX, SVG to RCA 07/03 History of non-ST elevation myocardial infarction (NSTEMI) (Acute) I25.2 Abnormal electrocardiogram (Acute) R94.31 Angina pectoris (Chronic) I20.9 Hypertension, benign (Chronic) I10 Anemia D64.9 COPD (chronic obstructive pulmonary disease) J44.9 Depression F32.9 Dyspnea on exertion R06.09 ETOH abuse F10.10 Fibromyalgia M79.7 GERD (gastroesophageal reflux disease) K21.9 Hypothyroidism E03.9 IBS (irritable bowel syndrome) K58.9 GAGAN (obstructive sleep apnea) G47.33 Renal cell carcinoma C64.9 Aortic valvar stenosis (Inactive) I35.0 Irritable bowel syndrome (Inactive) GAGAN (obstructive sleep apnea) (Inactive) G47.33 Renal cell carcinoma of both kidneys (Inactive) C64.1, C64.2 Symptomatic anemia (Inactive) D64.9 Allergies ibuprofen Allergy (Verified 06/17/18 20:28) Hives amlodipine [From Norvasc] Adverse Reaction (Intermediate, Verified 06/17/18 20:28) swelling adhesive tape Adverse Reaction (Unknown, Verified 06/17/18 20:28) Unknown Home Medications: Ambulatory Orders Medication Instructions Recorded ALPRAZolam [Xanax] 0.5 mg PO TID PRN PRN 06/19/14 Calcium Citrate/Vitamin D3 [Hm 1 ea PO DAILY 06/19/14 Calcium Citrate-Vit D3 Tab] Fluoxetine [Prozac] 40 mg PO DAILY 06/19/14 Pantoprazole Sodium [Protonix] 40 mg PO DAILY 06/19/14 Acetaminophen [Tylenol] 325 mg PO ACHS & 0200 PRN 07/17/16 metformin 500 mg tablet 500 mg PO DAILY tab 08/03/17 levothyroxine 175 mcg tablet 175 mcg PO MOTUWETHFRSA tab 08/05/17 Atorvastatin Calcium [Lipitor] 40 mg PO QHS 09/07/17 Levothyroxine [Synthroid] 1.5 tab PO PATRICK 09/07/17 Mv-Mn/Folic Acid/Calcium/Vit K 1 ea PO DAILY 09/07/17 [Women's 50 Plus Daily Formula] ferrous sulfate 325 mg (65 mg 325 mg PO DAILY tab 03/02/18 iron) tablet,delayed release hydrochlorothiazide 12.5 mg tablet 12.5 mg PO DAILY 90 Days #90 03/02/18 metoprolol tartrate 25 mg tablet 12.5 mg PO BID #90 tab 04/23/18 Albuterol Inhaler [Ventolin Hfa] 1 - 2 puff INHALATION Q4H PRN PRN 06/17/18 #1 inhaler Ciprofloxacin [Cipro] 500 mg PO BID #14 tablet 06/17/18 Prednisone 4 tab PO DAILY #8 tab.ds.pk 06/17/18 Surgical History: Surgical History (Last Reviewed 06/18/18 @ 03:56 by Charlie Coppola MD) Aortocoronary bypass status (Chronic) Onset Date: ~06/05/16 Z95.1 CABG x1 ANDRES to LAD 06/05/16 History of prosthetic aortic valve replacement (Chronic) Onset Date: ~06/05/[address] [employer] Trifecta History of thyroidectomy Z98.890, E89.0 History of carpal tunnel surgery of right wrist Z98.890 History of section Z98.891 History of left hip replacement Z96.642 History of nephrectomy Z98.890, Z90.5 Bilateral partial History of removal laryngeal nodule Status post right foot surgery Z98.890 heel spur removal Surgical History: coronary bypass surgery - x1 at [facility], total hip arthroplasty - left hip., - - Thyroidectomy removal of laryngeal nodule, . Carpal tunnel surg right hand. 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 Thyroidectomy. Right heel spur removed. Aortic valve replacements, bioprosthetic. Lives: Spouse/ Significant Other Smoking Status: Former smoker Alcohol: Heavy - Last drink was about 6 days ago. - *Family History Maternal Family History: Family History (Last Reviewed 06/18/18 @ 03:43 by Charlie Coppola MD) Grandfather CAD (coronary artery disease) Father Cancer Mother Colon cancer History Items: - - colon cancer Review of Systems Constitutional: Reports: Malaise, Weakness, Fatigue. Denies: Chills, Fever, Weight Change HEENT: Denies: Head Aches, Sinus Congestion, Sinus Drainage Cardiovascular: Denies: Chest Pain, Palpitations Respiratory: Reports: Cough, Shortness of Breath, Sputum production, Wheezing Gastrointestinal: Denies: Abdominal Pain, Nausea, Vomiting Genitourinary: Reports: Frequency. Denies: Dysuria Musculoskeletal: Denies: Joint Pain, Joint Tenderness Skin: Denies: Rash, Wounds Neurological: Denies: Numbness, Tingling, Focal weakness Psychiatric: Denies: Anxiety, Depression, Homicidal Ideations, Suicidal Ideations Hematologic/ Lymphatic: Denies: Easy Bruising, Easy Bleeding VTE Information - Inpt Only VTE Present on Admission: No VTE Mechan Device Prophylaxis: None VTE Pharm Prophylaxis ordered?: Yes Patient Problems: Active and Suspected Problems (Last Reviewed 06/18/18 @ 03:42 by Charlie Coppola MD) Acute pyelonephritis (Acute) - Physical Exam General: Alert, Oriented x3, Cooperative HEENT: Atraumatic, PERRLA, EOMI, Normocephalic Neck: Supple, No JVD, Negative Carotid Bruits Lungs: Clear to auscultation, Normal air movement, Tachypneic, Using Accessory Muscles Cardiovascular: Regular rate, No murmurs Abdomen: Bowel Sounds Present, Soft, Non Tender Extremities: No edema, Capillary Refill Less than 3 Seconds Skin: No rashes, No breakdown Musculoskeletal: No Tenderness to Palpation of Joints or Extremities Neurological: Neuro grossly intact Psych/Mental Status: Normal Affect, Appropriate Vital Signs Temp Pulse Resp Pulse Ox 97.5 F L 76 19 H 93 06/17/18 20:24 06/17/18 20:34 06/17/18 20:34 06/17/18 20:34 Oxygen Flow Rate (L/min) 2 Oxygen Delivery Method Nasal Cannula Weight: 101.151 kg Body Mass Index (BMI) 40.8 Laboratory Tests Past 24 Hrs 06/17/18 06/17/18 06/17/18 20:45 20:45 20:45 WBC 7.8 RBC 3.50 L Hgb 11.4 L Hct 34.1 L MCV 97.4 MCH 32.6 H MCHC 33.4 RDW 13.7 RDW Differential 48.5 H Plt Count 306 MPV 9.7 Immature Gran % (Auto) 2.100 H Neut % (Auto) 76.2 H Lymph % (Auto) 10.7 L [place] % (Auto) 10.5 H Eos % (Auto) 0.0 Baso % (Auto) 0.5 Absolute Neuts (auto) 5.9 Absolute Lymphs (auto) 0.83 Total Counted Not Reportable Differential Comment Diff Path Review May foll Sodium 140 Potassium 4.0 Chloride 107 Carbon Dioxide 25.0 Anion Gap 8 BUN 16 Creatinine 0.66 Estim Creat Clear Calc 69.90 Est GFR (MDRD) Af Amer 117 Est GFR (MDRD) Non-Af 97 BUN/Creatinine Ratio 24.3 H Glucose 132 H Lactic Acid 2.4 H Calcium 8.9 Urine Color Urine Clarity Urine pH Ur Specific [place] Urine Protein Urine Glucose (UA) Urine Ketones Urine Occult Blood Urine Nitrite Urine Bilirubin Urine Urobilinogen Ur Leukocyte Esterase Urine RBC Urine WBC Ur Squamous Epith Cells Ur Transition Epith Cell Urine Bacteria Urine Mucus 06/17/18 21:11 WBC RBC Hgb Hct MCV MCH MCHC RDW RDW Differential Plt Count MPV Immature Gran % (Auto) Neut % (Auto) Lymph % (Auto) [place] % (Auto) Eos % (Auto) Baso % (Auto) Absolute Neuts (auto) Absolute Lymphs (auto) Total Counted Differential Comment Diff Path Review Sodium Potassium Chloride Carbon Dioxide Anion Gap BUN Creatinine Estim Creat Clear Calc Est GFR (MDRD) Af Amer Est GFR (MDRD) Non-Af BUN/Creatinine Ratio Glucose Lactic Acid Calcium Urine Color Yellow Urine Clarity Clear Urine pH 6.5 Ur Specific [place] 1.010 Urine Protein Negative Urine Glucose (UA) Normal Urine Ketones Negative Urine Occult Blood 10 H Urine Nitrite Negative Urine Bilirubin Negative Urine Urobilinogen Normal Ur Leukocyte Esterase 100 H Urine RBC 0-5 SEEN Urine WBC 5-10 SEEN Ur Squamous Epith Cells 0-5 SEEN Ur Transition Epith Cell 0-5 SEEN Urine Bacteria 0 SEEN Urine Mucus 0 SEEN Assessment/Plan All Active Problems (Last Reviewed 06/18/18 @ 03:42 by Charlie Coppola MD) Acute pyelonephritis (Acute) Bacteremia (Acute) Severe sepsis (Acute) UTI (urinary tract infection) (Acute) Anemia (Acute) Chronic respiratory failure (Acute) The patient is a 63 year old F with a significant history of bilateral kidney cancer status post bilateral nephrectomy; CAD s/p CABG; bioprosthetic aortic valve replacement; former smoker; COPD; hypertension; diabetes mellitus who was called back to the hospital same day after discharge because of persistent E. coli bacteremia after diagnosis of acute pyelonephritis. Acute pyelonephritis On her previous admission 06/13/18 to 06/17/18 and had a urine culture was positive for E. coli and blood culture was positive for E. coli and she was diagnosed with acute pyelonephritis. She returns back because the discharging doctor was related of another positive blood culture. On admission lactic acid was 2.4. Repeat blood culture was obtained at the emergency department. Normal saline IV hydration. Hold home hydrochlorthiazide. We will continue patient on Ceftriaxone. Trend lactic acid. COPD with probable mild exacerbation DuoNeb scheduled, and albuterol as needed ordered. Continue home prednisone that was prescribed upon discharge from our hospital on 06/17/2018. Hypertension On admission her blood pressure was not within goal. Metoprolol continued. Home hydrochlorothiazide held while patient is being hydrated. As needed hydralazine ordered. Trend blood pressures and adjust blood pressure medication. Diabetes mellitus Because of lactic acidosis will discontinue metformin. Accu-Cheks with correction scale insulin ordered. Hypoglycemia protocol ordered. Hypothyroidism Synthroid continued Anxiety Disorder Xanax continued Depression Prozac continued. DVT prophylaxis Lovenox ordered. Code Visit OBSV E&M: 59736 Initial observation care L3
[2018-06-17 22:09] VITALS: BP 153/78; PULSE 73; RESP 18; TEMP 37.2; O2SAT 94
[2018-06-17] MEDS: Ipratropium/Albuterol Sulfate 3 ML AMPUL.NEB INHALATION (22:35)
[2018-06-17] MEDS: oxyCODONE 5 MG Tablet PO (22:35)
[2018-06-17 23:16] VITALS: BMI 41.7
[2018-06-17 23:30] VITALS: BP 148/77; PULSE 64; RESP 20; TEMP 37.1; O2SAT 94
[2018-06-17] MEDS: Acetaminophen 325 MG Tablet 650 MG PO (23:48)
[2018-06-17] MEDS: 0.9% Normal Saline 1,000 ML 75 ML IV (23:48)
[2018-06-17] MEDS: Atorvastatin Calcium 40 MG Tablet PO (23:48)
[2018-06-17 23:49] VITALS: BP 148/77; PULSE 64
[2018-06-17] MEDS: ALPRAZolam 0.5 MG Tablet PO (23:49)
[2018-06-17] MEDS: Metoprolol Tartrate 25 MG Tablet 12.5 MG PO (23:49)
[2018-06-18] VITALS (10 sets, daily range): BP systolic 147–154; BP diastolic 79–90; PULSE 60–80; RESP 18–20; TEMP 36.7–37.2; O2SAT 93–95
[2018-06-18 00:53] LABS: Reflex Lactate? Y
[2018-06-18 02:40] LABS: Lactic Acid 1.1 mmol/L (0.4-2.0)
[2018-06-18] MEDS: Levothyroxine 175 MCG Tablet PO (05:34)
[2018-06-18 06:01] LABS: Hematocrit 32.2 % (37-47); Hemoglobin 10.6 g/dl (12.0-15.0); Mean Corp Hgb Conc 32.9 g/gl (32-36); Mean Corpuscular Volume 100.3 fL (81-99); Platelet Count 276 K/mm3 (150-450); RBC Distribution Width CV 13.5 % (11.6-14.6); RBC Distribution Width SD 47.8 fl (35.1-43.9); Red Blood Count 3.21 M/mm3 (4.2-5.4); White Blood Count 6.9 K/mm3 (4.4-11.0)
[2018-06-18 06:05] LABS: Anion Gap 8 (5-15); BUN 14 mg/dL (7-18); Calcium,Total 8.3 mg/dL (8.5-10.1); Chloride 108 mmol/L (98-107); Creatinine, Serum 0.61 mg/dL (0.55-1.02); EST Glomerular Filtration Rate 106 mL/min (>60); Est Glom Filt Rate - Afr Amer 128 mL/min (>60); Estimated Creatinine Clearance 75.63 ml/min; Glucose 114 mg/dL (74-106); Potassium 3.5 mmol/L (3.5-5.1); Sodium Level 143 mmol/L (136-145)
[2018-06-18 06:13] LABS: Differential Indicated MANUAL DIFF; POSITIVE COUNT YES; POSITIVE DIFFERENTIAL NO; POSITIVE MORPHOLOGY YES
[2018-06-18 06:46] LABS: Bedside Glucose 111 mg/dL (70-110)
[2018-06-18] MEDS: Ipratropium/Albuterol Sulfate 3 ML AMPUL.NEB INHALATION ×2 (06:46→11:17)
[2018-06-18 06:59] LABS: Eosinophil 2 % (0-5); Lymphocyte 20 % (19-41); Metamyelocyte 1 % (0-1); Monocyte 7 % (0-10); Neutrophil-Band 1 % (0-5); Neutrophil-Segmented 69 % (47-70); Total Cells Counted 100 (MANUAL DIFF)
[2018-06-18 07:00] LABS: Anisocytosis 1+; Hypochromasia 1+; Macrocytosis 1+; Platelet Estimate ADEQUATE (ADEQ); Platelet Morphology LARGE; Polychromasia 1+
[2018-06-18 07:01] LABS: Absolute Neutrophil Count 4.8 X10^3/uL (2.0-7.7)
[2018-06-18 07:02] LABS: Absolute Lymphocyte Count 1.38 X10^3/ul (0.83-4.51)
[2018-06-18] MEDS: FLUoxetine 20 MG Capsule 40 MG PO (09:07)
[2018-06-18] MEDS: Metoprolol Tartrate 25 MG Tablet 12.5 MG PO (09:07)
[2018-06-18] MEDS: Enoxaparin 40 MG/0.4 ML Syringe SC (09:09)
[2018-06-18] MEDS: Calcium Carb/Vitamin D 1 TABLET Tablet PO (09:09)
[2018-06-18] MEDS: predniSONE 20 MG Tablet 40 MG PO (09:12)
[2018-06-18] MEDS: Pantoprazole Sodium 40 MG Tablet PO (09:12)
[2018-06-18] MEDS: Ceftriaxone 1 GM/50 ML BAG IV (09:13)
--- NOTE | 2018-06-18 10:48 | DCINST_ITS ---
- Discharge Diagnoses Current Active Problems: Current Active and Chronic Problems (Last Reviewed 06/18/18 @ 03:42 by Charlie Coppola MD) Acute pyelonephritis (Acute) You will use the following diet at home:: Calorie/Carbohydrate Controlled (specify 1200, 1400, etc) - 1800 Your food should be the consistency of: Regular Your liquids should be the consistency of: Regular/Thin Call your doctor if you observe: Fever of 101 or Higher, Inability to urinate Allergies/Adverse Reactions: Allergies ibuprofen Allergy (Verified 06/17/18 20:28) Hives amlodipine [From Norvasc] Adverse Reaction (Intermediate, Verified 06/17/18 20:28) swelling adhesive tape Adverse Reaction (Unknown, Verified 06/17/18 20:28) Unknown Medications to take at Discharge ALPRAZolam [Xanax] 0.5 mg PO TID PRN PRN 06/19/14 Calcium Citrate/Vitamin D3 [Hm Calcium Citrate-Vit D3 Tab] 1 ea PO DAILY 06/19/14 Fluoxetine [Prozac] 40 mg PO DAILY 06/19/14 Pantoprazole Sodium [Protonix] 40 mg PO DAILY 06/19/14 Acetaminophen [Tylenol] 325 mg PO ACHS & 0200 PRN 07/17/16 metformin 500 mg tablet 500 mg PO DAILY tab 08/03/17 levothyroxine 175 mcg tablet 175 mcg PO MOTUWETHFRSA tab 08/05/17 Atorvastatin Calcium [Lipitor] 40 mg PO QHS 09/07/17 Levothyroxine [Synthroid] 1.5 tab PO PATRICK 09/07/17 Mv-Mn/Folic Acid/Calcium/Vit K [Women's 50 Plus Daily Formula] 1 ea PO DAILY 09/07/17 ferrous sulfate 325 mg (65 mg iron) tablet,delayed release 325 mg PO DAILY tab 03/02/18 hydrochlorothiazide 12.5 mg tablet 12.5 mg PO DAILY 90 Days #90 03/02/18 metoprolol tartrate 25 mg tablet 12.5 mg PO BID #90 tab 04/23/18 Albuterol Inhaler [Ventolin Hfa] 1 - 2 puff INHALATION Q4H PRN PRN #1 inhaler 06/17/18 Ciprofloxacin [Cipro] 500 mg PO BID #14 tablet 06/17/18 Prednisone 4 tab PO DAILY #8 tab.ds.pk 06/17/18 Primary Care Physician: Caleb Mason MD [Primary Care Provider] - Within 2 Weeks Test Results: Test results from this visit will be discussed in further detail at your follow- up appointment, if applicable. Proposed Discharge Date: 06/18/18
--- NOTE | 2018-06-18 10:48 | PCM.DC.SUM ---
Discharge Date and Diagnosis - Problem List Patient Problems: Active and Suspected Problems (Last Reviewed 06/18/18 @ 03:42 by Charlie Coppola MD) Acute pyelonephritis (Acute) Date of Admission: 06/17/18 Date of Discharge: 06/18/18 - Primary Discharge Diagnosis Active and Suspected Problems (Last Reviewed 06/18/18 @ 03:42 by Charlie Coppola MD) Acute pyelonephritis (Acute) - Secondary Discharge Diagnosis Chronic Problems (Last Reviewed 06/18/18 @ 03:42 by Charlie Coppola MD) COPD exacerbation (Chronic) CAD (coronary artery disease) (Chronic) COPD (chronic obstructive pulmonary disease) (Chronic) Aortocoronary bypass status (Chronic ~06/05/16) CABG x1 ANDRES to LAD 06/05/16 History of prosthetic aortic valve replacement (Chronic ~06/05/16) 21mm [facility] Trifecta Chronic diastolic heart failure (Chronic) Pulmonary hypertension, secondary (Chronic) Cardiomegaly (Chronic) Nonrheumatic aortic (valve) stenosis (Chronic) AVR #21 [facility] Tr[facility]ecta Bioprosthetic Pericardial Prosthesis 06/05/2016 @ [facility] Atherosclerotic heart disease of [place] coronary artery without angina pectoris (Chronic) CABG x3- ANDRES to LAD, SVG to ramus branch of CFX, SVG to RCA 07/03 History of non-ST elevation myocardial infarction (NSTEMI) (Chronic) Angina pectoris (Chronic) Hypertension, benign (Chronic) Hospital Course and Treatment Operations: None Procedures: None Summary of Care Provided: The patient is a 63 year old F who was instructed to come back to the hospital after being discharged due to reportedly positive blood culture on the . I had called laboratory I had called laboratory at 1400 on the and was informed of negative blood cultures on 06/15. As the patient was doing better, she was discharged in stable condition. I was informed by nursing that cultures on the were positive. I spoke with Judy, who called lab while I was on the phone, who told her that blood culture on 06/15 were showing gram negative yvonne. I called the patient and had her readmitted. Today, I saw her blood cultures from the were negative. I called micro, and they confirmed that it was negative. I informed the patient of the mistake and apologized for it. It is unclear how a positive culture was called, when it was negative, unless it was pertaining to the cultures on the , which were known to be positive. If her blood cultures from the are negative this afternoon, she will be discharged to continue the same medications.[] Patient Problems: Active and Suspected Problems (Last Reviewed 06/18/18 @ 03:42 by Charlie Coppola MD) Acute pyelonephritis (Acute) - Physical Exam General: Alert, Cooperative, No apparent distress HEENT: Atraumatic, Normocephalic Oral: Moist Mucosa, No Gingival or Mucosal Lesions/ Ulcerations Neck: No Nodes, Thyroid Normal Size and Texture Lungs: Clear to auscultation, Normal air movement, No rhonchi, No wheeze Cardiovascular: Regular rate, Regular Rhythm, Normal S1, Normal S2, No murmurs Abdomen: Bowel Sounds Present, Soft, Non Tender, Non-Distended Vital Signs Temp Pulse Resp BP Pulse Ox 37.2 C 62 18 151/80 H 93 06/18/18 09:03 06/18/18 09:07 06/18/18 09:03 06/18/18 09:03 06/18/18 09:03 Oxygen Flow Rate (L/min) 2 Oxygen Delivery Method Nasal Cannula Weight: 103.532 kg Body Mass Index (BMI) 41.7 Intake and Output for Last 24 Hours 06/16/18 06/17/18 06/18/18 23:59 23:59 23:59 Intake Total 646 / 646 Balance 646 / 646 Laboratory Tests Past 24 Hrs 06/17/18 06/17/18 06/17/18 20:45 20:45 20:45 WBC 7.8 RBC 3.50 L Hgb 11.4 L Hct 34.1 L MCV 97.4 MCH 32.6 H MCHC 33.4 RDW 13.7 RDW Differential 48.5 H Plt Count 306 MPV 9.7 Immature Gran % (Auto) 2.100 H Neut % (Auto) 76.2 H Lymph % (Auto) 10.7 L [place] % (Auto) 10.5 H Eos % (Auto) 0.0 Baso % (Auto) 0.5 Absolute Neuts (auto) 5.9 Absolute Lymphs (auto) 0.83 Total Counted Not Reportable Neutrophils % (Manual) Band Neutrophils % Lymphocytes % (Manual) Monocytes % (Manual) Eosinophils % (Manual) Metamyelocytes % Differential Comment Diff Path Review May foll Platelet Estimate Plt Morphology Comment Polychromasia Hypochromasia Anisocytosis Macrocytosis Sodium 140 Potassium 4.0 Chloride 107 Carbon Dioxide 25.0 Anion Gap 8 BUN 16 Creatinine 0.66 Estim Creat Clear Calc 69.90 Est GFR (MDRD) Af Amer 117 Est GFR (MDRD) Non-Af 97 BUN/Creatinine Ratio 24.3 H Glucose 132 H Lactic Acid 2.4 H Calcium 8.9 Urine Color Urine Clarity Urine pH Ur Specific [place] Urine Protein Urine Glucose (UA) Urine Ketones Urine Occult Blood Urine Nitrite Urine Bilirubin Urine Urobilinogen Ur Leukocyte Esterase Urine RBC Urine WBC Ur Squamous Epith Cells Ur Transition Epith Cell Urine Bacteria Urine Mucus 06/17/18 06/18/18 06/18/18 21:11 01:20 05:22 WBC RBC Hgb Hct MCV MCH MCHC RDW RDW Differential Plt Count MPV Immature Gran % (Auto) Neut % (Auto) Lymph % (Auto) [place] % (Auto) Eos % (Auto) Baso % (Auto) Absolute Neuts (auto) Absolute Lymphs (auto) Total Counted Neutrophils % (Manual) Band Neutrophils % Lymphocytes % (Manual) Monocytes % (Manual) Eosinophils % (Manual) Metamyelocytes % Differential Comment Diff Path Review Platelet Estimate Plt Morphology Comment Polychromasia Hypochromasia Anisocytosis Macrocytosis Sodium 143 Potassium 3.5 Chloride 108 H Carbon Dioxide 27.0 Anion Gap 8 BUN 14 Creatinine 0.61 Estim Creat Clear Calc 75.63 Est GFR (MDRD) Af Amer 128 Est GFR (MDRD) Non-Af 106 BUN/Creatinine Ratio 23.0 H Glucose 114 H Lactic Acid 1.1 Calcium 8.3 L Urine Color Yellow Urine Clarity Clear Urine pH 6.5 Ur Specific [place] 1.010 Urine Protein Negative Urine Glucose (UA) Normal Urine Ketones Negative Urine Occult Blood 10 H Urine Nitrite Negative Urine Bilirubin Negative Urine Urobilinogen Normal Ur Leukocyte Esterase 100 H Urine RBC 0-5 SEEN Urine WBC 5-10 SEEN Ur Squamous Epith Cells 0-5 SEEN Ur Transition Epith Cell 0-5 SEEN Urine Bacteria 0 SEEN Urine Mucus 0 SEEN 06/18/18 05:22 WBC 6.9 RBC 3.21 L Hgb 10.6 L Hct 32.2 L MCV 100.3 H MCH 33.0 H MCHC 32.9 RDW 13.5 RDW Differential 47.8 H Plt Count 276 MPV 10.0 Immature Gran % (Auto) Neut % (Auto) Not Reportable Lymph % (Auto) [place] % (Auto) Eos % (Auto) Baso % (Auto) Absolute Neuts (auto) 4.8 Absolute Lymphs (auto) 1.38 Total Counted 100 Neutrophils % (Manual) 69 Band Neutrophils % 1 Lymphocytes % (Manual) 20 Monocytes % (Manual) 7 Eosinophils % (Manual) 2 Metamyelocytes % 1 Differential Comment Diff Path Review May foll Platelet Estimate ADEQUATE Plt Morphology Comment LARGE Polychromasia 1+ Hypochromasia 1+ Anisocytosis 1+ Macrocytosis 1+ Sodium Potassium Chloride Carbon Dioxide Anion Gap BUN Creatinine Estim Creat Clear Calc Est GFR (MDRD) Af Amer Est GFR (MDRD) Non-Af BUN/Creatinine Ratio Glucose Lactic Acid Calcium Urine Color Urine Clarity Urine pH Ur Specific [place] Urine Protein Urine Glucose (UA) Urine Ketones Urine Occult Blood Urine Nitrite Urine Bilirubin Urine Urobilinogen Ur Leukocyte Esterase Urine RBC Urine WBC Ur Squamous Epith Cells Ur Transition Epith Cell Urine Bacteria Urine Mucus POC Glucose 06/18/18 06:35 POC Glucose 111 H Discharge Diet: Low fat/ Low Cholesterol, 1800 Calorie Control Diet Discharge Activity: Return to Normal Activity Call your doctor if you observe: Fever of 101 or Higher, Inability to urinate Home Medications: Medications to take at Discharge ALPRAZolam [Xanax] 0.5 mg PO TID PRN PRN 06/19/14 Calcium Citrate/Vitamin D3 [Hm Calcium Citrate-Vit D3 Tab] 1 ea PO DAILY 06/19/14 Fluoxetine [Prozac] 40 mg PO DAILY 06/19/14 Pantoprazole Sodium [Protonix] 40 mg PO DAILY 06/19/14 Acetaminophen [Tylenol] 325 mg PO ACHS & 0200 PRN 07/17/16 metformin 500 mg tablet 500 mg PO DAILY tab 08/03/17 levothyroxine 175 mcg tablet 175 mcg PO MOTUWETHFRSA tab 08/05/17 Atorvastatin Calcium [Lipitor] 40 mg PO QHS 09/07/17 Levothyroxine [Synthroid] 1.5 tab PO PATRICK 09/07/17 Mv-Mn/Folic Acid/Calcium/Vit K [Women's 50 Plus Daily Formula] 1 ea PO DAILY 09/07/17 ferrous sulfate 325 mg (65 mg iron) tablet,delayed release 325 mg PO DAILY tab 09/11/18 hydrochlorothiazide 12.5 mg tablet 12.5 mg PO DAILY 90 Days #90 03/02/18 metoprolol tartrate 25 mg tablet 12.5 mg PO BID #90 tab 04/23/18 Albuterol Inhaler [Ventolin Hfa] 1 - 2 puff INHALATION Q4H PRN PRN #1 inhaler 06/17/18 Ciprofloxacin [Cipro] 500 mg PO BID #14 tablet 06/17/18 Prednisone 4 tab PO DAILY #8 tab.ds.pk 06/17/18 Primary Care Physician: Caleb Mason MD [Primary Care Provider] - Within 2 Weeks Disposition: Home Minutes spent on discharge:: 60 Patient Condition:: Good Medical Necessity - Tobacco Use Smoking Status: Former smoker Meaningful Use Info Meaningful Use Diagnoses (Choose all that apply): None applicable Code Visit OBSV E&M: 40791 Observation care discharge
[2018-06-18] MEDS: Acetaminophen 325 MG Tablet 650 MG PO (11:06)
[2018-06-18 11:35] LABS: Bedside Glucose 153 mg/dL (70-110)
[2018-06-18] MEDS: Ferrous Sulfate 325 MG Tablet PO (12:35)
[2018-06-18] MEDS: Insulin Lispro 100 UNIT/ML INSULN.PEN SQ (12:39)
[2018-06-18 14:24] LABS: Pathologist Review Reviewed
[2018-06-18 14:25] LABS: Pathologist Review Reviewed
== END 2018-06-18 15:25 | disposition home or self-care (01) ==
LOC: ED 20:54 → MS3 22:21
PROVIDERS: Admitting Provider Hospitalist; Emergency Provider Emergency Medicine; Family Provider Family Medicine; PCP Family Medicine
DX: N10 Acute pyelonephritis (principal); J44.9 Chronic obstructive pulmonary disease, unspecified; I25.10 Atherosclerotic heart disease of native coronary artery without angina pectoris; Z95.1 Presence of aortocoronary bypass graft; Z79.899 Other long term (current) drug therapy; Z79.52 Long term (current) use of systemic steroids; Z95.2 Presence of prosthetic heart valve; I11.0 Hypertensive heart disease with heart failure; I50.32 Chronic diastolic (congestive) heart failure; I25.2 Old myocardial infarction; I27.20 Pulmonary hypertension, unspecified; R94.31 Abnormal electrocardiogram [ECG] [EKG]; Z85.528 Personal history of other malignant neoplasm of kidney; Z87.891 Personal history of nicotine dependence; B96.20 Unspecified Escherichia coli [E. coli] as the cause of diseases classified elsewhere; M79.7 Fibromyalgia; F32.9 Major depressive disorder, single episode, unspecified; G47.33 Obstructive sleep apnea (adult) (pediatric); K58.9 Irritable bowel syndrome, unspecified; K21.9 Gastro-esophageal reflux disease without esophagitis; E03.9 Hypothyroidism, unspecified; E11.9 Type 2 diabetes mellitus without complications; F41.9 Anxiety disorder, unspecified
CPT/HCPCS: 36415; 80048; 81001; 82962; 83605; 85025; 87040; 94640; 94667; 94668; 96361; 96365; 99218; 99251; 99282; J7030; G0378; G0463

== ENCOUNTER → 2018-11-01 15:25 | Outpatient (CLI) | payer BC, SELFPAY ==
[2018-06-17 23:16] VITALS: BMI 41.7
[2018-11-01 16:10] LABS: Hematocrit 41.2 % (37-47); Hemoglobin 13.9 g/dl (12.0-15.0); Mean Corp Hgb Conc 33.7 g/gl (32-36); Mean Corpuscular Hgb 32.6 pg (27.0-32.0); Mean Corpuscular Volume 96.7 fL (81-99); Mean Platelet Vol. 9.7 fl (6.2-12.0); Platelet Count 244 K/mm3 (150-450); RBC Distribution Width CV 13.6 % (11.6-14.6); RBC Distribution Width SD 46.2 fl (35.1-43.9); Red Blood Count 4.26 M/mm3 (4.2-5.4)
--- NOTE | 2018-11-01 16:10 | RAD_ITS ---
STUDY: X-RAY CHEST REASON FOR EXAM: Female, 63 years old. Shortness of breath. History of renal cancer. TECHNIQUE: PA and lateral views of the chest. COMPARISON: Comparison is made with prior study dated June 13, 2018. FINDINGS: Surgical clips are seen in the region of the thyroid. Hyperinflation. Stable mild increased markings at the lung bases suggestive of scarring. There is no demonstrated pleural abnormality. Sternal cerclage wires and vascular clips are present from a prior sternotomy and coronary artery bypass graft procedure (CABG). Mild thyromegaly. Normal mediastinum and [place]. Normal visualized pulmonary arteries. There is atherosclerotic calcification of the aortic arch with tortuosity. There is demineralization of the osseous structures. Normal visualized ribs, clavicles, and shoulders. There is no demonstrated abnormality of the visualized soft tissue structures of the upper abdomen. RAD/Chest PA and Lateral IMPRESSION: Hyperinflation. Stable mild increased markings at the lung bases suggestive of scarring. Electronically Signed: Jose Adamson, at 12:52 EDT , Service support ,
[2018-11-01 16:12] LABS: Scan Indicated on CBC? Y/N NO
[2018-11-01 16:31] LABS: AST(SGOT) 86 U/L (15-37); Alanine Aminotransfer ALT/SGPT 87 U/L (13-56); Albumin, Serum 3.8 g/dL (3.2-5.0); Alkaline Phosphatase 140 U/L (45-117); Anion Gap 9 (5-15); BUN 12 mg/dL (7-18); BUN/Creat Ratio 13.5 RATIO (10-20); Bilirubin, Direct 0.17 mg/dL (0.00-0.30); Calcium,Total 9.3 mg/dL (8.5-10.1); Chloride 105 mmol/L (98-107); Creatinine, Serum 0.89 mg/dL (0.55-1.02); EST Glomerular Filtration Rate 69 mL/min (>60); Est Glom Filt Rate - Afr Amer 83 mL/min (>60); Globulin 4.2 g/dL (2.2-4.2); Glucose 127 mg/dL (74-106); Potassium 4.2 mmol/L (3.5-5.1); Sodium Level 142 mmol/L (136-145)
== END ==
PROVIDERS: Family Provider Family Medicine; PCP Family Medicine; Referring Provider Urology; Visit Provider Urology
DX: C64.9 Malignant neoplasm of unspecified kidney, except renal pelvis (principal)
CPT/HCPCS: 36415; 71046; 80048; 80076; 85027

== ENCOUNTER → 2018-11-10 08:44 | Outpatient (CLI) | payer BC, SELFPAY ==
[2018-06-17 23:16] VITALS: BMI 41.7
--- NOTE | 2018-11-10 08:47 | US_ITS ---
HISTORY: ABN LABSCHRONIC RT ABD PAINHX OF RT KIDNEY SURGERY DUE TO CA TECHNIQUE: Transabdominal ultrasound was performed with real-time and static rothman-scale imaging. COMPARISON: CT abdomen and pelvis 06/13/18. FINDINGS: # of images incl. paperwork: 100 Liver: Diffuse increased echotexture of the liver. Mild hepatomegaly. The bile ducts are within normal limits. There is no demonstrated mass lesion. Gallbladder: Normal distended gallbladder. The gallbladder wall measures 2 mm. There is a negative sonographic Delatorre's sign. There is no pericholecystic fluid. There are no gallstones. Common Bile Duct: The common bile duct measures 5 mm. Pancreas: There is normal echogenicity of the pancreas. There is no demonstrated pancreatic mass or cyst. Right Kidney: Normal size of the right kidney. The right kidney measures 14.2 x 5.4 x 6.3 cm. Normal renal cortex. Incidental 3.5 cm upper pole cyst. Cortical scarring midpole. There is no right hydronephrosis. IVC: The IVC is patent. There is no ascites. IMPRESSION No acute findings. Hepatic steatosis and hepatomegaly. Cyst and scarring right kidney. at 0417 Reported and signed by: Abraham Thakkar MD Electronically Signed: Abraham Thakkra, at 4:16 EDT Tel , Service support , US/Liver
== END ==
PROVIDERS: Family Provider Nurse Practitioner Primary Care; PCP Nurse Practitioner Primary Care; Referring Provider Urology; Visit Provider Urology
DX: R79.9 Abnormal finding of blood chemistry, unspecified (principal)
CPT/HCPCS: 76705

== ENCOUNTER 2019-05-11 13:18 | Inpatient (IN) | payer MEDICARE, BC, SELFPAY ==
[2018-06-17 23:16] VITALS: BMI 41.7
[2019-05-11] VITALS (18 sets, daily range): BP systolic 101–121; BP diastolic 64–74; PULSE 88–108; RESP 18–24; TEMP 36.6–37.2; O2SAT 90–100; BMI 38.9; BMI 38.2; BMI 38.3
--- NOTE | 2019-05-11 14:25 | EKG12_ITS ---
Test Reason : SOB/CP Blood Pressure : / mmHG Vent. Rate : 096 BPM Atrial Rate : 096 BPM P-R Int : 158 ms QRS Dur : 100 ms QT Int : 388 ms P-R-T Axes : 040 034 147 degrees QTc Int : 490 ms Normal sinus rhythm Cannot rule out Inferior infarct , age undetermined ST & T wave abnormality, consider lateral ischemia Abnormal ECG Confirmed by LOUIE WATTS, FREDDY ([id number]), editor department BRIDGET CHAPMAN ([id number]) on 05/13/2019 12:33:45 PM Referred By: Mariama Hoover Confirmed By:MINA PALMA MD
--- NOTE | 2019-05-11 14:26 | RAD_ITS ---
STUDY: X-RAY CHEST REASON FOR EXAM: Female, 64 years old. 3 week history of chest pain and shortness of breath. TECHNIQUE: Single AP portable view of the chest. COMPARISON: Comparison is made with prior examination November 01, 2018. FINDINGS: EKG electrodes are seen. The lungs are clear and expanded. There is no demonstrated pleural abnormality. Sternal cerclage wires and vascular clips are present from a prior sternotomy and coronary artery bypass graft procedure (CABG). Moderate cardiomegaly. Normal mediastinum and [place]. Normal visualized pulmonary arteries. There is atherosclerotic calcification of the aortic arch with tortuosity. Normal visualized thoracic spine. Normal visualized ribs, clavicles, and shoulders. There is no demonstrated abnormality of the visualized soft tissue structures of the upper abdomen. RAD/Chest 1 View (Portable) IMPRESSION: Cardiomegaly. Electronically Signed: Jose Adamson, at 14:57 EST , Service support ,
--- NOTE | 2019-05-11 14:26 | ED.VISSUMM ---
- ER Visit Summary Date of Service: 05/11/19 Chief Complaint: Short of breath History of Present Illness: The patient is a 64 F OPD on 2 L nasal cannula O2 at home. Also history of diabetes, hypertension, CAD, CHF and prior renal cancer. Also history of anemia and an aortic valve replaced. She denies being on any blood thinners. States that she is had a cough intermittent phlegm. Denies any fever. No DVT or PE. No chest pain. No leg swelling. She is had shortness of breath now intermittently for the last month. She has a home pulse ox and said it is often in the low 90s even on her oxygen. She denies any fever or chills. No melena. Physical Examination: Older female no acute distress. Vital signs are stable. She is afebrile. Her pulse ox 96% on her normal 2 L and when I am in the room she is around 91% on 2 L. No hypoxia. T exam unremarkable. Neck nontender. No lymphadenopathy. No JVD. Lungs clear to auscultation bilaterally. Heart regular rhythm no murmur. Rate about 95. Abdomen soft obese but nontender. Normal bowel sounds no peritoneal signs. Patient moving all 4 extremities. Neurovascular intact. Calves are nontender without edema or cords. Neurologically she is awake alert with no focal motor deficits. Test Results: EKG shows a sinus rhythm rate 96 with no acute signs of [place] or does have ST flattening and depression in leads V3 through V6 we will get an old EKG available for comparison. Noted on EKG from August of last year there is no significant change similar abnormalities in V1 through V5 on that EKG also. X-ray shows cardiomegaly possible basilar vascular congestion. CBC normal white count 6. Hemoglobin 13. Chemistries unremarkable. Troponin is elevated 0.193 prior troponins were normal. BNP of 550 and no prior BNP is in the computer. Emergency Department Course and Treatment: Older female with shortness of breath. Treatment Plan: I spoke to the hospitalist about admission. Patient is comfortable with the plan. Hospitalist does have started patient on IV Lasix and that her for further evaluation. Patient was treated with 2 aerosol treatments DuoNeb and albuterol without any improvement. Disposition: Assign observation Impression: Shortness of breath Abnormal troponin Rule out CHF This note was generated with Jellycoasteration software. It may contain incorrect words, spelling, and punctuation that were not noted in review of the chart prior to signing ED Disposition - Plan for ED Patient: Referrals: Raissa Rhodes, [facility] [Primary Care Provider] -
[2019-05-11] MEDS: Albuterol 2.5 MG/3 ML VIAL.NEB. INHALATION (14:44)
[2019-05-11] MEDS: Ipratropium/Albuterol Sulfate 3 ML AMPUL.NEB INHALATION ×2 (14:44→18:38)
[2019-05-11 14:46] LABS: Absolute Lymphocyte Count 0.91 X10^3/uL (0.83-4.51); Absolute Neutrophil Count 4.6 X10^3/uL (2.0-7.7); Basophil# 0.05 X10^3/uL; Basophil% 0.8 % (0-1); Eosinophil# 0.11 X10^3/uL; Eosinophils% 1.7 % (0-5); Hematocrit 39.4 % (37-47); Lymphocyte # 0.91 X10^3/ul (4.0); Lymphocyte % 14.4 % (19-41); Mean Corpuscular Hgb 33.2 pg (27.0-32.0); Mean Corpuscular Volume 100.8 fL (81-99); Monocyte# 0.68 X10^3/uL; Monocyte% 10.7 % (0-10); NRBC Flagged by Analyzer 0 % (0-5); Neutrophil # 4.55 X10^3/uL (2.7-7.7); Neutrophil % 71.8 % (47-70); Platelet Count 273 K/mm3 (150-450); RBC Distribution Width CV 14.6 % (11.6-14.6); RBC Distribution Width SD 51.7 fl (35.1-43.9); Red Blood Count 3.91 M/mm3 (4.2-5.4); White Blood Count 6.3 K/mm3 (4.4-11.0)
[2019-05-11 15:00] LABS: Anion Gap 8 (5-15); BUN 16 mg/dL (7-18); BUN/Creat Ratio 18.1 RATIO (10-20); Calcium,Total 9.4 mg/dL (8.5-10.1); Chloride 103 mmol/L (98-107); Creatinine, Serum 0.88 mg/dL (0.55-1.02); EST Glomerular Filtration Rate 69 mL/min (>60); Est Glom Filt Rate - Afr Amer 83 mL/min (>60); Estimated Creatinine Clearance 54.13 ml/min; Glucose 180 mg/dL (74-106); Potassium 3.9 mmol/L (3.5-5.1); Sodium Level 138 mmol/L (136-145)
[2019-05-11 15:14] LABS: BNP,B-Type NATRIURETIC PEPTIDE 550.6 pg/mL (0-100)
--- NOTE | 2019-05-11 16:10 | ED.RN ---
PT VERY SOB WHEN WALKING TO BATHROOM.
--- NOTE | 2019-05-11 16:16 | NURSING ---
DR GILDARDO SWAIN
--- NOTE | 2019-05-11 16:31 | NURSING ---
PCU OBS GILDARDO DYSPNEA, ABN TROP, R/O CHF
[2019-05-11] MEDS: Furosemide 40 MG/4 ML Vial IV ×2 (16:39→18:10)
--- NOTE | 2019-05-11 17:32 | ECHOCS_ITS ---
Reason For Study: CHF Procedure This was a 2D Doppler, Color Flow transthoracic echocardiogram. The study was technically difficult. Contrast injection was performed. Exam performed portable in patient room. Left Ventricle Normal LV size. Concentric left ventricular hypertrophy. The estimated ejection fraction is 60 %. Unable to assess diastolic dysfunction. No regional wall motion abnormalities noted. Right Ventricle Normal RV size. Normal systolic function. Atria Normal left atrium. Normal right atrium. No doppler evidence for ASD. Mitral Valve There is moderate mitral annular calcification. There is no mitral valve stenosis. Trivial mitral valve insufficiency. Tricuspid Valve There is no tricuspid stenosis. Unable to estimate RV systolic pressure due to insufficient tricuspid regurgitant envelope. Trivial tricuspid valve insufficiency. Aortic Valve Severe aortic stenosis. Mild-Moderate (1-2+) aortic valve insufficiency. Bioprosthetic aortic valve. Pulmonic Valve There is no pulmonic valvular stenosis. No pulmonic valve insufficiency. Great Vessels Mildly dilated aortic root. Pericardium/Pleural No pericardial effusion. Medication Diluted definity 2ml given slow IV push to enhance endocardial definition. MMode/2D Measurements & Calculations LVIDd: 5.0 cm IVSd: 1.8 cm LVOT diam: 2.0 cm LVIDs: 3.9 cm LVPWd: 1.7 cm FS: 20.7 % LVOT area: 3.1 cm2 LAV(MOD-bp): 63.6 ml LA A4 area: 19.5 cm2 LAV(MOD-bp) Indexed: 31.8 ml/m2 LAV(MOD-sp2): 58.8 ml LAV(MOD-sp4): 62.8 ml Time Measurements MV dec time: 0.17 sec Doppler Measurements & Calculations MV E max stew: 72.4 cm/sec Lat Peak E' Stew: 4.3 cm/sec Med Peak E' Stew: 4.3 cm/sec MV A max stew: 88.6 cm/sec E/E' lat: 16.8 E/E' med: 16.8 MV E/A: 0.82 MV V2 max: 113.6 cm/sec MV P1/2t max stew: 112.7 cm/sec Ao V2 max: 522.4 cm/sec MV max P.2 mmHg MV P1/2t: 92.9 msec Ao max P.2 mmHg MV V2 mean: 73.4 cm/sec MV dec slope: 355.3 cm/sec2 Ao V2 mean: 334.2 cm/sec MV mean P.5 mmHg Ao mean P.9 mmHg MV V2 VTI: 29.6 cm MVA(P1/2t): 2.4 cm2 Ao V2 VTI: 136.1 cm MVA(VTI): 2.1 cm2 GAURI(I,D): 0.46 cm2 GAURI(V,D): 0.56 cm2 AI max stew: 419.5 cm/sec LV V1 max: 94.9 cm/sec SV(LVOT): 63.2 ml AI max P.4 mmHg LV V1 max P.6 mmHg LV V1 mean P.8 mmHg AI dec slope: 303.3 cm/sec2 LV V1 mean: 61.4 cm/sec AI P1/2t: 405.1 msec LV V1 VTI: 20.5 cm PA V2 max: 119.4 cm/sec Interpretation Summary The study was technically difficult. Diluted definity 2ml given slow IV push to enhance endocardial definition. The estimated ejection fraction is 60 %. Unable to assess diastolic dysfunction. Trivial mitral valve insufficiency. Severe aortic stenosis. Mild-Moderate (1-2+) aortic valve insufficiency. Bioprosthetic aortic valve. Mildly dilated aortic root. The study was technically difficult. Ordering Physician: Mariama Hoover Referring Physician: Mariama Hoover Performed By: Sly Ford RCS
[2019-05-11] MEDS: 0.9% Saline Lock 10 ML Syringe IV (18:10)
--- NOTE | 2019-05-11 20:26 | PCM.HP.STD ---
History of Present Illness Date of Admission: 05/11/19 The patient is a 64 year old F who presented to the ED today for worsening SOB. She states that her sx started about 6 weeks ago when she had what sounds like a viral URI and states that she has gotten progressively worse since. At baseline she is on 2 L nasal cannula for COPD. She states that she has had intermittent sputum production that is some worse. She denies fever but c/o intermittent chills. She states that her sx are exertionally worse and that it takes awhile for her to recover once she is winded. She has not been significantly wheezing. Her home SpO2 monitor has been reading in the low 90's at home even when she is using her O2. She does report CP when she is exerting herself and her SpO2 levels drop. She had a CABG and AVR in 2011 at [facility]. Her CXR (portable AP) shows B LL volume overload and cardiomegaly. Her troponin is mildly elevated at 0.193. EKG shows no s/o ischemia. her BNP is 550 and she is morbidly obese. She states that aerosols that she has had in the ED have not at all been helpful. Past Medical History Past Medical History (Chronic Problems): Chronic Problems (Last Reviewed 05/11/19 @ 20:46 by Mariama Hoover DO) COPD exacerbation (Chronic) CAD (coronary artery disease) (Chronic) COPD (chronic obstructive pulmonary disease) (Chronic) Aortocoronary bypass status (Chronic ~06/05/16) CABG x1 ANDRES to LAD 06/05/16 History of prosthetic aortic valve replacement (Chronic ~06/05/16) 21mm [employer] Chronic diastolic heart failure (Chronic) Pulmonary hypertension, secondary (Chronic) Cardiomegaly (Chronic) Nonrheumatic aortic (valve) stenosis (Chronic) AVR #21 [employer] Bioprosthetic Pericardial Prosthesis 06/05/2016 @ [facility] Atherosclerotic heart disease of [place] coronary artery without angina pectoris (Chronic) CABG x3- ANDRES to LAD, SVG to ramus branch of CFX, SVG to RCA 07/03 History of non-ST elevation myocardial infarction (NSTEMI) (Chronic) Angina pectoris (Chronic) Hypertension, benign (Chronic) Medical History: Medical History (Last Reviewed 05/11/19 @ 20:46 by Mariama Hoover DO) Chronic diastolic heart failure (Chronic) I50.32 Pulmonary hypertension, secondary (Chronic) Cardiomegaly (Chronic) I51.7 Nonrheumatic aortic (valve) stenosis (Chronic) I35.0 AVR #21 [facility] [employer] Bioprosthetic Pericardial Prosthesis 06/05/2016 @ [facility] Atherosclerotic heart disease of [place] coronary artery without angina pectoris (Chronic) I25.10 CABG x3- ANDRES to LAD, SVG to ramus branch of CFX, SVG to RCA 01 History of non-ST elevation myocardial infarction (NSTEMI) (Chronic) I25.2 Abnormal electrocardiogram (Inactive) R94.31 Angina pectoris (Chronic) I20.9 Hypertension, benign (Chronic) I10 Anemia D64.9 COPD (chronic obstructive pulmonary disease) J44.9 Depression F32.9 Dyspnea on exertion R06.09 ETOH abuse F10.10 Fibromyalgia M79.7 GERD (gastroesophageal reflux disease) K21.9 Hypothyroidism E03.9 IBS (irritable bowel syndrome) K58.9 GAGAN (obstructive sleep apnea) G47.33 Renal cell carcinoma C64.9 Aortic valvar stenosis (Inactive) I35.0 Irritable bowel syndrome (Inactive) GAGAN (obstructive sleep apnea) (Inactive) G47.33 Renal cell carcinoma of both kidneys (Inactive) C64.1, C64.2 Symptomatic anemia (Inactive) D64.9 Allergies ibuprofen Allergy (Verified 05/11/19 13:18) Hives amlodipine [From [facility]] Adverse Reaction (Intermediate, Verified 05/11/19 17:04) swelling of ankles adhesive tape Adverse Reaction (Unknown, Verified 05/11/19 17:04) BLISTERS Home Medications: Ambulatory Orders Medication Instructions Recorded ALPRAZolam [Xanax] 0.5 mg PO TID PRN PRN 06/19/14 Calcium Citrate/Vitamin D3 [Hm 1 tab PO DAILY 06/19/14 Calcium Citrate-Vit D3 Tab] Pantoprazole Sodium [Protonix] 40 mg PO DAILY 06/19/14 metformin 500 mg tablet 500 mg PO DAILY tab 08/03/17 Mv-Mn/Folic AC/Calcium/Vit K1 1 ea PO DAILY 09/07/17 [Women's 50 Plus Daily Formula] ferrous sulfate 325 mg (65 mg 325 mg PO DAILY tab 03/02/18 iron) tablet,delayed release hydrochlorothiazide 12.5 mg tablet 12.5 mg PO DAILY 90 Days #90 03/02/18 metoprolol tartrate 25 mg tablet 12.5 mg PO BID #90 tab 04/23/18 atorvastatin 40 mg tablet 40 mg PO QHS #90 tab 10/22/18 Duloxetine HCl 60 mg PO DAILY 05/11/19 Levothyroxine Sodium [Synthroid] 200 mcg PO DAILY 05/11/19 Melatonin 5 mg PO QHS 05/11/19 Surgical History: Surgical History (Last Reviewed 05/11/19 @ 20:46 by Mariama Hoover DO) Aortocoronary bypass status (Chronic) Onset Date: ~06/05/16 Z95.1 CABG x1 ANDRES to LAD 06/05/16 History of prosthetic aortic valve replacement (Chronic) Onset Date: ~06/05/[address] [employer] Tr[employer] History of thyroidectomy Z98.890, E89.0 History of carpal tunnel surgery of right wrist Z98.890 History of section Z98.891 History of left hip replacement Z96.642 History of nephrectomy Z98.890, Z90.5 Bilateral partial History of removal laryngeal nodule Status post right foot surgery Z98.890 heel spur removal Surgical History: coronary bypass surgery - x1 at [facility], total hip arthroplasty - left hip., - - Thyroidectomy removal of laryngeal nodule, . Carpal tunnel surg right hand. 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 Thyroidectomy. Right heel spur removed. Aortic valve replacements, bioprosthetic. Psychiatric History: Depression Smoking Status: Former smoker Tobacco Use: Cigarettes Alcohol: None Drugs: None - *Family History Maternal Family History: Family History (Last Reviewed 05/11/19 @ 20:46 by Mariama Hoover DO) Grandfather CAD (coronary artery disease) Father Cancer Mother Colon cancer History Items: - - colon cancer Review of Systems Constitutional: Reports: Chills, Weakness, Fatigue. Denies: Anorexia, Fever, Night Sweats, Malaise, Weight Change Eyes: Denies: Blurred vision, Cataracts, Conjunctivae Inflammation, Double vision, Drainage, Eyelid Inflammation, Pain, Redness, Vision Change HEENT: Denies: Difficulty Hearing, Difficulty Swallowing, Dysphasia, Ear Pain, Eye Pain, Hard of Hearing, Head Aches, Hearing Changes, Nasal bleeding, Nasal Congestion, Post Nasal Drip, Sinus Congestion, Sinus Drainage, Sore Throat, Visual Changes Cardiovascular: Reports: Chest Tightness, Orthopnea. Denies: Chest Pain, Claudication, Chest Pressure, Edema, Heaviness, Light Headedness, Palpitations, Paroxysmal Noc. Dyspnea, Syncope Respiratory: Reports: Cough, Shortness of Breath, Shortness of breath at rest, Shortness of breath upon exertion, Sputum production. Denies: Hemoptysis, Pleuritic Pain, Wheezing Gastrointestinal: Denies: Abdominal Pain, Constipation, Diarrhea, Dyspepsia, Hematemesis, Hematochezia, Nausea, Melena, Vomiting Genitourinary: Denies: Dysuria, Frequency, Hematuria, Hesitancy, Incontinence, Nocturia, Retention, Urgency Musculoskeletal: Reports: Muscle pain, Neck Pain, Shoulder Pain. Denies: Arm Pain, Back Pain, Foot Pain, Hand Pain, Joint Pain, Joint stiffness, Joint swelling, Joint Tenderness, Leg Pain Skin: Reports: Dryness. Denies: Jaundice, Lesions, Pruritis, Rash, Skin Changes, Wounds Neurological: Denies: Balance problems, Blurred vision, Double vision, Change in Speech, Slurred speech, Confusion, Difficulty swallowing, Focal weakness, Headaches, Incoordination, Numbness, Tingling, Tremor, Seizures Psychiatric: Reports: Anxiety, Depression Endocrine: Denies: Change in Body Habitus, Heat/ Cold Intolerance, Polydipsia, Polyuria Hematologic/ Lymphatic: Denies: Adenopathy, Anemia, Easy Bruising, Easy Bleeding, Petechiae, Purpura VTE Information - Inpt Only VTE Present on Admission: No VTE Mechan Device Prophylaxis: SCD's VTE Pharm Prophylaxis ordered?: Yes - Physical Exam Vitals/I&O's: Vital Signs Temp Pulse Resp BP Pulse Ox 98.0 F 97 20 H 109/69 93 05/11/19 19:23 05/11/19 19:23 05/11/19 19:23 05/11/19 19:23 05/11/19 19:23 Oxygen Flow Rate (L/min) 2 Oxygen Delivery Method Nasal Cannula Weight: 98 kg Body Mass Index (BMI) 38.2 Intake and Output for Last 24 Hours 05/09/19 05/10/19 05/11/19 23:59 23:59 23:59 Intake Total 410 / 410 Output Total 2600 / 2600 Balance -2189 / -2189 General: Alert, Oriented x3, Cooperative, Well developed, Well nourished, - - mild dyspnea with conversation, family at bedside, pt pleasant HEENT: Atraumatic, PERRLA, EOMI, Normocephalic, TM's Clear, EAC Clear Oral: Moist Mucosa, No Gingival or Mucosal Lesions/ Ulcerations, - Neck: Supple, Negative Carotid Bruits, No Nodes, Trachea Midline, Thyroid Normal Size and Texture, JVD, Right, - - +HJR, short thick neck Lungs: No rhonchi, No wheeze, Diminished, Rales - B bases, Tachypneic, - - no accessory mm use Cardiovascular: Regular rate, Regular Rhythm, Normal S1, Normal S2, Murmur, No rub noted, No Gallop Abdomen: Bowel Sounds Present, Soft, No Hepato-splenomegaly, Obese, Tender - RUQ-mild, No hernias noted Extremities: No clubbing, No cyanosis, No edema, Capillary Refill Less than 3 Seconds Skin: No rashes, No breakdown, Ulcer/ Wound, Skin Tear Musculoskeletal: No Tenderness to Palpation of Joints or Extremities, No Muscle Wasting Lymphatic: No Cervical, Supraclavicular, or Inguinal Adenopathy Neurological: Cranial nerves II-XII grossly intact, Deep Tendon Reflexes 2+/4 and Symmetrical, Neuro grossly intact, Motor Exam 5/5 strength throughout Psych/Mental Status: Normal Affect, Appropriate, Alert and oriented to time, place, person, mood and affect Microbiology Past 72 Hours 05/11/19 17:45 Urine, Clean Catch Streptococcus pneumoniae Antigen (M - Final 05/11/19 17:45 Urine, Clean Catch Legionella Antigen - Final Laboratory Results 05/11/19 13:46: WBC 6.3, RBC 3.91 L, Hgb 13.0, Hct 39.4, MCV 100.8 H, MCH 33.2 H, MCHC 33.0, RDW Std Deviation 51.7 H, RDW Coeff of Monet 14.6, Plt Count 273, MPV 10.0, Immature Gran % (Auto) 0.600, Neut % (Auto) 71.8 H, Lymph % (Auto) 14.4 L, [place] % (Auto) 10.7 H, Eos % (Auto) 1.7, Baso % (Auto) 0.8, Absolute Neuts (auto) 4.6, Absolute Lymphs (auto) 0.91, Nucleated RBC % 0 05/11/19 13:46: Sodium 138, Potassium 3.9, Chloride 103, Carbon Dioxide 27.0, Anion Gap 8, BUN 16, Creatinine 0.88, Estim Creat Clear Calc 54.13, Est GFR (MDRD) Af Amer 83, Est GFR (MDRD) Non-Af 69, BUN/Creatinine Ratio 18.1, Glucose 180 H, Calcium 9.4, Troponin I 0.193 H 05/11/19 13:46: B-Natriuretic Peptide 550.6 H 05/11/19 17:40: Troponin I 0.191 H Current Medications Albuterol/Ipratropium (Duoneb) 3 ml INHALATION Q6H.RT [facility] Last Admin: 05/11/19 18:38 Dose: 3 ml Documented by: Alprazolam (Xanax) 0.5 mg PO TID PRN PRN PRN Reason: ANXIETY Aspirin (Ecotrin) 81 mg PO DAILY@0800 [facility] Atorvastatin Calcium (Lipitor) 40 mg PO QHS [facility] Calcium/Vitamin D (Os-Manoj 500mg + D) 1 tablet PO DAILYCM [facility] Duloxetine HCl (Cymbalta) 60 mg PO DAILY [facility] Enoxaparin Sodium (Lovenox) 40 mg SC DAILY@0600 [facility] Ferrous Sulf[facility] ([facility]ous Sulfate) [facility] Furosemide (Lasix) 40 mg IV BIDLX [facility] Last Admin: 05/11/19 18:10 Dose: 40 mg Documented by: Azithromycin 500 mg/ Dextrose 255 mls @ 250 mls/hr IV Q24 [facility] Last Admin: 05/11/19 19:25 Dose: 250 mls/hr Documented by: Ceftriaxone Sodium 2 gm/ (Sodium Chloride) 50 mls @ 100 mls/hr IV Q24 [facility] Last Infusion: 05/11/19 19:20 Dose: Infused Documented by: Sodium Chloride () 250 mls @ 15 mls/hr IV .[id number] PRN PRN Reason: Saline Flush Last Infusion: 05/11/19 18:47 Dose: 0 mls/hr Documented by: Insulin Human Lispro (Humalog Kwjose armandopen (Bkc)) 0 unit SC TIDAC [facility]; Protocol Levothyroxine Sodium (Synthroid) 200 mcg PO DAILY@0600 [facility] Melatonin (Melatonin) 5 mg PO QHS [facility] Metoprolol Tartrate (Lopressor (Beta Nayely)) 12.5 mg PO BID [facility] Multivitamins/Minerals (Multivitamin With Minerals) 1 tablet PO DAILY@0800 [facility] Nutritional Formula (Lactose Free) (Glucerna Shake) 120 ml PO TIDCM [facility] Ondansetron HCl (Zofran) 4 mg IV Q8H PRN PRN PRN Reason: Nausea Pantoprazole Sodium (Protonix) 40 mg PO DAILY [facility] Sodium Chloride () 10 - 40 ml IV UD PRN PRN Reason: SALINE FLUSH Last Admin: 05/11/19 18:10 Dose: 10 ml Documented by: Assessment/Plan All Active Problems (Last Reviewed 05/11/19 @ 20:46 by Mariama Hoover DO) Acute pyelonephritis (Acute) Bacteremia (Acute) Severe sepsis (Acute) UTI (urinary tract infection) (Acute) Anemia (Acute) Chronic respiratory failure (Acute) Dyspnea -suspect 2/2 AECHF -will cover now though for PNA -check urine antigens/Viral panel -sputum cx -mucinex -CTX and Azitro for now -DuoNebs scheduled -Lasix BID 40 mg -check Echo -repeat am CXR -supplemental O2 (wears 2 L at baseline) -CPAP at HS with 11 cm H20 -consult Cards (has seen [facility] remotely) Indeterminate Troponin -will cycle -check ECHO DM-2 -Check A1c -SSI -hold metformin COPD -remote smoker -no need for steroids at this time -duonebs -IS -O2 (2L) dependent at home CAD/AVS s/p CABG x3 07/03 and AVR with bioprosthetic valve 2011 -done at [facility] -continue current meds--> Lipitor/Metoprolol (hold HCTZ GERD -continue protonix Depression/anxiety -continue prn ativan -continue cymbalta Hypothyroidism -check TSH -continue synthroid GAGAN -continue CPAP h/o RCC B -B partial Nephrectomy DVT prophylaxis -lovenox -scd Code Visit Inpatient E&M: 14346 Init Hosp L3
[2019-05-11 20:55] LABS: Hemoglobin A1c 5.9 % (4.2-6.3)
[2019-05-11] MEDS: ALPRAZolam 0.5 MG Tablet PO (21:04)
[2019-05-11] MEDS: Metoprolol Tartrate 25 MG Tablet 12.5 MG PO (21:05)
[2019-05-11] MEDS: MELATONIN 10 MG TABLET 5 MG PO (21:05)
[2019-05-11] MEDS: Atorvastatin Calcium 40 MG Tablet PO (21:05)
[2019-05-11] MEDS: guaiFENesin 600 MG Tablet PO (21:12)
[2019-05-11 22:45] LABS: Bedside Glucose 145 mg/dL (70-110)
[2019-05-11] MEDS: Acetaminophen 500 MG Tablet 1000 MG PO (23:27)
[2019-05-12] VITALS (23 sets, daily range): BP systolic 97–119; BP diastolic 50–82; PULSE 77–101; RESP 18; TEMP 36.6–37.2; O2SAT 90–96
[2019-05-12] MEDS: Ipratropium/Albuterol Sulfate 3 ML AMPUL.NEB INHALATION ×3 (01:13→20:14)
[2019-05-12] MEDS: Levothyroxine 100 MCG Tablet 200 MCG PO (06:02)
[2019-05-12] MEDS: Enoxaparin 40 MG/0.4 ML Syringe SC (06:03)
[2019-05-12 06:31] LABS: Absolute Lymphocyte Count 1.03 X10^3/uL (0.83-4.51); Absolute Neutrophil Count 3.6 X10^3/uL (2.0-7.7); Basophil# 0.05 X10^3/uL; Basophil% 0.9 % (0-1); Eosinophils% 1.8 % (0-5); Hemoglobin 12.4 g/dL (12.0-15.0); Lymphocyte # 1.03 X10^3/ul (4.0); Lymphocyte % 18.7 % (19-41); Mean Corp Hgb Conc 32.6 g/dL (32-36); Mean Corpuscular Hgb 32.8 pg (27.0-32.0); Mean Corpuscular Volume 100.5 fL (81-99); Mean Platelet Vol. 10.1 fl (6.2-12.0); Monocyte# 0.65 X10^3/uL; Monocyte% 11.8 % (0-10); NRBC Flagged by Analyzer 0.4 % (0-5); Neutrophil # 3.64 X10^3/uL (2.7-7.7); Neutrophil % 66.1 % (47-70); Platelet Count 242 K/mm3 (150-450); RBC Distribution Width CV 14.8 % (11.6-14.6); RBC Distribution Width SD 52.4 fl (35.1-43.9); Red Blood Count 3.78 M/mm3 (4.2-5.4); White Blood Count 5.5 K/mm3 (4.4-11.0)
[2019-05-12] MEDS: Insulin Lispro 100 UNIT/ML INSULN.PEN SC (06:38)
[2019-05-12 06:40] LABS: Bedside Glucose 159 mg/dL (70-110)
[2019-05-12 07:05] LABS: Anion Gap 7 (5-15); BUN 19 mg/dL (7-18); BUN/Creat Ratio 23.9 RATIO (10-20); Calcium,Total 9.5 mg/dL (8.5-10.1); Chloride 100 mmol/L (98-107); Cholesterol 134 mg/dL (200); EST Glomerular Filtration Rate 77 mL/min (>60); Est Glom Filt Rate - Afr Amer 94 mL/min (>60); Estimated Creatinine Clearance 59.54 ml/min; Glucose 166 mg/dL (74-106); High Density Lipoprotein 40 mg/dL; Potassium 3.7 mmol/L (3.5-5.1); Sodium Level 137 mmol/L (136-145); Thyroid Stim Hormone (TSH) 2.16 uIU/mL (0.358-3.74); Triglycerides 176 mg/dL; Very Low Density Lipoprotein 35 mg/dL (5-40)
[2019-05-12] MEDS: Glucerna Shake 120 ML LIQUID PO ×2 (08:51→16:56)
[2019-05-12] MEDS: Ferrous Sulfate 325 MG Tablet PO (08:51)
[2019-05-12] MEDS: Calcium Carb/Vitamin D 1 TABLET Tablet PO (08:51)
[2019-05-12] MEDS: Multivitamins,Ther W-Minerals Tablet 1 TABLET PO (08:51)
[2019-05-12] MEDS: Aspirin E.C. 81 MG Tablet PO (08:51)
[2019-05-12 09:50] LABS: Hemoglobin A1c 5.7 % (4.2-6.3)
[2019-05-12] MEDS: Pantoprazole Sodium 40 MG Tablet PO (10:00)
[2019-05-12] MEDS: DULoxetine Hcl 60 MG Capsule PO (10:00)
[2019-05-12] MEDS: guaiFENesin 600 MG Tablet PO ×2 (10:00→21:33)
[2019-05-12] MEDS: Metoprolol Tartrate 25 MG Tablet 12.5 MG PO ×2 (10:00→21:32)
[2019-05-12] MEDS: Furosemide 40 MG/4 ML Vial IV (10:01)
[2019-05-12] MEDS: 0.9% Saline Lock 10 ML Syringe IV ×2 (10:01→12:23)
--- NOTE | 2019-05-12 10:46 | PCM.PROGNOTE ---
<Raissa Wright - Last Filed: 05/12/19 11:07> Subjective: Patient seen and examined. Reports her breathing feels mildly improved although she states she has not been out of bed yet this morning. Reports intermittent cough productive with brown sputum. Denies fever, chills. - Physical Exam Vitals/I&O's: Vital Signs Temp Pulse Resp BP Pulse Ox 97.9 F 93 18 105/67 94 05/12/19 10:00 05/12/19 10:00 05/12/19 10:00 05/12/19 10:00 05/12/19 10:00 Oxygen Flow Rate (L/min) 2 Oxygen Delivery Method Nasal Cannula Weight: 216 lb 0.848 oz Body Mass Index (BMI) 38.2 Intake and Output for Last 24 Hours 05/10/19 05/11/19 05/12/19 23:59 23:59 23:59 Intake Total 677.25 / 677.25 57.5 / 57.5 Output Total 3550 / 3550 550 / 550 Balance -2872.75 / -2872.75 -492.5 / -492.5 General: Alert, Oriented x3, Cooperative HEENT: Atraumatic, PERRLA, EOMI, Normocephalic Neck: Supple, No JVD, Negative Carotid Bruits Lungs: Diminished, - - Faint rales bilateral bases Cardiovascular: Regular rate, Regular Rhythm, Normal S1, Normal S2, Murmur Abdomen: Bowel Sounds Present, Soft, Non Tender, Non-Distended, Obese Extremities: No clubbing, No cyanosis, No edema, Capillary Refill Less than 3 Seconds Skin: No rashes, No breakdown Musculoskeletal: No Tenderness to Palpation of Joints or Extremities Neurological: Cranial nerves II-XII grossly intact, Neuro grossly intact Psych/Mental Status: Normal Affect, Appropriate Microbiology Past 72 Hours 05/11/19 18:40 Mucosa - Nasopharyngeal Respiratory Panel (PCR) - Final 05/11/19 17:45 Urine, Clean Catch Streptococcus pneumoniae Antigen (M - Final 05/11/19 17:45 Urine, Clean Catch Legionella Antigen - Final Laboratory Results 05/11/19 13:46: WBC 6.3, RBC 3.91 L, Hgb 13.0, Hct 39.4, MCV 100.8 H, MCH 33.2 H, MCHC 33.0, RDW Std Deviation 51.7 H, RDW Coeff of Monet 14.6, Plt Count 273, MPV 10.0, Immature Gran % (Auto) 0.600, Neut % (Auto) 71.8 H, Lymph % (Auto) 14.4 L, Hamlin % (Auto) 10.7 H, Eos % (Auto) 1.7, Baso % (Auto) 0.8, Absolute Neuts (auto) 4.6, Absolute Lymphs (auto) 0.91, Nucleated RBC % 0 05/11/19 13:46: Sodium 138, Potassium 3.9, Chloride 103, Carbon Dioxide 27.0, Anion Gap 8, BUN 16, Creatinine 0.88, Estim Creat Clear Calc 54.13, Est GFR (MDRD) Af Amer 83, Est GFR (MDRD) Non-Af 69, BUN/Creatinine Ratio 18.1, Glucose 180 H, Calcium 9.4, Troponin I 0.193 H 05/11/19 13:46: B-Natriuretic Peptide 550.6 H 05/11/19 17:40: Troponin I 0.191 H 05/11/19 20:25: Hemoglobin A1c 5.9 05/11/19 20:25: Troponin I 0.207 H 05/11/19 22:07: POC Glucose 145 H 05/12/19 05:55: Sodium 137, Potassium 3.7, Chloride 100, Carbon Dioxide 30.0, Anion Gap 7, BUN 19 H, Creatinine 0.80, Estim Creat Clear Calc 59.54, Est GFR (MDRD) Af Amer 94, Est GFR (MDRD) Non-Af 77, BUN/Creatinine Ratio 23.9 H, Glucose 166 H, Calcium 9.5, Magnesium 2.0, Triglycerides 176, Cholesterol 134, LDL Cholesterol 59, VLDL Cholesterol 35, HDL Cholesterol 40, TSH 2.16 05/12/19 05:55: WBC 5.5, RBC 3.78 L, Hgb 12.4, Hct 38.0, MCV 100.5 H, MCH 32.8 H, MCHC 32.6, RDW Std Deviation 52.4 H, RDW Coeff of Monet 14.8 H, Plt Count 242, MPV 10.1, Immature Gran % (Auto) 0.700, Neut % (Auto) 66.1, Lymph % (Auto) 18.7 L, Hamlin % (Auto) 11.8 H, Eos % (Auto) 1.8, Baso % (Auto) 0.9, Absolute Neuts (auto) 3.6, Absolute Lymphs (auto) 1.03, Nucleated RBC % 0.4 05/12/19 05:55: Hemoglobin A1c 5.7 05/12/19 06:34: POC Glucose 159 H Current Medications Acetaminophen (Tylenol) 650 mg PO Q6H PRN PRN PRN Reason: Non-cardiac pain (mod-severe) Albuterol/Ipratropium (Duoneb) 3 ml INHALATION Q6H.RT ON LICENSE OF [facility] Last Admin: 05/12/19 07:20 Dose: 3 ml Documented by: Alprazolam (Xanax) 0.5 mg PO TID PRN PRN PRN Reason: ANXIETY Last Admin: 05/11/19 21:04 Dose: 0.5 mg Documented by: Aspirin (Ecotrin) 81 mg PO DAILY@0800 ON LICENSE OF [facility] Last Admin: 05/12/19 08:51 Dose: 81 mg Documented by: Atorvastatin Calcium (Lipitor) 40 mg PO QHS ON LICENSE OF [facility] Last Admin: 05/11/19 21:05 Dose: 40 mg Documented by: Calcium/Vitamin D (Os-Manoj 500mg + D) [facility] Last Admin: 05/12/19 08:51 Dose: 1 tablet Documented by: Duloxetine HCl (Cymbalta) 60 mg PO DAILY ON LICENSE OF [facility] Last Admin: 05/12/19 10:00 Dose: 60 mg Documented by: Enoxaparin Sodium (Lovenox) 40 mg SC DAILY@0600 ON LICENSE OF [facility] Last Admin: 05/12/19 06:03 Dose: 40 mg Documented by: Ferrous Sulfate (Ferrous Sulfate) [facility] Last Admin: 05/12/19 08:51 Dose: 325 mg Documented by: Furosemide (Lasix) 40 mg IV BIDLX ON LICENSE OF [facility] Last Admin: 05/12/19 10:01 Dose: 40 mg Documented by: Guaifenesin (Mucinex) 600 mg PO BID ON LICENSE OF [facility] Last Admin: 05/12/19 10:00 Dose: 600 mg Documented by: Hydralazine HCl (Apresoline Iv) 10 mg IV Q4H PRN PRN PRN Reason: SBP > 160 Azithromycin 500 mg/ Dextrose 255 mls @ 250 mls/hr IV Q24 ON LICENSE OF [facility] Last Admin: 05/12/19 10:01 Dose: 250 mls/hr Documented by: Ceftriaxone Sodium 2 gm/ (Sodium Chloride) 50 mls @ 100 mls/hr IV Q24 ON LICENSE OF [facility] Last Infusion: 05/12/19 09:30 Dose: Infused Documented by: Sodium Chloride () 250 mls @ 15 mls/hr IV .[id number] PRN PRN Reason: Saline Flush Last Infusion: 05/12/19 10:00 Dose: 0 mls/hr Documented by: Insulin Human Lispro (Humalog Kwikpen (Bkc)) 0 unit SC TIDAC ON LICENSE OF [facility]; Protocol Last Admin: 05/12/19 06:38 Dose: 1 unit Documented by: Levothyroxine Sodium (Synthroid) 200 mcg PO DAILY@0600 ON LICENSE OF [facility] Last Admin: 05/12/19 06:02 Dose: 200 mcg Documented by: Melatonin (Melatonin) 5 mg PO QHS ON LICENSE OF [facility] Last Admin: 05/11/19 21:05 Dose: 5 mg Documented by: Metoprolol Tartrate (Lopressor (Beta Nayely)) 12.5 mg PO BID ON LICENSE OF [facility] Last Admin: 05/12/19 10:00 Dose: 12.5 mg Documented by: Multivitamins/Minerals (Multivitamin With Minerals) 1 tablet PO DAILY@0800 ON LICENSE OF [facility] Last Admin: 05/12/19 08:51 Dose: 1 tablet Documented by: Nutritional Formula (Lactose Free) (Glucerna Shake) 120 ml PO TIDCM ON LICENSE OF [facility] Last Admin: 05/12/19 08:51 Dose: 120 ml Documented by: Ondansetron HCl (Zofran) 4 mg IV Q8H PRN PRN PRN Reason: Nausea Pantoprazole Sodium (Protonix) 40 mg PO DAILY ON LICENSE OF [facility] Last Admin: 05/12/19 10:00 Dose: 40 mg Documented by: Sodium Chloride () 10 - 40 ml IV UD PRN PRN Reason: SALINE FLUSH Last Admin: 05/12/19 10:01 Dose: 10 ml Documented by: Medical Necessity - Tobacco Use Smoking Status: Former smoker Tobacco Use: Cigarettes Assessment/Plan All Active Problems (Last Updated 05/12/19 @ 14:19 by AGUSTIN OgdenC) Acute pyelonephritis (Acute) Bacteremia (Acute) Severe sepsis (Acute) UTI (urinary tract infection) (Acute) Anemia (Acute) Chronic respiratory failure (Acute) 1. Acute on chronic diastolic CHF-chest x-ray without acute process. BNP 550. Echocardiogram August 2017 with EF 65%, stage II diastolic dysfunction, RVSP estimated to be 45 mmHg. IV Lasix 40 mg twice daily. Strict I&O. Daily weight. Repeat echocardiogram pending. Cardiology consulted. Patient follows with Dr. Zhong. 2. Abnormal troponin-no EKG changes. Cardiology consult pending. Echo pending. 3. Rule out pneumonia-patient placed on antibiotics empirically on admission due to dyspnea with productive cough of brown sputum. Respiratory panel negative. Urine for strep and Legionella negative. Afebrile, no leukocytosis. We will continue antibiotics pending sputum culture however doubt pneumonia. 4. Type 2 diabetes mellitus-hold oral regimen. Accu-Cheks ACHS with SSI. Hemoglobin A1c 5.7%. 5. Chronic COPD with chronic hypoxic respiratory failure-chronically wears 2 L nasal cannula at baseline. Continue supplement oxygen to maintain O2 at or above 90%. 6. CAD status post CABG x3-continue statin, beta-nayely. Not on aspirin. 7. AVR with bioprosthetic valve-echo pending. 8. GERD-continue PPI regimen. 9. HTN-stable, continue metoprolol. HCTZ on hold. 10. Depression/anxiety-continue Cymbalta, PRN Ativan. 11. Hypothyroidism-continue home Synthroid regimen. TSH within normal limits. 12. GAGAN-continue CPAP regimen. 13. History of renal cell carcinoma- status post partial nephrectomy. 14. Obesity-encouraged diet and lifestyle modifications. DVT prophylaxis-Lovenox subcu This patient was seen by DENEEN Fall under the supervision of Dr. Parsons. <Oma Parsons - Last Filed: 05/12/19 17:17> - Physical Exam Vitals/I&O's: Vital Signs Temp Pulse Resp BP Pulse Ox 98.4 F 93 18 111/72 94 05/12/19 14:00 05/12/19 16:00 05/12/19 16:00 05/12/19 16:00 05/12/19 16:00 Oxygen Flow Rate (L/min) 2 Oxygen Delivery Method Nasal Cannula Weight: 98 kg Body Mass Index (BMI) 38.2 Intake and Output for Last 24 Hours 05/10/19 05/11/19 05/12/19 23:59 23:59 23:59 Intake Total 677.25 / 677.25 577.75 / 577.75 Output Total 3550 / 3550 1800 / 1800 Balance -2872.75 / -2872.75 -1222.25 / -1222.25 Microbiology Past 72 Hours 05/12/19 08:40 Sputum, Expectorated/Coughed Gram Stain - Final 05/11/19 18:40 Mucosa - Nasopharyngeal Respiratory Panel (PCR) - Final 05/11/19 17:45 Urine, Clean Catch Streptococcus pneumoniae Antigen (M - Final 05/11/19 17:45 Urine, Clean Catch Legionella Antigen - Final Laboratory Results 05/11/19 17:40: Troponin I 0.191 H 05/11/19 20:25: Hemoglobin A1c 5.9 05/11/19 20:25: Troponin I 0.207 H 05/11/19 22:07: POC Glucose 145 H 05/12/19 05:55: Sodium 137, Potassium 3.7, Chloride 100, Carbon Dioxide 30.0, Anion Gap 7, BUN 19 H, Creatinine 0.80, Estim Creat Clear Calc 59.54, Est GFR (MDRD) Af Amer 94, Est GFR (MDRD) Non-Af 77, BUN/Creatinine Ratio 23.9 H, Glucose 166 H, Calcium 9.5, Magnesium 2.0, Triglycerides 176, Cholesterol 134, LDL Cholesterol 59, VLDL Cholesterol 35, HDL Cholesterol 40, TSH 2.16 05/12/19 05:55: WBC 5.5, RBC 3.78 L, Hgb 12.4, Hct 38.0, MCV 100.5 H, MCH 32.8 H, MCHC 32.6, RDW Std Deviation 52.4 H, RDW Coeff of Monet 14.8 H, Plt Count 242, MPV 10.1, Immature Gran % (Auto) 0.700, Neut % (Auto) 66.1, Lymph % (Auto) 18.7 L, Hamlin % (Auto) 11.8 H, Eos % (Auto) 1.8, Baso % (Auto) 0.9, Absolute Neuts (auto) 3.6, Absolute Lymphs (auto) 1.03, Nucleated RBC % 0.4 05/12/19 05:55: Hemoglobin A1c 5.7 05/12/19 06:34: POC Glucose 159 H 05/12/19 12:13: POC Glucose 113 H 05/12/19 16:05: POC Glucose 139 H Current Medications Acetaminophen (Tylenol) 650 mg PO Q6H PRN PRN PRN Reason: Non-cardiac pain (mod-severe) Last Admin: 05/12/19 16:03 Dose: 650 mg Documented by: Albuterol/Ipratropium (Duoneb) 3 ml INHALATION Q6H.RT ON LICENSE OF [facility] Last Admin: 05/12/19 13:15 Dose: Not Given Documented by: Alprazolam (Xanax) 0.5 mg PO TID PRN PRN PRN Reason: ANXIETY Last Admin: 05/11/19 21:04 Dose: 0.5 mg Documented by: Aspirin (Ecotrin) 81 mg PO DAILY@0800 ON LICENSE OF [facility] Last Admin: 05/12/19 08:51 Dose: 81 mg Documented by: Atorvastatin Calcium (Lipitor) 40 mg PO QHS ON LICENSE OF [facility] Last Admin: 05/11/19 21:05 Dose: 40 mg Documented by: Atropine Sulfate () 0.5 mg IV UD PRN PRN Reason: HR <50 bpm Calcium/Vitamin D (Os-Manoj 500mg + D) [facility] Last Admin: 05/12/19 08:51 Dose: 1 tablet Documented by: Duloxetine HCl (Cymbalta) 60 mg PO DAILY ON LICENSE OF [facility] Last Admin: 05/12/19 10:00 Dose: 60 mg Documented by: Enoxaparin Sodium (Lovenox) 40 mg SC DAILY@0600 ON LICENSE OF [facility] Last Admin: 05/12/19 06:03 Dose: 40 mg Documented by: Ferrous Sulfate (Ferrous Sulfate) 325 [facility] Last Admin: 05/12/19 08:51 Dose: 325 mg Documented by: Guaifenesin (Mucinex) 600 mg PO BID ON LICENSE OF [facility] Last Admin: 05/12/19 10:00 Dose: 600 mg Documented by: Heparin Sodium (Beef Lung) (Heparin 500 Unit/5 Ml (100/Ml)) 500 unit IV UD PRN PRN Reason: HEPARIN FLUSH Hydralazine HCl (Apresoline Iv) 10 mg IV Q4H PRN PRN PRN Reason: SBP > 160 Azithromycin 500 mg/ Dextrose 255 mls @ 250 mls/hr IV Q24 ON LICENSE OF [facility] Last Infusion: 05/12/19 11:15 Dose: Infused Documented by: Ceftriaxone Sodium 2 gm/ (Sodium Chloride) 50 mls @ 100 mls/hr IV Q24 ON LICENSE OF [facility] Last Infusion: 05/12/19 09:30 Dose: Infused Documented by: Sodium Chloride () 250 mls @ 15 mls/hr IV .[id number] PRN PRN Reason: Saline Flush Last Infusion: 05/12/19 10:00 Dose: 0 mls/hr Documented by: Sodium Chloride () 1,000 mls @ 15 mls/hr IV .Q48H ON LICENSE OF [facility] Last Infusion: 05/12/19 14:03 Dose: Infused Documented by: Insulin Human Lispro (Humalog Kwikpen (Bkc)) 0 unit SC TIDAC ON LICENSE OF [facility]; Protocol Last Admin: 05/12/19 16:06 Dose: Not Given Documented by: Labetalol HCl (Trandate) 5 mg IV X1 PRN PRN Reason: SBP > 160 when pulling sheath Stop: 05/14/19 13:48 Levothyroxine Sodium (Synthroid) 200 mcg PO DAILY@0600 ON LICENSE OF [facility] Last Admin: 05/12/19 06:02 Dose: 200 mcg Documented by: Melatonin (Melatonin) 5 mg PO QHS ON LICENSE OF [facility] Last Admin: 05/11/19 21:05 Dose: 5 mg Documented by: Metoprolol Tartrate (Lopressor (Beta Nayely)) 12.5 mg PO BID ON LICENSE OF [facility] Last Admin: 05/12/19 10:00 Dose: 12.5 mg Documented by: Multivitamins/Minerals (Multivitamin With Minerals) 1 tablet PO DAILY@0800 ON LICENSE OF [facility] Last Admin: 05/12/19 08:51 Dose: 1 tablet Documented by: Nutritional Formula (Lactose Free) (Glucerna Shake) 120 ml PO TIDCM ON LICENSE OF [facility] Last Admin: 05/12/19 12:22 Dose: Not Given Documented by: Ondansetron HCl (Zofran) 4 mg IV Q8H PRN PRN PRN Reason: Nausea Pantoprazole Sodium (Protonix) 40 mg PO DAILY ON LICENSE OF [facility] Last Admin: 05/12/19 10:00 Dose: 40 mg Documented by: Sodium Chloride () 10 - 40 ml IV UD PRN PRN Reason: SALINE FLUSH Last Admin: 05/12/19 12:23 Dose: 10 ml Documented by: Sodium Chloride () 500 ml IV BOLUS PRN PRN Reason: VASO-VAGAL PROTOCOL Assessment/Plan This patient was seen in conjunction with Raissa Wright NP. I have independently interviewed and examined the patient and reviewed pertinent historical, laboratory, and other data. Please refer to her note for patient's presentation, findings, and recommendations. Patient was seen and examined. Denies any new complaints. Had a heart cath done today. And then showed 100% stenosis in the proximal LAD, 60-70% stenosis in the proximal diagonal. Other vessels were patent. No stents were placed. Discussed with cardiology, patient will need follow-up for evaluation for possible TAVR. Vitals were reviewed -stable Physical Exam: Gen: Comfortable, not pale, not jaundiced, alert oriented x3, obese CVS:HS I +II, regular, no murmurs RESP: Diminished at lung bases GI: BS present and normal, nontender, no palpable organs EXT:No edema Labs reviewed: ASSESSMENT: 1. Dyspnea likely secondary to worsening severe aortic stenosis 2. Severe aortic stenosis, history of aortic valve replacement 2. CAD status post CABG 3. Hypertension 4. Type II DM 5. COPD not in acute exacerbation Meds reviewed Plan: Continue breathing treatments Discontinue IV ceftriaxone and azithromycin Continue with current management pending discharge for outpatient valve replacement Code Visit Inpatient E&M: 26877 Subs Hosp L2
--- NOTE | 2019-05-12 12:08 | CON.PCM_ITS ---
<Kory Flores - Last Filed: 05/12/19 12:08> Problem List (1) Aortocoronary bypass status Status: Chronic Comment: CABG x1 ANDRES to LAD 06/05/16 (2) History of prosthetic aortic valve replacement Status: Chronic Comment: 21mm [facility] [place] Trifecta (3) Chronic diastolic heart failure Status: Chronic (4) Atherosclerotic heart disease of [place] coronary artery without angina pectoris Status: Chronic Qualifiers: [place] vs. transplanted heart: [place] heart Qualified Code(s): I25.10 - Atherosclerotic heart disease of [place] coronary artery without angina pectoris Comment: CABG x3- ANDRES to LAD, SVG to ramus branch of CFX, SVG to RCA 07/03 (5) Hypertension, benign Status: Chronic Reason for Consult Date of Consultation: 05/12/19 History of Present Illness: The patient is a 64 year old F who presented to [facility] Emergency Department on 05/11/2019 for progressive shortness of breath. She has a past medical history of coronary artery disease status post bypass surgery in 2015 with a ANDRES to LAD, aortic valve stenosis status post aortic valve replacement with a 21 mm [place] trifecta pericardial prosthesis on 06/05/2016. She also has a history of hypertension, hyperlipidemia, COPD, diabetes mellitus type 2, and renal CA. She underwent laboratory evaluation that showed troponin 0.193 and a BNP of 550. Her chest x-ray was negative. Her EKG showed sinus rhythm with non-specific T wave changes. She was admitted for further evaluation. She was started on IV diuretic therapy and an echocardiogram was ordered. Cardiology was consulted for further input. Past Medical History Allergies/Adverse Reactions: Allergies ibuprofen Allergy (Verified 05/11/19 13:18) Hives amlodipine [From Norvas] Adverse Reaction (Intermediate, Verified 05/11/19 17:04) swelling of ankles adhesive tape Adverse Reaction (Unknown, Verified 05/11/19 17:04) BLISTERS Home Medications: Ambulatory Orders Medication Instructions Recorded ALPRAZolam [Xanax] 0.5 mg PO TID PRN PRN 06/19/14 Calcium Citrate/Vitamin D3 [Hm 1 tab PO DAILY 06/19/14 Calcium Citrate-Vit D3 Tab] Pantoprazole Sodium [Protonix] 40 mg PO DAILY 06/19/14 metformin 500 mg tablet 500 mg PO DAILY tab 08/03/17 Mv-Mn/Folic AC/Calcium/Vit K1 1 ea PO DAILY 09/07/17 [Women's 50 Plus Daily Formula] ferrous sulfate 325 mg (65 mg 325 mg PO DAILY tab 03/02/18 iron) tablet,delayed release hydrochlorothiazide 12.5 mg tablet 12.5 mg PO DAILY 90 Days #90 03/02/18 metoprolol tartrate 25 mg tablet 12.5 mg PO BID #90 tab 04/23/18 atorvastatin 40 mg tablet 40 mg PO QHS #90 tab 10/22/18 Acetaminophen [Tylenol Arthritis] 2 tab PO DAILY PRN PRN 05/11/19 Duloxetine HCl 60 mg PO DAILY 05/11/19 Levothyroxine Sodium [Synthroid] 200 mcg PO DAILY 05/11/19 Melatonin 5 mg PO QHS 05/11/19 Past Medical History (Chronic Problems): Chronic Problems (Last Updated 05/12/19 @ 14:19 by Kory Flores NP-C) COPD exacerbation (Chronic) CAD (coronary artery disease) (Chronic) COPD (chronic obstructive pulmonary disease) (Chronic) Aortocoronary bypass status (Chronic ~06/05/16) CABG x1 ANDRES to LAD 06/05/16; History of prosthetic aortic valve replacement (Chronic ~06/05/16) 21mm [facility] [place] Trifecta Chronic diastolic heart failure (Chronic) Pulmonary hypertension, secondary (Chronic) Cardiomegaly (Chronic) Nonrheumatic aortic (valve) stenosis (Chronic) AVR #21 [facility] [place] Trifecta Bioprosthetic Pericardial Prosthesis 06/05/2016 @ [employer] Atherosclerotic heart disease of [place] coronary artery without angina pectoris (Chronic) CABG x1 ANDRES to LAD 06/05/16; History of non-ST elevation myocardial infarction (NSTEMI) (Chronic) Angina pectoris (Chronic) Hypertension, benign (Chronic) Surgical History: coronary bypass surgery - x1 at [employer] [facility], total hip arthroplasty - left hip., - - Thyroidectomy removal of laryngeal nodule, . Carpal tunnel surg right hand. 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 Thyroidectomy. Right heel spur removed. Aortic valve replacements, bioprosthetic. Psychiatric History: Depression - *Family History Maternal Family History: Family History (Last Reviewed 05/11/19 @ 20:46 by Mariama Hoover DO) Grandfather CAD (coronary artery disease) Father Cancer Mother Colon cancer History Items: - - colon cancer Smoking Status: Former smoker Tobacco Use: Cigarettes Alcohol: None Drugs: None Review of Systems - Review of Systems General: Denies: Fever, Fatigue Cardiovascular: Reports: Chest Discomfort with Exertion, Chest Pressure, Shortness of Breath, Shortness of Breath at Rest, Shortness of Breath with Exertion. Denies: Chest Discomfort, Chest Discomfort at Rest, Chest Tightness, Chest Heaviness, Orthopnea, PND, Peripheral Edema, Palpitations, Lightheadedness, Dizziness, Near Syncope, Syncope Respiratory: Reports: Cough Subjectve: Patient seen and evaluated. She states that her shortness of breath is relatively unchanged since admission. She denies any reoccurring chest pain. However, she does acknowledge chest pain at home that radiated to right lower arm with exertion. She denies any lightheadedness, dizziness, palpitations, or lower extremity edema. Objective: Vital Signs Temp Pulse Resp BP Pulse Ox 97.9 F 93 18 105/67 94 05/12/19 10:00 05/12/19 10:00 05/12/19 10:00 05/12/19 10:00 05/12/19 10:00 Oxygen Flow Rate (L/min) 2 Oxygen Delivery Method Nasal Cannula Weight: 216 lb 0.848 oz Body Mass Index (BMI) 38.2 Intake and Output for Last 24 Hours 05/10/19 05/11/19 05/12/19 23:59 23:59 23:59 Intake Total 677.25 / 677.25 312.5 / 312.5 Output Total 3550 / 3550 550 / 550 Balance -2872.75 / -2872.75 -237.5 / -237.5 General: Healthy Appearing, Awake, Alert, Oriented x 3, Cooperative, No Acute Distress Oral: Dry Mucosa Neck: No JVD Lungs: Diminished Hermilo Bases Cardiovascular: Normal S1, Normal S2, No Rubs, No Gallops Murmur Murmur: Grade 2/6, LLSB Vascular: No Carotid Bruits Abdomen: Bowel Sounds Present, Soft, Non Tender Extremities: No Cyanosis, No Clubbing, No edema, Normal Capillary Refill Neurological: No Focal Motor or Sensory Deficit Psych/Mental Status: Appropriate, Normal Affect 05/11/19 13:46: WBC 6.3, RBC 3.91 L, Hgb 13.0, Hct 39.4, MCV 100.8 H, MCH 33.2 H , MCHC 33.0, Plt Count 273, MPV 10.0, Immature Gran % (Auto) 0.600, Neut % (Auto) 71.8 H, Lymph % (Auto) 14.4 L, [place] % (Auto) 10.7 H, Eos % (Auto) 1.7, Baso % (Auto) 0.8, Absolute Neuts (auto) 4.6, Nucleated RBC % 0 05/11/19 13:46: Sodium 138, Potassium 3.9, Chloride 103, Carbon Dioxide 27.0, Anion Gap 8, BUN 16, Creatinine 0.88, Est GFR (MDRD) Af Amer 83, Est GFR (MDRD) Non-Af 69, BUN/Creatinine Ratio 18.1, Glucose 180 H, Calcium 9.4, Troponin I 0.193 H 05/11/19 13:46: B-Natriuretic Peptide 550.6 H 05/11/19 17:40: Troponin I 0.191 H 05/11/19 20:25: Hemoglobin A1c 5.9 05/11/19 20:25: Troponin I 0.207 H 05/12/19 05:55: Sodium 137, Potassium 3.7, Chloride 100, Carbon Dioxide 30.0, Anion Gap 7, BUN 19 H, Creatinine 0.80, Est GFR (MDRD) Af Amer 94, Est GFR (MDRD) Non-Af 77, BUN/Creatinine Ratio 23.9 H, Glucose 166 H, Calcium 9.5, Magnesium 2.0, Triglycerides 176, Cholesterol 134, LDL Cholesterol 59, VLDL Cholesterol 35, HDL Cholesterol 40 05/12/19 05:55: WBC 5.5, RBC 3.78 L, Hgb 12.4, Hct 38.0, MCV 100.5 H, MCH 32.8 H , MCHC 32.6, Plt Count 242, MPV 10.1, Immature Gran % (Auto) 0.700, Neut % (Auto) 66.1, Lymph % (Auto) 18.7 L, [place] % (Auto) 11.8 H, Eos % (Auto) 1.8, Baso % (Auto) 0.9, Absolute Neuts (auto) 3.6, Nucleated RBC % 0.4 05/12/19 05:55: Hemoglobin A1c 5.7 Rhythm: EKG: ECHO: 05/11/2019 Interpretation Summary The study was technically difficult. Diluted Definity 2ml given slow IV push to enhance endocardial definition. The estimated ejection fraction is 60 %. Unable to assess diastolic dysfunction. Trivial mitral valve insufficiency. Severe aortic stenosis. Mild-Moderate (1-2+) aortic valve insufficiency. Bioprosthetic aortic valve. Mildly dilated aortic root. The study was technically difficult. Stress Test: Cardiac Cath: 04/29/2016 Discussion: The cardiac catheterization reveals elevation of the left ventricular end-diasto lic pressure compatible decreased diastolic compliance, secondary pulmonary hypertension, no obvious evidence of intracardiac shunting, overall preserved left ventricular size, wall motion, and systolic function, and angiographically significant appearing coronary artery disease involving the LAD distribution. Valvular interrogation suggests the mitral valve to be calcified, restricted, and moderately to severely stenotic and the mitral valve to demonstrate mild mitral valve regurgitation. The patient will need to continue medical management as deemed appropriate. Her case will be reviewed for consideration for CT surgery evaluation for coronary artery bypass grafting surgery and aortic valve replacement. Final impression: 1. Elevated left ventricular end-diastolic pressure compatible decreased diastolic compliance 2. Secondary pulmonary hypertension 3. Oxygen saturation: No obvious evidence of intracardiac shunting phenomena 4. Left ventricle: A. Normal left ventricular size, wall motion, and systolic function B. Estimated LVEF of 65% 5. Left main coronary artery: A. Angiographically normal 6. Left anterior descending coronary artery: A. Proximal calcification B. Proximal 85% eccentric irregular appearing stenosis C. First diagonal branch with proximal 25% appearing stenosis 7. Left circumflex coronary artery: A. Large dominant vessel B. Proximal minimal luminal irregularity 8. Right coronary artery: A. Small nondominant vessel B. Angiographically normal 9. Aortic valve: A. Calcified; restricted; stenotic (moderate to severe) 10. Aortic root A. Possible dilatation 11. Mitral valve: A. Mild mitral regurgitation PCI: CT Surgery: Holter monitor: EPS: PPM: CXR: Chest CT Scan: Assessment/Plan 1. Shortness of breath. This is patient's main concern. She underwent an echocardiogram today on 05/12/2019. This showed ejection fraction of 60%, concentric left ventricular hypertrophy and severe aortic stenosis with mild to moderate aortic valve insufficiency. At this time, a contributor source of her shortness of breath is related to her valve status. She will undergo a left heart catheterization in anticipation of repeat valvular surgery. We will discontinue her Lasix to avoid volume depletion. She does not appear to be in a fluid volume overload state on exam. Based on results of her heart catheterization, she will be referred to outside facility such as [facility] to address aortic valve stenosis. Hopefully, she can be optimized medically and this be organized on an outpatient basis. At this time, we will defer transesophageal echocardiogram to referring facility. 2. Atherosclerotic coronary artery disease Patient underwent bypass surgery in 2015 with ANDRES to LAD. She had a stress test in August 2017 that was negative for ischemia and showed a preserved ejection fraction. She does describe some vague but concerning symptoms of chest pain with minimal exertion. Her troponin has remained relatively flat. Her EKG shows nonspecific T wave changes. These findings in conjunction with her shortness of breath will further be assessed with a left heart catheterization. Based on results, further recommendation will be made. 3. Hypertension Patient's blood pressure is well-controlled. We will continue to monitor. We will not make any medication regimen changes. 4. Hyperlipidemia Her lipid panel from 05/12/2019 showed total cholesterol: 134, triglycerides: 176, LDL: 59, and HDL: 40. She will continue current statin medication. 5. COPD This will be deferred to primary team. 6. Diabetes mellitus This will be deferred to primary team. Patient's case was reviewed with Dr. Bhatt, who also personally evaluated patient. Please see his dictation for further recommendation and input. Thank you for allowing us to participate in the patients plan of care, if you have any questions please do not hesitate to call. This note was generated using a voice recognition system and there may be incorrect words, spelling or punctuation that were not noted when reviewing the office note prior to saving. <Faizan Bhatt - Last Filed: 05/12/19 15:46> Reason for Consult History of Present Illness: The patient is a 64 year old F [] Past Medical History - *Family History Maternal Family History: Family History (Last Reviewed 05/11/19 @ 20:46 by Mariama Hoover DO) Grandfather CAD (coronary artery disease) Father Cancer Mother Colon cancer Objective: Vital Signs Temp Pulse Resp BP Pulse Ox 98.4 F 89 18 110/66 96 05/12/19 14:00 05/12/19 15:30 05/12/19 15:30 05/12/19 15:30 05/12/19 15:30 Oxygen Flow Rate (L/min) 2 Oxygen Delivery Method Nasal Cannula Weight: 216 lb 0.848 oz Body Mass Index (BMI) 38.2 Intake and Output for Last 24 Hours 05/10/19 05/11/19 05/12/19 23:59 23:59 23:59 Intake Total 677.25 / 677.25 577.75 / 577.75 Output Total 3550 / 3550 1800 / 1800 Balance -2872.75 / -2872.75 -1222.25 / -1222.25 05/11/19 17:40: Troponin I 0.191 H 05/11/19 20:25: Hemoglobin A1c 5.9 05/11/19 20:25: Troponin I 0.207 H 05/12/19 05:55: Sodium 137, Potassium 3.7, Chloride 100, Carbon Dioxide 30.0, Anion Gap 7, BUN 19 H, Creatinine 0.80, Est GFR (MDRD) Af Amer 94, Est GFR (MDRD) Non-Af 77, BUN/Creatinine Ratio 23.9 H, Glucose 166 H, Calcium 9.5, Magnesium 2.0, Triglycerides 176, Cholesterol 134, LDL Cholesterol 59, VLDL Cholesterol 35, HDL Cholesterol 40 05/12/19 05:55: WBC 5.5, RBC 3.78 L, Hgb 12.4, Hct 38.0, MCV 100.5 H, MCH 32.8 H , MCHC 32.6, Plt Count 242, MPV 10.1, Immature Gran % (Auto) 0.700, Neut % (Auto) 66.1, Lymph % (Auto) 18.7 L, [place] % (Auto) 11.8 H, Eos % (Auto) 1.8, Baso % (Auto) 0.9, Absolute Neuts (auto) 3.6, Nucleated RBC % 0.4 05/12/19 05:55: Hemoglobin A1c 5.7 Rhythm: EKG: ECHO: Stress Test: Cardiac Cath: PCI: CT Surgery: Holter monitor: EPS: PPM: CXR: Chest CT Scan: Assessment/Plan She was seen, evaluated and discussed with Kory Flores APN. Agree with Kory's note. Please see that note for full details. In brief 64-year-old female with history of single-vessel CABG (ANDRES to LAD), bioprosthetic aortic valve replacement in 2016 coming to the hospital because of shortness of breath. Patient also has some pulmonary issues as well and is on chronic home O2. 2D echo revealed significant aortic stenosis. We will proceed with coronary angiography in anticipation of AVR. This time she does not appear to be significantly volume overloaded. I think it will be reasonable to discontinue her Lasix and keep her on her home medication regimen from a cardiac standpoint.
--- NOTE | 2019-05-12 12:21 | NURSING ---
Called report to Robert CARRILLO in laboratory engineer
[2019-05-12] MEDS: 0.9% Normal Saline 1,000 ML 15 ML IV (12:22)
[2019-05-12 12:30] LABS: Bedside Glucose 113 mg/dL (70-110)
--- NOTE | 2019-05-12 12:42 | CASEMGMT ---
Assessment- SW met with patient. She agreed to complete assessment with SW. Living situation- Patient lives with her in a 2 story home with 3 entry steps. PCP: She switched from Raissa Rhodes to Angy Crawford at [facility] Physicians Specialists: Used to see Dr Vigil for Pulmonology- but does not want to see him anymore, Dr Zhong-Cardiology, Dr Willson for GI, and Dr Umana for Urology Pharmacy: [facility]: cane, walker, shower chair, Oxygen 2L-[facility], cpap-[facility], and nebulizer-[facility] ADL's/IADL's: Patient is independent in her adl's. She does have issues with getting up her steps to get to the bathroom due to shortness of breath. She does sometimes use her cane or walker if her arthritis is acting up. She uses the power scooter's at the store. She manages her own medications and she drives. Her helps her with cooking and cleaning Past SNF/rehab: None Past HH: None LW: Yes. JAS printed from e-chart and put on paper chart POA: Yes. JAS printed from e-chart and put on paper chart SW asked patient about her Depression and Anxiety. She said she is doing better now that she switched to the other nurse practitioner in the office. She had been on Prozac for a long time and she did not feel like it was helping. Her new nurse practitioner switched her to Cymbalta and it has helped a lot. JAS asked her about her alcohol consumption. She said she knows she shouldn't and the doctor has talked with her about it. She denies interest in any resources. JAS also spoke with her about Palliative Care. She was open to taking the pamphlet, but wanted to think about it. She asked about help with cleaning. JAS gave her a private duty list. JAS told her about home health and what insurance covers. She is not sure she wants this at d/c. Plan: At this time the plan is home. RN ZOHRA and JAS to follow for d/c needs. Taylor SEAMAN LEAD REFINERY SUPERVISOR
--- NOTE | 2019-05-12 14:04 | CL.D_ITS ---
Patient Name: SHARON OLEA Study Date: 05/12/2019 Performing: Ashia Bhatt MD Ht: 63 inches 160 cm : 1955 Wt: 216.3 lbs 98 kg Age: 64 Gender: female BSA: 2 PROCEDURE(S) PERFORMED [id number] CLINICAL PROFILE AND INDICATIONS Indications: Pre-Operative Evaluation Heart Failure: None Stress/Imaging Stress/Image Study Performed: No CAD Presentations: Other: SOB with severe bioprosthetic valve CONCLUSIONS CAD as described. Patent 06/22 bypass graft RECOMMENDATIONS DESCRIPTION OF PROCEDURE The patient arrived to the procedure lab. The risks and benefits of the procedure as well as a full d escription of our services here and current unavailability of surgical backup were fully explained to the patient and/or their significant other prior to the catheterization. The Timeout was completed, verifying the correct patient and procedure. The patient's procedural site was prepped and draped in the usual fashion. Local anesthetic was given subcutaneously to right groin region with Lidocaine 2%. Using a modified Seldinger technique, arterial access was obtained via the right femoral artery, a 5 Fr sheath was inserted. Left internal mammary artery graft to the LAD selective angiography was perf ormed in multiple views using a 5 Fr. JL4 catheter. Left internal mammary artery graft to the LAD zeferino ective angiography was performed in multiple views using a 5 Fr. IM catheter. Left Coronary Artery se lective angiography was performed in multiple views using a 5 Fr. JL4 catheter. Right Coronary Artery selective angiography was then performed in multiple views using a 5 Fr. JR 4 cathete r.Contrast was injected through the sheath and the Right Iliac and Femoral artery were assessed for p ossible closure device.The arterial sheath was pulled and a Starclose closure device was deployed for hemostasis CORONARY ANGIOGRAPHY DOMINANCE: Left Dominant LEFT MAIN: Mild luminal irregularities LEFT ANTERIOR DESCENDING ARTERY: PROX LAD: 100 % Stenosis DIAGONAL 1: Proximal - 60-70 % Stenosis CIRCUMFLEX ARTERY: Mild luminal irregularities RIGHT CORONARY ARTERY: Mild luminal irregularities GRAFTS: ANDRES graft to the LAD is patent COMPLICATIONS No Complications PROCEDURE MEDICATIONS Versed 1 mg IV Versed 1 mg IV Fentanyl 50 mcg IV Oxygen: 2 L/min via nasal cannula SUMMARY OF HEMODYNAMIC DATA Time AIR REST ECG 12:33:41 AO 132/77 (102) 13:08:21 Signed By Ashia Bhatt MD On 05/12/2019 14:03:29 Ashia Bhatt MD
--- NOTE | 2019-05-12 14:09 | CASEMGMT ---
According to the [place] website, the following are in-network tertiary facilities: [facility], [facility], [facility], [facility], [facility], [facility], [facility], [facility], [facility], and . Flako CARRILLO CM
--- NOTE | 2019-05-12 14:30 | NURSING ---
Patient called out at this time reporting groin pain at heart cath site. This RN in to find copious amounts of bloody drainage and clots saturating dressing on right groin. Applied pressure at this time. Preston gonzalez RN notified paving and surfacing labourer and plant cytologist. Orders given to hold pressure for 30 minutes and restart bedrest once hemostasis is achieved. Bedrest to remain x2 hours once restarted.
[2019-05-12] MEDS: Acetaminophen 325 MG Tablet 650 MG PO (16:03)
[2019-05-12 16:11] LABS: Bedside Glucose 139 mg/dL (70-110)
[2019-05-12] MEDS: Atorvastatin Calcium 40 MG Tablet PO (21:32)
[2019-05-12] MEDS: ALPRAZolam 0.5 MG Tablet PO (21:33)
[2019-05-12] MEDS: MELATONIN 10 MG TABLET 5 MG PO (21:33)
[2019-05-12 21:46] LABS: Bedside Glucose 175 mg/dL (70-110)
[2019-05-13] VITALS (9 sets, daily range): BP systolic 103–116; BP diastolic 63–74; PULSE 62–101; RESP 16–18; TEMP 36–36.6; O2SAT 87–94; BMI 38.2
--- NOTE | 2019-05-13 01:47 | CPS ---
pt on own cpap from home
--- NOTE | 2019-05-13 05:55 | RAD_ITS ---
STUDY: X-RAY CHEST REASON FOR EXAM: Female, 64 years old. Shortness of breath. TECHNIQUE: PA and lateral views of the chest. COMPARISON: 05/11/2019. FINDINGS: The lungs are normally expanded with mild fullness of the interstitial markings, stable. Remainder of the lung welch are clear. There is no demonstrated pleural abnormality. There is mild cardiac enlargement. Normal mediastinum and [place]. Normal visualized pulmonary arteries. There is atherosclerotic calcification of the aortic arch with tortuosity. There is demineralization of the osseous structures. There is degenerative osteoarthritis of the bilateral shoulders. There is no demonstrated abnormality of the visualized soft tissue structures of the upper abdomen. RAD/Chest PA and Lateral IMPRESSION: No acute cardiopulmonary disease. Electronically Signed: Deidra Smith MD at 6:51 EST , Service support ,
[2019-05-13 06:32] LABS: Hematocrit 37.3 % (37-47); Hemoglobin 12.2 g/dL (12.0-15.0); Mean Corp Hgb Conc 32.7 g/dL (32-36); Mean Corpuscular Hgb 33.2 pg (27.0-32.0); Mean Corpuscular Volume 101.4 fL (81-99); Platelet Count 244 K/mm3 (150-450); Red Blood Count 3.68 M/mm3 (4.2-5.4); White Blood Count 5.1 K/mm3 (4.4-11.0)
[2019-05-13] MEDS: Enoxaparin 40 MG/0.4 ML Syringe SC (06:51)
[2019-05-13] MEDS: Levothyroxine 100 MCG Tablet 200 MCG PO (06:51)
[2019-05-13] MEDS: Insulin Lispro 100 UNIT/ML INSULN.PEN SC (06:52)
[2019-05-13] MEDS: Acetaminophen 325 MG Tablet 650 MG PO (06:52)
[2019-05-13 06:53] LABS: ALB/GLOB Ratio 0.9 RATIO (0.9-2.4); AST(SGOT) 63 U/L (15-37); Alanine Aminotransfer ALT/SGPT 53 U/L (13-56); Albumin, Serum 3.7 g/dL (3.2-5.0); Alkaline Phosphatase 132 U/L (45-117); Anion Gap 7 (5-15); BUN 18 mg/dL (7-18); BUN/Creat Ratio 21.7 RATIO (10-20); Calcium,Total 9.2 mg/dL (8.5-10.1); Chloride 102 mmol/L (98-107); Creatinine, Serum 0.83 mg/dL (0.55-1.02); EST Glomerular Filtration Rate 74 mL/min (>60); Est Glom Filt Rate - Afr Amer 89 mL/min (>60); Estimated Creatinine Clearance 57.39 ml/min; Globulin 4.3 g/dL (2.2-4.2); Glucose 161 mg/dL (74-106); Potassium 3.9 mmol/L (3.5-5.1); Sodium Level 140 mmol/L (136-145)
[2019-05-13 06:55] LABS: Bedside Glucose 157 mg/dL (70-110)
[2019-05-13] MEDS: Ipratropium/Albuterol Sulfate 3 ML AMPUL.NEB INHALATION (07:29)
--- NOTE | 2019-05-13 08:04 | PCM.PN.CARD ---
Subjectve: The patient is awake and alert. She denies any ongoing chest discomfort. She believes her breathing has improved, as well as her lower extremity edema, since her hospitalization and medical management of diuretics. Objective: Vital Signs Temp Pulse Resp BP Pulse Ox 97.9 F 95 18 103/63 93 05/13/19 03:30 05/13/19 07:29 05/13/19 07:29 05/13/19 03:30 05/13/19 07:29 Oxygen Flow Rate (L/min) 2 Oxygen Delivery Method Nasal Cannula Weight: 216 lb 0.848 oz Body Mass Index (BMI) 38.2 Intake and Output for Last 24 Hours 05/11/19 05/12/19 05/13/19 23:59 23:59 23:59 Intake Total 677.25 / 677.25 977.75 / 977.75 0 / 0 Output Total 3550 / 3550 2600 / 2600 Balance -2872.75 / -2872.75 -1622.25 / -1622.25 0 / 0 General: Awake, Alert, Oriented x 3, Cooperative, No Acute Distress HEENT: Atraumatic, Normocephalic, PERRL, EOMI, Sclera Non Icteric Oral: Moist Mucosa Neck: Supple, Good ROM, No JVD Lungs: Diminished Hermilo Bases Cardiovascular: Regular Rhythm, Normal S1, Normal S2 Murmur Murmur: Grade 3/6, Harsh, Mid Systolic, LLSB, LVOT, Sternal Notch Vascular: Normal Femoral Pulses Abdomen: Bowel Sounds Present, Soft, Non Tender Extremities: No edema Neurological: No Focal Motor or Sensory Deficit Psych/Mental Status: Appropriate 05/12/19 05:55: Hemoglobin A1c 5.7 05/13/19 05:45: Sodium 140, Potassium 3.9, Chloride 102, Carbon Dioxide 31.0, Anion Gap 7, BUN 18, Creatinine 0.83, Est GFR (MDRD) Af Amer 89, Est GFR (MDRD) Non-Af 74, BUN/Creatinine Ratio 21.7 H, Glucose 161 H, Calcium 9.2, Total Bilirubin 0.70 05/13/19 05:45: WBC 5.1, RBC 3.68 L, Hgb 12.2, Hct 37.3, MCV 101.4 H, MCH 33.2 H, MCHC 32.7, Plt Count 244, MPV 10.0 Rhythm: Sinus rhythm Echocardiogram: Interpretation Summary The study was technically difficult. Diluted definity 2ml given slow IV push to enhance endocardial definition. The estimated ejection fraction is 60 %. Unable to assess diastolic dysfunction. Trivial mitral valve insufficiency. Severe aortic stenosis. Mild-Moderate (1-2+) aortic valve insufficiency. Bioprosthetic aortic valve. Mildly dilated aortic root. The study was technically difficult. Cardiac catheterization: 05-12-19 CORONARY ANGIOGRAPHY DOMINANCE: Left Dominant LEFT MAIN: Mild luminal irregularities LEFT ANTERIOR DESCENDING ARTERY: PROX LAD: 100 % Stenosis DIAGONAL 1: Proximal - 60-70 % Stenosis CIRCUMFLEX ARTERY: Mild luminal irregularities RIGHT CORONARY ARTERY: Mild luminal irregularities GRAFTS: ANDRES graft to the LAD is patent Medical Necessity - Tobacco Use Smoking Status: Former smoker Tobacco Use: Cigarettes Assessment/Plan 1. CAD status post CABG At the present time the patient has undergone repeat diagnostic cardiac catheterization. Based upon the report she did not require additional revascularization therapy. She will need to continue medical management as deemed appropriate. 2. Aortic valve disease status post aortic valve replacement: Bioprosthetic Based upon the patient's noninvasive studies there is concern of progression of bioprosthetic aortic valve stenosis. At the present time she will continue medical management as deemed appropriate. However, she will need to be referred to a tertiary care center, she has chosen the [facility], for reevaluation of her aortic valve disease as to whether or not she may be a candidate for a repeat aortic valve intervention potentially percutaneously versus surgically. Thus, a request will be made for her information to be forwarded to the [facility] to initiate contact with her for a future outpatient consultation regarding the above concerns. 3. CHF: Acute diastolic At the present time the patient does appear to be symptomatically improved. She will need to continue medical management including diuretic therapy. 4. Hypertension The patient's blood pressure can be followed. Her medications can be adjusted as needed. Overall, the patient will continue medical therapy. She will be asked to be up and about with OT/PT to evaluate her functional status, oxygenation status, etc. to assist with her ongoing evaluation and care. This note was generated using a voice recognition system and there may be incorrect words, spelling or punctuation that were not noted when reviewing the office note prior to saving.
[2019-05-13] MEDS: Multivitamins,Ther W-Minerals Tablet 1 TABLET PO (08:10)
[2019-05-13] MEDS: Calcium Carb/Vitamin D 1 TABLET Tablet PO (08:10)
[2019-05-13] MEDS: Aspirin E.C. 81 MG Tablet PO (08:10)
[2019-05-13] MEDS: Ferrous Sulfate 325 MG Tablet PO (08:10)
--- NOTE | 2019-05-13 08:36 | CRPHASE1_ITS ---
Patient Communication Former Patient:: Phase II PHII Cardiac Rehab Discussed with Patient:: Yes Guide to Cardiac Rehab Given to Patient:: Yes Cardiac Rehab Facility Choice List Given to Patient:: Yes - [facility] Choice Program [facility] CR PHII:: Communication Given to CR Business Continuity Planner:: Faizan Bhatt Sessions:: 36 sessions - 3 days/wk, 12 weeks Risk Factors/Lifestyle Smoking Status: Former smoker Hx Hypertension: Yes Hx Diabetes Mellitus Type 2: Yes Hx Metabolic Disorders: Yes Hx Dyslipidemia: Yes Hx Obesity: Yes Height: 1.6 m Weight:: 98 kg BMI: 38.2 Post-Menopausal: Yes ETOH: Yes Caffeine: Yes Substance Abuse: No Risk Factor for Sedentary Lifestyle: Moderate Risk Family History: Family History (Last Reviewed 05/11/19 @ 20:46 by Mariama Hoover DO) Grandfather CAD (coronary artery disease) Father Cancer Mother Colon cancer Laboratory Values: Cardiac Rehab Phase I Labs Hemoglobin A1c 5.7 % (4.2-6.3) 05/12/19 05:55 Triglycerides 176 mg/dL (-199) 05/12/19 05:55 Cholesterol 134 mg/dL (200) 05/12/19 05:55 LDL Cholesterol 59 mg/dL (0-130) 05/12/19 05:55 HDL Cholesterol 40 mg/dL (40-) 05/12/19 05:55 Phase I Education Given On:: [place] Issues Affecting Care:: None Knowledge of Condition:: Yes Learning Preferences: Verbal Hospital Course Pain Description: Tightness, Aching Cardiac Cath Date:: 05/13/19 Medical/Surgical History NC:: No Angina:: Yes CAD:: Yes Cardiomyopathy:: Yes Valve Disease/Replacement:: Yes Pulmonary:: Yes COPD:: Yes GAGAN:: Yes Diabetes Type II:: Yes Hypertension:: Yes Dyslipidemia:: Yes GERD:: Yes Cancer:: Yes Renal:: Yes Thyroid:: Yes CABG: Yes PTCA:: Yes Discharge/Home/Social Eval Discharge Disposition: Home Cardiac Rehabilitation Info Cardiac Rehabilitation Program Information: Cardiac Rehabilitation is important for patients like you who are recovering from a heart problem. Cardiac rehabilitation programs are recognized as integral to the continued care of the patient with coronary heart disease. The cardiac rehabilitation program is designed to optimize a patient's physical, psychological, and social functioning. Health post acute care registered nurse work in cardiac rehabilitation programs and assist you with getting the treatments you need to get stronger and healthier - like exercise, healthy eating habits, and medications. Cardiac rehabilitation has been show to help people with heart problems live longer and have better life enjoyment than people who do not go to cardiac rehabilitation. Please contact the Cardiac Rehabilitation Program at [facility] at in two weeks if you have not heard from them.
--- NOTE | 2019-05-13 08:40 | CRPH1.INST_ITS ---
General Education CAD and cardiac anatomy and function:: Patient communicates acknowledgment Explanation of diagnoses and procedures:: Patient communicates acknowledgment Sign/Symptoms of CO:: Not instructed Antiplatelet therapy: Not instructed Proper use of NTG-SL: Not instructed Emergency procedures and activation of EMS: Patient communicates acknowledgment Compliance of all prescribed medications: Not instructed Smoking Patient Nicotine/Smoking Risk Factors Are:: Non-smoker Nicotine/Smoking Response Code:: Patient communicates acknowledgment Dyslipidemia Patient Dyslipidemia Risk Factors Are:: Total Cholesterol - 134, Triglycerides - 176, HDL - 40, LDL - 59 Dyslipidemia Response Code:: Patient communicates acknowledgment Overweight/Obesity Patient Overweight/Obesity Risk Factors Are:: Obesity - > or = 30 Overweight/Obesity:: Patient communicates acknowledgment Hypertension Recommendations Include:: Maintain BP <130/85, BP <130/80 if diabetic, De crease/maintain normal body weight, Moderation of ETOH Hypertension:: Patient communicates acknowledgment Heart Disease Patient Heart Disease Risk Factors Are:: Previous cardiac event Heart Disease Response Code:: Patient communicates acknowledgment - MAY HAVE TO HAVE VALVE REPAIR SURGERY AGAIN Diabetes Patient Diabetes Risk Factors Are:: Elevated blood sugars Recommendations Include:: Maintain fasting blood sugars 70-110 md/dL, Maintain HgbA1c of 6% or less, Monitor blood sugar as prescribed, Decrease/maintain body weight Diabetes:: Patient communicates acknowledgment Metabolic Syndrome Patient Metabolic Syndrome Risk Factors Are [3 of 5]:: Fasting blood sugar > 100 mg/dL, High triglyceride >150, Hypertension, Low HDL <40 [male] or < 50 [female] Metabolic Syndrome Response Code:: Patient communicates acknowledgment Sedentary Recommendations Include:: Monitored Outpatient Cardiac Rehab Stress Stress Response Code:: Patient communicates acknowledgment
[2019-05-13] MEDS: Metoprolol Tartrate 25 MG Tablet 12.5 MG PO (09:21)
[2019-05-13] MEDS: Furosemide 40 MG Tablet PO (09:21)
[2019-05-13] MEDS: guaiFENesin 600 MG Tablet PO (09:21)
[2019-05-13] MEDS: Pantoprazole Sodium 40 MG Tablet PO (09:21)
[2019-05-13] MEDS: DULoxetine Hcl 60 MG Capsule PO (09:21)
--- NOTE | 2019-05-13 10:00 | EKG12_ITS ---
Test Reason : AM EKG Blood Pressure : / mmHG Vent. Rate : 081 BPM Atrial Rate : 081 BPM P-R Int : 154 ms QRS Dur : 106 ms QT Int : 420 ms P-R-T Axes : 044 051 145 degrees QTc Int : 487 ms Normal sinus rhythm Possible Inferior infarct , age undetermined ST & T wave abnormality, consider anterolateral ischemia Abnormal ECG When compared with ECG of 11-MAY-2019 13:29, MANUAL COMPARISON REQUIRED, DATA IS UNCONFIRMED Confirmed by SHAKEEL WATTS, JUAREZ ([id number]), multimedia editor BRIDGET CHAPMAN ([id number]) on 05/16/2019 9:55:47 AM Referred By: Mariama Hoover Confirmed By:JUAREZ BECKFORD MD
[2019-05-13 11:01] LABS: Bedside Glucose 123 mg/dL (70-110)
--- NOTE | 2019-05-13 11:29 | DCINST_ITS ---
You will use the following diet at home:: Calorie/Carbohydrate Controlled (specify 1200, 1400, etc), Cardiac Discharge Activity: Return to Normal Activity Allergies/Adverse Reactions: Allergies ibuprofen Allergy (Verified 05/11/19 13:18) Hives amlodipine [From [facility]] Adverse Reaction (Intermediate, Verified 05/11/19 17:04) swelling of ankles adhesive tape Adverse Reaction (Unknown, Verified 05/11/19 17:04) BLISTERS Medications to take at Discharge ALPRAZolam [Xanax] 0.5 mg PO TID PRN PRN 06/19/14 Calcium Citrate/Vitamin D3 [Hm Calcium Citrate-Vit D3 Tab] 1 tab PO DAILY 06/19/14 Pantoprazole Sodium [Protonix] 40 mg PO DAILY 06/19/14 metformin 500 mg tablet 500 mg PO DAILY tab 08/03/17 Mv-Mn/Folic AC/Calcium/Vit K1 [Women's 50 Plus Daily Formula] 1 ea PO DAILY 09/07/17 ferrous sulfate 325 mg (65 mg iron) tablet,delayed release 325 mg PO DAILY tab 03/02/18 metoprolol tartrate 25 mg tablet 12.5 mg PO BID #90 tab 04/23/18 atorvastatin 40 mg tablet 40 mg PO QHS #90 tab 10/22/18 Acetaminophen [Tylenol Arthritis] 2 tab PO DAILY PRN PRN 05/11/19 Duloxetine HCl 60 mg PO DAILY 05/11/19 Levothyroxine Sodium [Synthroid] 200 mcg PO DAILY 05/11/19 Melatonin 5 mg PO QHS 05/11/19 Furosemide [Lasix] 40 mg PO BID@1000,1800 #60 tab 05/13/19 Potassium Chloride [K-Dur] 20 meq PO BIDCM #60 tab 05/13/19 The following prescriptions were given: Potassium Chloride [K-Dur] 20 meq PO BIDCM #60 tab Transmission Status: Pending to [id number] Furosemide [Lasix] 40 mg PO BID@1000,1800 #60 tab Transmission Status: Pending to [id number] Primary Care Physician: Raissa Rhodes NP-C [Primary Care Provider] - Please follow up with your Primary Care Physician in: 1 Week Test Results: Test results from this visit will be discussed in further detail at your follow- up appointment, if applicable. Please Follow Up With: Maria De Jesus Flynn PA When: 1 Week Please Follow Up With: [facility] When: Call for follow up Proposed Discharge Date: 05/13/19
--- NOTE | 2019-05-13 12:19 | DS.PCM_ITS ---
<Raissa Wright - Last Filed: 05/13/19 12:32> Discharge Date and Diagnosis Date of Admission: 05/11/19 Date of Discharge: 05/13/19 - Primary Discharge Diagnosis 1. Acute on chronic diastolic CHF 2. Abnormal troponin, demand ischemia as a result of #1 3. Pneumonia ruled out 4. Severe aortic stenosis, history of AVR with bioprosthetic valve 5. Chronic COPD with chronic hypoxic respiratory failure 6. CAD status post CABG x1 7. Type 2 diabetes mellitus 8. GERD 9. HTN 10. Depression/anxiety 11. Hypothyroidism 12. GAGAN 13. History of renal cell carcinoma- status post partial nephrectomy. 14. Obesity - Secondary Discharge Diagnosis Chronic Problems (Last Updated 05/13/19 @ 10:47 by Maria De Jesus Desouza) COPD exacerbation (Chronic) CAD (coronary artery disease) (Chronic) COPD (chronic obstructive pulmonary disease) (Chronic) Aortocoronary bypass status (Chronic ~06/05/16) CABG x1 ANDRES to LAD 06/05/16; History of prosthetic aortic valve replacement (Chronic ~06/05/16) 21mm [facility] Igor Trifecta Chronic diastolic heart failure (Chronic) Pulmonary hypertension, secondary (Chronic) Cardiomegaly (Chronic) Nonrheumatic aortic (valve) stenosis (Chronic) AVR #21 [facility] Igor Trifecta Bioprosthetic Pericardial Prosthesis 06/05/2016 @ [facility] Atherosclerotic heart disease of [place] coronary artery without angina pectoris (Chronic) CABG x1 ANDRES to LAD 06/05/16; History of non-ST elevation myocardial infarction (NSTEMI) (Chronic) Angina pectoris (Chronic) Hypertension, benign (Chronic) Hospital Course and Treatment Imaging Results: Diagnostic Data Chest X-Ray 05/13/19 05:55 IMPRESSION: No acute cardiopulmonary disease. Electronically Signed: Deidra Smith MD at 6:51 EST , Service support , Dr. Zhong-Cardiology Operations: None Procedures: 2-D Echocardiogram, Cardiac catheterization Summary of Care Provided: The patient is a 64 year old F admitted 05/11/2019 due to worsening shortness of breath. 1. Acute on chronic diastolic CHF-chest x-ray without acute process. BNP 550. Echocardiogram August 2017 with EF 65%, stage II diastolic dysfunction, RVSP estimated to be 45 mmHg. Repeat echocardiogram during admission shows an EF of 60%, severe aortic stenosis, mild to moderate aortic valve insufficiency. Patient follows with Dr. Zhong. Discharge on Lasix 40 mg twice daily. Follow-up with cardiology in 1 to 2 weeks. 2. Abnormal troponin-no EKG changes. Suspect demand ischemia as a result of #1. Patient underwent cardiac catheterization 05/12/2019 which showed andres graft to the LAD was patent, other mild irregularities, no intervention required. Continue medical management. 3. Pneumonia ruled out-patient placed on antibiotics empirically on admission due to dyspnea with productive cough of brown sputum. Respiratory panel negative. Urine for strep and Legionella negative. Afebrile, no leukocytosis. Sputum culture showed normal respiratory adrian. Further antibiotics discontinued. 4. Severe aortic stenosis-history of AVR with bioprosthetic valve-referral to [facility] cardiology for further valvular replacement evaluation. 5. Chronic COPD with chronic hypoxic respiratory failure-chronically wears 2 L nasal cannula at baseline. 6. CAD status post CABG x1-continue statin, beta-nayely. Not on aspirin. Will defer to cardiology. 7. Type 2 diabetes mellitus-continue home oral regimen. Hemoglobin A1c 5.7%. 8. GERD-continue PPI regimen. 9. HTN-stable, continue metoprolol. HCTZ discontinued. Placed on Lasix as noted above. 10. Depression/anxiety-continue Cymbalta, PRN Ativan. 11. Hypothyroidism-continue home Synthroid regimen. TSH within normal limits. 12. GAGAN-continue CPAP regimen. 13. History of renal cell carcinoma- status post partial nephrectomy. 14. Obesity-encouraged diet and lifestyle modifications. General: Alert, Oriented x3, Cooperative HEENT: Atraumatic, PERRLA, EOMI, Normocephalic Neck: Supple, No JVD, Negative Carotid Bruits Lungs: Diminished, clear to auscultation Cardiovascular: Regular rate, Regular Rhythm, Normal S1, Normal S2, Murmur Abdomen: Bowel Sounds Present, Soft, Non Tender, Non-Distended, Obese Extremities: No clubbing, No cyanosis, No edema, Capillary Refill Less than 3 Seconds Skin: No rashes, No breakdown Musculoskeletal: No Tenderness to Palpation of Joints or Extremities Neurological: Cranial nerves II-XII grossly intact, Neuro grossly intact Psych/Mental Status: Normal Affect, Appropriate Patient seen and examined prior to discharge. Physical assessment as noted above. Patient is stable for discharge with follow up recommendations as noted above. This patient was seen by DENEEN Fall under the supervision of Dr. Parsons. - Physical Exam Vitals/I&O's: Vital Signs Temp Pulse Resp BP Pulse Ox 97.0 F L 96 16 115/74 93 05/13/19 08:03 05/13/19 10:59 05/13/19 08:03 05/13/19 08:03 05/13/19 10:53 Oxygen Flow Rate (L/min) [ 2 AMBULATION with Oxygen] Oxygen Flow Rate (L/min) [At 2 REST on Room Air] Oxygen Flow Rate (L/min) 2 Oxygen Delivery Method Nasal Cannula Weight: 216 lb 0.848 oz Body Mass Index (BMI) 38.2 Intake and Output for Last 24 Hours 05/11/19 05/12/19 05/13/19 23:59 23:59 23:59 Intake Total 677.25 / 677.25 977.75 / 977.75 0 / 0 Output Total 3550 / 3550 2600 / 2600 800 / 800 Balance -2872.75 / -2872.75 -1622.25 / -1622.25 -800 / -800 Microbiology Past 72 Hours 05/12/19 08:40 Sputum, Expectorated/Coughed Gram Stain - Final 05/12/19 08:40 Sputum, Expectorated/Coughed Respiratory Culture - Preliminary Appears to be normal respiratory adrian. Further studies to follow. 05/11/19 18:40 Mucosa - Nasopharyngeal Respiratory Panel (PCR) - Final 05/11/19 17:45 Urine, Clean Catch Streptococcus pneumoniae Antigen (M - Final 05/11/19 17:45 Urine, Clean Catch Legionella Antigen - Final Laboratory Results 05/12/19 12:13: POC Glucose 113 H 05/12/19 16:05: POC Glucose 139 H 05/12/19 21:37: POC Glucose 175 H 05/13/19 05:45: Sodium 140, Potassium 3.9, Chloride 102, Carbon Dioxide 31.0, Anion Gap 7, BUN 18, Creatinine 0.83, Estim Creat Clear Calc 57.39, Est GFR (MDRD) Af Amer 89, Est GFR (MDRD) Non-Af 74, BUN/Creatinine Ratio 21.7 H, Glucose 161 H, Calcium 9.2, Total Bilirubin 0.70, AST 63 H, ALT 53, Alkaline Phosphatase 132 H, Total Protein 8.0, Albumin 3.7, Globulin 4.3 H, Albumin/Globulin Ratio 0.9 05/13/19 05:45: WBC 5.1, RBC 3.68 L, Hgb 12.2, Hct 37.3, MCV 101.4 H, MCH 33.2 H , MCHC 32.7, RDW Std Deviation 55.0 H, RDW Coeff of Monet 15.0 H, Plt Count 244, MPV 10.0 05/13/19 06:48: POC Glucose 157 H 05/13/19 10:49: POC Glucose 123 H Current Medications Acetaminophen (Tylenol) 650 mg PO Q6H PRN PRN PRN Reason: Non-cardiac pain (mod-severe) Last Admin: 05/13/19 06:52 Dose: 650 mg Documented by: Albuterol/Ipratropium (Duoneb) 3 ml INHALATION Q6H.RT [facility] Last Admin: 05/13/19 07:29 Dose: 3 ml Documented by: Alprazolam (Xanax) 0.5 mg PO TID PRN PRN PRN Reason: ANXIETY Last Admin: 05/12/19 21:33 Dose: 0.5 mg Documented by: Aspirin (Ecotrin) 81 mg PO DAILY@0800 [facility] Last Admin: 05/13/19 08:10 Dose: 81 mg Documented by: Atorvastatin Calcium (Lipitor) 40 mg PO QHS [facility] Last Admin: 05/12/19 21:32 Dose: 40 mg Documented by: Atropine Sulfate () 0.5 mg IV UD PRN PRN Reason: HR <50 bpm Calcium/Vitamin D (Os-Manoj 500mg + D) [facility] Admin: 05/13/19 08:10 Dose: 1 tablet Documented by: Duloxetine HCl (Cymbalta) 60 mg PO DAILY [facility] Last Admin: 05/13/19 09:21 Dose: 60 mg Documented by: Enoxaparin Sodium (Lovenox) 40 mg SC DAILY@0600 [facility] Last Admin: 05/13/19 06:51 Dose: 40 mg Documented by: Ferrous Sulfate (Ferrous Sulfate) [facility] Last Admin: 05/13/19 08:10 Dose: 325 mg Documented by: Furosemide (Lasix) 40 mg PO BID@1000,1800 [facility] Last Admin: 05/13/19 09:21 Dose: 40 mg Documented by: Guaifenesin (Mucinex) 600 mg PO BID [facility] Last Admin: 05/13/19 09:21 Dose: 600 mg Documented by: Heparin Sodium (Beef Lung) (Heparin 500 Unit/5 Ml (100/Ml)) 500 unit IV UD PRN PRN Reason: HEPARIN FLUSH Hydralazine HCl (Apresoline Iv) 10 mg IV Q4H PRN PRN PRN Reason: SBP > 160 Sodium Chloride () 250 mls @ 15 mls/hr IV .[id number] PRN PRN Reason: Saline Flush Last Infusion: 05/12/19 17:20 Dose: Infused Documented by: Sodium Chloride () 1,000 mls @ 15 mls/hr IV .Q48H [facility] Last Infusion: 05/12/19 14:03 Dose: Infused Documented by: Insulin Human Lispro (Humalog Kwikpen (Bkc)) 0 unit SC TIDAC [facility]; Protocol Last Admin: 05/13/19 10:58 Dose: Not Given Documented by: Labetalol HCl (Trandate) 5 mg IV X1 PRN PRN Reason: SBP > 160 when pulling sheath Stop: 05/14/19 13:48 Levothyroxine Sodium (Synthroid) 200 mcg PO DAILY@0600 [facility] Last Admin: 05/13/19 06:51 Dose: 200 mcg Documented by: Melatonin (Melatonin) 5 mg PO QHS [facility] Last Admin: 05/12/19 21:33 Dose: 5 mg Documented by: Metoprolol Tartrate (Lopressor (Beta Nayely)) 12.5 mg PO BID [facility] Last Admin: 05/13/19 09:21 Dose: 12.5 mg Documented by: Multivitamins/Minerals (Multivitamin With Minerals) 1 tablet PO DAILY@0800 [facility] Last Admin: 05/13/19 08:10 Dose: 1 tablet Documented by: Nutritional Formula (Lactose Free) (Glucerna Shake) 120 ml PO TIDCM [facility] Last Admin: 05/13/19 11:03 Dose: Not Given Documented by: Ondansetron HCl (Zofran) 4 mg IV Q8H PRN PRN PRN Reason: Nausea Pantoprazole Sodium (Protonix) 40 mg PO DAILY [facility] Last Admin: 05/13/19 09:21 Dose: 40 mg Documented by: Potassium Chloride (K-Dur) 20 meq PO BIDCM [facility] Sodium Chloride () 10 - 40 ml IV UD PRN PRN Reason: SALINE FLUSH Last Admin: 05/12/19 12:23 Dose: 10 ml Documented by: Sodium Chloride () 500 ml IV BOLUS PRN PRN Reason: VASO-VAGAL PROTOCOL Discharge Diet: Low fat/ Low Cholesterol Discharge Activity: Return to Normal Activity Call your doctor if you observe: Shortness of breath, Dizziness, Fainting spells, Chest pain Home Medications: Medications to take at Discharge ALPRAZolam [Xanax] 0.5 mg PO TID PRN PRN 06/19/14 Calcium Citrate/Vitamin D3 [Hm Calcium Citrate-Vit D3 Tab] 1 tab PO DAILY 06/19/14 Pantoprazole Sodium [Protonix] 40 mg PO DAILY 06/19/14 metformin 500 mg tablet 500 mg PO DAILY tab 08/03/17 Mv-Mn/Folic AC/Calcium/Vit K1 [Women's 50 Plus Daily Formula] 1 ea PO DAILY 09/07/17 ferrous sulfate 325 mg (65 mg iron) tablet,delayed release 325 mg PO DAILY tab 03/02/18 metoprolol tartrate 25 mg tablet 12.5 mg PO BID #90 tab 04/23/18 atorvastatin 40 mg tablet 40 mg PO QHS #90 tab 10/22/18 Acetaminophen [Tylenol Arthritis] 2 tab PO DAILY PRN PRN 05/11/19 Duloxetine HCl 60 mg PO DAILY 05/11/19 Levothyroxine Sodium [Synthroid] 200 mcg PO DAILY 05/11/19 Melatonin 5 mg PO QHS 05/11/19 Furosemide [Lasix] 40 mg PO BID@1000,1800 #60 tab 05/13/19 Potassium Chloride [K-Dur] 20 meq PO BIDCM #60 tab 05/13/19 Following Prescrptions Were Given to Patient: Potassium Chloride [K-Dur] 20 meq PO BIDCM #60 tab Transmission Status: Received by [id number] Furosemide [Lasix] 40 mg PO BID@1000,1800 #60 tab Transmission Status: Received by [id number] Primary Care Physician: Meagan,Raissa, PSYCH THERAPIST-C [Primary Care Provider] - Please follow up with your Primary Care Physician in: 1 Week Please Follow Up With: Maria De Jesus Flynn PA When: 1 Week Please Follow Up With: [facility] When: Call for follow up Please Follow Up With: Raissa Rhodes NP-C Disposition: Home Minutes spent on discharge:: 35 Patient Condition:: Stable Medical Necessity - Tobacco Use Smoking Status: Former smoker Tobacco Use: Cigarettes Meaningful Use Info Meaningful Use Diagnoses (Choose all that apply): CHF - CHF ELIZABETH/ARB ordered at discharge?: No Reason ELIZABETH/ARB not ordered?: Severe aortic stenosis Documented LVEF (%): 60 <[place] - Last Filed: 05/15/19 05:40> Discharge Date and Diagnosis - Secondary Discharge Diagnosis Chronic Problems (Last Updated 05/13/19 @ 10:47 by Maria De Jesus Desouza) COPD exacerbation (Chronic) CAD (coronary artery disease) (Chronic) COPD (chronic obstructive pulmonary disease) (Chronic) Aortocoronary bypass status (Chronic ~06/05/16) CABG x1 ANDRES to LAD 06/05/16; History of prosthetic aortic valve replacement (Chronic ~06/05/16) 21mm [employer] Trifecta Chronic diastolic heart failure (Chronic) Pulmonary hypertension, secondary (Chronic) Cardiomegaly (Chronic) Nonrheumatic aortic (valve) stenosis (Chronic) AVR #21 [facility] [employer] Trifecta Bioprosthetic Pericardial Prosthesis 06/05/2016 @ [facility] Atherosclerotic heart disease of [place] coronary artery without angina pectoris (Chronic) CABG x1 ANDRES to LAD 06/05/16; History of non-ST elevation myocardial infarction (NSTEMI) (Chronic) Angina pectoris (Chronic) Hypertension, benign (Chronic) Hospital Course and Treatment Summary of Care Provided: The patient is a 64 year old F with PMHx of bioprosthetic aortic valve replacement, hypertension, CAD s/p CABG who presented with progressive shortness of breath and found to have slight elevation in her troponins. Her initial management was that of acute CHF and probable Acute pneumona. Her CXR was however negative. She was managed on Lasix and IV antibiotics that were discontinued the next day. Her troponins were elevated and cardiology was consulted. She had a 2 D-echo done that showed severe aortic stenosis. She also underwent cardiac cath as part of workup preceding a redo of her bioprosthetic valve and that showed clean coronaries. She was discharged in an improved state on her home 2 L of oxygen. She will follow-up in the outpatient for referral for TAVR. Physical Exam: Gen: Comfortable, not pale, not jaundiced, alert oriented x3, obese CVS:HS I +II, regular, no murmurs RESP: Diminished at lung bases GI: BS present and normal, nontender, no palpable organs EXT:No edema Labs reviewed: ASSESSMENT: 1. Dyspnea likely secondary to worsening severe aortic stenosis 2. Severe aortic stenosis, history of aortic valve replacement 2. CAD status post CABG 3. Hypertension 4. Type II DM 5. COPD not in acute exacerbation - Physical Exam Vitals/I&O's: Vital Signs Temp Pulse Resp BP Pulse Ox 96.8 F L 93 18 116/71 91 05/13/19 14:11 05/13/19 14:11 05/13/19 14:11 05/13/19 14:11 05/13/19 14:11 Oxygen Flow Rate (L/min) [ 2 AMBULATION with Oxygen] Oxygen Flow Rate (L/min) [At 2 REST on Room Air] Oxygen Flow Rate (L/min) 2 Oxygen Delivery Method Nasal Cannula Weight: 98 kg Body Mass Index (BMI) 38.2 Intake and Output for Last 24 Hours 05/13/19 05/14/19 05/15/19 23:59 23:59 23:59 Intake Total 0 / 0 Output Total 800 / 800 Balance -800 / -800 Microbiology Past 72 Hours 05/12/19 08:40 Sputum, Expectorated/Coughed Gram Stain - Final 05/12/19 08:40 Sputum, Expectorated/Coughed Respiratory Culture - Preliminary 05/11/19 18:40 Mucosa - Nasopharyngeal Respiratory Panel (PCR) - Final Code Visit Inpatient E&M: [id number] Disch Hosp
--- NOTE | 2019-05-13 12:20 | CASEMGMT ---
JAS spoke with patient about home health or outpatient therapy at discharge as this is what therapy is recommending. She denied need for either home health or outpatient. JAS notified Nurse Practitioner. Taylor SEAMAN MSW
--- NOTE | 2019-05-16 14:50 | CASEMGMT ---
LORENA CM DC PHONE CALL DC DATE: 05.13.19 DC Disposition: Home LACE/STRATA: 02/22 Attempted call to phone. no answer and no machine picked up with name identifier. Tan BELLO RN ACM
== END 2019-05-13 13:47 | disposition home or self-care (01) | DRG 287 ==
LOC: ED 14:44 → PCU 16:42
PROVIDERS: Nurse Practitioner Family; Specialist; Admitting Provider Internal Medicine; Emergency Provider Emergency Medicine; Family Provider Nurse Practitioner Primary Care; PCP Nurse Practitioner Primary Care; Referring Provider Internal Medicine; Visit Provider Internal Medicine
DX: I11.0 Hypertensive heart disease with heart failure (principal); I24.8 Other forms of acute ischemic heart disease; K21.9 Gastro-esophageal reflux disease without esophagitis; I25.10 Atherosclerotic heart disease of native coronary artery without angina pectoris; E11.9 Type 2 diabetes mellitus without complications; Z95.3 Presence of xenogenic heart valve; G47.33 Obstructive sleep apnea (adult) (pediatric); I50.33 Acute on chronic diastolic (congestive) heart failure; E89.0 Postprocedural hypothyroidism; J44.9 Chronic obstructive pulmonary disease, unspecified; I27.20 Pulmonary hypertension, unspecified; E78.5 Hyperlipidemia, unspecified; I35.2 Nonrheumatic aortic (valve) stenosis with insufficiency; F41.9 Anxiety disorder, unspecified; E66.9 Obesity, unspecified; Z68.38 Body mass index [BMI] 38.0-38.9, adult; Z87.891 Personal history of nicotine dependence; Z79.84 Long term (current) use of oral hypoglycemic drugs; I25.2 Old myocardial infarction; Z95.1 Presence of aortocoronary bypass graft; Z99.81 Dependence on supplemental oxygen; Z90.5 Acquired absence of kidney; Z85.528 Personal history of other malignant neoplasm of kidney; F32.9 Major depressive disorder, single episode, unspecified
CPT/HCPCS: 36415; 71045; 71046; 80048; 80053; 80061; 82962; 83036; 83735; 83880; 84443; 84484; 85025; 85027; 87070; 87205; 87449; 87633; 93005; 93306; 93455; 94640; 97161; 97165; 97802; 99152; 99153; 99251; 99285; J7030; J7050; Q9957; Q9967; A4216; C1760; C1769; C8929; G0463; J0696; J1940

== ENCOUNTER → 2019-05-31 15:54 | Outpatient (CLI) | payer BC, MEDICARE, SELFPAY ==
[2019-05-13 08:39] VITALS: BMI 38.2
[2019-05-31 15:07] VITALS: BMI 36.3
[2019-05-31 16:50] LABS: Anion Gap 6 (5-15); BUN 22 mg/dL (7-18); BUN/Creat Ratio 22.9 RATIO (10-20); Calcium,Total 9.7 mg/dL (8.5-10.1); Chloride 100 mmol/L (98-107); Creatinine, Serum 0.96 mg/dL (0.55-1.02); EST Glomerular Filtration Rate 62 mL/min (>60); Est Glom Filt Rate - Afr Amer 75 mL/min (>60); Glucose 163 mg/dL (74-106); Potassium 3.9 mmol/L (3.5-5.1); Sodium Level 139 mmol/L (136-145)
== END ==
PROVIDERS: Family Provider Nurse Practitioner Family; PCP Nurse Practitioner Family; Referring Provider Physician Assistant Medical; Visit Provider Physician Assistant Medical
DX: I35.0 Nonrheumatic aortic (valve) stenosis (principal)
CPT/HCPCS: 36415; 80048

== ENCOUNTER → 2019-08-16 15:02 | Outpatient (CLI) | payer BC, SELFPAY ==
[2019-05-13 08:39] VITALS: BMI 38.2
[2019-05-31 15:07] VITALS: BMI 36.3
[2019-08-16 16:44] LABS: Absolute Lymphocyte Count 1.19 X10^3/uL (0.83-4.51); Absolute Neutrophil Count 3.4 X10^3/uL (2.0-7.7); Basophil# 0.03 X10^3/uL; Basophil% 0.5 % (0-1); Eosinophil# 0.22 X10^3/uL; Eosinophils% 3.9 % (0-5); Hematocrit 40.2 % (37-47); Hemoglobin 12.4 g/dL (12.0-15.0); Lymphocyte # 1.19 X10^3/ul (4.0); Mean Corp Hgb Conc 30.8 g/dL (32-36); Mean Corpuscular Volume 90.7 fL (81-99); Mean Platelet Vol. 10.8 fl (6.2-12.0); Monocyte# 0.79 X10^3/uL; Monocyte% 13.9 % (0-10); NRBC Flagged by Analyzer 0 % (0-5); Neutrophil # 3.43 X10^3/uL (2.7-7.7); Neutrophil % 60.3 % (47-70); Platelet Count 309 K/mm3 (150-450); RBC Distribution Width CV 17.8 % (11.6-14.6); Red Blood Count 4.43 M/mm3 (4.2-5.4); White Blood Count 5.7 K/mm3 (4.4-11.0)
[2019-08-16 17:29] LABS: Anion Gap 6 (5-15); BUN 20 mg/dL (7-18); BUN/Creat Ratio 24.8 RATIO (10-20); Calcium,Total 9.7 mg/dL (8.5-10.1); Chloride 102 mmol/L (98-107); EST Glomerular Filtration Rate 76 mL/min (>60); Est Glom Filt Rate - Afr Amer 92 mL/min (>60); Glucose 102 mg/dL (74-106); Potassium 3.6 mmol/L (3.5-5.1); Sodium Level 138 mmol/L (136-145)
== END ==
PROVIDERS: PCP Nurse Practitioner Family; Referring Provider Physician Assistant Medical; Visit Provider Physician Assistant Medical
DX: I25.10 Atherosclerotic heart disease of native coronary artery without angina pectoris (principal); I50.32 Chronic diastolic (congestive) heart failure
CPT/HCPCS: 36415; 80048; 85025

== ENCOUNTER → 2019-12-12 14:40 | Outpatient (CLI) | payer BC, SELFPAY ==
[2019-05-13 08:39] VITALS: BMI 38.2
[2019-09-28 14:35] VITALS: BMI 36.3
--- NOTE | 2019-12-12 14:54 | RAD_ITS ---
STUDY: X-RAY CHEST REASON FOR EXAM: Female, 64 years old. SOB ON EXERTION HX OF RIGHT MALIGNANT NEOPLASM OF RIGHT KIDNEY. TECHNIQUE: PA and lateral views of the chest. COMPARISON: 05/13/2019 FINDINGS: Lungs are hyperexpanded with chronic interstitial changes, no superimposed acute pulmonary process. There is no demonstrated pleural abnormality. Sternal cerclage wires and vascular clips are present from a prior sternotomy and coronary artery bypass graft procedure (CABG). Normal mediastinum and [place]. Normal visualized pulmonary arteries. There is atherosclerotic calcification of the aortic arch with tortuosity. There are diffuse degenerative changes of the visualized thoracic spine. Normal visualized ribs, clavicles, and shoulders. There is no demonstrated abnormality of the visualized soft tissue structures of the upper abdomen. RAD/Chest PA and Lateral IMPRESSION: Degenerative changes, as described above. No demonstrated acute cardiopulmonary process. Electronically Signed: Sharif Shaver MD at 15:32 EDT , Service support ,
[2019-12-12 15:16] LABS: Hematocrit 40.5 % (37-47); Mean Corp Hgb Conc 32.1 g/dL (32-36); Mean Corpuscular Hgb 31.2 pg (27.0-32.0); Mean Corpuscular Volume 97.1 fL (81-99); Mean Platelet Vol. 9.9 fl (6.2-12.0); Platelet Count 284 K/mm3 (150-450); RBC Distribution Width CV 13.8 % (11.6-14.6); RBC Distribution Width SD 48.9 fl (35.1-43.9); Red Blood Count 4.17 M/mm3 (4.2-5.4); White Blood Count 5.5 K/mm3 (4.4-11.0)
[2019-12-12 15:34] LABS: Anion Gap 7 (5-15); BUN 19 mg/dL (7-18); BUN/Creat Ratio 21.4 RATIO (10-20); Calcium,Total 9.6 mg/dL (8.5-10.1); Chloride 103 mmol/L (98-107); Creatinine, Serum 0.89 mg/dL (0.55-1.02); EST Glomerular Filtration Rate 68 mL/min (>60); Est Glom Filt Rate - Afr Amer 83 mL/min (>60); Glucose 159 mg/dL (74-106); Potassium 4.3 mmol/L (3.5-5.1); Sodium Level 140 mmol/L (136-145)
== END ==
PROVIDERS: PCP Nurse Practitioner Family; Referring Provider Urology; Visit Provider Urology
DX: Z85.528 Personal history of other malignant neoplasm of kidney (principal)
CPT/HCPCS: 36415; 71046; 80048; 85027

== ENCOUNTER → 2020-02-13 13:45 | Outpatient (CLI) | payer BC, SELFPAY ==
[2019-05-13 08:39] VITALS: BMI 38.2
[2020-02-02 13:59] VITALS: BMI 36.6
--- NOTE | 2020-02-13 14:02 | RAD_ITS ---
STUDY: X-RAY CHEST REASON FOR EXAM: Female, 64 years old. Chest pain. Shortness of breath. Dyspnea on exertion for 2 months. Hypertension. Former smoker. TECHNIQUE: PA and lateral views of the chest. COMPARISON: 12/12/2019. FINDINGS: The lungs are hyperexpanded. There is chronic interstitial changes without new infiltrate or mass. There is no demonstrated pleural abnormality. Sternal cerclage wires are present from a prior sternotomy. The heart is mildly enlarged. Normal mediastinum and orlando. Normal visualized pulmonary arteries. There is atherosclerotic calcification of the aortic arch with tortuosity. There are diffuse degenerative changes of the visualized thoracic spine. There is degenerative osteoarthritis of the bilateral shoulders. There is no demonstrated abnormality of the visualized soft tissue structures of the upper abdomen. RAD/Chest PA and Lateral IMPRESSION: No acute cardiopulmonary disease or interval change. Electronically Signed: Charly Lai DO at 23:53 EDT Tel [phone], Service support ,
[2020-02-13 14:16] LABS: Absolute Lymphocyte Count 0.91 X10^3/uL (0.83-4.51); Absolute Neutrophil Count 2.7 X10^3/uL (2.0-7.7); Basophil# 0.03 X10^3/uL; Basophil% 0.7 % (0-1); Eosinophil# 0.11 X10^3/uL; Eosinophils% 2.5 % (0-5); Hematocrit 34.3 % (37-47); Hemoglobin 10.5 g/dL (12.0-15.0); Lymphocyte # 0.91 X10^3/ul (4.0); Lymphocyte % 20.4 % (19-41); Mean Corp Hgb Conc 30.6 g/dL (32-36); Mean Corpuscular Volume 91.5 fL (81-99); Mean Platelet Vol. 9.6 fl (6.2-12.0); Monocyte# 0.64 X10^3/uL; Monocyte% 14.3 % (0-10); NRBC Flagged by Analyzer 0 % (0-5); Neutrophil # 2.74 X10^3/uL (2.7-7.7); Neutrophil % 61.4 % (47-70); Platelet Count 236 K/mm3 (150-450); RBC Distribution Width CV 14.2 % (11.6-14.6); RBC Distribution Width SD 46.2 fl (35.1-43.9); Red Blood Count 3.75 M/mm3 (4.2-5.4); White Blood Count 4.5 K/mm3 (4.4-11.0)
[2020-02-13 14:34] LABS: BNP,B-Type NATRIURETIC PEPTIDE 166.1 pg/mL (0-100)
[2020-02-13 14:36] LABS: AST(SGOT) 53 U/L (15-37); Alanine Aminotransfer ALT/SGPT 46 U/L (13-56); Albumin, Serum 3.5 g/dL (3.2-5.0); Alkaline Phosphatase 145 U/L (45-117); Anion Gap 5 (5-15); BUN 13 mg/dL (7-18); Bilirubin, Direct 0.19 mg/dL (0.00-0.30); Calcium,Total 9.2 mg/dL (8.5-10.1); Chloride 106 mmol/L (98-107); Cholesterol 139 mg/dL (200); Creatinine, Serum 0.77 mg/dL (0.55-1.02); EST Glomerular Filtration Rate 81 mL/min (>60); Est Glom Filt Rate - Afr Amer 98 mL/min (>60); Globulin 4.6 g/dL (2.2-4.2); Glucose 141 mg/dL (74-106); High Density Lipoprotein 42 mg/dL; Potassium 4.3 mmol/L (3.5-5.1); Protein, Total 8.1 g/dL (6.4-8.2); Sodium Level 138 mmol/L (136-145); Triglycerides 191 mg/dL; Very Low Density Lipoprotein 38 mg/dL (5-40)
== END ==
PROVIDERS: PCP Nurse Practitioner Family; Referring Provider Physician Assistant Medical; Visit Provider Physician Assistant Medical
DX: I11.0 Hypertensive heart disease with heart failure (principal); I50.32 Chronic diastolic (congestive) heart failure; I35.0 Nonrheumatic aortic (valve) stenosis; I25.10 Atherosclerotic heart disease of native coronary artery without angina pectoris; R06.00 Dyspnea, unspecified
CPT/HCPCS: 36415; 71046; 80048; 80061; 80076; 83880; 85025

== ENCOUNTER → 2020-02-14 17:32 | Outpatient (CLI) | payer BC, SELFPAY ==
[2019-05-13 08:39] VITALS: BMI 38.2
[2020-02-02 13:59] VITALS: BMI 36.6
== END ==
PROVIDERS: PCP Nurse Practitioner Family; Referring Provider Physician Assistant Medical; Visit Provider Physician Assistant Medical
DX: R06.02 Shortness of breath (principal)
CPT/HCPCS: 87635; 94799; C9803; U0003

== ENCOUNTER → 2020-03-02 08:40 | Outpatient (CLI) | payer BC, SELFPAY ==
[2019-05-13 08:39] VITALS: BMI 38.2
[2020-02-02 13:59] VITALS: BMI 36.6
--- NOTE | 2020-03-02 08:43 | ECHOCS_ITS ---
Reason For Study: Aortic Stenosis Procedure This was a 2D Doppler, Color Flow transthoracic echocardiogram. The study was technically difficult. Contrast injection was performed. Exam performed in department. Left Ventricle Left ventricular systolic function is normal. The estimated ejection fraction is 70 %. There is evidence of diastolic dysfunction. No regional wall motion abnormalities noted. Right Ventricle Normal RV size. Normal systolic function. Atria The left atrium is mildly enlarged. Normal right atrium. No doppler evidence for ASD. Mitral Valve There is mild mitral annular calcification. Extension of the mitral annular calcification onto the base of the posterior mitral valve leaflet. Mitral valve not well visualized. Mild-Moderate (1-2+) mitral valve insufficiency. Tricuspid Valve The tricuspid valve is not well visualized. Trivial tricuspid valve insufficiency. Unable to estimate RV systolic pressure/pulmonary artery pressure due to technically difficult study. Aortic Valve The aortic valve is not well visualized. The aortic valve apparatus is not well visualized, however, based upon the spectral Doppler information obtained there does not appear to be hemodynamic evidence suggestive of significant prosthetic aortic valve stenosis. Pulmonic Valve The pulmonic valve is not well visualized. Great Vessels The aortic root is not well visualized. Pericardium/Pleural No pericardial effusion. Medication 22 gauge I.V. with prn adaptor inserted into right arm. Diluted definity 5ml given slow IV push to enhance endocardial definition. MMode/2D Measurements & Calculations LVOT diam: 2.0 cm LAV(MOD-bp): 74.9 ml LA A4 area: 19.6 cm2 LVOT area: 3.3 cm2 LAV(MOD-bp) Indexed: 38.0 ml/m2 LAV(MOD-sp2): 73.1 ml LAV(MOD-sp4): 63.8 ml RA A4 area: 14.1 cm2 Time Measurements MV dec time: 0.22 sec Doppler Measurements & Calculations MV E max stew: 112.9 cm/sec Lat Peak E' Stew: 6.8 cm/sec Med Peak E' Stew: 5.7 cm/sec MV A max stew: 91.7 cm/sec E/E' lat: 16.7 E/E' med: 19.6 MV E/A: 1.2 MV V2 max: 133.9 cm/sec MV P1/2t max stew: 132.9 cm/sec Ao V2 max: 201.0 cm/sec MV max P.2 mmHg MV P1/2t: 56.3 msec Ao max P.2 mmHg MV V2 mean: 74.9 cm/sec Ao V2 mean: 141.9 cm/sec MV mean P.6 mmHg MV dec slope: 690.9 cm/sec2 Ao mean P.0 mmHg MV V2 VTI: 32.8 cm MVA(P1/2t): 3.9 cm2 Ao V2 VTI: 41.9 cm MVA(VTI): 3.2 cm2 GAURI(I,D): 2.5 cm2 GAURI(V,D): 2.1 cm2 LV V1 max: 129.3 cm/sec SV(LVOT): 106.0 ml PA V2 max: 110.7 cm/sec LV V1 max P.7 mmHg LV V1 mean P.0 mmHg LV V1 mean: 94.5 cm/sec LV V1 VTI: 32.5 cm Interpretation Summary The study was technically difficult. Contrast injection was performed. Left ventricular systolic function is normal. The estimated ejection fraction is 70 %. The left atrium is mildly enlarged. There is mild mitral annular calcification. Extension of the mitral annular calcification onto the base of the posterior mitral valve leaflet. Mild-Moderate (1-2+) mitral valve insufficiency. Trivial tricuspid valve insufficiency. The aortic valve apparatus is not well visualized, however, based upon the spectral Doppler information obtained there does not appear to be hemodynamic evidence suggestive of significant prosthetic aortic valve stenosis. Unable to estimate RV systolic pressure/pulmonary artery pressure due to technically difficult study. There is evidence of diastolic dysfunction. Ordering Physician: Maria De Jesus Flynn Referring Physician: Carole Crawford Performed By: Sly Ford RCS
[2020-03-02 10:54] LABS: T4 Free Direct 1.33 ng/dL (0.76-1.46); Thyroid Stim Hormone (TSH) 0.15 uIU/mL (0.358-3.74)
== END ==
PROVIDERS: PCP Nurse Practitioner Family; Referring Provider Physician Assistant Medical; Visit Provider Physician Assistant Medical
DX: I25.10 Atherosclerotic heart disease of native coronary artery without angina pectoris (principal); I35.0 Nonrheumatic aortic (valve) stenosis; I10 Essential (primary) hypertension; Z95.2 Presence of prosthetic heart valve; E03.9 Hypothyroidism, unspecified
CPT/HCPCS: 36415; 84439; 84443; 93306; Q9957; A4216; C8929

== ENCOUNTER 2020-03-15 06:30 | Inpatient (IN) | payer BC, MEDICARE, SELFPAY ==
[2019-05-13 08:39] VITALS: BMI 38.2
[2020-02-02 13:59] VITALS: BMI 36.6
[2020-03-15] VITALS (14 sets, daily range): BP systolic 151–172; BP diastolic 68–105; PULSE 77–105; RESP 13–23; TEMP 35.9–36.9; O2SAT 94–99; BMI 37.8; BMI 33.7; BMI 33.8
--- NOTE | 2020-03-15 06:49 | EKG12_ITS ---
Test Reason : Blood Pressure : / mmHG Vent. Rate : 088 BPM Atrial Rate : 088 BPM P-R Int : 174 ms QRS Dur : 098 ms QT Int : 396 ms P-R-T Axes : 045 031 057 degrees QTc Int : 479 ms Sinus rhythm with Premature supraventricular complexes Possible Inferior infarct , age undetermined Abnormal ECG Confirmed by LOUIE WATTS, FREDDY ([id number]), editorial clerk LATOYA VASQUEZ ([id number]) on 03/22/2020 12:48:45 P M Referred By: STEW Confirmed By:MINA PALMA MD
--- NOTE | 2020-03-15 06:49 | RAD_ITS ---
STUDY: X-RAY CHEST REASON FOR EXAM: Female, 65 years old. SOB, AORTIC VALVE REPLACEMENT X 2 TECHNIQUE: Single AP portable view of the chest. COMPARISON: Comparison is made with prior study dated 12/12/2019. FINDINGS: EKG electrodes are seen. Hyperinflation. Stable linear scarring at the lung bases. There is no demonstrated pleural abnormality. Sternal cerclage wires and vascular clips are present from a prior sternotomy and coronary artery bypass graft procedure (CABG). Mild cardiomegaly. Normal mediastinum and [place]. Normal visualized pulmonary arteries. There is atherosclerotic calcification of the aortic arch with tortuosity. Normal visualized thoracic spine. Normal visualized ribs, clavicles, and shoulders. There is no demonstrated abnormality of the visualized soft tissue structures of the upper abdomen. RAD/Chest 1 View (Portable) IMPRESSION: Hyperinflation and stable scarring at the lung bases. Cardiomegaly. Electronically Signed: Jose Adamson, at 8:04 EDT , Service support ,
[2020-03-15 07:01] LABS: Absolute Lymphocyte Count 0.78 X10^3/uL (0.83-4.51); Absolute Neutrophil Count 3.3 X10^3/uL (2.0-7.7); Basophil# 0.03 X10^3/uL; Basophil% 0.6 % (0-1); Eosinophil# 0.13 X10^3/uL; Eosinophils% 2.7 % (0-5); Hematocrit 34.4 % (37-47); Hemoglobin 10.3 g/dL (12.0-15.0); Lymphocyte # 0.78 X10^3/ul (4.0); Lymphocyte % 16.5 % (19-41); Mean Corp Hgb Conc 29.9 g/dL (32-36); Mean Corpuscular Hgb 25.6 pg (27.0-32.0); Mean Corpuscular Volume 85.6 fL (81-99); Monocyte# 0.47 X10^3/uL; Monocyte% 9.9 % (0-10); NRBC Flagged by Analyzer 0 % (0-5); Neutrophil # 3.29 X10^3/uL (2.7-7.7); Neutrophil % 69.7 % (47-70); Platelet Count 292 K/mm3 (150-450); RBC Distribution Width CV 14.9 % (11.6-14.6); RBC Distribution Width SD 46.6 fl (35.1-43.9); Red Blood Count 4.02 M/mm3 (4.2-5.4); White Blood Count 4.7 K/mm3 (4.4-11.0)
[2020-03-15 07:13] LABS: Anion Gap 5 (5-15); BUN 12 mg/dL (7-18); BUN/Creat Ratio 17.5 RATIO (10-20); Calcium,Total 9.5 mg/dL (8.5-10.1); Chloride 104 mmol/L (98-107); Creatinine, Serum 0.68 mg/dL (0.55-1.02); EST Glomerular Filtration Rate 92 mL/min (>60); Est Glom Filt Rate - Afr Amer 111 mL/min (>60); Estimated Creatinine Clearance 69.14 ml/min; Glucose 179 mg/dL (74-106); Sodium Level 139 mmol/L (136-145)
[2020-03-15] MEDS: Ipratropium/Albuterol Sulfate 3 ML AMPUL.NEB INHALATION ×3 (07:56→18:37)
[2020-03-15 08:30] LABS: BNP,B-Type NATRIURETIC PEPTIDE 73.9 pg/mL (0-100)
[2020-03-15] MEDS: Metoclopramide 10 MG/2 ML Vial IV (08:44)
[2020-03-15] MEDS: DiphenhydrAMINE 50 MG/ML Syringe 25 MG IV (08:44)
--- NOTE | 2020-03-15 09:00 | ED.RN ---
ambulated in agee. pt sob, tachypneic, mild distress with breathing. sats dropped to 89%. pt tripoding when returned to bed for a few minutes. placed on 2l o2 sats 97%
--- NOTE | 2020-03-15 09:03 | CT_ITS ---
STUDY: CTA CHEST REASON FOR EXAM: Female, 65 years old. WIGGINS, SOB, NAUSEA -- HX-RENAL CA,DIAB,HTN,CHF,CABG -- SURG-PARTIAL LEFT NEPHRECTOMY, TUMOR REMOVED FROM RT KIDNEY, THYROIDECTOMY,NODULE REMOVED FROM LARYNX RADIATION DOSAGE (If Supplied By Facility): CTDIvol = ( 12.59 ) mGy, DLP = ( 461.50 ) mGycm TECHNIQUE: The examination was performed with the intravenous administration of IV 100mL Isovue-370. Post-processing of the angiographic images was performed, with multiplanar reformation and 3D reconstruction. Individualized dose optimization techniques were used for this CT. COMPARISON: Comparison is made with prior examination dated 06/16/2018. FINDINGS: Normal enhancement of the main pulmonary artery and right and left pulmonary arteries. Normal enhancement of the bilateral peripheral pulmonary arteries. There is no demonstrated pulmonary embolism. There is atherosclerotic calcification of the aortic arch with tortuosity. There is no demonstrated aortic dissection. Sternal cerclage wires and vascular clips are present from a prior sternotomy and coronary artery bypass graft procedure (CABG). There is cardiomegaly. Normal mediastinum. Normal hilar regions. Normal visualized trachea and bronchi. The lungs are well expanded. Minimal increased linear markings are seen in the anterior medial aspect of the right upper lobe as well as in the lingular segment of the left upper lobe suggestive of scarring. Normal pleura. Normal chest wall structures. There are degenerative changes of thoracic spine. Hepatomegaly. Fatty infiltration of the liver. Stable cyst in the upper pole of the left kidney. CT/CTA Chest W/WO Contrast IMPRESSION: No evidence of pulmonary embolism. Mild linear scarring in the anterior aspect of the right upper lobe as well as the lingular segment of the left upper lobe. Electronically Signed: Jose Adamson, at 9:55 EDT , Service support ,
--- NOTE | 2020-03-15 09:20 | HP.PCM_ITS ---
Problem List (1) COPD exacerbation Status: Acute (2) Anemia Status: Acute Qualifiers: Anemia type: unspecified type Qualified Code(s): D64.9 - Anemia, unspecified (3) CAD (coronary artery disease) Status: Chronic Qualifiers: Coronary Disease-Associated Artery/Lesion type: bypass graft Hoh vs. transplanted heart: unga heart Associated angina: with stable angina Qualified Code(s): I25.708 - Atherosclerosis of coronary artery bypass graft(s), unspecified, with other forms of angina pectoris (4) COPD (chronic obstructive pulmonary disease) Status: Chronic Qualifiers: COPD type: unspecified COPD Qualified Code(s): J44.9 - Chronic obstructive pulmonary disease, unspecified (5) Chronic respiratory failure Status: Chronic Qualifiers: Respiratory failure complication: hypoxia Qualified Code(s): J96.11 - Chronic respiratory failure with hypoxia (6) Aortocoronary bypass status Status: Chronic Comment: CABG x1 ANDERS to LAD 06/05/16; (7) Chronic diastolic heart failure Status: Chronic (8) Pulmonary hypertension, secondary Status: Chronic (9) Nonrheumatic aortic (valve) stenosis Status: Chronic (10) Hypertension, benign Status: Chronic History of Present Illness Date of Admission: 03/15/20 Chief Complaint: SOB, Nausea, Headache The patient is a 65 y/o F w/ PMHx: CAD s/p CABG x 1 ANDRES to LAD 2015, HTN, HLD, Chronic diastolic CHF, Chronic COPD with chronic hypoxic respiratory failure (2L NC), GERD, EtOH Abuse, GAGAN, Hx renal cell carcinoma, Hypothyroidism, Obesity, IBS, Chronic anemia, Anxiety and Depression, Diabetes mellitus type II, Valvular Heart Disease s/p prosthetic aortic valve replacement 21mm [facility] [employer]gor Trifecta (2011 [facility], recent replacement 06/2019 [facility]), GAGAN on CPAP q HS who presents to the [facility] ED on 03/15/20 with history of dyspnea x 1 days worsening with any activity, mild cough with white sputum without fever, noted subjective chills, mild rhinorrhea, nausea without emesis, intermittent mild generalized throbbing 1-2 out of 10 in severity headache with wheezing. Patient does states she has had ongoing dyspnea although worse over the last 24 hours following discontinuation per self of her oxygen therapy after subjective improvement following her valve replacement at [facility] in June. Patient notes sensation of shortness of breath with any activity over the last several months but has been worsening. She had a recent evaluation by cardiology and echocardiogram had evident obtained per her report and was stable with no acute findings. Patient denied any recent abdominal cramping, abdominal pain, conges tion, work-up in the ED included 97.9, heart rate 95, BP 172/105, respiratory rate 20, 95% on room air, CBC with WC 4.7, hemoglobin 10.3, platelet 292 with lymphopenia present, unremarkable BMP aside glucose 179, troponin less than 0.015, BNP 73.9, chest x-ray with hyperinflation and stable scarring at the lung bases with cardiomegaly with no acute cardiopulmonary findings otherwise, EKG with sinus rhythm with PAC, without acute evidence of ischemia. Patient ambulated in the agee noted to become very short of breath, tachypneic with mild distress with saturations decreasing to 89% with improvement to 97% on 2 L nasal cannula. In the ED patient ministered Reglan 10 mg IV x1, Benadryl 25 mg IV x1 as well DuoNeb therapy, COVID negative, CTPA with no evidence of pulmonary embolism with mild linear scarring in the anterior aspect of the right upper lobe as well as the lingular segment of the left upper lobe. Past Medical History Past Medical History (Chronic Problems): Chronic Problems (Last Updated 03/08/20 @ 08:20 by Maria De Jesus Desouza) History of aortic valve replacement with bioprosthetic valve (Chronic ~07/11/19) AVR #21 [facility] Igor Trifecta Bioprosthetic Pericardial Prosthesis 06/05/2016 @ [facility]; AVR #23 Inspiris Tissue Valve @ [facility] 07/11/19 CAD (coronary artery disease) (Chronic) COPD (chronic obstructive pulmonary disease) (Chronic) Chronic respiratory failure (Chronic) Aortocoronary bypass status (Chronic ~06/05/16) CABG x1 ANDRES to LAD 06/05/16; Chronic diastolic heart failure (Chronic) Pulmonary hypertension, secondary (Chronic) Cardiomegaly (Chronic) Nonrheumatic aortic (valve) stenosis (Chronic) Atherosclerotic heart disease of unga coronary artery without angina pectoris (Chronic) CABG x1 ANDRES to LAD 06/05/16; History of non-ST elevation myocardial infarction (NSTEMI) (Chronic) Angina pectoris (Chronic) Hypertension, benign (Chronic) Medical History: Medical History (Last Updated 03/08/20 @ 08:20 by Maria De Jesus Desouza) Chronic diastolic heart failure (Chronic) I50.32 Pulmonary hypertension, secondary (Chronic) Cardiomegaly (Chronic) I51.7 Nonrheumatic aortic (valve) stenosis (Chronic) I35.0 Atherosclerotic heart disease of unga coronary artery without angina pectoris (Chronic) I25.10 CABG x1 ANDRES to LAD 06/05/16; History of non-ST elevation myocardial infarction (NSTEMI) (Chronic) I25.2 Abnormal electrocardiogram (Inactive) R94.31 Angina pectoris (Chronic) I20.9 Hypertension, benign (Chronic) I10 Anemia D64.9 COPD (chronic obstructive pulmonary disease) J44.9 Depression F32.9 Dyspnea on exertion R06.09 ETOH abuse F10.10 Fibromyalgia M79.7 GERD (gastroesophageal reflux disease) K21.9 Hypothyroidism E03.9 IBS (irritable bowel syndrome) K58.9 GAGAN (obstructive sleep apnea) G47.33 Renal cell carcinoma C64.9 History of left heart catheterization (LHC) Onset Date: ~05/12/19 Z98.890 LEFT MAIN: Mild luminal irregularities; LEFT ANTERIOR DESCENDING ARTERY: PROX LAD: 100 % Stenosis DIAGONAL 1: Proximal - 60-70 % Stenosis; CIRCUMFLEX ARTERY: Mild luminal irregularities; RIGHT CORONARY ARTERY: Mild luminal irregularities; GRAFTS: ANDRES graft to the LAD is patent per cath 05/12/19 Aortic valvar stenosis (Inactive) I35.0 Irritable bowel syndrome (Inactive) GAGAN (obstructive sleep apnea) (Inactive) G47.33 Renal cell carcinoma of both kidneys (Inactive) C64.1, C64.2 Symptomatic anemia (Inactive) D64.9 Allergies ibuprofen Allergy (Verified 03/15/20 06:31) Hives amlodipine [From [facility]] Adverse Reaction (Intermediate, Verified 03/15/20 06:31) swelling of ankles adhesive tape Adverse Reaction (Unknown, Verified 03/15/20 06:31) BLISTERS Home Medications: Ambulatory Orders Medication Instructions Recorded ALPRAZolam [Xanax] 0.5 mg PO TID PRN PRN 06/19/14 Calcium Citrate/Vitamin D3 [Hm 1 tab PO DAILY 06/19/14 Calcium Citrate-Vit D3 Tab] Pantoprazole Sodium [Protonix] 40 mg PO DAILY 06/19/14 metformin 500 mg tablet 500 mg PO DAILY tab 08/03/17 Mv-Mn/Folic AC/Calcium/Vit K1 1 ea PO DAILY 09/07/17 [Women's 50 Plus Daily Formula] Levothyroxine Sodium [Synthroid] 200 mcg PO DAILY 05/11/19 Melatonin 5 mg PO QHS 05/11/19 metoprolol tartrate 25 mg tablet 12.5 mg PO BID #90 tab 07/18/19 atorvastatin 40 mg tablet 40 mg PO QHS #90 tab 10/21/19 losartan 25 mg tablet 25 mg PO DAILY #90 tab 01/30/20 Aspirin 81 mg PO DAILY 03/15/20 Duloxetine HCl 60 mg PO DAILY 03/15/20 Surgical History: Surgical History (Last Updated 03/08/20 @ 08:19 by Maria De Jesus Desouza) History of aortic valve replacement with bioprosthetic valve (Chronic) Onset Date: ~07/11/[address] Z[address] #21 [facility] Igor Trifecta Bioprosthetic Pericardial Prosthesis 06/05/2016 @ [facility]; AVR #23 Inspiris Tissue Valve @ [facility] 07/11/19 Aortocoronary bypass status (Chronic) Onset Date: ~06/05/16 Z95.1 CABG x1 ANDRES to LAD 06/05/16; History of thyroidectomy Z98.890, E89.0 History of carpal tunnel surgery of right wrist Z98.890 History of section Z98.891 History of left hip replacement Z96.642 History of nephrectomy Z98.890, Z90.5 Bilateral partial History of removal laryngeal nodule Status post right foot surgery Z98.890 heel spur removal Surgical History: coronary bypass surgery - x1 at [facility], total hip arthroplasty - left hip., - - Thyroidectomy removal of laryngeal nodule, right hand carpal tunnel surgery, partial nephrectomy with removal of 40% left and 10% right kidney, Thyroidectomy, Right heel spur removed, Aortic valve replacements, bioprosthetic's recently 06/2019 at [facility]. Psychiatric History: Anxiety, Depression RNFA History: No pertinent RNFA history Lives: Spouse/ Significant Other Smoking Status: Former smoker - Patient quit cigarette tobacco usage approximately 5 years prior to current presentation with prior to this 2 pack/day since she was a kid. Tobacco Use: Non-smoker Alcohol: Heavy - Patient previously had been sober per prior reports but admits to ongoing alcohol intake of at least 4-5 drinks sometimes mixed liquor drinks and sometimes beer daily. She does note she can go several days without any symptoms of withdrawal. Drugs: None - *Family History Maternal Family History: Family History (Last Reviewed 09/28/19 @ 14:15 by Maria De Jesus Flynn PA, PA) Grandfather CAD (coronary artery disease) Father Cancer Mother Colon cancer History Items: Cancer - Maternal family history of Colon CA. Paternal Family History: Family History (Last Reviewed 09/28/19 @ 14:15 by Maria De Jesus Flynn PA, PA) Grandfather CAD (coronary artery disease) Father Cancer Mother Colon cancer History Items: Cancer Review of Systems Constitutional: Reports: Malaise, Weakness, Fatigue. Denies: Anorexia, Chills, Fever, Weight Change HEENT: Reports: Head Aches, Nasal Congestion. Denies: Sinus Congestion, Sinus Drainage Cardiovascular: Reports: Light Headedness. Denies: Chest Pain, Chest Pressure, Chest Tightness, Orthopnea, Palpitations, Syncope Respiratory: Reports: Cough, Shortness of Breath, Shortness of breath at rest, Shortness of breath upon exertion, Sputum production, Wheezing Gastrointestinal: Reports: Nausea. Denies: Abdominal Pain, Diarrhea, Vomiting Genitourinary: Denies: Dysuria Musculoskeletal: Reports: Joint Pain. Denies: Joint Tenderness Skin: Denies: Rash, Wounds Neurological: Denies: Numbness, Tingling, Focal weakness Psychiatric: Reports: Anxiety, Depression. Denies: Homicidal Ideations, Suicidal Ideations Hematologic/ Lymphatic: Reports: Anemia. Denies: Easy Bruising, Easy Bleeding VTE Information - Inpt Only VTE Present on Admission: No VTE Mechan Device Prophylaxis: SCD's VTE Pharm Prophylaxis ordered?: Yes Patient Problems: Active and Suspected Problems (Last Updated 03/08/20 @ 08:20 by Maria De Jesus Desouza) Hypoxia (Acute) COPD exacerbation (Acute) Subjective: Patient seated upright in ED bed, fatigued, patient notes breathing improved since aerosols and steroid administration. Objective: Physical Examination: General: awake, alert, oriented x 3 and cooperative, seated upright in the ED bed, fatigued appearance, notes breathing is improved since steroids and aerosols but worsens with any requested exertion. Skin: normal color, turgor, no icterus, cyanosis. HEENT: AT/NC, EOMI, PERRLA, mildly dry MM, no OP irritation noted, no carotid bruits or JVD noted. Lungs: Diminished breath sounds, greater bases, occasional end expiratory wheezing, no obvious rales or rhonchi, effort likely improved, notes feeling improved since aerosols and steroids but still increased respiratory rate and following examination forcing patient to sit up and moving her ED bed she had increased respiratory rate and some accessory muscle usage. Heart: Tachycardic with regular rhythm; no gallop, rub audible. Abdomen: soft, obese, NTTP, ND, normal BS, no HSM. Extremities: no cyanosis, clubbing, or edema. Neurological: patient awake, alert, oriented x 3; cognitive function intact; pupils equally reactive to light and accomodation; cranial nerves II-XII grossly normal, moving all 4 extremities, no focal deficits, strength moderately to severely global decrease secondary to acute presentation. Psychiatric: affect appears fatigued otherwise normal, no acute evidence of depressive or anxiety feelings. - Physical Exam Vitals/I&O's: Vital Signs Temp Pulse Resp BP Pulse Ox 97.9 F 105 H 13 158/68 H 96 03/15/20 06:31 03/15/20 08:49 03/15/20 08:49 03/15/20 08:49 03/15/20 08:49 Oxygen Delivery Method Room Air Weight: 213 lb 6.519 oz Body Mass Index (BMI) 37.8 Laboratory Results 03/15/20 06:40: WBC 4.7, RBC 4.02 L, Hgb 10.3 L, Hct 34.4 L, MCV 85.6, MCH 25.6 L, MCHC 29.9 L, RDW Std Deviation 46.6 H, RDW Coeff of Monet 14.9 H, Plt Count 292, MPV 10.0, Immature Gran % (Auto) 0.600, Neut % (Auto) 69.7, Lymph % (Auto) 16.5 L, [place] % (Auto) 9.9, Eos % (Auto) 2.7, Baso % (Auto) 0.6, Absolute Neuts (auto) 3.3, Absolute Lymphs (auto) 0.78 L, Nucleated RBC % 0 03/15/20 06:40: Sodium 139, Potassium 4.0, Chloride 104, Carbon Dioxide 30.0, Anion Gap 5, BUN 12, Creatinine 0.68, Estim Creat Clear Calc 69.14, Est GFR (MDRD) Af Amer 111, Est GFR (MDRD) Non-Af 92, BUN/Creatinine Ratio 17.5, Glucose 179 H, Calcium 9.5, Troponin I < 0.015 03/15/20 06:40: B-Natriuretic Peptide 73.9 Assessment/Plan All Active Problems (Last Updated 03/08/20 @ 08:20 by Maria De Jesus Desouza) Hypoxia (Acute) Acute pyelonephritis (Acute) COPD exacerbation (Acute) Bacteremia (Acute) Severe sepsis (Acute) UTI (urinary tract infection) (Acute) Anemia (Acute) The patient is a 65 y/o F w/ PMHx: CAD s/p CABG x 1 ANDRES to LAD 2015, HTN, HLD, Chronic diastolic CHF, Chronic COPD with chronic hypoxic respiratory failure (2L NC), GERD, EtOH Abuse, GAGAN, Hx renal cell carcinoma, Hypothyroidism, Obesity, IBS, Chronic anemia, Anxiety and Depression, Diabetes mellitus type II, Valvular Heart Disease s/p prosthetic AVR, GAGAN on CPAP q HS who presents to the [facility] ED on 03/15/20 with history of dyspnea x 1 days worsening with any activity, mild cough with white sputum without fever, noted subjective chills, mild rhinorrhea, nausea without emesis, intermittent mild generalized throbbing 1-2 out of 10 in severity headache with wheezing. 1. Acute on chronic COPD exacerbation with recent contributing history of self discontinuation of her oxygen supplementation following most recent AVR: Given improvement in the ED following steroids and aerosol administration although still some concerns with increased respiratory rate and accessory muscle usage with any activity will admit to medical surgical floor, continue to closely monitor, maintain on oxygen with wean as tolerated to room air although do expect likely necessity for activity associated supplementation with planned oxygenation trials, continue ATC duonebs, PRN albuterol, IV methylprednisolone, HOB, IS parameters, defer antibiotic therapy as afebrile with no WBC elevation or left shift, negative COVID testing, pending respiratory viral panel, requested sputum culture. 2. Valvular heart disease: Status post bioprosthetic AVR in 2011 at [facility], repeat 06/2019 at [facility], recent 03/02/2020 echocardiogram with normal LV systolic function, EF 70%, mildly enlarged LA, mild to moderate MVI, trivial TBI, aortic valve apparatus not well visualized however there does not appear any evidence of hemodynamic findings suggestive of significant prosthetic AV stenosis, evidence diastolic dysfunction. 3. EtOH Abuse: Patient notes routine consumption of 4-5 mixed drinks versus beer per day. Will maintain on CIWA protocol, MVI, thiamine and folic acid. Strongly encouraged sobriety and offered alcohol substance abuse program. Case management consulted. Will obtain magnesium and phosphorus levels and replete if appropriate. 4. CAD: Status post CABG x1 ANDRES to LAD, continue home aspirin, statin, metoprolol, losartan regimen. 5. Hypertension: Continue home regimen including losartan, metoprolol with hold parameters, PRN hydralazine. 6. Hyperlipidemia: Continue home statin regimen. 7. Anxiety and depression: We will continue patient home duloxetine and Xanax regimen. 8. Chronic diastolic CHF: Recent echocardiogram as noted above, continue aspirin, statin, losartan, metoprolol regimen. Not on any diuretics regimen. 9. History of renal cell carcinoma: Status post partial resection bilateral kidneys, remission, encourage continued oncology outpatient follow-up as needed. 10. Diabetes mellitus type II: Hold oral home regimen, initiate clears and if no persistent nausea transition to ADA diet, accu checks w/ ISS. 11. Hypothyroidism: Status post thyroidectomy, continue home synthroid regimen. 12. Obesity: Weight loss and lifestyle changes encouraged. 13. Former tobacco use: Encourage continued tobacco cessation. 14. GERD: We will continue patient home Protonix regimen. 15. Chronic normocytic anemia: Admission hemoglobin 10.3, baseline appears 10- 11, most recently 02/13/2020 hemoglobin 10.5, stable, trend. 16. GAGAN: We will continue home CPAP nightly. 17. DVT prophylaxis: SCDs, Lovenox. 18. CODE status: Patient KANIKA is her and living will is currently in place. Discussed CODE status at length including difference between FULL code, DNR-CCA and DNR-CC status. Following discussions about the differences in these status, requested full CODE STATUS. Advanced Care Planning Face to Face Time: 16 minutes. Inpatient E&M: 47585 Init Hosp L3 Procedures: 94612 Advncd Care Plan 30 Min
--- NOTE | 2020-03-15 09:21 | ED.DCSUM_ITS ---
- ER Visit Summary Date of Service: 03/15/20 Chief Complaint: Shortness of breath, headache History of Present Illness: The patient is a 65 F who presents with headache and shortness of breath that is been getting worse over the past couple days. Patient states her breathing has been giving her problems for the past couple months but became worse over the past couple days. Patient states she also has a generalized headache over the past couple days. Patient states her breathing is worse with any exertion. Patient admits to a cough with some white sputum. Patient denies any fevers but admits to subjective chills. Patient admits to some rhinorrhea but denies any sore throat or ear pain. Patient denies any chest pain. Patient admits to nausea but denies any vomiting. Physical Examination: Vital signs are stable. Patient is afebrile. Patient is in no acute distress. Oral mucosa is pink and moist. Neck is supple. Trachea is midline. There is no JVD noted. Heart was regular rate and rhythm. Lungs are diminished and equal bilaterally. Abdomen is soft. Bowel sounds are normal. There is no tenderness. There is no rebound or guarding noted. Skin is warm dry. Cranial nerves II through XII are intact. There are no focal motor or sensory deficits noted. Extremities are intact. There is no calf tenderness or edema. Test Results: EKG shows normal sinus rhythm with a rate of 88. There are occasional PACs. There are no acute ST or T wave changes. This was improved compared to previous EKG dated 05/13/2019. Portable chest x-ray was obtained. There is hyperinflation and scarring of the lung bases. There is some cardiomegaly. There are no acute changes noted. This was interpreted by the radiologist and reviewed by myself. CBC and basic metabolic profile were normal. Troponin and BNP were normal. COVID swab was obtained and is negative. CTA of the chest was also ordered and is negative for pulmonary embolism. Emergency Department Course and Treatment: Patient was given a DuoNeb aerosol here. Patient attempted to ambulate after the DuoNeb aerosol and her oxygen saturations dropped to 89 with mild exertion. Patient was also given a dose of prednisone. Case was discussed with the hospitalist. She will admit the patient to her service. Disposition: Admit to hospital Impression: 1. COPD exacerbation 2. Hypoxia This note was generated with Yextation software. It may contain incorrect words, spelling, and punctuation that were not noted in review of the chart prior to signing ED Disposition - Plan for ED Patient: Disposition: Acute Care Hospital [facility] Diagnosis: COPD exacerbation, Hypoxia
[2020-03-15] MEDS: predniSONE 20 MG Tablet 60 MG PO (09:56)
--- NOTE | 2020-03-15 10:07 | NURSING ---
MED SURG WHITE COPD EXAC, HYPOXIA
[2020-03-15 13:16] LABS: D-Dimer Quantitative (DVT/PE) 0.62 FEU/ug/m (0.27-0.49)
[2020-03-15 13:17] LABS: Amphetamine Urine VISTA NEGATIVE (<1000 ng/mL); Barbiturate Urine VISTA NEGATIVE (< 200 ng/mL); Benzodiazepine Urine VISTA NEGATIVE (< 200 ng/mL); Cocaine Urine VISTA NEGATIVE (< 300 ng/mL); Ecstacy Urine VISTA NEGATIVE (< 500 ng/mL); Methadone Urine VISTA NEGATIVE (< 300 ng/mL); PCP Urine VISTA NEGATIVE (< 25 ng/mL); THC Urine VISTA POSITIVE (< 50 ng/mL); Vista UDS pH Range 6
[2020-03-15 13:30] LABS: Alcohol, Blood (Medical)-Serum < 3.0 mg/dL
[2020-03-15] MEDS: Aspirin 81 MG TAB.CHEW PO (13:31)
[2020-03-15] MEDS: Pantoprazole Sodium 40 MG Tablet PO (13:31)
[2020-03-15] MEDS: Losartan Potassium 25 MG Tablet PO (13:31)
[2020-03-15] MEDS: Metoprolol Tartrate 25 MG Tablet 12.5 MG PO ×2 (13:31→21:56)
[2020-03-15] MEDS: Acetaminophen 325 MG Tablet 650 MG PO ×2 (13:32→19:33)
[2020-03-15] MEDS: DULoxetine Hcl 60 MG Capsule PO (13:32)
[2020-03-15] MEDS: Enoxaparin 40 MG/0.4 ML Syringe SC (13:32)
[2020-03-15] MEDS: Levothyroxine 100 MCG Tablet 200 MCG PO (13:38)
[2020-03-15] MEDS: 0.9% Saline Lock 10 ML Syringe IV ×3 (13:39→21:56)
[2020-03-15] MEDS: Insulin Lispro 100 UNIT/ML INSULN.PEN SC ×3 (13:39→21:55)
[2020-03-15 13:41] LABS: Procalcitonin 0.09 ng/mL (0.00-0.09)
[2020-03-15 13:50] LABS: Bedside Glucose 213 mg/dL (70-110)
[2020-03-15 14:00] LABS: CRP < 2.90 mg/L (0.0-3.0); Ferritin 9 ng/mL (8-252); LDH 246 U/L (84-246)
[2020-03-15] MEDS: Thiamine Hydrochloride 100 MG Tablet PO (16:44)
[2020-03-15 16:51] LABS: Bedside Glucose 253 mg/dL (70-110)
[2020-03-15] MEDS: MELATONIN 10 MG TABLET 5 MG PO (21:56)
[2020-03-15] MEDS: Atorvastatin Calcium 40 MG Tablet PO (21:56)
[2020-03-15] MEDS: ALPRAZolam 0.5 MG Tablet PO (21:56)
[2020-03-15 22:06] LABS: Bedside Glucose 259 mg/dL (70-110)
[2020-03-16] VITALS (11 sets, daily range): BP systolic 144–153; BP diastolic 82–95; PULSE 79–101; RESP 16–22; TEMP 36.4–36.9; O2SAT 94–97
[2020-03-16 05:27] LABS: Absolute Lymphocyte Count 0.52 X10^3/uL (0.83-4.51); Absolute Neutrophil Count 6.7 X10^3/uL (2.0-7.7); Basophil# 0.01 X10^3/uL; Basophil% 0.1 % (0-1); Hematocrit 32.8 % (37-47); Lymphocyte # 0.52 X10^3/ul (4.0); Lymphocyte % 6.8 % (19-41); Mean Corp Hgb Conc 30.5 g/dL (32-36); Mean Corpuscular Hgb 25.8 pg (27.0-32.0); Mean Corpuscular Volume 84.8 fL (81-99); Mean Platelet Vol. 9.6 fl (6.2-12.0); Monocyte# 0.38 X10^3/uL; NRBC Flagged by Analyzer 0 % (0-5); Neutrophil # 6.71 X10^3/uL (2.7-7.7); Neutrophil % 87.4 % (47-70); POSITIVE DIFFERENTIAL YES; POSITIVE MORPHOLOGY YES; Platelet Count 303 K/mm3 (150-450); RBC Distribution Width CV 14.7 % (11.6-14.6); RBC Distribution Width SD 45.2 fl (35.1-43.9); Red Blood Count 3.87 M/mm3 (4.2-5.4); White Blood Count 7.7 K/mm3 (4.4-11.0)
[2020-03-16 05:32] LABS: Differential Indicated SCAN CRITERIA MET
[2020-03-16 05:44] LABS: ALB/GLOB Ratio 0.8 RATIO (0.9-2.4); AST(SGOT) 38 U/L (15-37); Alanine Aminotransfer ALT/SGPT 51 U/L (13-56); Albumin, Serum 3.6 g/dL (3.2-5.0); Alkaline Phosphatase 133 U/L (45-117); Anion Gap 6 (5-15); BUN 12 mg/dL (7-18); BUN/Creat Ratio 15.4 RATIO (10-20); Calcium,Total 9.4 mg/dL (8.5-10.1); Chloride 103 mmol/L (98-107); Creatinine, Serum 0.78 mg/dL (0.55-1.02); EST Glomerular Filtration Rate 79 mL/min (>60); Est Glom Filt Rate - Afr Amer 96 mL/min (>60); Estimated Creatinine Clearance 68.21 ml/min; Globulin 4.8 g/dL (2.2-4.2); Glucose 228 mg/dL (74-106); Potassium 4.1 mmol/L (3.5-5.1); Protein, Total 8.4 g/dL (6.4-8.2); Sodium Level 137 mmol/L (136-145)
[2020-03-16 05:57] LABS: Differential Comment SCANNED
[2020-03-16] MEDS: Levothyroxine 100 MCG Tablet 200 MCG PO (06:34)
[2020-03-16] MEDS: Insulin Lispro 100 UNIT/ML INSULN.PEN SC ×4 (06:34→21:46)
[2020-03-16] MEDS: 0.9% Saline Lock 10 ML Syringe IV ×3 (06:35→21:43)
[2020-03-16 06:46] LABS: Bedside Glucose 238 mg/dL (70-110)
--- NOTE | 2020-03-16 07:04 | PN_ITS ---
Patient Problems: Active and Suspected Problems (Last Updated 03/08/20 @ 08:20 by Maria De Jesus Desouza) Hypoxia (Acute) COPD exacerbation (Acute) Subjective: Patient with improved dyspnea overnight as well as lessen coughing, still with evidence of some shortness of breath with activity in the bed and shifting around for examination this a.m. Patient notes difficulty sleeping and that she barely went to sleep several hours prior to current evaluation. Again lengthy discussion regarding plan to continue to evaluation, steroid therapy, aerosols in addition to oxygenation testing for discharge. Patient is eager for set up with pulmonary medicine again and requesting follow-up with Dr. Anne. Patient denies fevers, chills, nausea, emesis, abdominal pain, chest pain. Objective: Physical Examination: General: awake, alert, oriented x 3 and cooperative, seated upright in the medical surgical bed in no apparent distress, more appropriate than day prior, still some dyspnea evident with movement and activity in the bed but significantly improved. Skin: normal color, turgor, no icterus, cyanosis. HEENT: AT/NC, EOMI, PERRLA, MMM. Lungs: Improved breath sounds, greater bases, still diminished, improved effort, no evidence of distress, occasional end expiratory wheeze, no current rales or rhonchi. Heart: Regular rate and rhythm; no gallop, rub audible, +SM. Abdomen: soft, obese, NTTP, ND, normal BS. Extremities: no cyanosis, clubbing, or edema. Neurological: patient awake, alert, oriented x 3; cognitive function intact; pupils equally reactive to light and accomodation; cranial nerves II-XII grossly normal, moving all 4 extremities, no focal deficits, strength improved, mildly to moderately globally decreased. Psychiatric: affect appears fatigued otherwise normal, no acute evidence of depressive or anxiety feelings. Vitals/I&O's: Vital Signs Temp Pulse Resp BP Pulse Ox 97.7 F L 79 18 151/82 H 96 03/16/20 02:00 03/16/20 02:00 03/16/20 02:00 03/16/20 02:00 03/16/20 02:00 Oxygen Flow Rate (L/min) 2 Oxygen Delivery Method CPAP Weight: 206 lb 12.697 oz Body Mass Index (BMI) 33.7 Intake and Output for Last 24 Hours 09/03/15/20 03/16/20 23:59 23:59 23:59 Intake Total 500 / 500 Balance 500 / 500 Microbiology Past 72 Hours 03/15/20 13:05 Mucosa - Nasopharyngeal Respiratory Panel (PCR) - Final Laboratory Results 03/15/20 06:40: Sodium 139, Potassium 4.0, Chloride 104, Carbon Dioxide 30.0, Anion Gap 5, BUN 12, Creatinine 0.68, Estim Creat Clear Calc 69.14, Est GFR (MDRD) Af Amer 111, Est GFR (MDRD) Non-Af 92, BUN/Creatinine Ratio 17.5, Glucose 179 H, Calcium 9.5, Troponin I < 0.015 03/15/20 06:40: B-Natriuretic Peptide 73.9 03/15/20 06:40: D-Dimer Quant (PE/DVT) 0.62 H* 03/15/20 06:40: Phosphorus 3.0, Magnesium 2.0, Ferritin 9, Lactate Dehydrogenase 246, C-React Prot Ext Range < 2.90 03/15/20 09:42: COVID-19 ([place]) Not Detected 03/15/20 12:36: Urine Opiates Screen NEGATIVE, Urine Methadone Screen NEGATIVE, Ur Barbiturates Screen NEGATIVE, Ur Phencyclidine Scrn NEGATIVE, Ur Amphetamines Screen NEGATIVE, U Methamphetamin-MDMA NEGATIVE, U Benzodiazepines Scrn NEGATIVE, Urine Cocaine Screen NEGATIVE, U Cannabinoids Screen POSITIVE H, Ur Drug Screen Comment 03/15/20 12:55: Ethyl Alcohol < 3.0 03/15/20 12:55: Procalcitonin 0.09 03/15/20 13:36: POC Glucose 213 H 03/15/20 16:42: POC Glucose 253 H 03/15/20 21:49: POC Glucose 259 H 03/16/20 05:05: WBC 7.7, RBC 3.87 L, Hgb 10.0 L, Hct 32.8 L, MCV 84.8, MCH 25.8 L, MCHC 30.5 L, RDW Std Deviation 45.2 H, RDW Coeff of Monet 14.7 H, Plt Count 303, MPV 9.6, Immature Gran % (Auto) 0.700, Neut % (Auto) 87.4 H, Lymph % (Auto) 6.8 L, [place] % (Auto) 5.0, Eos % (Auto) 0.0, Baso % (Auto) 0.1, Absolute Neuts (auto) 6.7, Absolute Lymphs (auto) 0.52 L, Nucleated RBC % 0, Differential Comment SCANNED 03/16/20 05:05: Sodium 137, Potassium 4.1, Chloride 103, Carbon Dioxide 28.0, Anion Gap 6, BUN 12, Creatinine 0.78, Estim Creat Clear Calc 68.21, Est GFR (MDRD) Af Amer 96, Est GFR (MDRD) Non-Af 79, BUN/Creatinine Ratio 15.4, Glucose 228 H, Calcium 9.4, Total Bilirubin 0.50, AST 38 H, ALT 51, Alkaline Phosphatase 133 H, Total Protein 8.4 H, Albumin 3.6, Globulin 4.8 H, Albumin/Globulin Ratio 0.8 L 03/16/20 06:33: POC Glucose 238 H Current Medications Acetaminophen (Tylenol) 650 mg PO Q6H PRN PRN PRN Reason: Pain Score 1-10/Temp > 100.7 F Last Admin: 03/15/20 19:33 Dose: 650 mg Documented by: Al Hydroxide/Mg Hydroxide (Mylanta Ii) 30 ml PO Q6H PRN PRN PRN Reason: Gastric Burning Albuterol Sulfate (Ventolin Aerosols) 2.5 mg INHALATION Q2H PRN PRN PRN Reason: Dyspnea, wheezing Albuterol/Ipratropium (Duoneb) 3 ml INHALATION Q4HWA.RT [facility] Last Admin: 03/15/20 18:37 Dose: 3 ml Documented by: Alprazolam (Xanax) 0.5 mg PO TID PRN PRN PRN Reason: ANXIETY Last Admin: 03/15/20 21:56 Dose: 0.5 mg Documented by: Aspirin (Aspirin, Baby) 81 mg PO DAILY@0800 [facility] Last Admin: 03/15/20 13:31 Dose: 81 mg Documented by: Atorvastatin Calcium (Lipitor) 40 mg PO QHS [facility] Last Admin: 03/15/20 21:56 Dose: 40 mg Documented by: Duloxetine HCl (Cymbalta) 60 mg PO DAILY [facility] Last Admin: 03/15/20 13:32 Dose: 60 mg Documented by: Enoxaparin Sodium (Lovenox) 40 mg SC DAILY [facility] Last Admin: 03/15/20 13:32 Dose: 40 mg Documented by: Folic Acid (Folic Acid) 1 mg PO DAILY@0800 [facility] Stop: 03/18/20 08:01 Guaifenesin (Robitussin) 20 ml PO Q4H PRN PRN PRN Reason: COUGH Sodium Chloride () 250 mls @ 15 mls/hr IV .[id number] PRN PRN Reason: Saline Flush Sodium Chloride () 250 mls @ 15 mls/hr IV .[id number] PRN PRN Reason: Additional IVPB Infusion Influenza Virus Vaccine Quadrival (Flucelvax /Fluzone ) 0.5 ml IM .ONCE ONE Stop: 03/16/20 10:01 Insulin Human Lispro (Humalog Liliya ([facility])) 0 unit [facility]; Protocol Last Admin: 03/16/20 06:34 Dose: 3 units Documented by: Levothyroxine Sodium (Synthroid) 200 mcg PO DAILY@0600 [facility] Last Admin: 03/16/20 06:34 Dose: 200 mcg Documented by: Lorazepam (Ativan) 2 mg PO Q2H PRN PRN; Protocol PRN Reason: CIWA score > 8 but <15 Lorazepam (Ativan) 2 mg PO UD PRN; Protocol PRN Reason: CIWA score >/=15. Lorazepam (Ativan) 2 mg IV Q2H PRN PRN; Protocol PRN Reason: CIWA score > 8 but <15 Lorazepam (Ativan) 2 mg IV UD PRN; Protocol PRN Reason: CIWA score >/=15. Losartan Potassium (Cozaar) 25 mg PO DAILY [facility] Last Admin: 03/15/20 13:31 Dose: 25 mg Documented by: Magnesium Hydroxide (Milk Of Magnesia) 30 ml PO DAILY PRN PRN PRN Reason: Constipation Melatonin (Melatonin) 5 mg PO QHS [facility] Last Admin: 03/15/20 21:56 Dose: 5 mg Documented by: Methylprednisolone (Solu-Medrol) 40 mg IV Q8 [facility] Last Admin: 03/16/20 06:34 Dose: 40 mg Documented by: Metoprolol Tartrate (Lopressor (Beta Nayely)) 12.5 mg PO BID [facility] Last Admin: 03/15/20 21:56 Dose: 12.5 mg Documented by: Multivitamins/Minerals (Multivitamin With Minerals (Bkc)) [facility] Ondansetron HCl (Zofran) 4 mg IV Q8H PRN PRN PRN Reason: NAUSEA/VOMITING Pantoprazole Sodium (Protonix) 40 mg PO DAILY [facility] Last Admin: 03/15/20 13:31 Dose: 40 mg Documented by: Prochlorperazine Edisylate (Compazine Iv) 5 mg IV Q4H PRN PRN PRN Reason: Breakthrough nausea/vomiting Psyllium Hydrophilic Mucilloid (Metamucil) 1 packet PO DAILY PRN PRN PRN Reason: Constipation Senna/Docusate Sodium (Senokot-S, Alexsandra-Colace) 2 tablet PO BID PRN PRN PRN Reason: Constipation Sodium Chloride () 10 - 40 ml IV UD PRN PRN Reason: SALINE FLUSH Last Admin: 03/16/20 06:35 Dose: 10 ml Documented by: Thiamine HCl (Vitamin B1) [facility] Stop: 03/18/20 08:01 Last Admin: 03/15/20 16:44 Dose: 100 mg Documented by: Throat Lozenges (Cepacol Sore Throat Lozenge) 1 lozenge MUCOUS MEM Q2H PRN PRN PRN Reason: SORE THROAT Medical Necessity - Tobacco Use Smoking Status: Former smoker - Patient quit cigarette tobacco usage approximately 5 years prior to current presentation with prior to this 2 pack/day since she was a kid. Tobacco Use: Non-smoker Assessment/Plan All Active Problems (Last Updated 03/08/20 @ 08:20 by Maria De Jesus Desouza) Hypoxia (Acute) Acute pyelonephritis (Acute) COPD exacerbation (Acute) Bacteremia (Acute) Severe sepsis (Acute) UTI (urinary tract infection) (Acute) Anemia (Acute) The patient is a 65 y/o F w/ PMHx: CAD s/p CABG x 1 ANDRES to LAD 2016, HTN, HLD, Chronic diastolic CHF, Chronic COPD with chronic hypoxic respiratory failure (2L NC), GERD, EtOH Abuse, GAGAN, Hx renal cell carcinoma, Hypothyroidism, Obesity, IBS, Chronic anemia, Anxiety and Depression, Diabetes mellitus type II, Valvular Heart Disease s/p prosthetic AVR, GAGAN on CPAP q HS who presents to the [facility] ED on 03/15/20 with history of dyspnea x 1 days worsening with any activity, mild cough with white sputum without fever, noted subjective chills, mild rhinorrhea, nausea without emesis, intermittent mild generalized throbbing 1-2 out of 10 in severity headache with wheezing. 1. Acute on chronic COPD exacerbation with recent contributing history of self discontinuation of her oxygen supplementation following most recent AVR: Patient ready to medical surgical floor, maintain on oxygen with wean as tolerated to room air with planned oxygenation assessment for discharge planning likely 03/17/2020, continue ATC duonebs, PRN albuterol, IV methylprednisolone, HOB, IS parameters, defer antibiotic therapy as afebrile with no WBC elevation or left shift, negative COVID testing, negative respiratory viral panel, requested sputum culture but unable to elicit. Given improvement, likely discharge to home 03/17/20 if continues, obtaining oxygenation assessment for planning. 2. Valvular heart disease: Status post bioprosthetic AVR in 2011 at [facility], repeat 06/2019 at [facility], recent 03/02/2020 echocardiogram with normal LV systolic function, EF 70%, mildly enlarged LA, mild to moderate MVI, trivial TBI, aortic valve apparatus not well visualized however there does not appear any evidence of hemodynamic findings suggestive of significant prosthetic AV stenosis, evidence diastolic dysfunction. 3. EtOH Abuse: Patient notes routine consumption of 4-5 mixed drinks versus beer per day. Will maintain on CIWA protocol, MVI, thiamine and folic acid. Phi walls encouraged sobriety and offered alcohol substance abuse program. Case management consulted. Normal magnesium and phosphorus levels. 4. CAD: Status post CABG x1 ANDRES to LAD, continue home aspirin, statin, metoprolol, losartan regimen. 5. Hypertension: Continue home regimen including losartan, metoprolol with hold parameters, PRN hydralazine. 6. Hyperlipidemia: Continue home statin regimen. 7. Anxiety and depression: We will continue patient home duloxetine and Xanax regimen. 8. Chronic diastolic CHF: Recent echocardiogram as noted above, continue aspirin, statin, losartan, metoprolol regimen. Not on any diuretics regimen. 9. History of renal cell carcinoma: Status post partial resection bilateral kidneys, remission, encourage continued oncology outpatient follow-up as needed. 10. Diabetes mellitus type II: Hold oral home regimen, initiate clears and if no persistent nausea transition to ADA diet, accu checks w/ ISS. 11. Hypothyroidism: Status post thyroidectomy, continue home synthroid regimen. 12. Obesity: Weight loss and lifestyle changes encouraged. 13. Former tobacco use: Encourage continued tobacco cessation. 14. GERD: We will continue patient home Protonix regimen. 15. Chronic normocytic anemia: Admission hemoglobin 10.3, baseline appears 10- 11, most recently 02/13/2020 hemoglobin 10.5, 03/16/20 Hgb 10, stable. 16. GAGAN: We will continue home CPAP nightly. 17. DVT prophylaxis: SCDs, Lovenox. 18. CODE status: Full Code. Inpatient E&M: 52237 Subs Hosp L2
[2020-03-16] MEDS: Ipratropium/Albuterol Sulfate 3 ML AMPUL.NEB INHALATION ×4 (07:07→19:35)
[2020-03-16] MEDS: Aspirin 81 MG TAB.CHEW PO (10:25)
[2020-03-16] MEDS: Pantoprazole Sodium 40 MG Tablet PO (10:25)
[2020-03-16] MEDS: Folic Acid 1 MG Tablet PO (10:26)
[2020-03-16] MEDS: Multivitamins,Ther W-Minerals Tablet 1 TABLET PO (10:26)
[2020-03-16] MEDS: Metoprolol Tartrate 25 MG Tablet 12.5 MG PO ×2 (10:26→21:42)
[2020-03-16] MEDS: DULoxetine Hcl 60 MG Capsule PO (10:26)
[2020-03-16] MEDS: Losartan Potassium 25 MG Tablet PO (10:26)
[2020-03-16] MEDS: Thiamine Hydrochloride 100 MG Tablet PO ×2 (10:26→17:06)
[2020-03-16] MEDS: Enoxaparin 40 MG/0.4 ML Syringe SC (10:27)
[2020-03-16 11:55] LABS: Bedside Glucose 265 mg/dL (70-110)
[2020-03-16] MEDS: Acetaminophen 325 MG Tablet 650 MG PO ×2 (12:22→21:38)
--- NOTE | 2020-03-16 13:40 | CASEMGMT ---
RN ZOHRA Face to Face with patient for initial transition planning/care coordination assessment. RN CM introduced self and role at [facility]. Patient sitting in chair, alert and oriented. Patient willing to participate in assessment and is able to answer all questions appropriately. Care providers, pharmacy, and demographics verified. Patient wishes to discharge home, denies need for home health at this time. Patient states she has no further needs or concerns at this time. CM to follow for discharge planning needs that may arise. PCP: Carole Crawford CHECK SERVICES CLERK Specialists: Farheen water aerobics instructor Preferred Pharmacy: [facility] Insurance: [employer] Prescription Benefit: yes Living Will/HPOA: yes, Win Lind LNOK: Living Arrangements: Patient lives with in a 2 story home. Patient is independent at home and able to ambulate stairs, but it has been getting more difficult. Transportation: self/ DME/HHC: Patient shower chair, cane, walker, Cpap at home. Patient does not have oxygen at this time. If she would need oxygen she would prefer [employer] for DME. Disposition Plan: Patient to discharge home with family support and follow-up plans in place. Frances BELLO, RN, CM
--- NOTE | 2020-03-16 14:06 | CASEMGMT ---
Pt does have a living will and health care POA in counts include 234 beds at the [facility]. SW spoke with pt and confirmed documents are still current and pt names her Win Lind as HCPOA. Forms printed and placed on chart. BRETT Hall
--- NOTE | 2020-03-16 14:08 | CASEMGMT ---
Social Work SW completed palliative care screening tool with pt score of 5. SW met with pt and introduced self and role of SW. SW spoke with pt about the palliative medicine program. Pt stating that a nurse from her insurance calls her monthly to check in and that she does not feel she needs palliative medicine at this time. SW provided written information and pt was accepting of this. SW spoke with pt regarding alcohol use. Pt admits to having several drinks in the evening and states this is to help with pain management. Pt states over the counter medications do not help pain and she has been to the pain clinic and it was ineffective as well. Pt states that the alcohol is effective in dulling the pain. Pt states she can quite anytime she wishes and does not feel it is an addiction. Pt also stating she does not want to take prescription pain medications as what would be the difference if I used drugs or alcohol. SW attempted to educate pt on health risk associated with alcohol. Pt accepting of written information on alcohol recovery programs. Pt denies need for SW to make appointment with 180 for pt. JAS did speak with RN and request education on health risks of alcohol use be provided to pt. Pt with no further concerns at this time. BRETT Hall
[2020-03-16] MEDS: tiZANidine HCl 2 MG Tablet PO (15:49)
[2020-03-16 17:10] LABS: Bedside Glucose 287 mg/dL (70-110)
[2020-03-16] MEDS: ALPRAZolam 0.5 MG Tablet PO (20:50)
[2020-03-16 21:41] LABS: Bedside Glucose 281 mg/dL (70-110)
[2020-03-16] MEDS: MELATONIN 10 MG TABLET 5 MG PO (21:41)
[2020-03-16] MEDS: Atorvastatin Calcium 40 MG Tablet PO (21:41)
[2020-03-17 03:43] VITALS: BP 135/77; PULSE 73; RESP 18; TEMP 36.7; O2SAT 95
[2020-03-17] MEDS: Levothyroxine 100 MCG Tablet 200 MCG PO (05:15)
[2020-03-17] MEDS: 0.9% Saline Lock 10 ML Syringe IV (05:16)
[2020-03-17] MEDS: Insulin Lispro 100 UNIT/ML INSULN.PEN SC (06:28)
[2020-03-17 06:36] LABS: Bedside Glucose 260 mg/dL (70-110)
[2020-03-17 06:38] LABS: Absolute Lymphocyte Count 0.65 X10^3/uL (0.83-4.51); Absolute Neutrophil Count 8.9 X10^3/uL (2.0-7.7); Basophil# 0.02 X10^3/uL; Basophil% 0.2 % (0-1); Hemoglobin 10.2 g/dL (12.0-15.0); Lymphocyte # 0.65 X10^3/ul (4.0); Lymphocyte % 6.4 % (19-41); Mean Corp Hgb Conc 29.1 g/dL (32-36); Mean Corpuscular Hgb 25.2 pg (27.0-32.0); Mean Corpuscular Volume 86.4 fL (81-99); Mean Platelet Vol. 10.3 fl (6.2-12.0); Monocyte# 0.52 X10^3/uL; Monocyte% 5.1 % (0-10); NRBC Flagged by Analyzer 0 % (0-5); Neutrophil # 8.89 X10^3/uL (2.7-7.7); Neutrophil % 87.8 % (47-70); Platelet Count 346 K/mm3 (150-450); RBC Distribution Width CV 14.8 % (11.6-14.6); RBC Distribution Width SD 46.8 fl (35.1-43.9); Red Blood Count 4.05 M/mm3 (4.2-5.4); White Blood Count 10.1 K/mm3 (4.4-11.0)
[2020-03-17 07:03] LABS: ALB/GLOB Ratio 0.8 RATIO (0.9-2.4); AST(SGOT) 36 U/L (15-37); Alanine Aminotransfer ALT/SGPT 46 U/L (13-56); Albumin, Serum 3.6 g/dL (3.2-5.0); Alkaline Phosphatase 127 U/L (45-117); Anion Gap 5 (5-15); BUN 21 mg/dL (7-18); BUN/Creat Ratio 25.7 RATIO (10-20); Calcium,Total 9.1 mg/dL (8.5-10.1); Chloride 103 mmol/L (98-107); Creatinine, Serum 0.82 mg/dL (0.55-1.02); EST Glomerular Filtration Rate 75 mL/min (>60); Est Glom Filt Rate - Afr Amer 91 mL/min (>60); Estimated Creatinine Clearance 64.88 ml/min; Globulin 4.6 g/dL (2.2-4.2); Glucose 250 mg/dL (74-106); Potassium 4.2 mmol/L (3.5-5.1); Protein, Total 8.2 g/dL (6.4-8.2); Sodium Level 136 mmol/L (136-145)
[2020-03-17 07:08] VITALS: PULSE 74; RESP 16; O2SAT 90
[2020-03-17] MEDS: Ipratropium/Albuterol Sulfate 3 ML AMPUL.NEB INHALATION (07:08)
[2020-03-17 07:53] VITALS: BP 148/73; PULSE 83; RESP 18; TEMP 36.7; O2SAT 97
[2020-03-17 07:55] VITALS: PULSE 83
[2020-03-17] MEDS: Thiamine Hydrochloride 100 MG Tablet PO (07:55)
[2020-03-17] MEDS: DULoxetine Hcl 60 MG Capsule PO (07:55)
[2020-03-17] MEDS: Metoprolol Tartrate 25 MG Tablet 12.5 MG PO (07:55)
[2020-03-17] MEDS: Enoxaparin 40 MG/0.4 ML Syringe SC (07:55)
[2020-03-17] MEDS: Losartan Potassium 25 MG Tablet PO (07:56)
[2020-03-17] MEDS: Multivitamins,Ther W-Minerals Tablet 1 TABLET PO (07:56)
[2020-03-17] MEDS: Folic Acid 1 MG Tablet PO (07:57)
[2020-03-17] MEDS: Aspirin 81 MG TAB.CHEW PO (07:57)
[2020-03-17] MEDS: Pantoprazole Sodium 40 MG Tablet PO (07:57)
--- NOTE | 2020-03-17 09:32 | PCM.DC ---
- Discharge Diagnoses Current Active Problems: Current Active and Chronic Problems (Last Updated 03/08/20 @ 08:20 by Maria De Jesus Desouza) 1. Acute on chronic COPD exacerbation with contributing history of self discontinuation of her oxygen supplementation following most recent AVR 2. Valvular heart disease, status post bioprosthetic AVR remotely at [facility], repeat 06/2019 at [facility] 3. EtOH Abuse 4. CAD 5. Hypertension 6. Hyperlipidemia 7. Anxiety and depression 8. Chronic diastolic CHF 9. History of renal cell carcinoma 10. Diabetes mellitus type II 11. Hypothyroidism 12. Obesity 13. Former tobacco use 14. GERD 15. Chronic normocytic anemia 16. GAGAN You will use the following diet at home:: Calorie/Carbohydrate Controlled (specify 1200, 1400, etc) - Please continue ADA 1800/cardiac diet. Your food should be the consistency of: Regular Your liquids should be the consistency of: Regular/Thin Discharge Activity: - - Continue mild to moderate activity until completion steroid taper or cleared per Dr. Anne. Avoid triggers. May resume sexual activity in: 10-14 days Weight Bearing Status: Weight bearing as tolerated Call your doctor if you observe: Fever of 101 or Higher, Inability to urinate, Inability to have a bowel movement, Shortness of breath, Dizziness, Fainting spells, Chest pain, Uncontrolled pain Instructions: What Is COPD?, Care for COPD, Treatments for COPD, ED Alcohol Abuse, Addiction: Your Treatment Options, Diabetes and Heart Disease, Long-Term Complications of Diabetes, Hyperglycemia (High Blood Sugar), Hypoglycemia (Low Blood Sugar), Resources for People with Diabetes, What Is Type 2 Diabetes?, How to Check Your Blood Sugar, Oral Therapy for Type 2 Diabetes, Healthy Meals for Diabetes, Diabetes: Understanding Carbohydrates Additional Instructions: COPD exacerbation: Please follow-up with Dr. Anne. His office will call you thursday to arrange an appointment for thursday. Please complete the steroid taper and continue the aerosols until his evaluation and alterations at that time per his discretion. Encourage continued tobacco cessation. Diabetes mellitus type II: During the admission your blood sugars were elevated. We have increased as discharge your metformin to twice daily but this medication may need further elevation depending on your blood sugar trending. Have follow-up HgbA1c with your primary care physician. Please continue an ADA 1800 diet/cardiac diet. Alcohol abuse: We strongly encourage alcohol safe cessation/sobriety. Please utilize the resources offered during admission. Please continue the vitamin and supplements given you abuse history. Allergies/Adverse Reactions: Allergies ibuprofen Allergy (Verified 03/15/20 06:31) Hives amlodipine [From [facility]] Adverse Reaction (Intermediate, Verified 03/15/20 06:31) swelling of ankles adhesive tape Adverse Reaction (Unknown, Verified 03/15/20 06:31) BLISTERS Medications to take at Discharge ALPRAZolam [Xanax] 0.5 mg PO TID PRN PRN 06/19/14 Calcium Citrate/Vitamin D3 [ Calcium Citrate-Vit D3 Tab] 1 tab PO DAILY 06/19/14 Pantoprazole Sodium [Protonix] 40 mg PO DAILY 06/19/14 Mv-Mn/Folic AC/Calcium/Vit K1 [Women's 50 Plus Daily Formula] 1 ea PO DAILY 09/07/17 Levothyroxine Sodium [Synthroid] 200 mcg PO DAILY 05/11/19 Melatonin 5 mg PO QHS 05/11/19 metoprolol tartrate 25 mg tablet 12.5 mg PO BID #90 tab 07/18/19 atorvastatin 40 mg tablet 40 mg PO QHS #90 tab 10/21/19 losartan 25 mg tablet 25 mg PO DAILY #90 tab 01/30/20 Aspirin 81 mg PO DAILY 03/15/20 Duloxetine HCl 60 mg PO DAILY 03/15/20 Albuterol Aerosols [Ventolin Aerosols] 2.5 mg INHALATION Q2H PRN PRN #1 box 03/17/20 Folic Acid 1 mg PO DAILY@0800 #30 tab 03/17/20 Ipratropium/Albuterol Sulfate [Duoneb] 3 ml INHALATION Q4HWA.RT 14 Days #1 box 03/17/20 Metformin HCl [Glucophage] 500 mg PO BID #60 tab 03/17/20 Prednisone 10 mg PO UD 12 Days #30 tab 03/17/20 Thiamine Hydrochloride [Vitamin B1] 100 mg PO BIDCM #10 tab 03/17/20 The following prescriptions were given: Ipratropium/Albuterol Sulfate [Duoneb] 3 ml INHALATION Q4HWA.RT 14 Days #1 box Transmission Status: Pending to [id number] Folic Acid 1 mg PO DAILY@0800 #30 tab Transmission Status: Pending to [id number] Metformin HCl [Glucophage] 500 mg PO BID #60 tab Transmission Status: Pending to [id number] Prednisone 10 mg PO UD 12 Days #30 tab Prescription Printed Albuterol Aerosols [Ventolin Aerosols] 2.5 mg INHALATION Q2H PRN PRN #1 box PRN Reason: Dyspnea, wheezing Transmission Status: Pending to [id number] Thiamine Hydrochloride [Vitamin B1] 100 mg PO BIDCM #10 tab Transmission Status: Pending [id number] Primary Care Physician: Carole Crawford CORPORATE ATTORNEY, CORPORATE ATTORNEY-C [Primary Care Provider] - Please follow up with your Primary Care Physician in: Follow-up within 3-5 days to review admission. Test Results: Test results from this visit will be discussed in further detail at your follow-up appointment, if applicable. Please Follow Up With: Rafi Anne DO When: Pulmonary office will call you Thursday to arrange visit Thursday AM. Proposed Discharge Date: 03/17/20
--- NOTE | 2020-03-17 09:41 | DS.PCM_ITS ---
Discharge Date and Diagnosis - Problem List Patient Problems: Active and Suspected Problems (Last Updated 03/08/20 @ 08:20 by Maria De Jesus Desouza) Hypoxia (Acute) COPD exacerbation (Acute) Date of Admission: 03/15/20 Date of Discharge: 03/17/20 - Primary Discharge Diagnosis Acute Problems: Active Problems (Last Updated 03/08/20 @ 08:20 by Maria De Jesus Desouza) 1. Acute on chronic COPD exacerbation with contributing history of self discontinuation of her oxygen supplementation following most recent AVR 2. Valvular heart disease, status post bioprosthetic AVR remotely at [facility], repeat 06/2019 at [facility] 3. EtOH Abuse 4. CAD 5. Hypertension 6. Hyperlipidemia 7. Anxiety and depression 8. Chronic diastolic CHF 9. History of renal cell carcinoma 10. Diabetes mellitus type II 11. Hypothyroidism 12. Obesity 13. Former tobacco use 14. GERD 15. Chronic normocytic anemia 16. GAGAN - Secondary Discharge Diagnosis Chronic Problems: Chronic Problems (Last Updated 03/08/20 @ 08:20 by Maria De Jesus Desouza) History of aortic valve replacement with bioprosthetic valve (Chronic ~07/11/19) AVR #21 [facility] [employer] Trifecta Bioprosthetic Pericardial Prosthesis 06/05/2016 @ [facility]; AVR #23 Inspiris Tissue Valve @ [facility] 07/11/19 CAD (coronary artery disease) (Chronic) COPD (chronic obstructive pulmonary disease) (Chronic) Chronic respiratory failure (Chronic) Aortocoronary bypass status (Chronic ~06/05/16) CABG x1 ANDRES to LAD 06/05/16; Chronic diastolic heart failure (Chronic) Pulmonary hypertension, secondary (Chronic) Cardiomegaly (Chronic) Nonrheumatic aortic (valve) stenosis (Chronic) Atherosclerotic heart disease of [place] coronary artery without angina pectoris (Chronic) CABG x1 ANDRES to LAD 06/05/16; History of non-ST elevation myocardial infarction (NSTEMI) (Chronic) Angina pectoris (Chronic) Hypertension, benign (Chronic) Hospital Course and Treatment Operations: None Procedures: EKG Summary of Care Provided: The patient is a 65 y/o F w/ PMHx: CAD s/p CABG x 1 ANDRES to LAD 2015, HTN, HLD, Chronic diastolic CHF, Chronic COPD with chronic hypoxic respiratory failure (2L NC), GERD, EtOH Abuse, GAGAN, Hx renal cell carcinoma, Hypothyroidism, Obesity, IBS, Chronic anemia, Anxiety and Depression, Diabetes mellitus type II, Valvular Heart Disease s/p prosthetic AVR, GGAAN on CPAP q HS who presented to the [facility] ED on 03/15/20 with history of dyspnea x 1 days worsening with any activity, mild cough with white sputum without fever, noted subjective chills, mild rhinorrhea, nausea without emesis, intermittent mild generalized throbbing 1-2 out of 10 in severity headache with wheezing. Patient admitted to the medical surgical floor, maintained on oxygen with wean as tolerated to room air successfully with oxygenation assessment for discharge performed and no need confirmed with notable improvement, continued ATC duonebs, PRN albuterol, IV methylprednisolone with oral prednisone taper transition at discharge, HOB, IS parameters, deferred antibiotic therapy as afebrile with no WBC elevation or left shift, negative COVID testing, negative respiratory viral panel, requested sputum culture but unable to elicit. Patient noteed routine consumption of 4-5 mixed drinks versus beer per day, maintained on CIWA protocol, MVI, thiamine and folic acid, mag and phose assessed. Strongly encouraged sobriety and offered alcohol substance abuse program. Case management consulted and information given. Increased patient oral diabetic regimen upon discharge with strong encouragement to continue ADA/cardiac diet with HgBA1c with PCP and close follow-up. Given patient clinical improvement patient discharged to home with plan to follow-up with primary care physician within 3 to 5 days in addition to plan follow-up with pulmonary medicine, Dr. Anne on the upcoming Thursday per discussion with him. Patient discharged with a aerosol prescription with confirmation that she had nebulizer at home in addition to steroid taper. DAY OF DISCHARGE PROGRESS NOTE: Subjective: Patient without acute event overnight per self and nursing report. Patient breathing well, no recurrent issues, no coughing, ambulating in room without difficulty. Oxygenation assessment performed with no need for oxygen therapy. Notes it is the best she has felt in quite a long time from a pulmonary standpoint. Patient remains amenable to close follow-up with pulmonary medicine. Patient denies fever, chills, nausea, emesis, abdominal pain, chest pain. Patient agreeable to discharge to home. Patient will be discharged with follow-up with primary care physician within 3-5 days in addition to follow-up with pulmonary medicine on Thursday. Noted that pulmonary office would contact her on Thursday with the visit time. Objective: T 98.1, heart rate 83, BP 1 40-73, respiratory rate 18, 97% on room air. Physical Examination: General: awake, alert, oriented x 3 and cooperative, seated upright in the medical surgical bedside chair, NAD, comfortable. Skin: normal color, turgor, no icterus, cyanosis. HEENT: AT/NC, EOMI, PERRLA, MMM. Lungs: Improved breath sounds, improved effort, less diminished, no evidence no further wheezing, no rales or rhonchi. Heart: Regular rate and rhythm; no gallop, rub audible, +SM. Abdomen: soft, obese, NTTP, ND, normal BS. Extremities: no cyanosis, clubbing, or edema. Neurological: patient awake, alert, oriented x 3; cognitive function intact; pupils equally reactive to light and accomodation; cranial nerves II-XII grossly normal, moving all 4 extremities, no focal deficits, strength improved, mildly globally decreased. Psychiatric: affect appears improved, normal, no acute evidence of depressive or anxiety feelings. Assessment and Plan: Please see hospital summary above. Patient Problems: Active and Suspected Problems (Last Updated 03/08/20 @ 08:20 by Maria De Jesus Desouza) Hypoxia (Acute) COPD exacerbation (Acute) - Physical Exam Vitals/I&O's: Vital Signs Temp Pulse Resp BP Pulse Ox 98.1 F 83 18 148/73 H 97 03/17/20 07:53 03/17/20 07:55 03/17/20 07:53 03/17/20 07:53 03/17/20 07:53 Oxygen Flow Rate (L/min) 2 Oxygen Delivery Method Room Air Weight: 206 lb 2.115 oz Body Mass Index (BMI) 33.7 Intake and Output for Last 24 Hours 03/15/20 03/16/20 03/17/20 23:59 23:59 23:59 Intake Total 500 / 500 1800 / 1800 250 / 250 Balance 500 / 500 1800 / 1800 250 / 250 Microbiology Past 72 Hours 03/15/20 13:05 Mucosa - Nasopharyngeal Respiratory Panel (PCR) - Final Laboratory Results 03/16/20 11:44: POC Glucose 265 H 03/16/20 17:04: POC Glucose 287 H 03/16/20 21:37: POC Glucose 281 H 03/17/20 05:23: WBC 10.1, RBC 4.05 L, Hgb 10.2 L, Hct 35.0 L, MCV 86.4, MCH 25.2 L, MCHC 29.1 L, RDW Std Deviation 46.8 H, RDW Coeff of Monet 14.8 H, Plt Count 346, MPV 10.3, Immature Gran % (Auto) 0.500, Neut % (Auto) 87.8 H, Lymph % (Auto) 6.4 L, Hand % (Auto) 5.1, Eos % (Auto) 0.0, Baso % (Auto) 0.2, Absolute Neuts (auto) 8.9 H, Absolute Lymphs (auto) 0.65 L, Nucleated RBC % 0 03/17/20 05:23: Sodium 136, Potassium 4.2, Chloride 103, Carbon Dioxide 28.0, Anion Gap 5, BUN 21 H, Creatinine 0.82, Estim Creat Clear Calc 64.88, Est GFR (MDRD) Af Amer 91, Est GFR (MDRD) Non-Af 75, BUN/Creatinine Ratio 25.7 H, Glucose 250 H, Calcium 9.1, Total Bilirubin 0.40, AST 36, ALT 46, Alkaline Phosphatase 127 H, Total Protein 8.2, Albumin 3.6, Globulin 4.6 H, Albumin/Globulin Ratio 0.8 L 03/17/20 06:27: POC Glucose 260 H Current Medications Acetaminophen (Tylenol) 650 mg PO Q6H PRN PRN PRN Reason: Pain Score 1-10/Temp > 100.7 F Last Admin: 03/16/20 21:38 Dose: 650 mg Documented by: Al Hydroxide/Mg Hydroxide (Mylanta Ii) 30 ml PO Q6H PRN PRN PRN Reason: Gastric Burning Albuterol Sulfate (Ventolin Aerosols) 2.5 mg INHALATION Q2H PRN PRN PRN Reason: Dyspnea, wheezing Albuterol/Ipratropium (Duoneb) 3 ml INHALATION Q4HWA.RT REPLACED BY [facility] Last Admin: 03/17/20 07:08 Dose: 3 ml Documented by: Alprazolam (Xanax) 0.5 mg PO TID PRN PRN PRN Reason: ANXIETY Last Admin: 03/16/20 20:50 Dose: 0.5 mg Documented by: Aspirin (Aspirin, Baby) 81 mg PO DAILY@0800 REPLACED BY [facility] Last Admin: 03/17/20 07:57 Dose: 81 mg Documented by: Atorvastatin Calcium (Lipitor) 40 mg PO QHS REPLACED BY [facility] Last Admin: 03/16/20 21:41 Dose: 40 mg Documented by: Duloxetine HCl (Cymbalta) 60 mg PO DAILY REPLACED BY [facility] Last Admin: 03/17/20 07:55 Dose: 60 mg Documented by: Enoxaparin Sodium (Lovenox) 40 mg SC DAILY REPLACED BY [facility] Last Admin: 03/17/20 07:55 Dose: 40 mg Documented by: Folic Acid (Folic Acid) 1 mg PO DAILY@0800 REPLACED BY [facility] Stop: 03/18/20 08:01 Last Admin: 03/17/20 07:57 Dose: 1 mg Documented by: Guaifenesin (Robitussin) 20 ml PO Q4H PRN PRN PRN Reason: COUGH Sodium Chloride () 250 mls @ 15 mls/hr IV .[id number] PRN PRN Reason: Saline Flush Sodium Chloride () 250 mls @ 15 mls/hr IV .[id number] PRN PRN Reason: Additional IVPB Infusion Insulin Human Lispro (Humalog Kwikpen (Bkc)) [facility]; Protocol Last Admin: 03/17/20 06:28 Dose: 3 units Documented by: Levothyroxine Sodium (Synthroid) 200 mcg PO DAILY@0600 REPLACED BY [facility] Last Admin: 03/17/20 05:15 Dose: 200 mcg Documented by: Lorazepam (Ativan) 2 mg PO Q2H PRN PRN; Protocol PRN Reason: CIWA score > 8 but <15 Lorazepam (Ativan) 2 mg PO UD PRN; Protocol PRN Reason: CIWA score >/=15. Lorazepam (Ativan) 2 mg IV Q2H PRN PRN; Protocol PRN Reason: CIWA score > 8 but <15 Lorazepam (Ativan) 2 mg IV UD PRN; Protocol PRN Reason: CIWA score >/=15. Losartan Potassium (Cozaar) 25 mg PO DAILY REPLACED BY [facility] Last Admin: 03/17/20 07:56 Dose: 25 mg Documented by: Magnesium Hydroxide (Milk Of Magnesia) 30 ml PO DAILY PRN PRN PRN Reason: Constipation Melatonin (Melatonin) 5 mg PO QHS REPLACED BY [facility] Last Admin: 03/16/20 21:41 Dose: 5 mg Documented by: Methylprednisolone (Solu-Medrol) 40 mg IV Q8 REPLACED BY [facility] Last Admin: 03/17/20 05:15 Dose: 40 mg Documented by: Metoprolol Tartrate (Lopressor (Beta Nayely)) 12.5 mg PO BID REPLACED BY [facility] Last Admin: 03/17/20 07:55 Dose: 12.5 mg Documented by: Multivitamins/Minerals (Multivitamin With Minerals (Bkc)) [facility] Last Admin: 03/17/20 07:56 Dose: 1 tablet Documented by: Ondansetron HCl (Zofran) 4 mg IV Q8H PRN PRN PRN Reason: NAUSEA/VOMITING Pantoprazole Sodium (Protonix) 40 mg PO DAILY REPLACED BY [facility] Last Admin: 03/17/20 07:57 Dose: 40 mg Documented by: Prochlorperazine Edisylate (Compazine Iv) 5 mg IV Q4H PRN PRN PRN Reason: Breakthrough nausea/vomiting Psyllium Hydrophilic Mucilloid (Metamucil) 1 packet PO DAILY PRN PRN PRN Reason: Constipation Senna/Docusate Sodium (Senokot-S, Alexsandra-Colace) 2 tablet PO BID PRN PRN PRN Reason: Constipation Sodium Chloride () 10 - 40 ml IV UD PRN PRN Reason: SALINE FLUSH Last Admin: 03/17/20 05:16 Dose: 20 ml Documented by: Thiamine HCl (Vitamin B1) [facility] Stop: 03/18/20 08:01 Last Admin: 03/17/20 07:55 Dose: 100 mg Documented by: Throat Lozenges (Cepacol Sore Throat Lozenge) 1 lozenge MUCOUS MEM Q2H PRN PRN PRN Reason: SORE THROAT Discharge Activity: - - Continue mild to moderate activity until completion steroid taper or cleared per Dr. Anne. Avoid triggers. May resume sexual activity in: 10-14 days Weight Bearing Status: Weight bearing as tolerated Call your doctor if you observe: Fever of 101 or Higher, Inability to urinate, Inability to have a bowel movement, Shortness of breath, Dizziness, Fainting spells, Chest pain, Uncontrolled pain Home Medications: Medications to take at Discharge ALPRAZolam [Xanax] 0.5 mg PO TID PRN PRN 06/19/14 Calcium Citrate/Vitamin D3 [Hm Calcium Citrate-Vit D3 Tab] 1 tab PO DAILY 06/19/14 Pantoprazole Sodium [Protonix] 40 mg PO DAILY 06/19/14 Mv-Mn/Folic AC/Calcium/Vit K1 [Women's 50 Plus Daily Formula] 1 ea PO DAILY 09/07/17 Levothyroxine Sodium [Synthroid] 200 mcg PO DAILY 05/11/19 Melatonin 5 mg PO QHS 05/11/19 metoprolol tartrate 25 mg tablet 12.5 mg PO BID #90 tab 07/18/19 atorvastatin 40 mg tablet 40 mg PO QHS #90 tab 10/21/19 losartan 25 mg tablet 25 mg PO DAILY #90 tab 01/30/20 Aspirin 81 mg PO DAILY 03/15/20 Duloxetine HCl 60 mg PO DAILY 03/15/20 Albuterol Aerosols [Ventolin Aerosols] 2.5 mg INHALATION Q2H PRN PRN #1 box 03/17/20 Folic Acid 1 mg PO DAILY@0800 #30 tab 03/17/20 Ipratropium/Albuterol Sulfate [Duoneb] 3 ml INHALATION Q4HWA.RT 14 Days #1 box 03/17/20 Metformin HCl [Glucophage] 500 mg PO BID #60 tab 03/17/20 Prednisone 10 mg PO UD 12 Days #30 tab 03/17/20 Thiamine Hydrochloride [Vitamin B1] 100 mg PO BIDCM #10 tab 03/17/20 Following Prescriptions Were Given to Patient: Ipratropium/Albuterol Sulfate [Duoneb] 3 ml INHALATION Q4HWA.RT 14 Days #1 box Transmission Status: Pending to [id number] Folic Acid 1 mg PO DAILY@0800 #30 tab Transmission Status: Pending to [id number] Metformin HCl [Glucophage] 500 mg PO BID #60 tab Transmission Status: Pending to [id number] Prednisone 10 mg PO UD 12 Days #30 tab Prescription Printed Albuterol Aerosols [Ventolin Aerosols] 2.5 mg INHALATION Q2H PRN PRN #1 box PRN Reason: Dyspnea, wheezing Transmission Status: Pending to [id number] Thiamine Hydrochloride [Vitamin B1] 100 mg PO BIDCM #10 tab Transmission Status: P[id number] Primary Care Physician: Carole Crawford DISPOSAL WORKER, DISPOSAL WORKER-C [Primary Care Provider] - Please follow up with your Primary Care Physician in: Follow-up within 3-5 days to review admission. Please Follow Up With: Rafi Anne DO When: Pulmonary office will call you Thursday to arrange visit Thursday AM. Patient Instructions: Diabetes and Heart Disease, Long-Term Complications of Diabetes, Hyperglycemia (High Blood Sugar), Hypoglycemia (Low Blood Sugar), Resources for People with Diabetes, What Is Type 2 Diabetes?, How to Check Your Blood Sugar, Oral Therapy for Type 2 Diabetes, Healthy Meals for Diabetes, Diabetes: Understanding Carbohydrates, What Is COPD?, Addiction: Your Treatment Options, Care for COPD, Treatments for COPD, ED Alcohol Abuse Disposition: Home Minutes spent on discharge:: 35 Patient Condition:: Fair Medical Necessity - Tobacco Use Smoking Status: Former smoker - Patient quit cigarette tobacco usage approximately 5 years prior to current presentation with prior to this 2 pack/day since she was a kid. Tobacco Use: Non-smoker Meaningful Use Info Meaningful Use Diagnoses (Choose all that apply): None applicable Inpatient E&M: 21295 [facility]
--- NOTE | 2020-03-19 13:43 | CASEMGMT ---
[facility] DC PHONE CALL DC DATE: 03/17/2020 DC Disposition: Home Diagnosis on Discharge: COPD LACE/STRATA: 03/24 Call to phone- message had name identifier; message left with call back information if patient has questions re: dc instructions, medications or follow up. Tan DOSSN RN ACM
== END 2020-03-17 11:03 | disposition home or self-care (01) | DRG 191 ==
LOC: ED 09:39 → MS3 09:47
PROVIDERS: Student in an Organized Health Care Education/Training Program; Admitting Provider Family Medicine; Emergency Provider Emergency Medicine; PCP Nurse Practitioner Family; Visit Provider Family Medicine
DX: J44.1 Chronic obstructive pulmonary disease with (acute) exacerbation (principal); I50.32 Chronic diastolic (congestive) heart failure; J96.11 Chronic respiratory failure with hypoxia; I25.708 Atherosclerosis of coronary artery bypass graft(s), unspecified, with other forms of angina pectoris; I11.0 Hypertensive heart disease with heart failure; I27.20 Pulmonary hypertension, unspecified; E11.9 Type 2 diabetes mellitus without complications; E78.5 Hyperlipidemia, unspecified; E03.9 Hypothyroidism, unspecified; F10.10 Alcohol abuse, uncomplicated; K21.9 Gastro-esophageal reflux disease without esophagitis; F32.9 Major depressive disorder, single episode, unspecified; F41.9 Anxiety disorder, unspecified; E66.9 Obesity, unspecified; Z68.37 Body mass index [BMI] 37.0-37.9, adult; Z79.84 Long term (current) use of oral hypoglycemic drugs; Z79.82 Long term (current) use of aspirin; Z79.890 Hormone replacement therapy; Z79.899 Other long term (current) drug therapy; I25.2 Old myocardial infarction; Z85.528 Personal history of other malignant neoplasm of kidney; Z90.5 Acquired absence of kidney; Z95.3 Presence of xenogenic heart valve; Z95.1 Presence of aortocoronary bypass graft; Z96.642 Presence of left artificial hip joint; Z87.891 Personal history of nicotine dependence
CPT/HCPCS: 36415; 71045; 71275; 80048; 80053; 80307; 80320; 82728; 82962; 83615; 83735; 83880; 84100; 84145; 84484; 85025; 85379; 86140; 87633; 87635; 93005; 94640; 94667; 94668; 99251; 99285; 99406; Q9967; 90686; A4216; G0463; G0480; U0003

== ENCOUNTER → 2020-04-23 09:23 | Outpatient (CLI) | payer BC, SELFPAY ==
[2019-05-13 08:39] VITALS: BMI 38.2
[2020-03-20 06:19] VITALS: BMI 35.9
--- NOTE | 2020-04-24 09:08 | PFT ---
INTRODUCTION: The patient is a 65-year-old female that presents for pulmonary function studies secondary to a diagnosis of COPD. Respiratory therapy reports good patient effort. Bronchodilators were used during testing. INTERPRETATION: Forced expiration spirometry demonstrates no evidence of a large airways obstructive ventilatory defect. There was no significant response to aerosolized bronchodilators. Spirograms are of good quality and plateau gradually indicating slow emptying of the lungs. Body plethysmography was performed and revealed a decreased TLC to 3.42 L, 73% of predicted, indicative of a mild restrictive ventilatory impairment. The remainder of the lung volumes are symmetrically reduced. Diffusing capacity by single breath CO is significantly reduced at 45% of predicted. IMPRESSION: Mild restrictive ventilatory impairment with disproportionate severe reduction in diffusing capacity.
== END ==
PROVIDERS: PCP Nurse Practitioner Family; Referring Provider Internal Medicine Critical Care Medicine; Visit Provider Internal Medicine Critical Care Medicine
DX: J44.9 Chronic obstructive pulmonary disease, unspecified (principal)
CPT/HCPCS: 94060; 94726; 94729

== ENCOUNTER 2020-05-02 19:38 | Emergency (ER) | payer BC, SELFPAY ==
[2019-05-13 08:39] VITALS: BMI 38.2
[2020-03-20 06:19] VITALS: BMI 35.9
[2020-05-02 19:40] VITALS: BP 145/71; PULSE 90; RESP 18; TEMP 36.4; O2SAT 97; BMI 35.4
--- NOTE | 2020-05-02 20:09 | EKG12_ITS ---
Test Reason : SOB Blood Pressure : / mmHG Vent. Rate : 075 BPM Atrial Rate : 075 BPM P-R Int : 164 ms QRS Dur : 102 ms QT Int : 408 ms P-R-T Axes : 043 021 055 degrees QTc Int : 455 ms Normal sinus rhythm Inferior infarct , age undetermined Abnormal ECG Confirmed by BANDAR WATTS, NADINE ([id number]), online content editor LATOYA VASQUEZ ([id number]) on 05/04/2020 11:04:58 AM Referred By: KENRICK Confirmed By:NADINE PORTILLO MD
--- NOTE | 2020-05-02 20:10 | ED.VISSUMM ---
- ER Visit Summary Date of Service: 05/02/20 Chief Complaint: shortness of breath History of Present Illness: The patient is a 65 F history of COPD not on home O2, CAD, diabetes, anemia, prior renal cancer with partial bilateral resections and prior cardiac valve surgery for aortic stenosis. Patient is not on any blood thinners. States that 6 weeks ago she was admitted for COPD. Says she has nonproductive cough. No chest pain. No hemoptysis. Had a recent negative CTA for no signs of a PE or DVT. Denies any leg pain or swelling. No history of PEs. Physical Examination: Older female no acute distress vital signs stable afebrile pulse ox 97% room air no signs hypoxia. HEENT exam unremarkable. Neck nontender no JVD. Lungs few scattered wheezes. No rales or rhonchi. Equal symmetrical. Heart regular rhythm no murmur rate about 90. Abdomen soft nontender. Patient is moving all 4 extremities. Calves are nontender without edema or cords. Neurologically she is awake alert with no focal motor deficits. Back nontender. Test Results: Test x-ray shows stable cardiomegaly no change from prior chest x-ray. Prior sternotomy. No acute process. No infiltrate. No fluid. Portable 1 view read both by myself and the radiologist. EKG normal sinus rhythm rate of 75 no change from prior CBC white count of 6. Chronic anemia hemoglobin 9.8 which is her baseline. Chemistries normal normal creatinine and gap. Troponin normal. Emergency Department Course and Treatment: Patient treated with prednisone p.o. COPD work-up pursued. Clinically she does not look ill. I do not feel this is Covid. Clinically I do not think she is going to have a pneumonia. Repeat exam patient is doing well at 10:23 PM. No longer wheezing. Feels comfortable being discharged to home. She has appointment to see her aesthetics instructor in the next several days. Treatment Plan: Prednisone 40 mg a day for 5 days starting tomorrow. She received a dose in the emergency department. Follow-up with her aesthetics instructor. Return if worse. Disposition: discharge Impression: Acute exacerbation COPD This note was generated with [employer] dictation software. It may contain incorrect words, spelling, and punctuation that were not noted in review of the chart prior to signing ED Disposition - Plan for ED Patient: Referrals: Carole Crawford SOLAR PHOTOVOLTAIC DESIGNER, SOLAR PHOTOVOLTAIC DESIGNER-C [Primary Care Provider] -
[2020-05-02 20:21] LABS: Absolute Lymphocyte Count 1.08 X10^3/uL (0.83-4.51); Absolute Neutrophil Count 4.9 X10^3/uL (2.0-7.7); Basophil# 0.03 X10^3/uL; Basophil% 0.4 % (0-1); Eosinophil# 0.18 X10^3/uL; Eosinophils% 2.6 % (0-5); Hemoglobin 9.8 g/dL (12.0-15.0); Lymphocyte # 1.08 X10^3/ul (4.0); Lymphocyte % 15.7 % (19-41); Mean Corp Hgb Conc 29.7 g/dL (32-36); Mean Corpuscular Hgb 23.7 pg (27.0-32.0); Mean Corpuscular Volume 79.7 fL (81-99); Mean Platelet Vol. 10.8 fl (6.2-12.0); Monocyte% 10.2 % (0-10); NRBC Flagged by Analyzer 0 % (0-5); Neutrophil # 4.86 X10^3/uL (2.7-7.7); Neutrophil % 70.8 % (47-70); Platelet Count 287 K/mm3 (150-450); RBC Distribution Width CV 16.3 % (11.6-14.6); Red Blood Count 4.14 M/mm3 (4.2-5.4); White Blood Count 6.9 K/mm3 (4.4-11.0)
[2020-05-02 20:32] LABS: Anion Gap 7 (5-15); BUN 19 mg/dL (7-18); BUN/Creat Ratio 20.8 RATIO (10-20); Calcium,Total 9.7 mg/dL (8.5-10.1); Chloride 107 mmol/L (98-107); Creatinine, Serum 0.92 mg/dL (0.55-1.02); EST Glomerular Filtration Rate 66 mL/min (>60); Est Glom Filt Rate - Afr Amer 80 mL/min (>60); Glucose 147 mg/dL (74-106); Potassium 4.4 mmol/L (3.5-5.1); Sodium Level 140 mmol/L (136-145)
[2020-05-02] MEDS: predniSONE 20 MG Tablet 60 MG PO (20:36)
[2020-05-02 20:40] VITALS: O2SAT 95
[2020-05-02 20:42] VITALS: O2SAT 96
--- NOTE | 2020-05-02 21:05 | RAD_ITS ---
STUDY: X-RAY CHEST REASON FOR EXAM: Female, 65 years old. pt c/o SOB, hx of COPD, chest pain TECHNIQUE: Frontal view COMPARISON: 03/15/2020 FINDINGS: Stable sternotomy wires. The lungs are clear and expanded. There is no demonstrated pleural abnormality. Cardiomegaly. Normal mediastinum and [place]. Normal visualized pulmonary arteries. Calcified aortic arch and descending thoracic aorta. Normal visualized thoracic spine. Normal visualized ribs, clavicles, and shoulders. There is no demonstrated abnormality of the visualized soft tissue structures of the upper abdomen. RAD/Chest 1 View (Portable) IMPRESSION: Stable cardiomegaly. Electronically Signed: Thad Ramos DO at 21:27 EST Tel [phone], Service support ,
[2020-05-02 22:00] VITALS: BP 134/93; PULSE 79; RESP 18; O2SAT 96
--- NOTE | 2020-05-02 22:25 | DCINST.ED_ITS ---
ED Disposition - Plan for ED Patient: Disposition: Home or Assisted Living Instructions: ED COPD Flare Prescriptions: Prednisone [Deltasone] 40 mg PO DAILY 5 Days tab Prescription Printed Referrals: Carole Crawford NP, FURRIER APPRENTICE-C [Primary Care Provider] - As Needed Rafi Anne DO [STAFF PHYSICIAN] - Keep Chloe appointment Additional Instructions: Follow-up with your attendant lodging facilities. Return if feeling worse. Use your aerosols at home. Also your prescription for prednisone 40 mg a day for the next 5 days.
== END 2020-05-02 22:42 | disposition home or self-care (01) ==
PROVIDERS: Emergency Provider Emergency Medicine; PCP Nurse Practitioner Family
DX: J44.1 Chronic obstructive pulmonary disease with (acute) exacerbation (principal); I25.10 Atherosclerotic heart disease of native coronary artery without angina pectoris; E11.9 Type 2 diabetes mellitus without complications; Z79.84 Long term (current) use of oral hypoglycemic drugs; Z79.82 Long term (current) use of aspirin; Z79.899 Other long term (current) drug therapy; Z85.528 Personal history of other malignant neoplasm of kidney; Z87.891 Personal history of nicotine dependence
CPT/HCPCS: 71045; 80048; 84484; 85025; 93005; 99285; A4216

== ENCOUNTER → 2020-05-22 12:00 | Outpatient (CLI) | payer BC, SELFPAY ==
[2019-05-13 08:39] VITALS: BMI 38.2
[2020-05-09 09:37] VITALS: BMI 35.7
== END ==
PROVIDERS: PCP Nurse Practitioner Family; Referring Provider Nurse Practitioner Acute Care; Visit Provider Nurse Practitioner Acute Care
DX: J96.10 Chronic respiratory failure, unspecified whether with hypoxia or hypercapnia (principal)
CPT/HCPCS: 94762

== ENCOUNTER → 2020-05-24 13:48 | Outpatient (CLI) | payer BC, SELFPAY ==
[2019-05-13 08:39] VITALS: BMI 38.2
[2020-03-20 06:19] VITALS: BMI 35.9
[2020-05-09 09:37] VITALS: BMI 35.7
[2020-05-24 14:18] VITALS: PULSE 101; PULSE 104; PULSE 111; PULSE 76; PULSE 79; PULSE 97; O2SAT 87; O2SAT 91; O2SAT 93; O2SAT 94; O2SAT 95; O2SAT 96
--- NOTE | 2020-05-24 14:23 | CPS ---
Placed on 2 LPM after one min. results sent to office.
--- NOTE | 2020-05-25 15:00 | PCM.PSN.6M ---
PSN 6 Minute Walk Test - 6 Minute Walk Test 6 Minute Walk Test: 6 Minute Walk Test PSN:6-Minute Walk Test Start: 05/24/20 14:17 Freq: Status: Active Protocol: [id number] Document 05/24/20 14:18 FR (Rec: 05/24/20 14:24 FR [id number]) 6 Minute Walk Test Date Performed 05/24/20 Time Performed 13:45 Height 5 ft 2 in Weight: 202 lb Weight in Pounds 202.[address]: Rafi Anne Assistive device used: None Pre-test Oxygen Delivery Method Room Air Pulse Ox (%) 95 Pulse Rate (60-100 beats/min) 76 Dyspnea Adeel Scale (0-10) 5 Exertion Adeel Scale (6-20) 14 1st minute Oxygen Delivery Method Room Air Pulse Ox (%) 87 Pulse Rate (60-100 beats/min) 111 H 2nd minute Oxygen Flow Rate (L/min) (L/min) 2 Oxygen Delivery Method Nasal Cannula Pulse Ox (%) 93 Pulse Rate (60-100 beats/min) 97 Reported Symptoms Increased Work of Breathing 3rd minute Oxygen Flow Rate (L/min) (L/min) 2 Pulse Ox (%) 91 Pulse Rate (60-100 beats/min) 101 H 4th minute Oxygen Flow Rate (L/min) (L/min) 2 Oxygen Delivery Method Nasal Cannula Pulse Ox (%) 96 Pulse Rate (60-100 beats/min) 104 H 5th minute Oxygen Flow Rate (L/min) (L/min) 2 Oxygen Delivery Method Nasal Cannula Pulse Ox (%) 96 Pulse Rate (60-100 beats/min) 97 Reported Symptoms Increased Work of Breathing 6th minute Oxygen Flow Rate (L/min) (L/min) 2 Oxygen Delivery Method Nasal Cannula Pulse Ox (%) 87 Pulse Rate (60-100 beats/min) 101 H Dyspnea Adeel Scale (0-10) 10 Exertion Adeel Scale (6-20) 20 Reported Symptoms Increased Work of Breathing Post-test Oxygen Flow Rate (L/min) (L/min) 2 Oxygen Delivery Method Nasal Cannula Pulse Ox (%) 94 Pulse Rate (60-100 beats/min) 79 Full Laps Walked 12 Partial Lap, Number of Tiles Walked 45 Total Distance Walked (ft) 753 05/24/20 14:23 Cardiopulmonary Services by Ryanne Germain Placed on 2 LPM after one min. results sent to office. Initialized on 05/24/20 14:23 - END OF NOTE - Interpretation Interpretation: The patient ambulated 753 feet over the course of 6 minutes beginning on room air without assistive devices or breaks. Pretesting oxygen saturation was noted to be 95% on room air. With ambulation, the anabelle oxygen saturation was 87%. 2 L/min of supplemental oxygen was applied and the patient was able to complete the remainder of the test. - Recommendations Recommendations: 2 L/min of supplemental oxygen should be utilized with exertion.
== END ==
PROVIDERS: PCP Nurse Practitioner Family; Referring Provider Internal Medicine Critical Care Medicine; Visit Provider Internal Medicine Critical Care Medicine
DX: R09.02 Hypoxemia (principal)
CPT/HCPCS: 94618

== ENCOUNTER → 2021-01-24 12:38 | Outpatient (CLI) | payer BC, SELFPAY ==
[2019-05-13 08:39] VITALS: BMI 38.2
[2020-12-31 14:26] VITALS: BMI 39.2
--- NOTE | 2021-01-24 12:42 | ECHOCS_ITS ---
Reason For Study: DYSPNEA/SOB Procedure This was a 2D Doppler, Color Flow transthoracic echocardiogram. The study was technically difficult. Contrast injection was performed. Exam performed in department. Left Ventricle Based upon the 2D echocardiographic and contrast enhanced images obtained there appears to be grossly normal left ventricular size, wall motion, and systolic function. The estimated ejection fraction is 65 %. Diastolic function is indeterminate. Right Ventricle Based upon the 2D echocardiographic images obtained appears to be grossly normal right ventricular size and systolic function. Atria The left atrium is mildly enlarged. Normal right atrium. No doppler evidence for ASD. Mitral Valve There is moderate mitral annular calcification. Extension the mitral annular calcification on the base of the posterior mitral valve leaflet. Trivial mitral valve insufficiency. Tricuspid Valve The tricuspid valve is not well visualized. Trivial tricuspid valve insufficiency. Unable to estimate RV systolic pressure/pulmonary artery pressure due to technically difficult study. Aortic Valve Stable appearing bioprosthetic aortic valve apparatus. Pulmonic Valve The pulmonic valve is not well visualized. Great Vessels The aortic root is not well visualized. Pericardium/Pleural No pericardial effusion. Medication 22 gauge I.V. with prn adaptor inserted into right arm. Diluted definity 4ml given slow IV push to enhance endocardial definition. MMode/2D Measurements & Calculations LVIDd: 3.5 cm IVSd: 1.3 cm LVOT diam: 2.0 cm LVIDs: 2.4 cm LVPWd: 1.2 cm RVDd: 3.5 cm FS: 32.2 % LVOT area: 3.1 cm2 LAV(MOD-bp): 45.6 ml LVAd ap4: 35.1 cm2 SV(MOD-sp4): 82.6 ml LAV(MOD-bp) Indexed: 22.7 ml/m2 LVLd ap4: 8.1 cm LAV(MOD-sp2): 41.8 ml EDV(MOD-sp4): 126.2 ml LAV(MOD-sp4): 45.5 ml EDV(sp4-el): 129.0 ml LVAs ap4: 18.2 cm2 LVLs ap4: 6.6 cm ESV(MOD-sp4): 43.6 ml ESV(sp4-el): 42.6 ml EF(MOD-sp4): 65.4 % EF(sp4-el): 67.0 % SV(sp4-el): 86.4 ml LA A4 area: 17.6 cm2 LA dimension(2D): 4.4 cm RA A4 area: 16.0 cm2 Time Measurements MV dec time: 0.25 sec Doppler Measurements & Calculations MV E max stew: 120.2 cm/sec Lat Peak E' Stew: 7.8 cm/sec Med Peak E' Stew: 7.9 cm/sec MV A max stew: 93.6 cm/sec E/E' lat: 15.5 E/E' med: 15.3 MV E/A: 1.3 Ao V2 max: 246.1 cm/sec LV V1 max: 92.5 cm/sec SV(LVOT): 74.9 ml Ao max P.3 mmHg LV V1 max P.4 mmHg Ao V2 mean: 177.6 cm/sec LV V1 mean P.9 mmHg Ao mean P.8 mmHg LV V1 mean: 64.1 cm/sec Ao V2 VTI: 57.5 cm LV V1 VTI: 24.3 cm GAURI(I,D): 1.3 cm2 GAURI(V,D): 1.2 cm2 PA V2 max: 106.1 cm/sec ECHO/Echo Complete W/ Contrast Interpretation Summary The study was technically difficult. Contrast injection was performed. Based upon the 2D echocardiographic and contrast enhanced images obtained there appears to be grossly normal left ventricular size, wall motion, and systolic function. The estimated ejection fraction is 65 %. The left atrium is mildly enlarged. There is moderate mitral annular calcification. Extension the mitral annular calcification on the base of the posterior mitral valve leaflet. Trivial mitral valve insufficiency. Trivial tricuspid valve insufficiency. Stable appearing bioprosthetic aortic valve apparatus. Unable to estimate RV systolic pressure/pulmonary artery pressure due to techni mellisa difficult study. Diastolic function is indeterminate. Ordering Physician: Rafita Zhong Referring Physician: JEEVAN ECHAVARRIA Performed By: Sowmya Robledo RDCS
== END ==
PROVIDERS: PCP Nurse Practitioner Family; Referring Provider Internal Medicine Cardiovascular Disease; Visit Provider Internal Medicine Cardiovascular Disease
DX: R06.02 Shortness of breath (principal); R06.00 Dyspnea, unspecified; Z95.3 Presence of xenogenic heart valve
CPT/HCPCS: 93306; Q9957; A4216; C8929; J3490

== ENCOUNTER → 2021-02-27 07:58 | Outpatient (CLI) | payer BC, SELFPAY ==
[2019-05-13 08:39] VITALS: BMI 38.2
--- NOTE | 2021-02-27 08:01 | CT_ITS ---
STUDY: CT ABDOMEN AND PELVIS WITH CONTRAST REASON FOR EXAM: Female, 65 years old. History of bilateral renal cell carcinoma and prior bilateral partial nephrectomy. RADIATION DOSAGE (If Supplied By Facility): CTDIvol = ( 21.07 ) mGy, DLP = ( 1543.61 ) mGycm TECHNIQUE: Transaxial images were obtained from the dome of the diaphragm to the symphysis pubis without oral contrast. IV 100mL Isovue-300 was administered. Sagittal and coronal images were reconstructed. Individualized dose optimization techniques were used for this CT. COMPARISON: Comparison is made with prior examination dated 06/13/2018. FINDINGS: Minimal increased linear markings in the anterior aspect of the left lower lobe suggestive of atelectasis. Coronary artery calcification. Calcification of the mitral valve annulus. There is decreased attenuation of the liver consistent with steatosis. Hepatomegaly. Normal gallbladder and extrahepatic biliary system. Normal spleen. Normal pancreas. Normal bilateral adrenal glands. Multiple cysts are seen in the upper pole. The largest measures 3.2 cm x 3.4 cm. Surgical defect is seen along the lateral aspect of the mid pole of the right kidney in keeping with history of prior partial nephrectomy. Stable left renal cyst. Postsurgical changes are seen along the inferior pole of the left kidney with areas of calcification or possibly postoperative Surgicel. Normal visualized stomach. Normal small intestine. There are multiple colonic diverticula consistent with diverticulosis. The appendix is visualized and appears normal. There is diffuse atherosclerotic calcification of the abdominal aorta, without a demonstrated aneurysm. Normal inferior vena cava. Normal retroperitoneum. Normal urinary bladder. Normal abdominal wall. There are degenerative changes of the visualized lumbar spine. The patient is status post left total hip replacement. CT/Abdomen/Pelvis WITH Contrast IMPRESSION: Stable examination. Hepatomegaly and diffuse fatty infiltration of the liver. Electronically Signed: Jose Adamson MD at 13:56 EDT , Service support ,
[2021-02-27 08:16] LABS: CREATININE FINGERSTICK 0.8 mg/dL (0.55-1.02); EGFR FINGERSTICK > 60.0000 mL/min (>60)
== END ==
PROVIDERS: PCP Nurse Practitioner Family; Referring Provider Urology; Visit Provider Urology
DX: C64.1 Malignant neoplasm of right kidney, except renal pelvis (principal); C64.2 Malignant neoplasm of left kidney, except renal pelvis
CPT/HCPCS: 74177; Q9967

== ENCOUNTER → 2022-01-04 | Outpatient (CLI) | payer BC, SELFPAY ==
[2019-05-13 08:39] VITALS: BMI 38.2
[2022-01-04 12:02] LABS: ALB/GLOB Ratio 0.9 RATIO (0.9-2.4); AST(SGOT) 16 U/L (15-37); Alanine Aminotransfer ALT/SGPT 20 U/L (13-56); Albumin, Serum 3.6 g/dL (3.2-5.0); Alkaline Phosphatase 106 U/L (45-117); Anion Gap 7 (5-15); BUN 14 mg/dL (7-18); BUN/Creat Ratio 19.2 RATIO (10-20); Calcium,Total 9.4 mg/dL (8.5-10.1); Chloride 105 mmol/L (98-107); Creatinine, Serum 0.73 mg/dL (0.55-1.02); EST Glomerular Filtration Rate 85 mL/min (>60); Est Glom Filt Rate - Afr Amer 103 mL/min (>60); Follicle Stimulating Hormone 40.3 mIU/mL; Free T3 2.3 pg/mL (2.18-3.98); Globulin 4.1 g/dL (2.2-4.2); Glucose 188 mg/dL (74-106); Luteinizing Hormone 8.8 mIU/mL; Potassium 4.3 mmol/L (3.5-5.1); Prolactin 9.8 ng/mL; Protein, Total 7.7 g/dL (6.4-8.2); Sodium Level 138 mmol/L (136-145); T4 Free Direct 1.28 ng/dL (0.76-1.46); Thyroid Stim Hormone (TSH) 0.05 uIU/mL (0.358-3.74)
[2022-01-09 14:22] LABS: Insulin Like Growth Factor 117 ng/mL (57-202)
== END | disposition home or self-care (01) ==
LOC: LAB 10:22
PROVIDERS: PCP Nurse Practitioner Family; Referring Provider Internal Medicine Endocrinology, Diabetes & Metabolism; Visit Provider Internal Medicine Endocrinology, Diabetes & Metabolism
DX: D35.2 Benign neoplasm of pituitary gland (principal)
CPT/HCPCS: 36415; 80053; 82533; 83001; 83002; 84146; 84305; 84439; 84443; 84481

== ENCOUNTER → 2022-01-07 | Outpatient (CLI) | payer BC, SELFPAY ==
[2019-05-13 08:39] VITALS: BMI 38.2
--- NOTE | 2022-01-07 14:29 | PFTCOMP_ITS ---
COMPLETE PULMONARY FUNCTION TEST INTERPRETATION Brief HPI: Patient is a 66-year-old female, currently under the care of Dr. Anne, who presents to [facility] for complete pulmonary function tests secondary to diagnosis of dyspnea. Respiratory therapist reports good effort and reproducible results. Interpretation: Forced expiration spirometry shows no large airways obstructive ventilatory defect with an FEV1 of 60% predicted. There is no significant bronchodilator response by strict ATS criteria. Spirograms are of good quality and plateau normally. The respiratory flow volume loop shows a normal pattern. Lung volumes by body plethysmography show a decreased total lung capacity at 3.58 L, 79% predicted. All other lung volumes are reduced symmetrically. Diffusion capacity by carbon monoxide is decreased at 51% predicted. The airway resistance is slightly elevated. Compared to previous pulmonary function tests from 04/23/2020, there is been a mild improvement in DLCO by 17%. Impression: Mild restrictive ventilatory defect with a disproportionate reduction in diffusing capacity, but some improvements compared to 2020
[2022-01-13 17:07] LABS: Cortisol, Free 24Ur 41 ug/24 hr (6-42); Cortisol, Urinary Free 21 ug/L (Undefined)
[2022-01-13 20:00] LABS: Adrenocorticotropic Hormone 24.8 pg/mL (7.2-63.3)
== END | disposition home or self-care (01) ==
PROVIDERS: Internal Medicine Endocrinology, Diabetes & Metabolism; PCP Nurse Practitioner Family; Referring Provider Nurse Practitioner Acute Care; Visit Provider Nurse Practitioner Acute Care
DX: R06.00 Dyspnea, unspecified (principal); D35.2 Benign neoplasm of pituitary gland
CPT/HCPCS: 81050; 82024; 82530; 94060; 94726; 94729

== ENCOUNTER 2022-05-18 18:20 | Inpatient (IN) | payer BC, MEDICARE, SELFPAY ==
[2019-05-13 08:39] VITALS: BMI 38.2
[2022-05-18] VITALS (7 sets, daily range): BP systolic 133–155; BP diastolic 81–119; PULSE 93–109; RESP 22–29; TEMP 36.8–36.9; O2SAT 94–95; BMI 38.9; BMI 38.4
--- NOTE | 2022-05-18 18:50 | ED.VIS.DYS ---
HPI History of Present Illness Chief Complaint: Shortness of Breath Detail of Chief Complaint: 67-year-old female URI symptoms last several days of shortness of breath. Informant: patient Onset/Context/Timing Onset: Days Context: gradual Timing: Continuous Current Severity: Mild Maximum Severity: Mild Worsened by: Coughing Relieved by: Oxygen Associated Symptoms cough, fever, chills and green sputum Chest Pain: Positive for None Narrative Narrative: 77-year-old female history of diabetes, anemia and she has had several day history of URI symptoms. She is normally on 2 L oxygen at home due to cardiac disease. She was seen at an Urgent care today and sent to the emergency department. She denies chest pain. She has had a cough of greenish sputum. Subjective fever and chills. No leg pain or swelling. No hemoptysis. She has never had a DVT or PE. PE Risk Factors: Negative for Cancer, OCP + Smoking + > 35, Prior DVT or PE, Recent immobilization, Recent surgery or Recent travel Prior similar symptoms: Yes Recent Illness/Hospitalization: No PFSH PFSH Medical History Abnormal electrocardiogram Anemia Angina pectoris Aortic valvar stenosis Atherosclerotic heart disease of [place] coronary artery without angina pectoris Cardiomegaly Chronic diastolic heart failure COPD (chronic obstructive pulmonary disease) COVID-19 Depression Dyspnea on exertion ETOH abuse Fibromyalgia GERD (gastroesophageal reflux disease) History of left heart catheterization (LHC) (~05/12/19) History of non-ST elevation myocardial infarction (NSTEMI) HLD (hyperlipidemia) Hypertension, benign Hypothyroidism IBS (irritable bowel syndrome) Irritable bowel syndrome Non-rheumatic mitral regurgitation Nonrheumatic aortic (valve) stenosis GAGAN (obstructive sleep apnea) GAGAN (obstructive sleep apnea) Pituitary adenoma Pulmonary hypertension, secondary Renal cell carcinoma Renal cell carcinoma of both kidneys Shortness of breath Symptomatic anemia Home Medications alprazolam 0.5 mg tablet 0.5 mg PO TID PRN PRN Anxiety 06/19/14 [History Last Taken 05/04/19] calcium citrate 200 mg calcium-vitamin D3 6.25 mcg (250 unit) tablet 1 tab PO DAILY SUPPLEMENT 06/19/14 [History Last Taken 05/11/19] pantoprazole 40 mg tablet,delayed release 40 mg PO DAILY ACID REFLUX 06/19/14 [History Last Taken 05/11/19] kyleeemn-fad-flvkb ac 400 mcg-calcium carb 500 mg-vit K1 20 mcg tablet 1 ea PO DAILY SUPPLEMENT 09/07/17 [History Last Taken 05/10/19] aspirin 81 mg chewable tablet 81 mg PO DAILY 03/15/20 [History Last Taken Unknown] duloxetine 60 mg capsule,delayed release 60 mg PO DAILY mood 03/15/20 [History Last Taken Unknown] metformin 500 mg tablet 500 mg PO BID Diabetes mellitus type II #60 tabs 03/17/20 [Rx Last Taken Unknown] aripiprazole 5 mg tablet (Abilify) 5 mg PO DAILY 12/31/20 [History Last Taken Unknown] hydrochlorothiazide 12.5 mg tablet 12.5 mg PO DAILY 12/31/20 [History Last Taken Unknown] melatonin 5 mg tablet 10 mg PO QHS sleep 12/31/20 [History Last Taken Unknown] metoprolol tartrate 25 mg tablet 12.5 mg PO BID HEART #90 tabs 07/04/21 [Rx Last Taken Unknown] atorvastatin 40 mg tablet 40 mg PO QHS CHOLESTEROL LOWERING #90 tabs 10/14/21 [Rx Last Taken Unknown] acetaminophen 325 mg tablet (Tylenol) 325 mg PO ONCE PRN Pain 12/31/21 [History Last Taken Unknown] levothyroxine 150 mcg tablet 150 mcg PO .Mon-Sat 01/13/22 [History Last Taken Unknown] losartan 25 mg tablet 25 mg PO DAILY #90 tabs 01/15/22 [Rx Last Taken Unknown] hand rail for steps #1 ea 04/25/22 [Rx Last Taken Unknown] Allergy/AdvReac Type Severity Reaction Status Date / Time ibuprofen Allergy Hives Verified 05/18/22 18:21 amlodipine [From [facility]] AdvReac Intermediate swelling Verified 05/18/22 18:21 of ankles adhesive tape AdvReac Unknown BLISTERS Verified 05/18/22 18:21 Family History Grandfather CAD (coronary artery disease) Father Cancer lung Mother Colon cancer Surgical History Aortocoronary bypass status (~06/05/16) History of aortic valve replacement with bioprosthetic valve (~07/11/19) History of carpal tunnel surgery of right wrist History of section History of left hip replacement History of nephrectomy History of removal laryngeal nodule History of thyroidectomy Status post right foot surgery Social History Smoking Status: Former smoker how long ago did patient quit smokin alcohol intake: current alcohol intake frequency: 3 or more drinks per day Alcohol type: beer and hard liquor caffeine: Yes Type: coffee Number of servings: 1 ROS ROS ED ROS Narrative URI symptoms. Cough. Sputum. Shortness of breath. Fever or chills. Review of Systems ROS Unobtainable: Denies due to encephalopathy Constitutional Constitutional ED: Reports chills and fever(s); Denies sweats or weight loss Eyes Eyes: Denies blurry vision ENT ENT ED: Denies ear pain or rhinorrhea Cardiovascular Cardiovascular: Denies chest pain or palpitations Respiratory/Chest Respiratory/Chest: Reports cough and dyspnea Gastrointestinal Gastrointestinal: Reports nausea; Denies abdominal pain, constipation, diarrhea, melena or vomiting Genitourinary Genitourinary ED: Denies dysuria or hematuria Musculoskeletal Musculoskeletal: Denies arthralgias Integumentary Denies abscess Neurologic Neurologic: Denies headache(s) Psychiatric Psychiatric: Denies anxiety Endocrine Endocrinology: Denies cold intolerance Hematologic/Lymphatic Hematologic/Lymphatic: Denies easy bleeding Allergic/Immunologic Allergic/Immunologic ED: Denies mouth swelling or tongue swelling EXAM Physical Exam Narrative Exam Narrative: Six 7-year[age]old female vital signs stable blood pressure elevated 135/119. Heart rate 108. Pulse ox 95% on 2 L which is her baseline home O2. No hypoxia. H EENT exam unremarkable. Neck nontender no JVD no lymphadenopathy. Lungs coarse breath sounds bilaterally. Dry cough. Exam few scattered expiratory wheezes wheezes. No rales or rhonchi. Heart tachycardic rate of 105 no murmur. Abdomen soft nontender normal bowel sounds no pineda signs. Moving all 4 extremities Calves nontender. No recent edema. Neurologically she is awake alert no focal motor deficits. Const Vital Signs: 05/18/22 18:22 05/18/22 19:20 05/18/22 19:08 Temperature 98.3 F Temperature Source Temporal Pulse Rate 108 H 107 H Respiratory Rate 26 H 24 H Respiratory Effort Short of Breath Labored Respiratory Depth Shallow Respiratory Pattern Tachypnea Blood Pressure 155/119 H Blood Pressure Mean 131 Pulse Ox 95 Oxygen Delivery Method Nasal Cannula Nasal Cannula Oxygen Flow Rate (L/min) 2 3 05/18/22 18:24 Temperature 98.3 F Temperature Source Temporal Pulse Rate 109 H Respiratory Rate 25 H Respiratory Effort Respiratory Depth Respiratory Pattern Blood Pressure 148/84 H Blood Pressure Mean 105 Pulse Ox 94 Oxygen Delivery Method Nasal Cannula Oxygen Flow Rate (L/min) 3 Positive well nourished, well developed and obese; Negative for cachectic, contractures or unkempt General Appearance ED: well developed and NAD; Negative for unkempt, cachectic, contractures or pallor Nutritional Appearance: obese; Negative for cachectic HEENT Reports moist mucous membranes Negative for atraumatic, trauma or tenderness Eyes PERRL and EOMs intact bilaterally General Eye ED: Negative for pale conjunctiva or scleral icterus Neck no lymphadenopathy, supple, no meningeal signs and no JVD Resp normal respiratory effort and No clear to auscultation bilaterally Auscultation: wheezes; Negative for rales or rhonchi Cardio regular rhythm, S1 normal heart sound, S2 normal heart sound and no murmurs; Negative for regular rate Rate: tachycardic GI non-tender, non-distended and no masses Auscultation: normoactive bowel sounds Palpation: soft; Negative for tender or guarding Back/Spine no CVA tenderness and normal to inspection General Back: Negative for CVA tenderness or tenderness Extremity normal to inspection General Extremety ED: Negative for edema or tenderness General Extremity: Negative for edema Neuro oriented x3 Sensorium / Orientation: alert, oriented to person, oriented to place and oriented to time; Negative for orientation impaired, confused, lethargic or stuporous Speech: speech normal Motor Exam: strength 5/5 throughout Psych Appearance: Negative for unkempt Attitude: No agitated Mood & Affect: Negative for depressed Thought Process: normal thought process Skin no wounds and skin turgor normal General Skin Exam: Negative for jaundice or pallor Lesions: no lesions Rashes: no rashes Trauma: Negative for abrasion or laceration MDM MDM MDM Narrative Medical decision making narrative: 67-year-old female with history of cardiac disease shortness of breath and URI symptoms. To be treated with DuoNeb and albuterol aerosols. Solu-Medrol IV. Screening labs chest x-ray and EKG will be obtained. Multiple repeat exams patient is doing well at 8:30 PM and 9:27 PM. Patient feels overall weak. She is unsteady on her feet. She and family were hoping she would be admitted due to her overall weakness.. I will speak to the hospitalist about admission overnight for observation. Lab Data Attestation: I reviewed the patient's lab results. Lab results narrative: CBC normal white count 8. H&H of 13 and 38. Platelet count 219. Peptic ulcer electrolytes unremarkable gap of 7. Normal BUN and creatinine. Glucose of 187. Troponin is normal at 8. Labs: Laboratory Results - last 24 hr 05/18/22 05/18/22 19:07 19:07 WBC 8.0 RBC 4.28 Hgb 13.4 Hct 38.7 MCV 90.4 MCH 31.3 MCHC 34.6 RDW Std Deviation 44.1 H RDW Coeff of [place] 13.7 Plt Count 219 MPV 10.2 Immature Gran % (Auto) 0.500 Neut % (Auto) 80.2 H Lymph % (Auto) 6.8 L [place] % (Auto) 11.9 H Eos % (Auto) 0.3 Baso % (Auto) 0.3 Absolute Neuts (auto) 6.4 Absolute Lymphs (auto) 0.54 L Nucleated RBC % 0 Differential Comment SCANNED Sodium 136 Potassium 3.7 Chloride 104 Carbon Dioxide 25.0 Anion Gap 7 BUN 8 Creatinine 0.63 Estim Creat Clear Calc 45.78 Est GFR (MDRD) Af Amer 121 Est GFR (MDRD) Non-Af 100 BUN/Creatinine Ratio 12.6 Glucose 187 H Calcium 9.8 Troponin I High Sens 8 Radiography Chest X-Ray - ED: 1 View, Read by ED Physician, Heart, Lungs, Mediastinum, Bony Structures, No Acute Disease and Chronic Changes Diagnostic Testing: Clinical Impression(s) from Imaging Studies Chest X-Ray 05/18/22 19:27 IMPRESSION: There are no acute findings. Electronically Signed: Armen Connolly MD at 19:43 EST , X-ray, portable, single view interpreted by myself shows chronic changes. Prior sternotomy. Borderline cardiomegaly. No infiltrates. No effusions. Rhythm Strip Rhythm Strip: Sinus Tach Rate: 110 Ectopy: None EKG Initial EKG: Attestation: I personally reviewed and interpreted this EKG as follows: Interpretation: Sinus Rhythm and Sinus Tachycardia Comments: Sinus tachycardia rate of 110 no acute signs of NM or ischemia. Discharge Plan Dx/Rx/DC Orders Clinical Impression: Influenza, Acute dyspnea, Weakness, History of diabetes mellitus Disposition Disposition: Acute Care Hospital [facility]
[2022-05-18] MEDS: Ipratropium/Albuterol Sulfate 3 ML AMPUL.NEB INHALATION (19:06)
[2022-05-18] MEDS: Albuterol 2.5 MG/3 ML VIAL.NEB. INHALATION (19:06)
[2022-05-18] MEDS: MethylPREDNISolone 125 MG/2 ML Vial IV (19:08)
--- NOTE | 2022-05-18 19:17 | EKG12_ITS ---
Test Reason : SOB Blood Pressure : / mmHG Vent. Rate : 110 BPM Atrial Rate : 110 BPM P-R Int : 180 ms QRS Dur : 092 ms QT Int : 332 ms P-R-T Axes : 048 038 039 degrees QTc Int : 449 ms Sinus tachycardia Possible Inferior infarct , age undetermined Abnormal ECG Confirmed by SHAKEEL WATTS, JUAREZ ([id number]), features editor LATOYA VASQUEZ ([id number]) on 05/19/2022 12:10:28 PM Referred By: Confirmed By:JUAREZ BECKFORD MD
[2022-05-18 19:27] LABS: Absolute Lymphocyte Count 0.54 X10^3/uL (0.83-4.51); Absolute Neutrophil Count 6.4 X10^3/uL (2.0-7.7); Basophil# 0.02 X10^3/uL; Basophil% 0.3 % (0-1); Eosinophil# 0.02 X10^3/uL; Eosinophils% 0.3 % (0-5); Hematocrit 38.7 % (37-47); Hemoglobin 13.4 g/dL (12.0-15.0); Lymphocyte # 0.54 X10^3/ul (0.83-4.51); Lymphocyte % 6.8 % (19-41); Mean Corp Hgb Conc 34.6 g/dL (32-36); Mean Corpuscular Hgb 31.3 pg (27.0-32.0); Mean Corpuscular Volume 90.4 fL (81-99); Mean Platelet Vol. 10.2 fl (6.2-12.0); Monocyte# 0.95 X10^3/uL; Monocyte% 11.9 % (0-10); NRBC Flagged by Analyzer 0 % (0-5); Neutrophil # 6.39 X10^3/uL (2.7-7.7); Neutrophil % 80.2 % (47-70); POSITIVE DIFFERENTIAL YES; Platelet Count 219 K/mm3 (150-450); RBC Distribution Width CV 13.7 % (11.6-14.6); RBC Distribution Width SD 44.1 fl (35.1-43.9); Red Blood Count 4.28 M/mm3 (4.2-5.4)
--- NOTE | 2022-05-18 19:27 | RAD_ITS ---
STUDY: X-RAY CHEST REASON FOR EXAM: Female, 67 years old. dyspnea TECHNIQUE: XR Chest 1 View COMPARISON: 05.02.20 FINDINGS: There is atherosclerotic calcification of the aortic arch with tortuosity. There are diffuse degenerative changes of the visualized thoracic spine. There is degenerative osteoarthritis of the bilateral shoulders. There is no demonstrated pleural abnormality. There are multiple median sternotomy wires. There is borderline cardiomegaly. Normal mediastinum and [place]. Normal visualized pulmonary arteries. There is no demonstrated abnormality of the visualized soft tissue structures of the upper abdomen. RAD/Chest 1 View (Portable) IMPRESSION: There are no acute findings. Electronically Signed: Armen Connolly MD at 19:43 EST ,
[2022-05-18 20:03] LABS: Differential Indicated SCAN CRITERIA MET
[2022-05-18 20:09] LABS: Differential Comment SCANNED
[2022-05-18] MEDS: Acetaminophen 500 MG Tablet 1000 MG PO (20:09)
[2022-05-18 20:17] LABS: Anion Gap 7 (5-15); BUN 8 mg/dL (7-18); BUN/Creat Ratio 12.6 RATIO (10-20); Calcium,Total 9.8 mg/dL (8.5-10.1); Chloride 104 mmol/L (98-107); Creatinine, Serum 0.63 mg/dL (0.55-1.02); EST Glomerular Filtration Rate 100 mL/min (>60); Est Glom Filt Rate - Afr Amer 121 mL/min (>60); Estimated Creatinine Clearance 45.78 ml/min; Glucose 187 mg/dL (74-106); Potassium 3.7 mmol/L (3.5-5.1); Sodium Level 136 mmol/L (136-145); Troponin-I HS 8 pg/mL (3.0-54.0)
--- NOTE | 2022-05-18 22:38 | PCM.HP.STD ---
HPI - General General Date of Admission: 05/18/22 Date of Service: 05/18/22 Chief Complaint: Flulike symptoms HPI Narrative SHARON OLEA, is a 67 F with a significant history of CAD status post CABG; obstructive sleep apnea on home CPAP; chronic diastolic heart failure; COPD who presents to the emergency department with 2-day history of progressively worsening flulike symptoms. She describes her flulike symptoms as productive cough of greenish sputum; fever with temperature of 100.6F at home; chills; fatigue; headache; and weakness. Patient went to the urgent care on the same day of presentation and she was told to come to the emergency department. At baseline patient uses home oxygen of 2 L. However her oxygen requirements has increased. At the emergency department patient was too weak to walk and she slid down when she was made to get up. Emergency plan doctor reports wheezing on examination. [facility] Medical History Abnormal electrocardiogram Anemia Angina pectoris Aortic valvar stenosis Atherosclerotic heart disease of [place] coronary artery without angina pectoris Cardiomegaly Chronic diastolic heart failure COPD (chronic obstructive pulmonary disease) COVID-19 Depression Dyspnea on exertion ETOH abuse Fibromyalgia GERD (gastroesophageal reflux disease) History of left heart catheterization (LHC) (~05/12/19) History of non-ST elevation myocardial infarction (NSTEMI) HLD (hyperlipidemia) Hypertension, benign Hypothyroidism IBS (irritable bowel syndrome) Irritable bowel syndrome Non-rheumatic mitral regurgitation Nonrheumatic aortic (valve) stenosis GAGAN (obstructive sleep apnea) GAGAN (obstructive sleep apnea) Pituitary adenoma Pulmonary hypertension, secondary Renal cell carcinoma Renal cell carcinoma of both kidneys Shortness of breath Symptomatic anemia Home Medications alprazolam 0.5 mg tablet 0.5 mg PO TID PRN PRN Anxiety 06/19/14 [History Last Taken 05/04/19] calcium citrate 200 mg calcium-vitamin D3 6.25 mcg (250 unit) tablet 1 tab PO DAILY SUPPLEMENT 06/19/14 [History Last Taken 05/17/22 12:00] pantoprazole 40 mg tablet,delayed release 40 mg PO DAILY ACID REFLUX 06/19/14 [History Last Taken 05/17/22 12:00] bmulilep-kfe-acilj ac 400 mcg-calcium carb 500 mg-vit K1 20 mcg tablet 1 ea PO DAILY SUPPLEMENT 09/07/17 [History Last Taken 05/17/22 12:00] aspirin 81 mg chewable tablet 81 mg PO DAILY Check with primary doctor 03/15/20 [History Last Taken 05/18/22 08:30] duloxetine 60 mg capsule,delayed release 60 mg PO DAILY mood 03/15/20 [History Last Taken 05/17/22 08:30] metformin 500 mg tablet 500 mg PO BID Diabetes mellitus type II #60 tabs 03/17/20 [Rx Last Taken 05/17/22 22:00] melatonin 5 mg tablet 10 mg PO QHS sleep 12/31/20 [History Last Taken 05/17/22 22:00] metoprolol tartrate 25 mg tablet 12.5 mg PO BID HEART #90 tabs 07/04/21 [Rx Last Taken 05/17/22 22:00] atorvastatin 40 mg tablet 40 mg PO QHS CHOLESTEROL LOWERING #90 tabs 10/14/21 [Rx Last Taken 05/17/22 22:00] acetaminophen 325 mg tablet (Tylenol) 325 mg PO ONCE PRN Pain 12/31/21 [History Last Taken Unknown] levothyroxine 150 mcg tablet 150 mcg PO DAILY thyroid 01/13/22 [History Last Taken 05/17/22 08:30] losartan 25 mg tablet 25 mg PO DAILY #90 tabs 01/15/22 [Rx Last Taken 05/17/22 12:00] hand rail for steps #1 ea 04/25/22 [Rx Last Taken Unknown] Allergy/AdvReac Type Severity Reaction Status Date / Time ibuprofen Allergy Hives Verified 05/18/22 18:21 amlodipine [From [facility]] AdvReac Intermediate swelling Verified 05/18/22 18:21 of ankles adhesive tape AdvReac Unknown BLISTERS Verified 05/18/22 18:21 Family History Grandfather CAD (coronary artery disease) Father Cancer lung Mother Colon cancer Surgical History Aortocoronary bypass status (~06/05/16) History of aortic valve replacement with bioprosthetic valve (~07/11/19) History of carpal tunnel surgery of right wrist History of section History of left hip replacement History of nephrectomy History of removal laryngeal nodule History of thyroidectomy Status post right foot surgery Social History Smoking Status: Former smoker how long ago did patient quit smokin alcohol intake: current alcohol intake frequency: 3 or more drinks per day Alcohol type: beer and hard liquor caffeine: Yes Type: coffee Number of servings: 1 ROS ROS Narrative Pertinent positives and pertinent negatives as noted in HPI. All other systems were reviewed and are negative Vital Signs Vital Signs Vital Signs: 05/18/22 18:22 05/18/22 19:20 05/18/22 19:08 Temperature 98.3 F Temperature Source Temporal Pulse Rate 108 H 107 H Respiratory Rate 26 H 24 H Respiratory Effort Short of Breath Labored Respiratory Depth Shallow Respiratory Pattern Tachypnea Blood Pressure 155/119 H Blood Pressure Mean 131 Pulse Ox 95 Oxygen Delivery Method Nasal Cannula Nasal Cannula Oxygen Flow Rate (L/min) 2 3 05/18/22 18:24 05/18/22 22:00 Temperature 98.3 F Temperature Source Temporal Pulse Rate 109 H 101 H Respiratory Rate 25 H 29 H Respiratory Effort Respiratory Depth Respiratory Pattern Blood Pressure 148/84 H 133/83 H Blood Pressure Mean 105 99 Pulse Ox 94 94 Oxygen Delivery Method Nasal Cannula Nasal Cannula Oxygen Flow Rate (L/min) 3 3 Weight Weight: 99.79 kg Body Mass Index (BMI) 38.9 Physical Exam Narrative Physical exam: General: Well-nourished, well-developed. Head: Normocephalic, atraumatic, no tenderness Eyes: Vision is grossly intact. EOMI ENT, no trauma, moist mucous membranes, no rhinorrhea Neck: Nontender, full range of motion. CVS: Tachycardia. S1-S2 present. No murmur, gallop or rub. Respiratory : Tachypnea; diminished respirations. Abdomen: Soft, nontender, nondistended, normal bowel sounds, no masses : Deferred Back: Nontender, no CVA tenderness. Extremities: Nontender full range of motion, no trauma Skin: Normal color, no trauma, abrasions Neuro: Alert, oriented, cranial nerves II through XII grossly intact. Psychiatry: Normal mood. Normal affect. Not depressed. Not anxious. Results Lab / Micro Data Result Diagrams: 05/18/22 19:07 05/18/22 19:07 Labs: Laboratory Results - last 24 hr 05/18/22 19:07: WBC 8.0, RBC 4.28, Hgb 13.4, Hct 38.7, MCV 90.4, MCH 31.3, MCHC 34.6, RDW Std Deviation 44.1 H, RDW Coeff of Monet 13.7, Plt Count 219, MPV 10.2, Immature Gran % (Auto) 0.500, Neut % (Auto) 80.2 H, Lymph % (Auto) 6.8 L, [place] % (Auto) 11.9 H, Eos % (Auto) 0.3, Baso % (Auto) 0.3, Absolute Neuts (auto) 6.4, Absolute Lymphs (auto) 0.54 L, Nucleated RBC % 0, Differential Comment SCANNED 05/18/22 19:07: Sodium 136, Potassium 3.7, Chloride 104, Carbon Dioxide 25.0, Anion Gap 7, BUN 8, Creatinine 0.63, Estim Creat Clear Calc 45.78, Est GFR (MDRD) Af Amer 121, Est GFR (MDRD) Non-Af 100, BUN/Creatinine Ratio 12.6, Glucose 187 H, Calcium 9.8, Troponin I High Sens 8 Micro: Microbiology 05/18/22 19:07 Nasal Secretion SARS-CoV-2 & FLU Antigen (Rapid) - Final Rhythm Strip Rhythm Strip: Sinus Tach Rate: 110 Ectopy: None Radiology Impression Chest X-Ray 05/18/22 19:27 IMPRESSION: There are no acute findings. Electronically Signed: Armen Connolly MD at 19:43 EST Reading Location ID and State: [facility] [place] / [place] , Service support , Assessment & Plan Assessment/Plan (1) Influenza: (2) Acute dyspnea: (3) Weakness: PLAN: Plan Acute dyspnea and hypoxia with influenza A infection COVID test was negative. Rapid flu was positive for influenza A. Tamiflu ordered. Placed on scheduled DuoNeb and prn albuterol. CBC showed normal white count. Trend CBC. Chest x-ray was visualized and independently interpreted. I agree with radiology interpretation of no acute process. Mucinex ordered Droplet precautions ordered. Diabetes mellitus Patient with hyperglycemia on presentation Metformin held Accu-Chek with correction scale insulin ordered Hypertension Blood pressure is stable Home blood pressure medication continued. Trend blood pressure and adjust blood pressure medications as necessary. Generalized weakness Likely secondary to influenza. PT and OT to evaluate and treat Chronic diastolic heart failure Stable DVT prophylaxis Subcutaneous Lovenox ordered. Charges/Coding Visit Charges Inpatient E&M: 72970 Init Hosp L3
[2022-05-19] VITALS (21 sets, daily range): BP systolic 130–150; BP diastolic 61–83; PULSE 69–101; RESP 18–32; TEMP 36.3–37.6; O2SAT 89–98
[2022-05-19] MEDS: Ipratropium/Albuterol Sulfate 3 ML AMPUL.NEB INHALATION ×5 (00:14→19:19)
[2022-05-19] MEDS: guaiFENesin 1,200 MG Tablet 1200 MG PO ×3 (00:25→22:54)
[2022-05-19] MEDS: Oseltamivir Phosphate 30 MG Capsule PO ×3 (00:26→22:54)
[2022-05-19] MEDS: MELATONIN 10 MG TABLET PO ×2 (00:26→22:54)
[2022-05-19] MEDS: Atorvastatin Calcium 40 MG Tablet PO ×2 (00:27→22:54)
[2022-05-19] MEDS: Metoprolol Tartrate 25 MG Tablet 12.5 MG PO ×3 (00:28→23:01)
[2022-05-19] MEDS: 0.9% Saline Lock 10 ML Syringe IV (00:35)
[2022-05-19 01:31] LABS: Bedside Glucose 316 mg/dL (74-106)
[2022-05-19] MEDS: Acetaminophen 325 MG Tablet 650 MG PO (04:34)
[2022-05-19] MEDS: Levothyroxine 150 MCG Tablet PO (04:35)
[2022-05-19 06:02] LABS: Absolute Lymphocyte Count 0.28 X10^3/uL (0.83-4.51); Absolute Neutrophil Count 6.5 X10^3/uL (2.0-7.7); Basophil# 0.01 X10^3/uL; Basophil% 0.1 % (0-1); Hematocrit 37.7 % (37-47); Lymphocyte # 0.28 X10^3/ul (0.83-4.51); Mean Corp Hgb Conc 34.5 g/dL (32-36); Mean Corpuscular Hgb 31.7 pg (27.0-32.0); Mean Platelet Vol. 10.5 fl (6.2-12.0); Monocyte# 0.16 X10^3/uL; Monocyte% 2.3 % (0-10); NRBC Flagged by Analyzer 0 % (0-5); Neutrophil # 6.53 X10^3/uL (2.7-7.7); POSITIVE DIFFERENTIAL YES; Platelet Count 242 K/mm3 (150-450); RBC Distribution Width CV 13.7 % (11.6-14.6)
[2022-05-19 06:08] LABS: Differential Indicated SCAN CRITERIA MET
[2022-05-19 06:22] LABS: Anion Gap 10 (5-15); BUN 10 mg/dL (7-18); BUN/Creat Ratio 12.9 RATIO (10-20); Calcium,Total 9.3 mg/dL (8.5-10.1); Chloride 101 mmol/L (98-107); Creatinine, Serum 0.77 mg/dL (0.55-1.02); EST Glomerular Filtration Rate 79 mL/min (>60); Est Glom Filt Rate - Afr Amer 96 mL/min (>60); Estimated Creatinine Clearance 43.77 ml/min; Glucose 289 mg/dL (74-106); Potassium 3.9 mmol/L (3.5-5.1); Sodium Level 135 mmol/L (136-145)
[2022-05-19] MEDS: Insulin Lispro 100 UNIT/ML INSULN.PEN SC ×4 (06:29→23:03)
[2022-05-19 07:21] LABS: Bedside Glucose 252 mg/dL (74-106)
[2022-05-19] MEDS: Aspirin 81 MG TAB.CHEW PO (08:38)
[2022-05-19] MEDS: predniSONE 20 MG Tablet 40 MG PO (08:38)
[2022-05-19] MEDS: Multivitamins,Ther W-Minerals Tablet 1 TABLET PO (08:38)
[2022-05-19] MEDS: Calcium Carb/Vitamin D 1 TABLET Tablet PO (08:38)
[2022-05-19] MEDS: DULoxetine Hcl 60 MG Capsule PO (08:39)
[2022-05-19] MEDS: Losartan Potassium 25 MG Tablet PO (08:39)
[2022-05-19] MEDS: Enoxaparin 40 MG/0.4 ML Syringe SC (08:40)
[2022-05-19] MEDS: Pantoprazole Sodium 40 MG Tablet PO (08:40)
--- NOTE | 2022-05-19 09:50 | CASEMGMT ---
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 Addendum entered by Radha Estrada 05/19/22 10:29: Received notification from palliative care that pt is active and her next appt is 05/30 at 1pm. Provided pt with written information on this. Verified oxygen per [employer], pt state she uses her CPAP but does not use oxygen with it at night. Pt does have a pox at home. Pt reports she does not have BGM and has never checked her blood sugars. TC to [facility], pt has now been rescheduled to see Dr.Elizabeth Jenkins. Provided written information for pt with this as well. Patient was provided a list of C providers including quality and resource use data and consistent with the patient?s preferred geographic region, medical needs, and insurance network were provided from the [employer] Guide. LORENA العلي to check back with pt on her choices. Original Note: LORENA العلي Assessment: Face to Face with pt for initial transition planning/care coordination assessment. LORENA العلي introduced self and role at [facility], pt voices understanding and consents to assessment. Pt is A/O x4 and answers all questions appropriately at this time. Pt sitting up in chair with oxygen on and is sob with conversation. Care providers, pharmacy, and demographics verified/updated. Admitting Dx: influenza A infection PCP:[facility], pt states her doctor just left. She would like to be set up with any other female in the practice. Specialists:Dong, uro; Omid, pulm; Farheen, cardio Preferred Pharmacy: [facility] Layla Insurance: Medicare A, [place] Prescription Benefit: yes LW/HPOA: Pt has LW/DPOA on file. Her DPOA is her [place]. LNOK: [place], Living Arrangements: Pt lives with in a two story house with 4 steps to enter with a rail. Pt reports she is I in ADL's and denies concerns at home. Transportation: Pt drives self and denies concerns with transportation. DME/HHC/SNF: Pt has a CPAP at home, cane, FWW that she only uses when her knees are painful. Pt has oxygen through [employer], reports 2L cont. She has a portable tank in the room. Pt denies hx of HHC or SNF stays. Pt states no concerns with going home at time of dc. Discussed dc planning, pt states she was set up for palliative care to start tomorrow through [facility]. Email sent to them to make aware that she is hospitalized. Pt is agreeable to having a nurse come into the home for disease education and monitoring. She is aware RN CM will be back with a list. Pt states no further concerns/needs. CM to follow. Advised pt to ask CM if any further question/concerns/needs arise, voices understanding. Pt Goal: Home with HHC, palliative care Plan: Home with HHC, palliative care
--- NOTE | 2022-05-19 11:38 | PN.HOSP_ITS ---
Subjective Subjective Patient seen and examined. She is still short of breath and is coughing, expectorating greenish and browish sputum. SHe is wheezing a bit. She denies any fever or chills, and review of systems is otherwise negative. Objective Data Objective Data Vital Signs: Vital Signs Temp Pulse Resp BP Pulse Ox O2 Del Method O2 Flow Rate 97.4 F L 79 20 H 133/74 H 95 Nasal Cannula 2 05/19/22 08:55 05/19/22 11:15 05/19/22 11:15 05/19/22 08:55 05/19/22 11:15 05/19/22 11:15 05/19/22 11:15 FiO2 30 05/19/22 07:11 Oxygen Flow Rate (L/min) 2 Oxygen Delivery Method Nasal Cannula Weight: 216 lb 14.958 oz Body Mass Index (BMI) 38.4 Lab / Micro Data Result Diagrams: 05/19/22 04:47 05/19/22 04:47 Labs: Laboratory Results - last 24 hr 05/18/22 19:07: WBC 8.0, RBC 4.28, Hgb 13.4, Hct 38.7, MCV 90.4, MCH 31.3, MCHC 34.6, RDW Std Deviation 44.1 H, RDW Coeff of Monet 13.7, Plt Count 219, MPV 10.2, Immature Gran % (Auto) 0.500, Neut % (Auto) 80.2 H, Lymph % (Auto) 6.8 L, [place] % (Auto) 11.9 H, Eos % (Auto) 0.3, Baso % (Auto) 0.3, Absolute Neuts (auto) 6.4, Absolute Lymphs (auto) 0.54 L, Nucleated RBC % 0, Differential Comment SCANNED 05/18/22 19:07: Sodium 136, Potassium 3.7, Chloride 104, Carbon Dioxide 25.0, Anion Gap 7, BUN 8, Creatinine 0.63, Estim Creat Clear Calc 45.78, Est GFR (MDRD) Af Amer 121, Est GFR (MDRD) Non-Af 100, BUN/Creatinine Ratio 12.6, Glucose 187 H, Calcium 9.8, Troponin I High Sens 8 05/19/22 00:32: POC Glucose 316 H 05/19/22 04:47: WBC 7.0, RBC 4.10 L, Hgb 13.0, Hct 37.7, MCV 92.0, MCH 31.7, MCHC 34.5, RDW Std Deviation 46.0 H, RDW Coeff of Monet 13.7, Plt Count 242, MPV 10.5, Immature Gran % (Auto) 0.600, Neut % (Auto) 93.0 H, Lymph % (Auto) 4.0 L, [place] % (Auto) 2.3, Eos % (Auto) 0.0, Baso % (Auto) 0.1, Absolute Neuts (auto) 6.5, Absolute Lymphs (auto) 0.28 L, Nucleated RBC % 0 05/19/22 04:47: Sodium 135 L, Potassium 3.9, Chloride 101, Carbon Dioxide 24.0, Anion Gap 10, BUN 10, Creatinine 0.77, Estim Creat Clear Calc 43.77, Est GFR (MDRD) Af Amer 96, Est GFR (MDRD) Non-Af 79, BUN/Creatinine Ratio 12.9, Glucose 289 H, Calcium 9.3 05/19/22 06:26: POC Glucose 252 H Micro: Microbiology 05/18/22 19:07 Nasal Secretion SARS-CoV-2 & FLU Antigen (Rapid) - Final Radiography Diagnostic Testing: Radiology Impression Chest X-Ray 05/18/22 19:27 IMPRESSION: There are no acute findings. Electronically Signed: Armen Connolly MD at 19:43 EST Reading Location ID and State: [address] [place] [address] , Service support , Rhythm Strip Rhythm Strip: Sinus Tach Rate: 110 Ectopy: None Physical Exam Const alert and oriented x3 HEENT head/scalp atraumatic, moist oral mucous membranes and oropharynx normal Head and Scalp: normocephalic Mouth: oral and palatal mucosa normal Eyes PERRL, EOMs intact bilaterally and conjunctivae normal Neck no lymphadenopathy and supple Resp Resp Narrative: diminished breath sounds bibasally, mild wheezing, no crackles. on 2L of oxygen by nasal canula Cardio regular rate, regular rhythm, S1 normal heart sound, S2 normal heart sound and no murmurs GI normal to inspection, nondistended, normoactive bowel sounds, soft to palpation and non-tender Extremity normal to inspection, full ROM and no clubbing, cyanosis or edema Neuro oriented x3, CN's II-XII intact bilaterally, moves all extremities and no focal motor deficits Sensorium / Orientation: awake and alert Motor Exam: strength 5/5 throughout Psych affect normal Assessment & Plan Assessment/Plan (1) Influenza: (2) Acute dyspnea: (3) Weakness: PLAN: Plan #HYpoxia due to influenza infection * on tamiflu * on 2L of oxygen. Titrate oxygen to maintain sats >90% * breathing treatment with bronchodilators * on PO prednisone; switch to IV solumedrol * check sputum for strep and legionella * * #GAGAN: on CPAP qhs #HFpEF: not in exacerbation. #COPD: not in exacerbation. On breathing treatment with bronchodilators #TYpe 2 diabetes mellitus: #Hypertension: on losartan and HCTZ as well as metoprolol #Hypothyroidism:on synthroid #Hyperlipidemia: on statin DVT prophylaxis: lovenox Charges/Coding Visit Charges Inpatient E&M: 88746 Subs Hosp L2
[2022-05-19 17:20] LABS: Bedside Glucose 354 mg/dL (74-106)
[2022-05-19 17:20] LABS: Bedside Glucose 324 mg/dL (74-106)
[2022-05-19] MEDS: ALPRAZolam 0.5 MG Tablet PO (22:54)
[2022-05-19 23:35] LABS: Bedside Glucose 373 mg/dL (74-106)
[2022-05-20] VITALS (12 sets, daily range): BP systolic 126–151; BP diastolic 68–93; PULSE 73–98; RESP 16–22; TEMP 36.5–36.9; O2SAT 90–96
[2022-05-20] MEDS: Levothyroxine 150 MCG Tablet PO (05:37)
[2022-05-20] MEDS: 0.9% Saline Lock 10 ML Syringe IV ×3 (05:37→21:11)
[2022-05-20] MEDS: BENZOCAINE/MENTHOL 1 LOZENGE MUCOUS MEM ×2 (05:55→21:12)
[2022-05-20] MEDS: Acetaminophen 325 MG Tablet 650 MG PO ×2 (05:55→21:11)
[2022-05-20] MEDS: Insulin Lispro 100 UNIT/ML INSULN.PEN SC ×4 (06:02→21:12)
[2022-05-20] MEDS: Metoprolol Tartrate 25 MG Tablet 12.5 MG PO ×2 (08:44→21:12)
[2022-05-20] MEDS: Aspirin 81 MG TAB.CHEW PO (08:44)
[2022-05-20] MEDS: Oseltamivir Phosphate 30 MG Capsule PO ×2 (08:44→21:11)
[2022-05-20] MEDS: guaiFENesin 1,200 MG Tablet 1200 MG PO ×2 (08:44→21:12)
[2022-05-20] MEDS: Calcium Carb/Vitamin D 1 TABLET Tablet PO (08:45)
[2022-05-20] MEDS: Multivitamins,Ther W-Minerals Tablet 1 TABLET PO (08:45)
[2022-05-20] MEDS: DULoxetine Hcl 60 MG Capsule PO (08:46)
[2022-05-20] MEDS: Losartan Potassium 25 MG Tablet PO (08:46)
[2022-05-20] MEDS: Enoxaparin 40 MG/0.4 ML Syringe SC (08:46)
[2022-05-20] MEDS: Pantoprazole Sodium 40 MG Tablet PO (08:46)
[2022-05-20 08:55] LABS: Absolute Lymphocyte Count 0.39 X10^3/uL (0.83-4.51); Absolute Neutrophil Count 11.7 X10^3/uL (2.0-7.7); Basophil# 0.01 X10^3/uL; Basophil% 0.1 % (0-1); Hematocrit 40.4 % (37-47); Hemoglobin 13.5 g/dL (12.0-15.0); Lymphocyte # 0.39 X10^3/ul (0.83-4.51); Mean Corp Hgb Conc 33.4 g/dL (32-36); Mean Corpuscular Hgb 31.1 pg (27.0-32.0); Mean Corpuscular Volume 93.1 fL (81-99); Mean Platelet Vol. 9.9 fl (6.2-12.0); Monocyte# 0.68 X10^3/uL; Monocyte% 5.3 % (0-10); NRBC Flagged by Analyzer 0 % (0-5); Neutrophil # 11.65 X10^3/uL (2.7-7.7); Neutrophil % 90.6 % (47-70); POSITIVE DIFFERENTIAL YES; Platelet Count 322 K/mm3 (150-450); RBC Distribution Width CV 13.7 % (11.6-14.6); RBC Distribution Width SD 46.5 fl (35.1-43.9); Red Blood Count 4.34 M/mm3 (4.2-5.4); White Blood Count 12.9 K/mm3 (4.4-11.0)
[2022-05-20 09:01] LABS: Differential Indicated SCAN CRITERIA MET
[2022-05-20 09:11] LABS: Anion Gap 5 (5-15); BUN 22 mg/dL (7-18); BUN/Creat Ratio 29.7 RATIO (10-20); Calcium,Total 9.7 mg/dL (8.5-10.1); Chloride 105 mmol/L (98-107); Creatinine, Serum 0.74 mg/dL (0.55-1.02); EST Glomerular Filtration Rate 83 mL/min (>60); Est Glom Filt Rate - Afr Amer 101 mL/min (>60); Estimated Creatinine Clearance 43.77 ml/min; Glucose 302 mg/dL (74-106); Potassium 4.3 mmol/L (3.5-5.1); Sodium Level 135 mmol/L (136-145)
[2022-05-20] MEDS: Ipratropium/Albuterol Sulfate 3 ML AMPUL.NEB INHALATION ×3 (10:47→19:16)
--- NOTE | 2022-05-20 11:42 | CASEMGMT ---
Addendum entered by Radha Estrada 05/20/22 12:59: Received acceptance from [facility]. Pt updated. Original Note: LORENA CM in to pt room, pt has chosen the DELIMBER OPERATOR in the following order: [facility], [facility] and [facility]. Ref[facility] at [facility].
[2022-05-20 12:14] LABS: Bedside Glucose 337 mg/dL (74-106)
[2022-05-20 12:14] LABS: Bedside Glucose 367 mg/dL (74-106)
--- NOTE | 2022-05-20 14:06 | PN.HOSP_ITS ---
Subjective Subjective Patient seen and examined. She said she felt her influenza infection was getting better, but her breathing wasnt improving. She is still coughing. She denied any fever, chills, chest pain, palpitations, dizziness, nausea, vomiting or diarrhea. Review of systems was otherwise negative. Objective Data Objective Data Vital Signs: Vital Signs Temp Pulse Resp BP Pulse Ox O2 Del Method O2 Flow Rate 98.5 F 89 20 H 126/78 H 94 Nasal Cannula 3 05/20/22 11:10 05/20/22 11:11 05/20/22 11:11 05/20/22 11:10 05/20/22 11:10 05/20/22 11:10 05/20/22 13:07 FiO2 30 05/19/22 07:11 Oxygen Flow Rate (L/min) 3 Oxygen Delivery Method Nasal Cannula Weight: 216 lb 14.958 oz Body Mass Index (BMI) 38.4 Intake & Output: Intake and Output for Last 24 Hours 05/18/22 05/19/22 05/20/22 23:59 23:59 23:59 Intake Total 850 / 1450 1600 / 1600 Balance 850 / 1450 1600 / 1600 Lab / Micro Data Result Diagrams: 05/20/22 08:48 05/20/22 08:48 Labs: Laboratory Results - last 24 hr 05/19/22 10:53: POC Glucose 324 H 05/19/22 16:55: POC Glucose 354 H 05/19/22 22:56: POC Glucose 373 H 05/20/22 06:01: POC Glucose 337 H 05/20/22 08:48: WBC 12.9 H, RBC 4.34, Hgb 13.5, Hct 40.4, MCV 93.1, MCH 31.1, MCHC 33.4, RDW Std Deviation 46.5 H, RDW Coeff of Monet 13.7, Plt Count 322, MPV 9.9, Immature Gran % (Auto) 1.000 H, Neut % (Auto) 90.6 H, Lymph % (Auto) 3.0 L, [place] % (Auto) 5.3, Eos % (Auto) 0.0, Baso % (Auto) 0.1, Absolute Neuts (auto) 11.7 H, Absolute Lymphs (auto) 0.39 L, Nucleated RBC % 0, Differential Comment COMMENT 05/20/22 08:48: Sodium 135 L, Potassium 4.3, Chloride 105, Carbon Dioxide 25.0, Anion Gap 5, BUN 22 H, Creatinine 0.74, Estim Creat Clear Calc 43.77, Est GFR (MDRD) Af Amer 101, Est GFR (MDRD) Non-Af 83, BUN/Creatinine Ratio 29.7 H, Glucose 302 H, Calcium 9.7 05/20/22 11:06: POC Glucose 367 H Micro: Microbiology 05/19/22 16:00 Sputum, Expectorated/Coughed Gram Stain - Final 05/19/22 16:00 Sputum, Expectorated/Coughed Respiratory Culture - Preliminary Appears to be normal respiratory adrian. Further studies to follow. 05/19/22 14:06 Urine, Clean Catch Legionella Antigen - Final 05/19/22 14:06 Urine, Clean Catch Streptococcus pneumoniae Antigen (M - Final 05/18/22 19:07 Nasal Secretion SARS-CoV-2 & FLU Antigen (Rapid) - Final Rhythm Strip Rhythm Strip: Sinus Tach Rate: 110 Ectopy: None Physical Exam Const alert, oriented x3 and no apparent distress HEENT head/scalp atraumatic, moist oral mucous membranes and oropharynx normal Head and Scalp: normocephalic Mouth: oral and palatal mucosa normal Eyes PERRL, EOMs intact bilaterally and conjunctivae normal Neck no lymphadenopathy and supple Resp Resp Narrative: diminished breath sounds bibasally, mild wheezing, no crackles. on 3L of oxygen by nasal canula Cardio regular rate, regular rhythm, S1 normal heart sound, S2 normal heart sound and no murmurs GI normal to inspection, nondistended, normoactive bowel sounds, soft to palpation and non-tender Extremity normal to inspection, full ROM and no clubbing, cyanosis or edema Neuro oriented x3, CN's II-XII intact bilaterally, moves all extremities and no focal motor deficits Sensorium / Orientation: awake and alert Motor Exam: strength 5/5 throughout Psych affect normal Assessment & Plan Assessment/Plan (1) Influenza: (2) Acute dyspnea: (3) Weakness: PLAN: Plan #HYpoxia due to influenza infection * on tamiflu * on 3L of oxygen today. Titrate oxygen to maintain sats >90% * breathing treatment with bronchodilators * on PO prednisone; switch to IV solumedrol * check sputum for strep and legionella * #GAGAN: on CPAP qhs #HFpEF: not in exacerbation. #COPD: not in exacerbation. On breathing treatment with bronchodilators #TYpe 2 diabetes mellitus: on metformin. ISS> Accuchecks ACHS #Hypertension: on losartan and HCTZ as well as metoprolol #Hypothyroidism:on synthroid #Hyperlipidemia: on statin DVT prophylaxis: lovenox Charges/Coding Visit Charges Inpatient E&M: 47095 Subs Hosp L2
[2022-05-20 16:25] LABS: Bedside Glucose 438 mg/dL (74-106)
[2022-05-20] MEDS: MELATONIN 10 MG TABLET PO (21:11)
[2022-05-20] MEDS: Atorvastatin Calcium 40 MG Tablet PO (21:12)
[2022-05-20 21:40] LABS: Bedside Glucose 437 mg/dL (74-106)
[2022-05-21] VITALS (14 sets, daily range): BP systolic 129–149; BP diastolic 61–75; PULSE 72–93; RESP 16–22; TEMP 36.6–37.1; O2SAT 93–97
[2022-05-21] MEDS: Levothyroxine 150 MCG Tablet PO (06:40)
[2022-05-21] MEDS: 0.9% Saline Lock 10 ML Syringe IV (06:40)
[2022-05-21] MEDS: Insulin Lispro 100 UNIT/ML INSULN.PEN SC ×4 (06:40→22:02)
[2022-05-21 07:05] LABS: Bedside Glucose 306 mg/dL (74-106)
[2022-05-21] MEDS: Ipratropium/Albuterol Sulfate 3 ML AMPUL.NEB INHALATION ×4 (07:32→18:55)
[2022-05-21] MEDS: Metoprolol Tartrate 25 MG Tablet 12.5 MG PO ×2 (08:36→22:03)
[2022-05-21] MEDS: DULoxetine Hcl 60 MG Capsule PO (08:36)
[2022-05-21] MEDS: guaiFENesin 1,200 MG Tablet 1200 MG PO ×2 (08:36→22:03)
[2022-05-21] MEDS: Pantoprazole Sodium 40 MG Tablet PO (08:36)
[2022-05-21] MEDS: Oseltamivir Phosphate 30 MG Capsule PO ×2 (08:36→22:04)
[2022-05-21] MEDS: Multivitamins,Ther W-Minerals Tablet 1 TABLET PO (08:36)
[2022-05-21] MEDS: Calcium Carb/Vitamin D 1 TABLET Tablet PO (08:36)
[2022-05-21] MEDS: Losartan Potassium 25 MG Tablet PO (08:36)
[2022-05-21] MEDS: Aspirin 81 MG TAB.CHEW PO (08:37)
[2022-05-21] MEDS: Enoxaparin 40 MG/0.4 ML Syringe SC (08:37)
[2022-05-21] MEDS: predniSONE 20 MG Tablet 40 MG PO (11:02)
--- NOTE | 2022-05-21 11:06 | PN.HOSP_ITS ---
Subjective Subjective Patient seen and examined. She still feels like her breathing is not back to baseline. She is still wheezing a bit. She denies any feve, chills, cough, chest pain, palpitations, dizziness, nausea, vomiting or diarrhea. Review of systems is otherwise negative. Objective Data Objective Data Vital Signs: Vital Signs Temp Pulse Resp BP Pulse Ox O2 Del Method O2 Flow Rate 98.2 F 81 20 H 129/66 H 94 Nasal Cannula 2 05/21/22 11:04 05/21/22 11:04 05/21/22 11:04 05/21/22 11:04 05/21/22 11:04 05/21/22 11:04 05/21/22 11:04 FiO2 30 05/19/22 07:11 Oxygen Flow Rate (L/min) [ 2 AMBULATING with Oxygen #1] Oxygen Flow Rate (L/min) [At 2 REST with Oxygen] Oxygen Flow Rate (L/min) 2 Oxygen Delivery Method Nasal Cannula Weight: 216 lb 14.958 oz Body Mass Index (BMI) 38.4 Intake & Output: Intake and Output for Last 24 Hours 05/19/22 05/20/22 05/21/22 23:59 23:59 23:59 Intake Total 850 / 1450 2050 / 2350 700 / 700 Balance 850 / 1450 2050 / 2350 700 / 700 Lab / Micro Data Result Diagrams: 05/20/22 08:48 05/20/22 08:48 Labs: Laboratory Results - last 24 hr 05/20/22 06:01: POC Glucose 337 H 05/20/22 11:06: POC Glucose 367 H 05/20/22 16:00: POC Glucose 438 H 05/20/22 21:09: POC Glucose 437 H 05/21/22 06:38: POC Glucose 306 H Micro: Microbiology 05/19/22 16:00 Sputum, Expectorated/Coughed Gram Stain - Final 05/19/22 16:00 Sputum, Expectorated/Coughed Respiratory Culture - Preliminary Appears to be normal respiratory adrian. Further studies to follow. 05/19/22 14:06 Urine, Clean Catch Legionella Antigen - Final 05/19/22 14:06 Urine, Clean Catch Streptococcus pneumoniae Antigen (M - Final 05/18/22 19:07 Nasal Secretion SARS-CoV-2 & FLU Antigen (Rapid) - Final Rhythm Strip Rhythm Strip: Sinus Tach Rate: 110 Ectopy: None Physical Exam Const alert, oriented x3 and no apparent distress HEENT head/scalp atraumatic, moist oral mucous membranes and oropharynx normal Head and Scalp: normocephalic Mouth: oral and palatal mucosa normal Eyes PERRL, EOMs intact bilaterally and conjunctivae normal Neck no lymphadenopathy and supple Resp Resp Narrative: diminished breath sounds bibasally, mild wheezing, no crackles. on 2L of oxygen by nasal canula Cardio regular rate, regular rhythm, S1 normal heart sound, S2 normal heart sound and no murmurs GI normal to inspection, nondistended, normoactive bowel sounds, soft to palpation and non-tender Extremity normal to inspection, full ROM and no clubbing, cyanosis or edema Neuro oriented x3, CN's II-XII intact bilaterally, moves all extremities and no focal motor deficits Sensorium / Orientation: awake and alert Motor Exam: strength 5/5 throughout Psych affect normal Assessment & Plan Assessment/Plan (1) Influenza: (2) Acute dyspnea: (3) Weakness: PLAN: Plan #HYpoxia due to influenza infection * on tamiflu * on 2L of oxygen today. Titrate oxygen to maintain sats >90% * breathing is improving slowly. * breathing treatment with bronchodilators * will switch to PO prednisone today * strep and legionella antigens negative * #GAGAN: on CPAP qhs #HFpEF: not in exacerbation. #COPD: not in exacerbation. On breathing treatment with bronchodilators #TYpe 2 diabetes mellitus: * has been hyperglycemic, likely exacerbated by solumedrol. * on metformin. ISS. Accuchecks ACHS #Hypertension: on losartan and HCTZ as well as metoprolol #Hypothyroidism:on synthroid #Hyperlipidemia: on statin DVT prophylaxis: lovenox Disposition: for likely dc home tomorrow Charges/Coding Visit Charges Inpatient E&M: 79266 Subs Hosp L2
--- NOTE | 2022-05-21 11:14 | CASEMGMT ---
Addendum entered by Radha Estrada 05/21/22 15:35: Received notification from palliative liaison that pt signed for services. Original Note: LORENA العلي notified by Palliative Care that their liaison will be at the hospital today at 3p for pt to sign. LORENA العلي notified pt of this information and she is agreeable.
[2022-05-21 11:26] LABS: Bedside Glucose 362 mg/dL (74-106)
[2022-05-21] MEDS: BENZOCAINE/MENTHOL 1 LOZENGE MUCOUS MEM (16:06)
[2022-05-21 16:20] LABS: Bedside Glucose 373 mg/dL (74-106)
[2022-05-21] MEDS: MELATONIN 10 MG TABLET PO (22:03)
[2022-05-21] MEDS: Atorvastatin Calcium 40 MG Tablet PO (22:03)
[2022-05-21 22:30] LABS: Bedside Glucose 359 mg/dL (74-106)
[2022-05-22] VITALS (9 sets, daily range): BP systolic 125–149; BP diastolic 73–81; PULSE 63–91; RESP 18–24; TEMP 36.8–36.9; O2SAT 88–95
[2022-05-22] MEDS: Insulin Lispro 100 UNIT/ML INSULN.PEN SC ×2 (06:56→11:40)
[2022-05-22] MEDS: Levothyroxine 150 MCG Tablet PO (06:56)
[2022-05-22] MEDS: 0.9% Saline Lock 10 ML Syringe IV (06:57)
[2022-05-22 07:20] LABS: Bedside Glucose 228 mg/dL (74-106)
[2022-05-22] MEDS: Ipratropium/Albuterol Sulfate 3 ML AMPUL.NEB INHALATION ×2 (07:27→11:17)
[2022-05-22 07:53] LABS: Absolute Lymphocyte Count 1.02 X10^3/uL (0.83-4.51); Absolute Neutrophil Count 5.9 X10^3/uL (2.0-7.7); Basophil# 0.06 X10^3/uL; Basophil% 0.7 % (0-1); Eosinophil# 0.52 X10^3/uL; Hematocrit 41.3 % (37-47); Hemoglobin 13.8 g/dL (12.0-15.0); Lymphocyte # 1.02 X10^3/ul (0.83-4.51); Lymphocyte % 11.7 % (19-41); Mean Corp Hgb Conc 33.4 g/dL (32-36); Mean Corpuscular Hgb 30.6 pg (27.0-32.0); Mean Corpuscular Volume 91.6 fL (81-99); Mean Platelet Vol. 9.7 fl (6.2-12.0); Monocyte# 0.93 X10^3/uL; Monocyte% 10.7 % (0-10); NRBC Flagged by Analyzer 0 % (0-5); Neutrophil # 5.93 X10^3/uL (2.7-7.7); Neutrophil % 68.3 % (47-70); Platelet Count 291 K/mm3 (150-450); RBC Distribution Width CV 13.2 % (11.6-14.6); RBC Distribution Width SD 44.6 fl (35.1-43.9); Red Blood Count 4.51 M/mm3 (4.2-5.4); White Blood Count 8.7 K/mm3 (4.4-11.0)
[2022-05-22 08:17] LABS: Anion Gap 8 (5-15); BUN 22 mg/dL (7-18); BUN/Creat Ratio 28.2 RATIO (10-20); Calcium,Total 9.2 mg/dL (8.5-10.1); Chloride 101 mmol/L (98-107); Creatinine, Serum 0.78 mg/dL (0.55-1.02); EST Glomerular Filtration Rate 79 mL/min (>60); Est Glom Filt Rate - Afr Amer 95 mL/min (>60); Estimated Creatinine Clearance 45.78 ml/min; Glucose 217 mg/dL (74-106); Sodium Level 136 mmol/L (136-145)
[2022-05-22] MEDS: predniSONE 20 MG Tablet 40 MG PO (09:44)
[2022-05-22] MEDS: Pantoprazole Sodium 40 MG Tablet PO (09:45)
[2022-05-22] MEDS: Losartan Potassium 25 MG Tablet PO (09:45)
[2022-05-22] MEDS: Multivitamins,Ther W-Minerals Tablet 1 TABLET PO (09:45)
[2022-05-22] MEDS: Metoprolol Tartrate 25 MG Tablet 12.5 MG PO (09:45)
[2022-05-22] MEDS: Calcium Carb/Vitamin D 1 TABLET Tablet PO (09:45)
[2022-05-22] MEDS: Oseltamivir Phosphate 30 MG Capsule PO (09:45)
[2022-05-22] MEDS: guaiFENesin 1,200 MG Tablet 1200 MG PO (09:46)
[2022-05-22] MEDS: DULoxetine Hcl 60 MG Capsule PO (09:46)
[2022-05-22] MEDS: Enoxaparin 40 MG/0.4 ML Syringe SC (09:46)
[2022-05-22] MEDS: Aspirin 81 MG TAB.CHEW PO (09:46)
[2022-05-22 12:06] LABS: Bedside Glucose 296 mg/dL (74-106)
--- NOTE | 2022-05-22 12:32 | CASEMGMT ---
Addendum entered by Radha Estrada 05/22/22 15:25: Provided pt with signed script for BGM. Pt is aware she can get this filled at her pharmacy. She is aware that [facility] will be in touch with her to set up services. She denies further homegoing needs. Addendum entered by Radha Estrada 05/22/22 13:55: Sent dc instructions to [facility] via [facility]. Original Note: Pt does not require increased oxygen. Updated [facility] that pt will dc today.
--- NOTE | 2022-05-22 13:40 | PCM.DC ---
Discharge Instructions Diet Discharge Diet: Low fat / Low cholesterol and 1800 Calorie Control Diet Activity Discharge Activity: Return to Normal Activity Weight Bearing Status: Weight bearing as tolerated Dressing / Incision Call your doctor if you observe: Fever of 101 or Higher, Shortness of breath, Dizziness, Swelling in the ankles and Chest pain Follow Up Care Test Results: Test results from this visit will be discussed in further detail at your follow-up appointment, if applicable. Discharge Plan Admission Admit Date/Time: 05/18/22 22:29 Primary Reason for Your Visit: influenza infection Attending Provider: Windy Acevedo Primary Care Provider: Silvia Jenkins NP Consulting Providers: Charlie Coppola Instructions Patient Instructions: ED Influenza (Adult) Discharge Orders/Prescriptions Prescriptions: New prednisone 20 mg Tablet 40 mg PO DAILYCM Qty: 10 0RF oseltamivir 30 mg Capsule 30 mg PO BID Qty: 2 0RF Continued acetaminophen [Tylenol] 325 mg tablet 325 mg PO ONCE PRN (Reason: Pain) (DME) hand rail for steps See Rx Instructions .Route .MEDSUPPLY Qty: 1 0RF Rx Instructions: As directed pantoprazole 40 MG tablet 40 mg PO DAILY Label Comments: ACID REFLUX calcium citrate-vitamin D3 1 EACH tablet 1 tab PO DAILY Label Comments: SUPPLEMENT alprazolam 0.5 MG tablet 0.5 mg PO TID PRN PRN (Reason: Anxiety) Label Comments: ANXIETY [id number]-[id number]-calcium carb-K1 1 EACH tablet 1 ea PO DAILY melatonin 5 mg tablet 10 mg PO QHS aspirin 81 MG tablet,chewable 81 mg PO DAILY duloxetine 60 MG capsule,delayed release(DR/EC) 60 mg PO DAILY metformin 500 mg tablet 500 mg PO BID Qty: 60 0RF metoprolol tartrate 25 mg tablet 12.5 mg PO BID Qty: 90 3RF atorvastatin 40 mg tablet 40 mg PO QHS Qty: 90 3RF levothyroxine 150 mcg tablet 150 mcg PO DAILY losartan 25 mg tablet 25 mg PO DAILY Qty: 90 3RF Referrals / Follow Up: Care Physician,No Primary [Non-Staff] - Silvia Jenkins NP, BUSINESS SUPPORT ASSISTANT-C [Primary Care Provider] - 05/30/22 11:00 am Disposition Disposition (needs filled in before D/C Order can be placed): Home Health Service
--- NOTE | 2022-05-22 13:43 | DS.PCM_ITS ---
Providers Date of Admission: 05/18/22 Date of Discharge: 05/22/22 Primary Care Physician: Silvia Jenkins, DENEEN Reason For Visit: INFLUENZA A INFECTION Diagnosis Discharge Diagnosis (1) Influenza: Status: Acute Code(s): J11.1 - Influenza due to unidentified influenza virus with other respiratory manifestations (2) Acute dyspnea: Status: Acute Code(s): R06.00 - Dyspnea, unspecified (3) Weakness: Status: Acute Code(s): R53.1 - Weakness Plan #HYpoxia due to influenza infection * on tamiflu * on 2L of oxygen today. Titrate oxygen to maintain sats >90% * breathing is improving slowly. * breathing treatment with bronchodilators * will switch to PO prednisone today * strep and legionella antigens negative * #GAGAN: on CPAP qhs #HFpEF: not in exacerbation. #COPD: not in exacerbation. On breathing treatment with bronchodilators #TYpe 2 diabetes mellitus: * has been hyperglycemic, likely exacerbated by solumedrol. * on metformin. ISS. Accuchecks ACHS #Hypertension: on losartan and HCTZ as well as metoprolol #Hypothyroidism:on synthroid #Hyperlipidemia: on statin DVT prophylaxis: lovenox Disposition: for likely dc home tomorrow Medications at Discharge Home Medications alprazolam 0.5 mg tablet 0.5 mg PO TID PRN PRN Anxiety 06/19/14 calcium citrate 200 mg calcium-vitamin D3 6.25 mcg (250 unit) tablet 1 tab PO DAILY SUPPLEMENT 06/19/14 pantoprazole 40 mg tablet,delayed release 40 mg PO DAILY ACID REFLUX 06/19/14 essvabsy-oxv-zpgbi ac 400 mcg-calcium carb 500 mg-vit K1 20 mcg tablet 1 ea PO DAILY SUPPLEMENT 09/07/17 aspirin 81 mg chewable tablet 81 mg PO DAILY Check with primary doctor 03/15/20 duloxetine 60 mg capsule,delayed release 60 mg PO DAILY mood 03/15/20 metformin 500 mg tablet 500 mg PO BID Diabetes mellitus type II #60 tabs 03/17/20 melatonin 5 mg tablet 10 mg PO QHS sleep 12/31/20 metoprolol tartrate 25 mg tablet 12.5 mg PO BID HEART #90 tabs 07/04/21 atorvastatin 40 mg tablet 40 mg PO QHS CHOLESTEROL LOWERING #90 tabs 10/14/21 acetaminophen 325 mg tablet (Tylenol) 325 mg PO ONCE PRN Pain 12/31/21 levothyroxine 150 mcg tablet 150 mcg PO DAILY thyroid 01/13/22 losartan 25 mg tablet 25 mg PO DAILY #90 tabs 01/15/22 hand rail for steps #1 ea 04/25/22 oseltamivir 30 mg capsule 30 mg PO BID #2 caps 05/22/22 prednisone 20 mg tablet 40 mg PO DAILYCM #10 tabs 05/22/22 Hospital Course Operations None Procedures None Summary of Care Provided Minutes Spent on Discharge: 45 Hospital Course: Patient is a 67-year-old female with a past medical history as outlined was admitted through the ED on 05/18/2022 with a complaint of progressively worsening flulike symptoms for 2 days prior to admission. She had a cough productive of greenish sputum and fever with temperature of 100.6 Fahrenheit. He also had chills, fatigue and headache as well as weakness. She usually uses a baseline of 2 L of oxygen at home but helping requirements have increased. On admission she tested positive for influenza infection. She was started on breathing treatments and prednisone and also started on Tamiflu. Her symptoms gradually improved and her breathing improved. She was weaned down to her baseline 2 L of oxygen. She felt much better. Though she was still having a cough she was able to complete sentences and felt her breathing had markedly improved from when she came in. She remained stable and was discharged home on 05/22/2022. She is to follow up with her PCP within 1-2 weeks. She was discharged with a prescription for Tamiflu to complete a 5-day course. Patient seen and examined prior to discharge. She felt much better and had no active complaints. She had an uneventful night and review of systems otherwise negative. Labs and vitals reviewed. Home medication reviewed and reconciled. Physical Exam Const alert, oriented x3 and no apparent distress General Appearance: cooperative, comfortable and well kempt Orientation / Consciousness: awake Exam Limitations: no limitations HEENT normocephalic, head/scalp atraumatic, hearing grossly normal bilaterally, moist oral mucous membranes and oropharynx normal Eyes PERRL, EOMs intact bilaterally and conjunctivae normal Neck no lymphadenopathy and supple Resp Resp Narrative: diminished breath sounds bibasally, mild wheezing, no crackles. on 2L of oxygen by nasal canula. Breathing has improved. Cardio regular rate, regular rhythm, S1 normal heart sound, S2 normal heart sound and no murmurs GI normal to inspection, nondistended, normoactive bowel sounds, soft to palpation and non-tender Extremity normal to inspection, full ROM and no clubbing, cyanosis or edema Skin no rashes or lesions noted Neuro oriented x3, CN's II-XII intact bilaterally, moves all extremities and no focal motor deficits Sensorium / Orientation: awake and alert Motor Exam: strength 5/5 throughout Psych affect normal Weight / BMI Weight Weight: 216 lb 14.958 oz Body Mass Index (BMI) 38.4 ABG / Lab / Microbiology Data Result Diagrams: 05/22/22 07:45 05/22/22 07:45 Laboratory: Laboratory Results - last 24 hr 05/21/22 16:01: POC Glucose 373 H 05/21/22 22:00: POC Glucose 359 H 05/22/22 06:55: POC Glucose 228 H 05/22/22 07:45: WBC 8.7, RBC 4.51, Hgb 13.8, Hct 41.3, MCV 91.6, MCH 30.6, MCHC 33.4, RDW Std Deviation 44.6 H, RDW Coeff of Monet 13.2, Plt Count 291, MPV 9.7, Immature Gran % (Auto) 2.600 H, Neut % (Auto) 68.3, Lymph % (Auto) 11.7 L, Forest % (Auto) 10.7 H, Eos % (Auto) 6.0 H, Baso % (Auto) 0.7, Absolute Neuts (auto) 5.9, Absolute Lymphs (auto) 1.02, Nucleated RBC % 0 05/22/22 07:45: Sodium 136, Potassium 4.0, Chloride 101, Carbon Dioxide 27.0, Anion Gap 8, BUN 22 H, Creatinine 0.78, Estim Creat Clear Calc 45.78, Est GFR (MDRD) Af Amer 95, Est GFR (MDRD) Non-Af 79, BUN/Creatinine Ratio 28.2 H, Glucose 217 H, Calcium 9.2 05/22/22 11:38: POC Glucose 296 H Microbiology: Microbiology 05/19/22 16:00 Sputum, Expectorated/Coughed Gram Stain - Final 05/19/22 16:00 Sputum, Expectorated/Coughed Respiratory Culture - Final Moraxella(Meagan.)Catarrhalis 05/19/22 14:06 Urine, Clean Catch Legionella Antigen - Final 05/19/22 14:06 Urine, Clean Catch Streptococcus pneumoniae Antigen (M - Final 05/18/22 19:07 Nasal Secretion SARS-CoV-2 & FLU Antigen (Rapid) - Final D/C Instructions Discharge Diet: Low fat / Low cholesterol and 1800 Calorie Control Diet Weight Bearing Status: Weight bearing as tolerated Call your doctor if you observe: Fever of 101 or Higher, Shortness of breath, Dizziness, Swelling in the ankles and Chest pain Meaningful Use Info Meaningful Use Diagnoses (Choose all that apply): None applicable Discharge Plan Admission Admit Date/Time: 05/18/22 22:29 Primary Reason for Your Visit: influenza infection Attending Provider: Windy Acevedo Primary Care Provider: Silvia Jenkins NP Consulting Providers: Charlie Coppola Instructions Patient Instructions: ED Influenza (Adult) Discharge Orders/Prescriptions Prescriptions: New prednisone 20 mg Tablet 40 mg PO DAILYCM Qty: 10 0RF oseltamivir 30 mg Capsule 30 mg PO BID Qty: 2 0RF Continued acetaminophen [Tylenol] 325 mg tablet 325 mg PO ONCE PRN (Reason: Pain) (DME) hand rail for steps See Rx Instructions .Route .MEDSUPPLY Qty: 1 0RF Rx Instructions: As directed pantoprazole 40 MG tablet 40 mg PO DAILY Label Comments: ACID REFLUX calcium citrate-vitamin D3 1 EACH tablet 1 tab PO DAILY Label Comments: SUPPLEMENT alprazolam 0.5 MG tablet 0.5 mg PO TID PRN PRN (Reason: Anxiety) Label Comments: ANXIETY vm-bwb-sskrv-calcium carb-K1 1 EACH tablet 1 ea PO DAILY melatonin 5 mg tablet 10 mg PO QHS aspirin 81 MG tablet,chewable 81 mg PO DAILY duloxetine 60 MG capsule,delayed release(DR/EC) 60 mg PO DAILY metformin 500 mg tablet 500 mg PO BID Qty: 60 0RF metoprolol tartrate 25 mg tablet 12.5 mg PO BID Qty: 90 3RF atorvastatin 40 mg tablet 40 mg PO QHS Qty: 90 3RF levothyroxine 150 mcg tablet 150 mcg PO DAILY losartan 25 mg tablet 25 mg PO DAILY Qty: 90 3RF Referrals / Follow Up: Care Physician,No Primary [Non-Staff] - Silvia Jenknis NP, COLORIST FORMULATOR-C [Primary Care Provider] - 05/30/22 11:00 am Disposition Disposition (needs filled in before D/C Order can be placed): Home Health Service Charges/Coding Visit Charges Inpatient E&M: 10181 Disch Hosp
== END 2022-05-22 15:27 | disposition home health service (06) | DRG 194 ==
LOC: ED 21:38 → MS3 22:55
PROVIDERS: Admitting Provider Hospitalist; Emergency Provider Emergency Medicine; PCP Registered Nurse; Visit Provider Student in an Organized Health Care Education/Training Program
DX: J10.1 Influenza due to other identified influenza virus with other respiratory manifestations (principal); J44.0 Chronic obstructive pulmonary disease with (acute) lower respiratory infection; I50.32 Chronic diastolic (congestive) heart failure; J96.11 Chronic respiratory failure with hypoxia; I11.0 Hypertensive heart disease with heart failure; E11.65 Type 2 diabetes mellitus with hyperglycemia; E78.5 Hyperlipidemia, unspecified; M79.7 Fibromyalgia; I25.10 Atherosclerotic heart disease of native coronary artery without angina pectoris; E03.9 Hypothyroidism, unspecified; G47.33 Obstructive sleep apnea (adult) (pediatric); I25.2 Old myocardial infarction; E66.9 Obesity, unspecified; Z68.38 Body mass index [BMI] 38.0-38.9, adult; Z20.822 Contact with and (suspected) exposure to COVID-19; Z79.82 Long term (current) use of aspirin; Z79.84 Long term (current) use of oral hypoglycemic drugs; Z99.81 Dependence on supplemental oxygen; Z90.5 Acquired absence of kidney; Z87.891 Personal history of nicotine dependence; Z95.3 Presence of xenogenic heart valve; Z96.642 Presence of left artificial hip joint; Z95.1 Presence of aortocoronary bypass graft
CPT/HCPCS: 36415; 71045; 80048; 82962; 84484; 85025; 87070; 87077; 87205; 87428; 87449; 93005; 94640; 94660; 94762; 97110; 97162; 97166; 97530; 97535; 99251; 99285; J2997; A4216; G0463; J3490